=== PATIENT | male | born 1950 | race Caucasian/White ===

== ENCOUNTER 2016-07-19 12:52 | Inpatient (IN) | payer BC, MEDICAID ==
[~2016-07-19] VITALS: Ht 165.1 cm; Wt 81.8 kg
[2016-07-19 14:38] VITALS: Ht 165.1 cm; Wt 81.8 kg
[2016-07-19 14:54] VITALS: BP 136/90; PULSE 75; RESP 18
[2016-07-19] MEDS ORDERED: NACL 0.9% 3 ML SYG IV SCH (17:00)
[2016-07-19] MEDS ORDERED: ALBUTEROL/IPRATROPIUM (NEB) 3 ML AMP HHN PRN (17:00)
[2016-07-19] MEDS ORDERED: GLUCOSE GEL 15 GRAM TUBE PO PRN ×2 (17:00)
[2016-07-19] MEDS ORDERED: morphine 2 MG INJ IV PRN (17:00)
[2016-07-19] MEDS ORDERED: HYDROCODONE/APAP (5/325) TAB PO PRN (17:00)
[2016-07-19] MEDS ORDERED: ACETAMINOPHEN 325 MG TAB PO PRN (17:00)
[2016-07-19] MEDS ORDERED: DEXTROSE 50% 50 ML SYRINGE IV PRN ×2 (17:00)
[2016-07-19] MEDS ORDERED: ONDANSETRON 4 MG INJ IV PRN (17:00)
[2016-07-19] MEDS ORDERED: GLUCAGON 1 MG INJ IM PRN (17:00)
[2016-07-19] MEDS ORDERED: GLUCOSE GEL 15 GRAM TUBE BUCCAL PRN (17:00)
[2016-07-19] MEDS: INSULIN ASPART [NOVOLOG] 3 ML PEN SC SCH ×2 (17:53→20:45)
[2016-07-19] MEDS: DEXTROSE 5%-0.45% NACL 1,000 ML IV SCH (17:56)
[2016-07-19] MEDS ORDERED: ARTIFICIAL TEARS 15 ML OPH BOTH EYES PRN (18:00)
--- NOTE | 2016-07-19 18:01 | HP ---
DATE OF ADMISSION: 07/19/2016 CHIEF COMPLAINT: Left leg pain. HISTORY OF PRESENT ILLNESS: The patient is a 65-year-old male with history of stroke with seizure d isorder, atrial fibrillation, alcoholic cirrhosis, dysphagia status post PEG tube placement. Patien valdo resides in a group home facility. He was followed by Dr. López Jorge. The patient reportedl y fell at the group home facility and developed left leg pain. He had an x-ray of his left hip that showed displaced intertrochanteric fracture of the left proximal femur with avulsion of the le sser trochanter then had an x-ray of the left femur, which showed a reidentification of the previous ly noted intertrochanteric fracture. This patient does complain of pain in the left leg close to th e knee. He is a somewhat poor historian and history is obtained by documentation. PAST MEDICAL HISTORY: As per HPI. PAST SURGICAL HISTORY: Surgery of the liver, unclear what type. Left knee surgery. HOME MEDICATIONS: 1. Albuterol. 2. Artificial tear drops. 3. Vitamin C. 4. Benadryl. 5. Colace. 6. Eliquis. 7. Pepcid. 8. Iron. 9. Folic acid. 10. Keppra. 11. Lipitor. 12. Lopressor. 13. Insulin. 14. Paxil. 15. Thorazine. 16. Tylenol. ALLERGIES: No known drug allergies. FAMILY HISTORY: Mother had cancer. Brother has alcohol abuse and diabetes in the family. SOCIAL HISTORY: The patient used to drink pretty heavily and had developed cirrhosis of liver. The patient lives in a SNF. Unknown if he ever smoked or did drugs. REVIEW OF SYSTEMS: A 12-point review of systems unable to be obtained secondary to patient's poor m entation. His main complaint is left leg pain. PHYSICAL EXAMINATION: VITAL SIGNS: Temperature is 97.5, pulse 75, respiration is 18, BP is 136/90, saturation 92% on room air. GENERAL: Poor mentation in no acute distress. HEENT: Normocephalic, atraumatic. LUNGS: Clear to auscultation. CARDIOVASCULAR: Regular rate and rhythm. ABDOMEN: Surgical scars appreciated. Nondistended, nontender, soft. EXTREMITIES: No clubbing, cyanosis, or edema. MUSCULOSKELETAL: Tenderness to palpation in the left leg. LABORATORIES: Unavailable at this time. DIAGNOSTICS: Left femur x-ray shows an intertrochanteric fracture on the left side. X-ray of the l eft hip shows a displaced intertrochanteric fracture of the left proximal femur, consistent fracture . ASSESSMENT AND PLAN: 1. Left femur fracture. We will consult orthopedics, Dr. Obregon who will get 2D echo for preop clearance also get cardiology for preoperative clearance. Will give morphine and Tylenol for pain c ontrol. 2. Fall. Likely secondary comorbidities from stroke as well as seizures. No reported seizures pr ior to the onset of fall. We will follow up on 2D echo. 3. History of stroke with seizure disorder. Continue home Keppra. 4. Liver cirrhosis secondary to alcohol abuse. 5. Diabetes type 2. We will treat with sliding scale. 6. History of atrial fibrillation. We will continue home on anticoagulants. 7. Prophylaxis. Heparin. Dictated By: PREETI OLMOS MD BS/JEFFREY Conf#: [id number] DID#: [id number]
[2016-07-19 19:42] VITALS: BP 163/87; RESP 20
[2016-07-19 20:19] VITALS: BP 144/92
--- NOTE | 2016-07-19 20:19 | RADRPT ---
PROCEDURE: XR left Hip. CLINICAL INDICATION: Left hip pain. Fracture TECHNIQUE: AP and frog lateral views of the left hip were performed. COMPARISON: None. FINDINGS: Jagged abnormal fracture lucencies coursing obliquely through the intertrochanteric region are prese nt. Additional fracture through the base of the lesser trochanter is seen and there is mild varus di straction of the major fracture fragments without significant displacement. The femoral head is norm al in contour and the joint space preserved. The soft tissues are unremarkable. . RPTAT:HJJR IMPRESSION: Acute, closed, comminuted extracapsular intertrochanteric fracture of the proximal LEFT femur with m ild varus distraction of the major fracture fragments. Physician Rick Date Time Electronically viewed and signed by Physician Rick on 07/19/2016 20:19 JR/
[2016-07-19] MEDS: FAMOTIDINE 20 MG TAB GTB SCH (20:38)
[2016-07-19] MEDS: CHLORPROMAZINE 25 MG TAB GTB SCH (20:38)
[2016-07-19] MEDS: LEVETIRACETAM (100 MG/ML) 5ML CUP GTB SCH (20:38)
[2016-07-19] MEDS: ATORVASTATIN 10 MG TAB GTB SCH (20:39)
[2016-07-19] MEDS: METOPROLOL 25 MG TAB GTB SCH (20:39)
[2016-07-19] MEDS: SIROLIMUS 1 MG TAB GTB SCH (20:39)
[2016-07-19] MEDS: INSULIN GLARGINE [LANtus] 3 ML PEN SC SCH (20:41)
[2016-07-19] MEDS: DOCUSATE SODIUM 10 MG/ML (10ML CUP) GTB SCH (20:46)
[2016-07-19] MEDS: APIXABAN 5 MG TABLET GTB SCH (21:00)
[2016-07-19] MEDS ORDERED: HEPARIN 5,000 UNIT/0.5 ML VIAL SC SCH (21:00)
[2016-07-20] MEDS: INSULIN ASPART [NOVOLOG] 3 ML PEN SC SCH ×4 (00:54→17:53)
[2016-07-20] MEDS ORDERED: traMADol 50 MG TAB GTB PRN (01:00)
[2016-07-20] MEDS ORDERED: ACCU-CHEK XX SCH (02:00)
--- NOTE | 2016-07-20 02:50 | CONS ---
DATE OF ADMISSION: 07/19/2016 DATE OF CONSULTATION: ORTHOPEDIC CONSULTATION CHIEF COMPLAINT: Left hip pain. HISTORY OF PRESENT ILLNESS: The patient is a 65-year-old male who sustained a fall injuring the lef t hip. He is unable to ambulate. PHYSICAL EXAMINATION: On presentation, the skin is intact. Compartments are soft. The respiratory status is intact. X-ray report from [facility] is indicative of an intratrochanteric fracture. X-ray films are not available at this time. RECOMMENDATIONS: I recommend that current x-rays be taken for documentation of the fracture and det ermination of treatment. At this point in time, the plan is for the patient to have medical and car diac clearance and we will plan on surgery for left hip nailing when medically cleared. Dictated By: DEVEN BENNETT/JEFFREY Conf#: [id number] DID#: [id number]
[2016-07-20] MEDS: DEXTROSE 5%-0.45% NACL 1,000 ML IV SCH ×2 (05:24→17:49)
[2016-07-20 06:02] LABS: ADD SCAN DIFF NO
[2016-07-20 06:23] LABS: BASOPHILS % 0.2 % (0.0-2.0); EOSINOPHILS # 0.3 10^3/ul (0.0-0.5); EOSINOPHILS % 3.4 % (0.0-7.0); HEMATOCRIT 31.9 % (42.0-52.0); HEMOGLOBIN 10.2 g/dl (14.0-18.0); LYMPHOCYTES # 1.1 10^3/ul (0.8-2.9); LYMPHOCYTES % 13.3 % (15.0-51.0); MEAN CORPUSCULAR HEMOGLOBIN 30.1 pg (29.0-33.0); MEAN CORPUSCULAR VOLUME 94.1 fl (82.0-101.0); MEAN PLATELET VOLUME 10.5 fl (7.4-10.4); MONOCYTE # 0.6 10^3/ul (0.3-0.9); MONOCYTES % 7.6 % (0.0-11.0); NEUTROPHIL # 6.2 10^3/ul (1.6-7.5); PLATELET COUNT 131 10^3/UL (140-415); RED BLOOD COUNT 3.39 10^6/ul (4.70-6.10); RED CELL DISTRIBUTION WIDTH 14.7 % (11.5-14.5); WHITE BLOOD COUNT 8.3 10^3/ul (4.8-10.8)
[2016-07-20 06:29] LABS: POTASSIUM 4.1 mmol/L (3.5-5.1)
[2016-07-20 06:31] LABS: CREATININE 1.01 mg/dl (0.61-1.24)
[2016-07-20 06:32] LABS: CALCIUM 8.3 mg/dl (8.4-10.2); PHOSPHORUS 2.4 mg/dl (2.5-4.9)
[2016-07-20 06:33] LABS: MAGNESIUM 1.9 mg/dl (1.7-2.5)
[2016-07-20 08:19] VITALS: BP 141/70; RESP 18
[2016-07-20] MEDS: LEVETIRACETAM (100 MG/ML) 5ML CUP GTB SCH ×2 (09:00→20:11)
[2016-07-20] MEDS: FAMOTIDINE 20 MG TAB GTB SCH ×2 (09:00→20:11)
[2016-07-20] MEDS: SIROLIMUS 1 MG TAB GTB SCH ×2 (09:00→20:11)
[2016-07-20] MEDS: PAROXETINE 20 MG TAB GTB SCH (09:00)
[2016-07-20] MEDS: METOPROLOL 25 MG TAB GTB SCH ×2 (09:00→20:11)
[2016-07-20] MEDS: DOCUSATE SODIUM 10 MG/ML (10ML CUP) GTB SCH ×2 (09:00→20:11)
[2016-07-20] MEDS: APIXABAN 5 MG TABLET GTB SCH ×2 (09:00→20:22)
[2016-07-20] MEDS: BENAZEPRIL 10 MG TAB PO SCH (14:30)
--- NOTE | 2016-07-20 14:54 | CONS ---
DATE OF ADMISSION: 07/19/2016 DATE OF CONSULTATION: 07/20/2016 REASON FOR CONSULTATION: Preoperative evaluation. REQUESTING PHYSICIAN: Dr. Kanchan Cerrato from the hospitalist service. HISTORY OF PRESENT ILLNESS: Mr. Pradhan is a 65-year-old male with a history of prior stroke, seizure disorder, atrial fibrillation, cirrhosis, dysphagia, status post PEG, status post left knee surgery who presented from a shelter facility status post fall x2. Per patient, he slipped and fell. The patient subsequently had left hip pain and was brought here to the emergency department. Upon arrival, temperature 97.5, blood pressure 136/90, pulse 75, respiratory rate 18, saturating 92%. The patient's labs revealed a white cell count of 8.3, hemoglobin 10.2, platelet count 131. Sodium 138, potassium 4.1, creatinine of 1.0, BUN 25. Magnesium 1.9. The patient underwent a hip x-ray revealing acute closed comminuted extracapsular intratrochanteric fracture of the proximal left femur with mild varus distraction of the major fracture elements. The patient does not have electronic current chart for my review at this time. The patient has been admitted to the floor and since admitted to the floor, denies chest pain, shortness of breath. He has had some uncontrolled blood pressures as high as the 160s, most recently 140 systolic. PAST MEDICAL HISTORY: As above in HPI. MEDICATIONS CURRENTLY IN HOSPITAL: 1. Paxil 20 mg daily. 2. Insulin sliding scale. 3. Ultram p.r.n. 4. Keppra 750 mg p.o. b.i.d. 5. Metoprolol 12.5 mg p.o. b.i.d. 6. Pepcid 20 mg p.o. b.i.d. 7. Sirolimus 3 mg b.i.d. 8. Apixaban 5 mg b.i.d. 9. Thorazine. 10. Lipitor 10 mg at bedtime. 11. Colace 100 mg b.i.d. 12. Lantus. 13. Tylenol p.r.n. 14. [place] p.r.n. 15. IV fluid hydration at 80 mL an hour. ALLERGIES: MORPHINE. SOCIAL HISTORY: No tobacco, ETOH, or illicit drug use. FAMILY HISTORY: No history of sudden cardiac or early CAD. REVIEW OF SYSTEMS: As above in HPI. CONSTITUTIONAL: No fevers, chills. PULMONARY: No current signs of respiratory compromise. GASTROINTESTINAL: Dysphagia status post G-tube. GENITOURINARY: No hematuria. MUSCULOSKELETAL: Degenerative joint disease. PSYCHIATRIC: The patient denies depression. NEUROLOGIC: No documented history of CVA. ENDOCRINE: No documented history of thyroid disease. Positive diabetes mellitus. PHYSICAL EXAMINATION: VITAL SIGNS: Temperature 98, blood pressure 141/70, pulse 82, respiration 18, saturating 98%. GENERAL: The patient is alert, awake, complaining of left hip pain. NECK: JVP approximately 9 cm water. CHEST: Fair air movement throughout. HEART: Regular rate and rhythm. Normal S1, S2, I/ systolic murmur, nondisplaced PMI. ABDOMEN: Positive bowel sounds, soft. EXTREMITIES: No pitting edema, 1+ pulses bilaterally, posterior tibial. LABORATORIES: As above in HPI with most recent from today sodium 138, potassium 4.1, creatinine 0.10, BUN 25. White blood cell count 8.3, platelet count 131. IMAGING STUDIES: As above in HPI. No further imaging studies for my review at this time. ECG: No electrocardiograms for my review at this time. IMPRESSION: 1. Preoperative evaluation prior to surgery for femur fracture. 2. Status post fall. Rule out cardiac etiology. Rule out cardiac arrhythmia. 3. History of paroxysmal atrial fibrillation. 4. Hypertension, uncontrolled. 5. Diabetes mellitus. 6. Femur fracture, left lower extremity. 7. Possible seizure disorder by medications. 8. Dyslipidemia. RECOMMENDATIONS: 1. At this time, would check a baseline EKG now to assess for any significant abnormalities and a repeat EKG after completion of rule out. 2. Check troponins q. 6 x3 to make sure that the patient's fall was not due to any acute coronary syndrome versus acute myocardial infarction in a preoperative state. 3. We will continue the patient's beta bari and follow up blood pressure and heart rate after receiving with probable need for up titration. 4. Check a 2D echocardiogram to further assess the patient's ejection fraction , wall motion, and any major valve abnormalities in the preoperative state. 5. Additionally check a fasting lipid panel for general risk stratification. 6. Hold the patient's apixaban in anticipation for the patient's surgery. 7. Pain control. 8. Further recommendations pertaining to the surgical candidacy of this patient will be made after completion of above studies including EKG assessment , 2D echo to assess ejection fraction, wall motion, rule any major valve abnormalities, and troponin analysis. Thank you for allowing me to take part in the care of this patient. I will continue to follow along very closely with you. Further recommendations will be made as the patient progresses through his inpatient hospital clinical course. Dictated By: SHIMA CHAN/JEFFREY Conf#: [id number] DID#: [id number] CC: KANCHAN CERRATO MD;*End* MTDD
--- NOTE | 2016-07-20 16:20 | PN ---
Date/Time of Note Date/Time of Note DATE: 07/20/16 TIME: 16:17 Assessment/Plan VTE Prophylaxis VTE Prophylaxis Intervention: heparin Lines/Catheters IV Catheter Type (from Nrs): Peripheral IV Assessment/Plan Chief Complaint/Hosp Course 1. Left femur fracture -plan is for surgery today -pain control -cardiology for preoperative clearance 2. Fall 2/2 comorbidities from stroke as well as seizures. No reported seizures prior to the onset of fall -Follow up on 2D echo 3. History of stroke with seizure disorder - Continue home Keppra. 4. Liver cirrhosis secondary to alcohol abuse s/p Transplant -cont transplant Rx 5. Diabetes type 2 -NISS 6. History of atrial fibrillation -continue home Eliquis Prophylaxis-Heparin Problems: Subjective 24 Hr Interval Summary Musculoskeletal: bone/joint pain Exam/Review of Systems Vital Signs Vitals Vital Signs Date Time Temp Pulse Resp B/P Pulse Ox O2 Delivery O2 Flow Rate FiO2 07/20/16 08:19 98.0 83 18 141/70 98 07/19/16 14:54 Room Air Intake and Output 07/19/16 07/19/16 07/20/16 15:00 23:00 07:00 Intake Total 1000 ml Output Total 1000 ml Balance 0 ml Exam Constitutional: alert Respiratory: clear to auscultation Cardiovascular: regular rate and rhythm Gastrointestinal: soft, No distended Musculoskeletal: nl extremities to inspection Results Result Diagram: 07/20/16 0500 07/20/16 0500 Results 24 hrs Laboratory Tests Test 07/19/16 17:18 07/19/16 20:36 07/20/16 00:49 07/20/16 05:00 Bedside Glucose 162 217 257 H White Blood Count 8.3 Red Blood Count 3.39 L Hemoglobin 10.2 L Hematocrit 31.9 L Mean Corpuscular Volume 94.1 Mean Corpuscular Hemoglobin 30.1 Mean Corpuscular Hemoglobin Concent 32.0 Red Cell Distribution Width 14.7 H Platelet Count 131 L Mean Platelet Volume 10.5 H Neutrophils % 75.0 Lymphocytes % 13.3 L Monocytes % 7.6 Eosinophils % 3.4 Basophils % 0.2 Nucleated Red Blood Cells % 0.0 Neutrophils # 6.2 Lymphocytes # 1.1 Monocytes # 0.6 Eosinophils # 0.3 Basophils # 0.0 Nucleated Red Blood Cells # 0.0 Sodium Level 138 Potassium Level 4.1 Chloride Level 106 Carbon Dioxide Level 22 Anion Gap 14 Blood Urea Nitrogen 25 H Creatinine 1.01 Glucose Level 252 H Hemoglobin A1c 6.4 H Calcium Level 8.3 L Phosphorus Level 2.4 L Magnesium Level 1.9 Test 07/20/16 05:26 07/20/16 11:57 Bedside Glucose 231 H 243 H Medications Medications Current Medications Ondansetron HCl (Zofran Inj) 4 mg Q6H PRN IV NAUSEA AND/OR VOMITING; Start at 17:00 Acetaminophen (Tylenol Tab) 650 mg Q6H PRN PO PAIN LEVEL 1-3 OR FEVER; Start at 17:00 Acetaminophen/ Hydrocodone Bitart 1 tab 1 tab Q6H PRN PO MODERATE PAIN LEVEL 4- 6; Start 07/19/16 at 17:00 Dextrose/Sodium Chloride (D5-1/2ns) 1,000 ml @ 80 mls/hr [id number] IV Last administered on 07/20/16 05:24; Admin Dose 80 MLS/HR; Start 07/19/16 at 17:00 Levetiracetam (Keppra Liquid) 750 mg BID GTB Last administered on 07/19/16 20: 38; Admin Dose 750 MG; Start 07/19/16 at 21:00 Famotidine (Pepcid) 20 mg BID GTB Last administered on 07/19/16 20:38; Admin Dose 20 MG; Start 07/19/16 at 21:00 Sirolimus (Rapamune) 3 mg BID GTB Last administered on 07/19/16 20:39; Admin Dose 3 MG; Start 07/19/16 at 21:00 Apixaban (Eliquis) 5 mg BID GTB ; Start 07/19/16 at 21:00 Insulin Glargine (Lantus) 20 unit DAILY@20 SC Last administered on 07/19/16 20 :41; Admin Dose 20 UNIT; Start 07/19/16 at 20:00 Eye Lubricant (Artificial Tears Oph) 2 drop Q6H PRN BOTH EYES DRY EYES; Start 07/19/16 at 18:00 Chlorpromazine (Thorazine) 25 mg QHS GTB Last administered on 07/19/16 20:38; Admin Dose 25 MG; Start 07/19/16 at 21:00 Paroxetine HCl (Paxil) 20 mg DAILY GTB ; Start 07/20/16 at 09:00 Atorvastatin Calcium (Lipitor) 10 mg HS GTB Last administered on 07/19/16 20: 39; Admin Dose 10 MG; Start 07/19/16 at 21:00 Docusate Sodium (Colace Liquid Cup) 100 mg BID GTB Last administered on 20:46; Admin Dose 100 MG; Start 07/19/16 at 21:00 Miscellaneous Information 1 ea NOTE XX ; Start 07/19/16 at 17:00 Glucose (Glutose) 15 gm Q15M PRN PO DECREASED GLUCOSE; Start 07/19/16 at 17:00 Glucose (Glutose) 22.5 gm Q15M PRN PO DECREASED GLUCOSE; Start 07/19/16 at 17: 00 Dextrose (D50w Syringe) 25 ml Q15M PRN IV DECREASED GLUCOSE; Start 07/19/16 at 17:00 Dextrose (D50w Syringe) 50 ml Q15M PRN IV DECREASED GLUCOSE; Start 07/19/16 at 17:00 Glucagon (Glucagen) 1 mg Q15M PRN IM DECREASED GLUCOSE; Start 07/19/16 at 17:00 Glucose (Glutose) 15 gm Q15M PRN BUCCAL DECREASED GLUCOSE; Start 07/19/16 at 17 :00 Insulin Aspart (Novolog Insulin Pen) NOVOLOG *MILD* ALGORI... Q6 SC Last administered on 07/20/16 12:12; Admin Dose 3 UNIT; Start 07/20/16 at 01:00 Tramadol HCl (Ultram) 50 mg Q6H PRN GTB PAIN LEVEL 1-5; Start 07/20/16 at 01:00 Tramadol HCl (Ultram) 100 mg Q6H PRN GTB PAIN LEVEL 6-10; Start 07/20/16 at 01: 00 Metoprolol Tartrate (Lopressor) 25 mg BID GTB ; Start 07/20/16 at 21:00 Benazepril HCl (Lotensin) 10 mg DAILY PO ; Start 07/20/16 at 14:30 PREETI OLMOS Jul 20, 2016 16:20
[2016-07-20 20:00] VITALS: BP 144/84; RESP 20
[2016-07-20] MEDS: ATORVASTATIN 10 MG TAB GTB SCH (20:11)
[2016-07-20] MEDS: INSULIN GLARGINE [LANtus] 3 ML PEN SC SCH (20:21)
--- NOTE | 2016-07-20 21:36 | RADRPT ---
Echocardiogram Report Patient Name: SALIMA STODDARD Gender: Male Date: 1950 Study Date: 20-Jul-2016 Tipple Operator: [facility] Location: [id number]-A Ref. Physician: PREETI OLMOS Quality: Limited Procedures: Transthoracic echocardiogram with complete 2D, M-Mode, and doppler examination. Indications: Pre-op. 2D/M Mode Doppler Measurement Value Normal Ranges Measurement Value Normal Ranges LVIDd 2D 3.7 3.5 - 5.6 cm AV Peak Otto 1.1 m/sec LVIDs 2D 2.6 2.1 - 4.1 cm AV Peak PG 4.7 mmHg LVPWd 2D 0.9 0.6 - 1.1 cm LVOT Peak Otto 0.8 m/sec IVSd 2D 1.0 0.6 - 1.1 cm LVOT Peak PG 2.6 mmHg AoR Diam 2D 2.2 2.0 - 3.7 cm TR Peak Otto 2.7 m/sec EDV 2D 59.8 cm3 TR Peak PG 29.9 mmHg ESV 2D 17.1 cm3 Findings Left Ventricle: Normal left ventricular systolic function. Normal left ventricular cavity size. Normal left ventricular wall thickness. Ejection fraction is visually estimated at 5560 %. Abnormal Diastolic Function. Right Ventricle: Mild enlargement of right ventricle. Left Atrium: There is mild enlargement of left atrium. Right Atrium: There is mild enlargement of right atrium. Mitral Valve: Mild mitral annular calcification. Trace mitral regurgitation. Aortic Valve: Normal appearance of the aortic valve. Trace aortic valve regurgitation. Tricuspid Valve: Tricuspid valve not well visualized. Estimated peak PA systolic pressure 36 mmHg. There is mild to moderate tricuspid regurgitation. Pulmonic Valve: There is trace pulmonic regurgitation. Pericardium: Normal pericardium with no significant pericardial effusion. Aorta: Normal aortic root. IVC: The IVC is not well visualized. Conclusions 1.Normal left ventricular systolic function. Normal left ventricular cavity size. Normal left ventricular wall thickness. Ejection fraction is visually estimated at 55-60 %. Abnormal Diastolic Function. 2.Mild enlargement of right ventricle. 3.There is mild enlargement of left atrium. 4.There is mild enlargement of right atrium. 5.Trace mitral regurgitation. 6.Trace aortic valve regurgitation. 7.Tricuspid valve not well visualized. Estimated peak PA systolic pressure 36 mmHg. There is mild to moderate tricuspid regurgitation. 8.There is trace pulmonic regurgitation. Electronically Signed By: Brent Moore 20-Jul-2016 21:35:37 -0700 Patient Name: SALIMA STODDARD Study Date: 20-Jul-2016 [id number]
[2016-07-20] MEDS: CHLORPROMAZINE 25 MG TAB GTB SCH (22:50)
[2016-07-21] MEDS: INSULIN ASPART [NOVOLOG] 3 ML PEN SC SCH ×4 (00:13→17:53)
[2016-07-21 05:49] LABS: ADD SCAN DIFF NO
[2016-07-21 06:06] LABS: POTASSIUM 3.7 mmol/L (3.5-5.1)
[2016-07-21 06:09] LABS: CREATININE 0.95 mg/dl (0.61-1.24)
[2016-07-21 06:10] LABS: CALCIUM 8.2 mg/dl (8.4-10.2)
[2016-07-21 06:15] LABS: BASOPHILS % 0.2 % (0.0-2.0); EOSINOPHILS # 0.1 10^3/ul (0.0-0.5); EOSINOPHILS % 0.9 % (0.0-7.0); HEMATOCRIT 30.7 % (42.0-52.0); HEMOGLOBIN 10.2 g/dl (14.0-18.0); LYMPHOCYTES # 1.1 10^3/ul (0.8-2.9); LYMPHOCYTES % 10.9 % (15.0-51.0); MEAN CORPUSCULAR HEMOGLOBIN 30.1 pg (29.0-33.0); MEAN CORPUSCULAR HGB CONC 33.2 g/dl (32.0-37.0); MEAN CORPUSCULAR VOLUME 90.6 fl (82.0-101.0); MONOCYTE # 1.1 10^3/ul (0.3-0.9); MONOCYTES % 10.9 % (0.0-11.0); NEUTROPHIL # 7.7 10^3/ul (1.6-7.5); NEUTROPHILS % 76.2 % (39.0-77.0); PLATELET COUNT 114 10^3/UL (140-415); RED BLOOD COUNT 3.39 10^6/ul (4.70-6.10); RED CELL DISTRIBUTION WIDTH 14.6 % (11.5-14.5); WHITE BLOOD COUNT 10.1 10^3/ul (4.8-10.8)
[2016-07-21] MEDS: DEXTROSE 5%-0.45% NACL 1,000 ML IV SCH ×3 (06:30→19:00)
[2016-07-21 06:50] LABS: ADD UMIC YES; URINE BILIRUBIN (Dip) NEGATIVE (NEGATIVE); URINE BLOOD (Dip) 1+ (NEGATIVE); URINE COLOR YELLOW (YELLOW); URINE GLUCOSE (Dip) NEGATIVE (NEGATIVE); URINE KETONES (Dip) NEGATIVE (NEGATIVE); URINE LEUKOCYTE ESTERASE (Dip) 2+ (NEGATIVE); URINE NITRITE (Dip) POSITIVE (NEGATIVE); URINE TOTAL PROTEIN (Dip) 4+ (NEGATIVE); URINE UROBILINOGEN (Dip) 0.2 E.U./dL (0.1-1.0)
[2016-07-21 07:01] LABS: CHOL/HDL RATIO 2.6 RATIO
[2016-07-21 07:29] LABS: BACTERIA,URINE MANY; URINE RBCS 25-50 /HPF (0)
[2016-07-21 08:20] VITALS: BP 124/68; PULSE 75; RESP 24
[2016-07-21] MEDS: PAROXETINE 20 MG TAB GTB SCH (09:00)
[2016-07-21] MEDS: DOCUSATE SODIUM 10 MG/ML (10ML CUP) GTB SCH ×2 (09:00→20:42)
[2016-07-21] MEDS: METOPROLOL 25 MG TAB GTB SCH ×2 (09:00→20:43)
[2016-07-21] MEDS: APIXABAN 5 MG TABLET GTB SCH (09:00)
[2016-07-21] MEDS: SIROLIMUS 1 MG TAB GTB SCH ×2 (09:00→20:43)
[2016-07-21] MEDS: FAMOTIDINE 20 MG TAB GTB SCH ×2 (09:00→20:43)
[2016-07-21] MEDS: LEVETIRACETAM (100 MG/ML) 5ML CUP GTB SCH ×2 (09:00→20:42)
[2016-07-21] MEDS: BENAZEPRIL 10 MG TAB PO SCH (09:00)
[2016-07-21] MEDS ORDERED: VITAMIN A & D 5 GM OINT PACKET TOP ONE (13:21)
[2016-07-21 15:39] VITALS: BP 110/72; PULSE 90; RESP 16
--- NOTE | 2016-07-21 16:31 | PN ---
Date/Time of Note Date/Time of Note DATE: 07/21/16 TIME: 16:18 Assessment/Plan VTE Prophylaxis VTE Prophylaxis Intervention: heparin Lines/Catheters IV Catheter Type (from Nrs): Peripheral IV Assessment/Plan Chief Complaint/Hosp Course 1. Left femur fracture -plan is for surgery possibly tomorrow -pain control -cardiology for preoperative clearance 2. Fall 2/2 comorbidities from stroke as well as seizures. No reported seizures prior to the onset of fall -2D echo shows no sig findings 3. History of stroke with seizure disorder - Continue home Keppra. 4. Liver cirrhosis secondary to alcohol abuse s/p Transplant -cont transplant Rx 5. Diabetes type 2 -NISS 6. History of atrial fibrillation -continue home Eliquis Prophylaxis-Heparin Problems: Subjective 24 Hr Interval Summary Musculoskeletal: bone/joint pain Exam/Review of Systems Vital Signs Vitals Vital Signs Date Time Temp Pulse Resp B/P Pulse Ox O2 Delivery O2 Flow Rate FiO2 07/21/16 15:39 97.9 90 16 110/72 96 07/21/16 08:20 Room Air Intake and Output 07/20/16 07/20/16 07/21/16 15:00 23:00 07:00 Intake Total 1080 ml 880 ml Output Total 600 ml 700 ml Balance 480 ml 180 ml Exam Constitutional: alert Respiratory: clear to auscultation Cardiovascular: regular rate and rhythm Gastrointestinal: soft, No distended Musculoskeletal: nl extremities to inspection Results Result Diagram: 07/21/16 0515 07/21/16 0515 Results 24 hrs Laboratory Tests Test 07/20/16 17:47 07/20/16 17:50 07/20/16 20:19 07/21/16 00:11 Bedside Glucose 267 H 256 H 301 H Troponin I 0.017 Test 07/21/16 00:30 07/21/16 05:00 07/21/16 05:15 07/21/16 05:36 Troponin I 0.041 0.050 Urine Color YELLOW Urine Clarity CLEAR Urine pH 8.5 Urine Specific [place] <=1.005 L Urine Ketones NEGATIVE Urine Nitrite POSITIVE H Urine Bilirubin NEGATIVE Urine Urobilinogen 0.2 E.U./dL Urine Leukocyte Esterase 2+ H Urine Microscopic RBC 25-50 Urine Microscopic WBC 25-50 Urine Bacteria MANY Urine Hemoglobin 1+ H Urine Glucose NEGATIVE Urine Total Protein 4+ H White Blood Count 10.1 # Red Blood Count 3.39 L Hemoglobin 10.2 L Hematocrit 30.7 L Mean Corpuscular Volume 90.6 Mean Corpuscular Hemoglobin 30.1 Mean Corpuscular Hemoglobin Concent 33.2 Red Cell Distribution Width 14.6 H Platelet Count 114 L Mean Platelet Volume 10.0 Neutrophils % 76.2 Lymphocytes % 10.9 L Monocytes % 10.9 Eosinophils % 0.9 Basophils % 0.2 Nucleated Red Blood Cells % 0.0 Neutrophils # 7.7 H Lymphocytes # 1.1 Monocytes # 1.1 H Eosinophils # 0.1 Basophils # 0.0 Nucleated Red Blood Cells # 0.0 Sodium Level 136 Potassium Level 3.7 Chloride Level 106 Carbon Dioxide Level 20 L Anion Gap 14 Blood Urea Nitrogen 22 H Creatinine 0.95 Glucose Level 239 H Calcium Level 8.2 L Triglycerides Level 101 Cholesterol Level 97 L LDL Cholesterol, Calculated 40 HDL Cholesterol 37 Cholesterol/HDL Ratio 2.6 Bedside Glucose 248 H Test 07/21/16 11:55 Bedside Glucose 195 Medications Medications Current Medications Ondansetron HCl (Zofran Inj) 4 mg Q6H PRN IV NAUSEA AND/OR VOMITING; Start at 17:00 Acetaminophen (Tylenol Tab) 650 mg Q6H PRN PO PAIN LEVEL 1-3 OR FEVER; Start at 17:00 Acetaminophen/ Hydrocodone Bitart 1 tab 1 tab Q6H PRN PO MODERATE PAIN LEVEL 4- 6; Start 07/19/16 at 17:00 Dextrose/Sodium Chloride (D5-1/2ns) 1,000 ml @ 80 mls/hr [id number] IV Last administered on 07/21/16 12:12; Admin Dose 80 MLS/HR; Start 07/19/16 at 17:00 Levetiracetam (Keppra Liquid) 750 mg BID GTB Last administered on 07/20/16 20: 11; Admin Dose 750 MG; Start 07/19/16 at 21:00 Famotidine (Pepcid) 20 mg BID GTB Last administered on 07/20/16 20:11; Admin Dose 20 MG; Start 07/19/16 at 21:00 Sirolimus (Rapamune) 3 mg BID GTB Last administered on 07/20/16 20:11; Admin Dose 3 MG; Start 07/19/16 at 21:00 Apixaban (Eliquis) 5 mg BID GTB ; Start 07/19/16 at 21:00 Insulin Glargine (Lantus) 20 unit DAILY@20 SC Last administered on 07/20/16 20 :21; Admin Dose 20 UNIT; Start 07/19/16 at 20:00 Eye Lubricant (Artificial Tears Oph) 2 drop Q6H PRN BOTH EYES DRY EYES; Start 07/19/16 at 18:00 Chlorpromazine (Thorazine) 25 mg QHS GTB Last administered on 07/20/16 22:50; Admin Dose 25 MG; Start 07/19/16 at 21:00 Paroxetine HCl (Paxil) 20 mg DAILY GTB ; Start 07/20/16 at 09:00 Atorvastatin Calcium (Lipitor) 10 mg HS GTB Last administered on 07/20/16 20: 11; Admin Dose 10 MG; Start 07/19/16 at 21:00 Docusate Sodium (Colace Liquid Cup) 100 mg BID GTB Last administered on 20:11; Admin Dose 100 MG; Start 07/19/16 at 21:00 Miscellaneous Information 1 ea NOTE XX ; Start 07/19/16 at 17:00 Glucose (Glutose) 15 gm Q15M PRN PO DECREASED GLUCOSE; Start 07/19/16 at 17:00 Glucose (Glutose) 22.5 gm Q15M PRN PO DECREASED GLUCOSE; Start 07/19/16 at 17: 00 Dextrose (D50w Syringe) 25 ml Q15M PRN IV DECREASED GLUCOSE; Start 07/19/16 at 17:00 Dextrose (D50w Syringe) 50 ml Q15M PRN IV DECREASED GLUCOSE; Start 07/19/16 at 17:00 Glucagon (Glucagen) 1 mg Q15M PRN IM DECREASED GLUCOSE; Start 07/19/16 at 17:00 Glucose (Glutose) 15 gm Q15M PRN BUCCAL DECREASED GLUCOSE; Start 07/19/16 at 17 :00 Insulin Aspart (Novolog Insulin Pen) NOVOLOG *MILD* ALGORI... Q6 SC Last administered on 07/21/16 12:06; Admin Dose 2 UNIT; Start 07/20/16 at 01:00 Tramadol HCl (Ultram) 50 mg Q6H PRN GTB PAIN LEVEL 1-5 Last administered on 00:11; Admin Dose 50 MG; Start 07/20/16 at 01:00 Tramadol HCl (Ultram) 100 mg Q6H PRN GTB PAIN LEVEL 6-10; Start 07/20/16 at 01: 00 Metoprolol Tartrate (Lopressor) 25 mg BID GTB Last administered on 07/20/16 20 :11; Admin Dose 25 MG; Start 07/20/16 at 21:00 Benazepril HCl (Lotensin) 10 mg DAILY PO ; Start 07/20/16 at 14:30 PREETI OLMOS Jul 21, 2016 16:28
--- NOTE | 2016-07-21 17:23 | RADRPT ---
Vent Rate: 81 bpm RR Interval: 0 msec AR Interval: 0 msec QRS Duration: 86 msec QT Interval: 364 msec QTC Interval: 422 msec P-R-T [place]: 0 - -63 - 96 degrees Atrial fibrillation Left axis deviation Possible Anterior infarct , age undetermined Abnormal ECG Electronically Signed By: Frankie Manriquez [id number]
--- NOTE | 2016-07-21 17:26 | RADRPT ---
PROCEDURE: XR Chest. CLINICAL INDICATION: Preoperative. TECHNIQUE: Single frontal view. COMPARISON: None. FINDINGS: The lungs are clear. The heart size is normal. There is calcification in the aorta consistent with atherosclerosis. There is no pleural effusion. There is no pneumothorax. IMPRESSION: 1. Atherosclerosis. 2. Clear lungs. RPTAT: QQ .Dave Garibay MD, MD Date Time Electronically viewed and signed by .Dave Garibay MD, MD on 07/21/2016 17:25 .R/
--- NOTE | 2016-07-21 17:27 | RADRPT ---
Vent Rate: 81 bpm RR Interval: 0 msec [place] Interval: 0 msec QRS Duration: 88 msec QT Interval: 338 msec QTC Interval: 392 msec P-R-T [place]: 0 - -43 - 103 degrees Atrial fibrillation Left axis deviation Nonspecific T wave abnormality , probably digitalis effect Abnormal ECG Electronically Signed By: Frankie Manriquez [id number]
--- NOTE | 2016-07-21 19:26 | CONS ---
Date/Time of Note Date/Time of Note DATE: 07/21/16 TIME: 19:19 Assessment/Plan Assessment/Plan Chief Complaint/Hosp Course IMPRESSION: 1. Preoperative evaluation prior to surgery for femur fracture.-negative troponin x 3/NL EF by echo with no contraindicated valve lesions. OK to proceed to surgery at this time at moderate risk without further noninvasive evaluation 2. Status post fall. Rule out cardiac etiology. Rule out cardiac arrhythmia. 3. History of paroxysmal atrial fibrillation.-In rate controlled AF by serial ecg's 4. Hypertension, uncontrolled. 5. Diabetes mellitus. 6. Femur fracture, left lower extremity. 7. Possible seizure disorder by medications. 8. Dyslipidemia. Recc: -Continue BB/ACEI -Contin statin -Pain control -Check post-op ecg and watch carefully for s/sx of cv complications -Holf eliquis in anticipation of surgery Problems: Consultation Date/Type/Reason Admit Date/Time Jul 19, 2016 at 13:38 Initial Consult Date 07/20/2016 Type of Consultation: Cardiology Reason for Consultation Pre-op Referring Provider: PREETI OLMOS Exam/Review of Systems Vital Signs Vitals Vital Signs Date Time Temp Pulse Resp B/P Pulse Ox O2 Delivery O2 Flow Rate FiO2 07/21/16 15:39 97.9 90 16 110/72 96 07/21/16 08:20 Room Air Intake and Output 07/20/16 07/20/16 07/21/16 15:00 23:00 07:00 Intake Total 1080 ml 880 ml Output Total 600 ml 700 ml Balance 480 ml 180 ml Exam Review of Systems: CONSTITUTIONAL: No fevers, chills. PULMONARY: No sob CARDIOVASCULAR: No chest pain/palpitations GASTROINTESTINAL: No nausea/vomiting. GENITOURINARY: No hematuria/dysuria. MUSCULOSKELETAL: No myagias/arthalgias. PSYCHIATRIC: The patient denies depression. NEUROLOGIC: lethargic Constitutional: other (sleeping) Psych: no complaints Head: normocephalic ENMT: mucosa pink and moist Neck: jvd (8 cm water), supple Respiratory: clear to auscultation Cardiovascular: irregular rhythm Gastrointestinal: non-tender, soft Musculoskeletal: muscle tone (normal) Extremities: edema (none) Neurological: other (No focal deficits) Results Result Diagram: 07/21/16 0515 07/21/16 0515 Results 24 hrs Laboratory Tests Test 07/20/16 20:19 07/21/16 00:11 07/21/16 00:30 07/21/16 05:00 Bedside Glucose 256 H 301 H Troponin I 0.041 Urine Color YELLOW Urine Clarity CLEAR Urine pH 8.5 Urine Specific [place] <=1.005 L Urine Ketones NEGATIVE Urine Nitrite POSITIVE H Urine Bilirubin NEGATIVE Urine Urobilinogen 0.2 E.U./dL Urine Leukocyte Esterase 2+ H Urine Microscopic RBC 25-50 Urine Microscopic WBC 25-50 Urine Bacteria MANY Urine Hemoglobin 1+ H Urine Glucose NEGATIVE Urine Total Protein 4+ H Test 07/21/16 05:15 07/21/16 05:36 07/21/16 11:55 07/21/16 17:40 White Blood Count 10.1 # Red Blood Count 3.39 L Hemoglobin 10.2 L Hematocrit 30.7 L Mean Corpuscular Volume 90.6 Mean Corpuscular Hemoglobin 30.1 Mean Corpuscular Hemoglobin Concent 33.2 Red Cell Distribution Width 14.6 H Platelet Count 114 L Mean Platelet Volume 10.0 Neutrophils % 76.2 Lymphocytes % 10.9 L Monocytes % 10.9 Eosinophils % 0.9 Basophils % 0.2 Nucleated Red Blood Cells % 0.0 Neutrophils # 7.7 H Lymphocytes # 1.1 Monocytes # 1.1 H Eosinophils # 0.1 Basophils # 0.0 Nucleated Red Blood Cells # 0.0 Sodium Level 136 Potassium Level 3.7 Chloride Level 106 Carbon Dioxide Level 20 L Anion Gap 14 Blood Urea Nitrogen 22 H Creatinine 0.95 Glucose Level 239 H Calcium Level 8.2 L Troponin I 0.050 Triglycerides Level 101 Cholesterol Level 97 L LDL Cholesterol, Calculated 40 HDL Cholesterol 37 Cholesterol/HDL Ratio 2.6 Bedside Glucose 248 H 195 239 H Medications Medications Current Medications Ondansetron HCl (Zofran Inj) 4 mg Q6H PRN IV NAUSEA AND/OR VOMITING; Start at 17:00 Acetaminophen (Tylenol Tab) 650 mg Q6H PRN PO PAIN LEVEL 1-3 OR FEVER; Start at 17:00 Acetaminophen/ Hydrocodone Bitart 1 tab 1 tab Q6H PRN PO MODERATE PAIN LEVEL 4- 6; Start 07/19/16 at 17:00 Dextrose/Sodium Chloride (D5-1/2ns) 1,000 ml @ 80 mls/hr [id number] IV Last administered on 07/21/16 12:12; Admin Dose 80 MLS/HR; Start 07/19/16 at 17:00 Levetiracetam (Keppra Liquid) 750 mg BID GTB Last administered on 07/20/16 20: 11; Admin Dose 750 MG; Start 07/19/16 at 21:00 Famotidine (Pepcid) 20 mg BID GTB Last administered on 07/20/16 20:11; Admin Dose 20 MG; Start 07/19/16 at 21:00 Sirolimus (Rapamune) 3 mg BID GTB Last administered on 07/20/16 20:11; Admin Dose 3 MG; Start 07/19/16 at 21:00 Apixaban (Eliquis) 5 mg BID GTB ; Start 07/19/16 at 21:00 Insulin Glargine (Lantus) 20 unit DAILY@20 SC Last administered on 07/20/16 20 :21; Admin Dose 20 UNIT; Start 07/19/16 at 20:00 Eye Lubricant (Artificial Tears Oph) 2 drop Q6H PRN BOTH EYES DRY EYES; Start 07/19/16 at 18:00 Chlorpromazine (Thorazine) 25 mg QHS GTB Last administered on 07/20/16 22:50; Admin Dose 25 MG; Start 07/19/16 at 21:00 Paroxetine HCl (Paxil) 20 mg DAILY GTB ; Start 07/20/16 at 09:00 Atorvastatin Calcium (Lipitor) 10 mg HS GTB Last administered on 07/20/16 20: 11; Admin Dose 10 MG; Start 07/19/16 at 21:00 Docusate Sodium (Colace Liquid Cup) 100 mg BID GTB Last administered on 20:11; Admin Dose 100 MG; Start 07/19/16 at 21:00 Miscellaneous Information 1 ea NOTE XX ; Start 07/19/16 at 17:00 Glucose (Glutose) 15 gm Q15M PRN PO DECREASED GLUCOSE; Start 07/19/16 at 17:00 Glucose (Glutose) 22.5 gm Q15M PRN PO DECREASED GLUCOSE; Start 07/19/16 at 17: 00 Dextrose (D50w Syringe) 25 ml Q15M PRN IV DECREASED GLUCOSE; Start 07/19/16 at 17:00 Dextrose (D50w Syringe) 50 ml Q15M PRN IV DECREASED GLUCOSE; Start 07/19/16 at 17:00 Glucagon (Glucagen) 1 mg Q15M PRN IM DECREASED GLUCOSE; Start 07/19/16 at 17:00 Glucose (Glutose) 15 gm Q15M PRN BUCCAL DECREASED GLUCOSE; Start 07/19/16 at 17 :00 Insulin Aspart (Novolog Insulin Pen) NOVOLOG *MILD* ALGORI... Q6 SC Last administered on 07/21/16 17:53; Admin Dose 3 UNIT; Start 07/20/16 at 01:00 Tramadol HCl (Ultram) 50 mg Q6H PRN GTB PAIN LEVEL 1-5 Last administered on 00:11; Admin Dose 50 MG; Start 07/20/16 at 01:00 Tramadol HCl (Ultram) 100 mg Q6H PRN GTB PAIN LEVEL 6-10; Start 07/20/16 at 01: 00 Metoprolol Tartrate (Lopressor) 25 mg BID GTB Last administered on 07/20/16 20 :11; Admin Dose 25 MG; Start 07/20/16 at 21:00 Benazepril HCl (Lotensin) 10 mg DAILY PO ; Start 07/20/16 at 14:30 SHIMA DIXON Jul 21, 2016 19:26
[2016-07-21 19:33] VITALS: BP 134/80; RESP 20
[2016-07-21] MEDS: INSULIN GLARGINE [LANtus] 3 ML PEN SC SCH (20:25)
[2016-07-21] MEDS: ATORVASTATIN 10 MG TAB GTB SCH (20:42)
[2016-07-21] MEDS: CHLORPROMAZINE 25 MG TAB GTB SCH (20:43)
[2016-07-22] VITALS (16 sets, daily range): BP systolic 107–166; BP diastolic 65–95; PULSE 72–85; RESP 13–22
[2016-07-22] MEDS: INSULIN ASPART [NOVOLOG] 3 ML PEN SC SCH ×4 (00:13→18:03)
[2016-07-22] MEDS: DEXTROSE 5%-0.45% NACL 1,000 ML IV SCH ×3 (02:21→23:27)
[2016-07-22 05:20] LABS: ADD SCAN DIFF NO
[2016-07-22 05:29] LABS: BASOPHILS % 0.1 % (0.0-2.0); EOSINOPHILS # 0.2 10^3/ul (0.0-0.5); EOSINOPHILS % 2.3 % (0.0-7.0); HEMATOCRIT 26.4 % (42.0-52.0); HEMOGLOBIN 8.6 g/dl (14.0-18.0); LYMPHOCYTES # 1.1 10^3/ul (0.8-2.9); LYMPHOCYTES % 13.8 % (15.0-51.0); MEAN CORPUSCULAR HEMOGLOBIN 29.9 pg (29.0-33.0); MEAN CORPUSCULAR HGB CONC 32.6 g/dl (32.0-37.0); MEAN CORPUSCULAR VOLUME 91.7 fl (82.0-101.0); MEAN PLATELET VOLUME 10.3 fl (7.4-10.4); MONOCYTE # 0.9 10^3/ul (0.3-0.9); MONOCYTES % 11.1 % (0.0-11.0); NEUTROPHIL # 5.9 10^3/ul (1.6-7.5); NEUTROPHILS % 72.2 % (39.0-77.0); PLATELET COUNT 112 10^3/UL (140-415); RED BLOOD COUNT 2.88 10^6/ul (4.70-6.10); RED CELL DISTRIBUTION WIDTH 14.7 % (11.5-14.5); WHITE BLOOD COUNT 8.2 10^3/ul (4.8-10.8)
[2016-07-22 06:02] LABS: POTASSIUM 3.8 mmol/L (3.5-5.1)
[2016-07-22 06:06] LABS: CALCIUM 7.9 mg/dl (8.4-10.2)
[2016-07-22] MEDS: METOPROLOL 25 MG TAB GTB SCH ×2 (08:36→22:32)
[2016-07-22] MEDS: BENAZEPRIL 10 MG TAB PO SCH (08:38)
[2016-07-22] MEDS: SIROLIMUS 1 MG TAB GTB SCH ×2 (08:39→22:33)
[2016-07-22] MEDS: PAROXETINE 20 MG TAB GTB SCH (08:39)
[2016-07-22] MEDS: DOCUSATE SODIUM 10 MG/ML (10ML CUP) GTB SCH ×2 (08:39→22:30)
[2016-07-22] MEDS: FAMOTIDINE 20 MG TAB GTB SCH ×2 (08:40→22:32)
[2016-07-22] MEDS: LEVETIRACETAM (100 MG/ML) 5ML CUP GTB SCH ×2 (08:44→22:31)
--- NOTE | 2016-07-22 12:59 | HPN ---
Date/Time of Note Date/Time of Note DATE: 07/22/16 TIME: 12:59 Interval H&P Admission Note Pt. seen H&P reviewed: No system changes DEVEN MARK MD Jul 22, 2016 12:59
--- NOTE | 2016-07-22 14:44 | CONS ---
Date/Time of Note Date/Time of Note DATE: 07/22/16 TIME: 14:43 Assessment/Plan Assessment/Plan Chief Complaint/Hosp Course IMPRESSION: 1. Preoperative evaluation prior to surgery for femur fracture.-negative troponin x 3/NL EF by echo with no contraindicated valve lesions. OK to proceed to surgery at this time at moderate risk without further noninvasive evaluation 2. Status post fall. Rule out cardiac etiology. Rule out cardiac arrhythmia. 3. History of paroxysmal atrial fibrillation.-In rate controlled AF by serial ecg's 4. Hypertension, uncontrolled. 5. Diabetes mellitus. 6. Femur fracture, left lower extremity. 7. Possible seizure disorder by medications. 8. Dyslipidemia. Recc: -Continue BB/ACEI -Contin statin -Pain control -Check post-op ecg and watch carefully for s/sx of cv complications -Holding eliquis in anticipation of surgery -pnding surgery ? today Problems: Consultation Date/Type/Reason Admit Date/Time Jul 19, 2016 at 13:38 Initial Consult Date 07/20/2016 Type of Consultation: Cardiology Reason for Consultation Pre-op Referring Provider: PREETI OLMOS Exam/Review of Systems Vital Signs Vitals Vital Signs Date Time Temp Pulse Resp B/P Pulse Ox O2 Delivery O2 Flow Rate FiO2 07/22/16 08:01 99.5 85 22 107/65 98 07/22/16 07:45 Room Air Intake and Output 07/21/16 07/21/16 07/22/16 15:00 23:00 07:00 Intake Total 1000 ml 560 ml 840 ml Output Total 350 ml 400 ml Balance 1000 ml 210 ml 440 ml Exam Review of Systems: CONSTITUTIONAL: No fevers, chills. PULMONARY: No sob CARDIOVASCULAR: No chest pain/palpitations GASTROINTESTINAL: No nausea/vomiting. GENITOURINARY: No hematuria/dysuria. MUSCULOSKELETAL: Pain in leg PSYCHIATRIC: The patient denies depression. NEUROLOGIC: lethargic Constitutional: alert Psych: no complaints Head: normocephalic ENMT: mucosa pink and moist Neck: jvd (8 cm water), supple Respiratory: clear to auscultation Cardiovascular: regular rate and rhythm Gastrointestinal: non-tender, soft Extremities: edema (none) Neurological: lethargic Results Result Diagram: 07/22/16 0450 07/22/16 0450 Results 24 hrs Laboratory Tests Test 07/21/16 17:40 07/21/16 20:21 07/22/16 00:04 07/22/16 04:50 Bedside Glucose 239 H 232 H 261 H White Blood Count 8.2 Red Blood Count 2.88 L Hemoglobin 8.6 L Hematocrit 26.4 L Mean Corpuscular Volume 91.7 Mean Corpuscular Hemoglobin 29.9 Mean Corpuscular Hemoglobin Concent 32.6 Red Cell Distribution Width 14.7 H Platelet Count 112 L Mean Platelet Volume 10.3 Neutrophils % 72.2 Lymphocytes % 13.8 L Monocytes % 11.1 H Eosinophils % 2.3 Basophils % 0.1 Nucleated Red Blood Cells % 0.0 Neutrophils # 5.9 Lymphocytes # 1.1 Monocytes # 0.9 Eosinophils # 0.2 Basophils # 0.0 Nucleated Red Blood Cells # 0.0 Sodium Level 133 L Potassium Level 3.8 Chloride Level 105 Carbon Dioxide Level 20 L Anion Gap 12 Blood Urea Nitrogen 26 H Creatinine 1.00 Glucose Level 275 H Calcium Level 7.9 L Test 07/22/16 06:02 07/22/16 12:30 Bedside Glucose 295 H 271 H Medications Medications Current Medications Ondansetron HCl (Zofran Inj) 4 mg Q6H PRN IV NAUSEA AND/OR VOMITING; Start at 17:00 Acetaminophen (Tylenol Tab) 650 mg Q6H PRN PO PAIN LEVEL 1-3 OR FEVER; Start at 17:00 Acetaminophen/ Hydrocodone Bitart 1 tab 1 tab Q6H PRN PO MODERATE PAIN LEVEL 4- 6; Start 07/19/16 at 17:00 Dextrose/Sodium Chloride (D5-1/2ns) 1,000 ml @ 80 mls/hr [id number] IV Last administered on 07/22/16 02:21; Admin Dose 80 MLS/HR; Start 07/19/16 at 17:00 Levetiracetam (Keppra Liquid) 750 mg BID GTB Last administered on 07/22/16 08: 44; Admin Dose 750 MG; Start 07/19/16 at 21:00 Famotidine (Pepcid) 20 mg BID GTB Last administered on 07/22/16 08:40; Admin Dose 20 MG; Start 07/19/16 at 21:00 Sirolimus (Rapamune) 3 mg BID GTB Last administered on 07/22/16 08:39; Admin Dose 3 MG; Start 07/19/16 at 21:00 Apixaban (Eliquis) 5 mg BID GTB ; Start 07/19/16 at 21:00; Status Future Hold Eye Lubricant (Artificial Tears Oph) 2 drop Q6H PRN BOTH EYES DRY EYES; Start 07/19/16 at 18:00 Chlorpromazine (Thorazine) 25 mg QHS GTB Last administered on 07/21/16 20:43; Admin Dose 25 MG; Start 07/19/16 at 21:00 Paroxetine HCl (Paxil) 20 mg DAILY GTB Last administered on 07/22/16 08:39; Admin Dose 20 MG; Start 07/20/16 at 09:00 Atorvastatin Calcium (Lipitor) 10 mg HS GTB Last administered on 07/21/16 20: 42; Admin Dose 10 MG; Start 07/19/16 at 21:00 Docusate Sodium (Colace Liquid Cup) 100 mg BID GTB Last administered on 08:39; Admin Dose 100 MG; Start 07/19/16 at 21:00 Miscellaneous Information 1 ea NOTE XX ; Start 07/19/16 at 17:00 Glucose (Glutose) 15 gm Q15M PRN PO DECREASED GLUCOSE; Start 07/19/16 at 17:00 Glucose (Glutose) 22.5 gm Q15M PRN PO DECREASED GLUCOSE; Start 07/19/16 at 17: 00 Dextrose (D50w Syringe) 25 ml Q15M PRN IV DECREASED GLUCOSE; Start 07/19/16 at 17:00 Dextrose (D50w Syringe) 50 ml Q15M PRN IV DECREASED GLUCOSE; Start 07/19/16 at 17:00 Glucagon (Glucagen) 1 mg Q15M PRN IM DECREASED GLUCOSE; Start 07/19/16 at 17:00 Glucose (Glutose) 15 gm Q15M PRN BUCCAL DECREASED GLUCOSE; Start 07/19/16 at 17 :00 Insulin Aspart (Novolog Insulin Pen) NOVOLOG *MILD* ALGORI... Q6 SC Last administered on 07/22/16 12:56; Admin Dose 4 UNIT; Start 07/20/16 at 01:00 Tramadol HCl (Ultram) 50 mg Q6H PRN GTB PAIN LEVEL 1-5 Last administered on 00:11; Admin Dose 50 MG; Start 07/20/16 at 01:00 Tramadol HCl (Ultram) 100 mg Q6H PRN GTB PAIN LEVEL 6-10; Start 07/20/16 at 01: 00 Metoprolol Tartrate (Lopressor) 25 mg BID GTB Last administered on 07/21/16 20 :43; Admin Dose 25 MG; Start 07/20/16 at 21:00 Benazepril HCl (Lotensin) 10 mg DAILY PO ; Start 07/20/16 at 14:30 Insulin Glargine (Lantus) 30 unit DAILY@20 SC ; Start 07/22/16 at 20:00 SHIMA DIXON Jul 22, 2016 14:44
--- NOTE | 2016-07-22 14:51 | PN ---
Date/Time of Note Date/Time of Note DATE: 07/22/16 TIME: 14:50 Assessment/Plan VTE Prophylaxis VTE Prophylaxis Intervention: heparin Lines/Catheters IV Catheter Type (from Nrs): Peripheral IV Assessment/Plan Chief Complaint/Hosp Course 1. Left femur fracture -plan is for surgery today -pain control -cardiology for preoperative clearance 2. Fall 2/2 comorbidities from stroke as well as seizures. No reported seizures prior to the onset of fall -2D echo shows no sig findings 3. History of stroke with seizure disorder - Continue home Keppra. 4. Liver cirrhosis secondary to alcohol abuse s/p Transplant -cont transplant Rx 5. Diabetes type 2 -NISS 6. History of atrial fibrillation -continue home Eliquis Prophylaxis-Heparin Problems: Subjective 24 Hr Interval Summary Musculoskeletal: bone/joint pain Exam/Review of Systems Vital Signs Vitals Vital Signs Date Time Temp Pulse Resp B/P Pulse Ox O2 Delivery O2 Flow Rate FiO2 07/22/16 08:01 99.5 85 22 107/65 98 07/22/16 07:45 Room Air Intake and Output 07/21/16 07/21/16 07/22/16 15:00 23:00 07:00 Intake Total 1000 ml 560 ml 840 ml Output Total 350 ml 400 ml Balance 1000 ml 210 ml 440 ml Exam Constitutional: alert Respiratory: clear to auscultation Cardiovascular: regular rate and rhythm Gastrointestinal: soft, No distended Musculoskeletal: nl extremities to inspection Results Result Diagram: 07/22/16 0450 07/22/16 0450 Results 24 hrs Laboratory Tests Test 07/21/16 17:40 07/21/16 20:21 07/22/16 00:04 07/22/16 04:50 Bedside Glucose 239 H 232 H 261 H White Blood Count 8.2 Red Blood Count 2.88 L Hemoglobin 8.6 L Hematocrit 26.4 L Mean Corpuscular Volume 91.7 Mean Corpuscular Hemoglobin 29.9 Mean Corpuscular Hemoglobin Concent 32.6 Red Cell Distribution Width 14.7 H Platelet Count 112 L Mean Platelet Volume 10.3 Neutrophils % 72.2 Lymphocytes % 13.8 L Monocytes % 11.1 H Eosinophils % 2.3 Basophils % 0.1 Nucleated Red Blood Cells % 0.0 Neutrophils # 5.9 Lymphocytes # 1.1 Monocytes # 0.9 Eosinophils # 0.2 Basophils # 0.0 Nucleated Red Blood Cells # 0.0 Sodium Level 133 L Potassium Level 3.8 Chloride Level 105 Carbon Dioxide Level 20 L Anion Gap 12 Blood Urea Nitrogen 26 H Creatinine 1.00 Glucose Level 275 H Calcium Level 7.9 L Test 07/22/16 06:02 07/22/16 12:30 Bedside Glucose 295 H 271 H Medications Medications Current Medications Ondansetron HCl (Zofran Inj) 4 mg Q6H PRN IV NAUSEA AND/OR VOMITING; Start at 17:00 Acetaminophen (Tylenol Tab) 650 mg Q6H PRN PO PAIN LEVEL 1-3 OR FEVER; Start at 17:00 Acetaminophen/ Hydrocodone Bitart 1 tab 1 tab Q6H PRN PO MODERATE PAIN LEVEL 4- 6; Start 07/19/16 at 17:00 Dextrose/Sodium Chloride (D5-1/2ns) 1,000 ml @ 80 mls/hr [id number] IV Last administered on 07/22/16 02:21; Admin Dose 80 MLS/HR; Start 07/19/16 at 17:00 Levetiracetam (Keppra Liquid) 750 mg BID GTB Last administered on 07/22/16 08: 44; Admin Dose 750 MG; Start 07/19/16 at 21:00 Famotidine (Pepcid) 20 mg BID GTB Last administered on 07/22/16 08:40; Admin Dose 20 MG; Start 07/19/16 at 21:00 Sirolimus (Rapamune) 3 mg BID GTB Last administered on 07/22/16 08:39; Admin Dose 3 MG; Start 07/19/16 at 21:00 Apixaban (Eliquis) 5 mg BID GTB ; Start 07/19/16 at 21:00; Status Future Hold Eye Lubricant (Artificial Tears Oph) 2 drop Q6H PRN BOTH EYES DRY EYES; Start 07/19/16 at 18:00 Chlorpromazine (Thorazine) 25 mg QHS GTB Last administered on 07/21/16 20:43; Admin Dose 25 MG; Start 07/19/16 at 21:00 Paroxetine HCl (Paxil) 20 mg DAILY GTB Last administered on 07/22/16 08:39; Admin Dose 20 MG; Start 07/20/16 at 09:00 Atorvastatin Calcium (Lipitor) 10 mg HS GTB Last administered on 07/21/16 20: 42; Admin Dose 10 MG; Start 07/19/16 at 21:00 Docusate Sodium (Colace Liquid Cup) 100 mg BID GTB Last administered on 08:39; Admin Dose 100 MG; Start 07/19/16 at 21:00 Miscellaneous Information 1 ea NOTE XX ; Start 07/19/16 at 17:00 Glucose (Glutose) 15 gm Q15M PRN PO DECREASED GLUCOSE; Start 07/19/16 at 17:00 Glucose (Glutose) 22.5 gm Q15M PRN PO DECREASED GLUCOSE; Start 07/19/16 at 17: 00 Dextrose (D50w Syringe) 25 ml Q15M PRN IV DECREASED GLUCOSE; Start 07/19/16 at 17:00 Dextrose (D50w Syringe) 50 ml Q15M PRN IV DECREASED GLUCOSE; Start 07/19/16 at 17:00 Glucagon (Glucagen) 1 mg Q15M PRN IM DECREASED GLUCOSE; Start 07/19/16 at 17:00 Glucose (Glutose) 15 gm Q15M PRN BUCCAL DECREASED GLUCOSE; Start 07/19/16 at 17 :00 Insulin Aspart (Novolog Insulin Pen) NOVOLOG *MILD* ALGORI... Q6 SC Last administered on 07/22/16 12:56; Admin Dose 4 UNIT; Start 07/20/16 at 01:00 Tramadol HCl (Ultram) 50 mg Q6H PRN GTB PAIN LEVEL 1-5 Last administered on 00:11; Admin Dose 50 MG; Start 07/20/16 at 01:00 Tramadol HCl (Ultram) 100 mg Q6H PRN GTB PAIN LEVEL 6-10; Start 07/20/16 at 01: 00 Metoprolol Tartrate (Lopressor) 25 mg BID GTB Last administered on 07/21/16 20 :43; Admin Dose 25 MG; Start 07/20/16 at 21:00 Benazepril HCl (Lotensin) 10 mg DAILY PO ; Start 07/20/16 at 14:30 Insulin Glargine (Lantus) 30 unit DAILY@20 SC ; Start 07/22/16 at 20:00 PREETI OLMOS Jul 22, 2016 14:51
[2016-07-22] MEDS ORDERED: FENTAnyl 50 MCG/ML VIAL ONE (18:36)
[2016-07-22] MEDS ORDERED: MIDAZOLAM 1 MG/ML 2 ML INJ ONE (18:36)
[2016-07-22] MEDS ORDERED: PHENYLephrine (100 MCG/ML) 5ML SYG ONE (18:49)
[2016-07-22] MEDS ORDERED: POLYMYXIN/BACITRACIN 1L IRRIG ONE (18:58)
[2016-07-22] MEDS ORDERED: LIDOCAINE 2% (SDV) 5 ML INJ ONE (19:23)
[2016-07-22] MEDS ORDERED: ETOMIDATE 20 MG INJ ONE (19:23)
[2016-07-22] MEDS ORDERED: CEFAZOLIN 1 GM INJ ONE (19:23)
[2016-07-22] MEDS ORDERED: ONDANSETRON 4 MG INJ ONE (19:24)
[2016-07-22] MEDS ORDERED: LABETALOL HCL 20MG INJ IV PRN (19:30)
[2016-07-22] MEDS ORDERED: FENTAnyl 50 MCG/ML VIAL IV PRN (19:30)
[2016-07-22] MEDS ORDERED: MEPERIDINE 25 MG INJ IV PRN (19:30)
[2016-07-22] MEDS ORDERED: ONDANSETRON 4 MG INJ IV PRN (19:30)
[2016-07-22] MEDS ORDERED: hydrALAzine 20 MG INJ IV PRN (19:30)
[2016-07-22] MEDS ORDERED: DIPHENHYDRAMINE 50 MG INJ IV PRN (19:30)
[2016-07-22] MEDS: ATORVASTATIN 10 MG TAB GTB SCH (22:32)
[2016-07-22] MEDS: INSULIN GLARGINE [LANtus] 3 ML PEN SC SCH (22:34)
[2016-07-22] MEDS: CHLORPROMAZINE 25 MG TAB GTB SCH (22:36)
[2016-07-23] VITALS (48 sets, daily range): BP systolic 50–140; BP diastolic 35–109; PULSE 62–92; RESP 14–31
[2016-07-23] MEDS: INSULIN ASPART [NOVOLOG] 3 ML PEN SC SCH ×5 (00:51→23:59)
[2016-07-23 06:15] LABS: ADD SCAN DIFF NO
[2016-07-23 06:34] LABS: BASOPHILS % 0.2 % (0.0-2.0); EOSINOPHILS # 0.3 10^3/ul (0.0-0.5); EOSINOPHILS % 3.7 % (0.0-7.0); HEMATOCRIT 27.3 % (42.0-52.0); HEMOGLOBIN 8.7 g/dl (14.0-18.0); LYMPHOCYTES # 1.3 10^3/ul (0.8-2.9); LYMPHOCYTES % 14.4 % (15.0-51.0); MEAN CORPUSCULAR HEMOGLOBIN 29.8 pg (29.0-33.0); MEAN CORPUSCULAR HGB CONC 31.9 g/dl (32.0-37.0); MEAN CORPUSCULAR VOLUME 93.5 fl (82.0-101.0); MEAN PLATELET VOLUME 10.9 fl (7.4-10.4); MONOCYTES % 11.5 % (0.0-11.0); NEUTROPHIL # 6.1 10^3/ul (1.6-7.5); NEUTROPHILS % 69.5 % (39.0-77.0); PLATELET COUNT 121 10^3/UL (140-415); RED BLOOD COUNT 2.92 10^6/ul (4.70-6.10); RED CELL DISTRIBUTION WIDTH 14.6 % (11.5-14.5); WHITE BLOOD COUNT 8.8 10^3/ul (4.8-10.8)
[2016-07-23 06:55] LABS: POTASSIUM 3.8 mmol/L (3.5-5.1)
[2016-07-23 06:58] LABS: CREATININE 1.01 mg/dl (0.61-1.24)
[2016-07-23 06:59] LABS: CALCIUM 7.9 mg/dl (8.4-10.2)
--- NOTE | 2016-07-23 07:17 | RADRPT ---
PROCEDURE: Left hip series CLINICAL INDICATION: Interpreted images of the left hip TECHNIQUE: 14 c-arm matrix images were obtained COMPARISON: Left hip series 07/19/2016 FINDINGS: 14 cm matrix images were obtained demonstrating localization and subsequent placement of fixation in volving the left femur stabilizing a left intertrochanteric fracture. There is anatomical alignment of the fracture fragments. No other acute fractures or dislocations. Bony detail is suboptimal. IMPRESSION: Fixation and stabilization of a nondisplaced left intertrochanteric fracture. RPTAT:AAJJ Physician Neida Date Time Electronically viewed and signed by Physician Neida on 07/23/2016 07:17 BM/
[2016-07-23] MEDS: DEXTROSE 5%-0.45% NACL 1,000 ML IV SCH (08:30)
[2016-07-23] MEDS: FAMOTIDINE 20 MG TAB GTB SCH ×2 (09:20→21:02)
[2016-07-23] MEDS: SIROLIMUS 1 MG TAB GTB SCH ×2 (09:20→21:02)
[2016-07-23] MEDS: METOPROLOL 25 MG TAB GTB SCH (09:20)
[2016-07-23] MEDS: BENAZEPRIL 10 MG TAB PO SCH (09:20)
[2016-07-23] MEDS: LEVETIRACETAM (100 MG/ML) 5ML CUP GTB SCH ×2 (09:20→21:02)
[2016-07-23] MEDS: PAROXETINE 20 MG TAB GTB SCH (09:20)
[2016-07-23] MEDS: DOCUSATE SODIUM 10 MG/ML (10ML CUP) GTB SCH ×2 (09:21→21:02)
[2016-07-23] MEDS ORDERED: SOD CHLORIDE 0.9% 500 ML IV ONE ×2 (11:00→11:30)
[2016-07-23] MEDS ORDERED: ACETAMINOPHEN 325 MG TAB PO PRN (11:00)
--- NOTE | 2016-07-23 11:49 | CONS ---
Date/Time of Note Date/Time of Note DATE: 07/23/16 TIME: 11:44 Assessment/Plan Assessment/Plan Chief Complaint/Hosp Course IMPRESSION: 1. Preoperative evaluation prior to surgery for femur fracture.-negative troponin x 3/NL EF by echo with no contraindicated valve lesions. OK to proceed to surgery at this time at moderate risk without further noninvasive evaluation. Now POD#1 s/p LE ORIF 2. Status post fall. Rule out cardiac etiology. Rule out cardiac arrhythmia. 3. History of paroxysmal atrial fibrillation.-In rate controlled AF by serial ecg's 4. 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 Diabetes mellitus. 6. Femur fracture, left lower extremity. 7. Possible seizure disorder by medications. 8. Dyslipidemia. 9. Abd distension Recc: -Tele monitoring in icu -Hold BB/ACEI -Contin statin -Pain control -12 lead ecg -KUB given abd distension -IVF hydration -Follow hgb closely Problems: Consultation Date/Type/Reason Admit Date/Time Jul 19, 2016 at 13:38 Initial Consult Date 07/20/2016 Type of Consultation: Cardiology Reason for Consultation Pre-op/AF/hypotension Referring Provider: PREETI OLMOS Exam/Review of Systems Vital Signs Vitals Vital Signs Date Time Temp Pulse Resp B/P Pulse Ox O2 Delivery O2 Flow Rate FiO2 07/23/16 07:50 99.5 112 18 127/71 98 07/23/16 00:30 Nasal Cannula 07/22/16 21:00 2.0 Intake and Output 07/22/16 07/22/16 07/23/16 15:00 23:00 07:00 Intake Total 1360 ml 600 ml Output Total 750 ml 600 ml Balance 610 ml 0 ml Exam Review of Systems: CONSTITUTIONAL: No fevers, chills. PULMONARY: No sob CARDIOVASCULAR: No obvious chest pain/palpitations GASTROINTESTINAL: No nausea/vomiting. GENITOURINARY: No hematuria/dysuria. MUSCULOSKELETAL: No obvious myagias/arthalgias. PSYCHIATRIC: The patient denies depression. NEUROLOGIC: lethargic Constitutional: other (sleeping) Head: normocephalic ENMT: mucosa pink and moist Neck: jvd (9 cm water), supple Respiratory: diminished breath sounds (at bases/B) Cardiovascular: regular rate and rhythm Gastrointestinal: distended, other (G tube), soft Musculoskeletal: muscle tone (normal) Extremities: edema Neurological: lethargic Results Result Diagram: 07/23/16 0554 07/23/16 0554 Results 24 hrs Laboratory Tests Test 07/22/16 12:30 07/22/16 17:34 07/22/16 20:21 07/22/16 22:30 Bedside Glucose 271 H 230 H 196 179 Test 07/23/16 00:44 07/23/16 05:53 07/23/16 05:54 07/23/16 10:35 Bedside Glucose 199 265 H 306 H White Blood Count 8.8 Red Blood Count 2.92 L Hemoglobin 8.7 L Hematocrit 27.3 L Mean Corpuscular Volume 93.5 Mean Corpuscular Hemoglobin 29.8 Mean Corpuscular Hemoglobin Concent 31.9 L Red Cell Distribution Width 14.6 H Platelet Count 121 L Mean Platelet Volume 10.9 H Neutrophils % 69.5 Lymphocytes % 14.4 L Monocytes % 11.5 H Eosinophils % 3.7 Basophils % 0.2 Nucleated Red Blood Cells % 0.0 Neutrophils # 6.1 Lymphocytes # 1.3 Monocytes # 1.0 H Eosinophils # 0.3 Basophils # 0.0 Nucleated Red Blood Cells # 0.0 Sodium Level 134 L Potassium Level 3.8 Chloride Level 104 Carbon Dioxide Level 20 L Anion Gap 14 Blood Urea Nitrogen 25 H Creatinine 1.01 Glucose Level 252 H Calcium Level 7.9 L Medications Medications Current Medications Ondansetron HCl (Zofran Inj) 4 mg Q6H PRN IV NAUSEA AND/OR VOMITING; Start at 17:00 Acetaminophen/ Hydrocodone Bitart 1 tab 1 tab Q6H PRN PO MODERATE PAIN LEVEL 4- 6 Last administered on 07/23/16 09:19; Admin Dose 1 TAB; Start 07/19/16 at 17: 00 Dextrose/Sodium Chloride (D5-1/2ns) 1,000 ml @ 80 mls/hr [id number] IV Last administered on 07/22/16 23:27; Admin Dose 80 MLS/HR; Start 07/19/16 at 17:00 Levetiracetam (Keppra Liquid) 750 mg BID GTB Last administered on 07/23/16 09: 20; Admin Dose 750 MG; Start 07/19/16 at 21:00 Famotidine (Pepcid) 20 mg BID GTB Last administered on 07/23/16 09:20; Admin Dose 20 MG; Start 07/19/16 at 21:00 Sirolimus (Rapamune) 3 mg BID GTB Last administered on 07/23/16 09:20; Admin Dose 3 MG; Start 07/19/16 at 21:00 Apixaban (Eliquis) 5 mg BID GTB ; Start 07/19/16 at 21:00; Status Future Hold Eye Lubricant (Artificial Tears Oph) 2 drop Q6H PRN BOTH EYES DRY EYES; Start 07/19/16 at 18:00 Chlorpromazine (Thorazine) 25 mg QHS GTB Last administered on 07/22/16 22:36; Admin Dose 25 MG; Start 07/19/16 at 21:00 Paroxetine HCl (Paxil) 20 mg DAILY GTB Last administered on 07/23/16 09:20; Admin Dose 20 MG; Start 07/20/16 at 09:00 Atorvastatin Calcium (Lipitor) 10 mg HS GTB Last administered on 07/22/16 22: 32; Admin Dose 10 MG; Start 07/19/16 at 21:00 Docusate Sodium (Colace Liquid Cup) 100 mg BID GTB Last administered on 09:21; Admin Dose 100 MG; Start 07/19/16 at 21:00 Miscellaneous Information 1 ea NOTE XX ; Start 07/19/16 at 17:00 Glucose (Glutose) 15 gm Q15M PRN PO DECREASED GLUCOSE; Start 07/19/16 at 17:00 Glucose (Glutose) 22.5 gm Q15M PRN PO DECREASED GLUCOSE; Start 07/19/16 at 17: 00 Dextrose (D50w Syringe) 25 ml Q15M PRN IV DECREASED GLUCOSE; Start 07/19/16 at 17:00 Dextrose (D50w Syringe) 50 ml Q15M PRN IV DECREASED GLUCOSE; Start 07/19/16 at 17:00 Glucagon (Glucagen) 1 mg Q15M PRN IM DECREASED GLUCOSE; Start 07/19/16 at 17:00 Glucose (Glutose) 15 gm Q15M PRN BUCCAL DECREASED GLUCOSE; Start 07/19/16 at 17 :00 Insulin Aspart (Novolog Insulin Pen) NOVOLOG *MILD* ALGORI... Q6 SC Last administered on 07/23/16 05:57; Admin Dose 4 UNIT; Start 07/20/16 at 01:00 Tramadol HCl (Ultram) 50 mg Q6H PRN GTB PAIN LEVEL 1-5 Last administered on 00:11; Admin Dose 50 MG; Start 07/20/16 at 01:00 Tramadol HCl (Ultram) 100 mg Q6H PRN GTB PAIN LEVEL 6-10; Start 07/20/16 at 01: 00 Metoprolol Tartrate (Lopressor) 25 mg BID GTB Last administered on 07/23/16 09 :20; Admin Dose 25 MG; Start 07/20/16 at 21:00 Benazepril HCl (Lotensin) 10 mg DAILY PO Last administered on 07/23/16 09:20; Admin Dose 10 MG; Start 07/20/16 at 14:30 Insulin Glargine 30 unit 30 unit DAILY@20 SC Last administered on 07/22/16 22: 34; Admin Dose 30 UNIT; Start 07/22/16 at 20:00 Sodium Chloride (NS) 500 ml @ 500 mls/hr Q1H ONCE IV Last administered on 07/23 11:01; Admin Dose 500 MLS/HR; Start 07/23/16 at 11:00; Stop 07/23/16 at 11 :59 Acetaminophen 650 mg 650 mg Q6H PRN PO PAIN AND OR ELEVATED TEMP Last administered on 07/23/16 11:01; Admin Dose 650 MG; Start 07/23/16 at 11:00 Sodium Chloride (NS) 500 ml @ 500 mls/hr Q1H ONCE IV Last administered on 07/23 11:32; Admin Dose 500 MLS/HR; Start 07/23/16 at 11:30; Stop 07/23/16 at 12 :29 SHIMA DIXON Jul 23, 2016 11:49
[2016-07-23] MEDS ORDERED: PHENYLephrine 20MG IN 250 ML 0 ML ONE (13:06)
--- NOTE | 2016-07-23 13:07 | RADRPT ---
PROCEDURE: XR Abdomen. CLINICAL INDICATION: Abdominal pain and distension. TECHNIQUE: AP supine abdomen x-ray. COMPARISON: None. FINDINGS: The bowel gas pattern is normal. There is no evidence of obstruction. There are no abnormal calcifications overlying the urinary tracts. There are degenerative changes throughout the spine. Left lateral skin effie are noted overlying the left side of pelvis. Surgical clips are present overlying the right inguinal region. There is a recent left intertrochanteric hip fracture with open reduction and internal fixation. IMPRESSION: 1. Degenerative changes of the spine. 2. Recent left hip surgery. 3. Otherwise unremarkable study. RPTAT: QQ .Dave Garibay MD, MD Date Time Electronically viewed and signed by .Dave Garibay MD, MD on 07/23/2016 13:06 .R/
[2016-07-23] MEDS ORDERED: LIDOCAINE 1% (MPF) 5 ML VIAL SC ONE (13:30)
[2016-07-23] MEDS ORDERED: NORepinephrine 8MG/250 ML (PMX 250 ML IV SCH ×2 (13:30)
[2016-07-23] MEDS ORDERED: LIDOCAINE 1% (MDV) 20 ML INJ SC ONE (15:00)
--- NOTE | 2016-07-23 15:45 | OPR ---
DATE OF OPERATION: 07/23/2016 PREOPERATIVE DIAGNOSIS: ____ POSTOPERATIVE DIAGNOSIS: ____. OPERATION PERFORMED: Right femoral central line placement. SURGEON: Hi Keene MD ANESTHESIA: Local. CONSENT: Risks, benefits, complications, alternative therapies explained to the patient and the [facility], consent obtained. OPERATIVE TECHNIQUE: The patient was placed in supine position, prepped and draped in usual sterile fashion, 1% lidocaine was used throughout the operation for local anesthesia. Access was gained in the right femoral vein. Guidewire was advanced through without any difficulty. Subcutaneous tissu es dilated 20 cm. Central line advanced over guidewire, secured to skin using silk sutures. Dictated By: HI KEENE MD FM/NTS Conf#: [id number] DID#: [id number]
--- NOTE | 2016-07-23 15:50 | CONS ---
DATE OF ADMISSION: 07/19/2016 DATE OF CONSULTATION: REASON FOR CONSULTATION: Surgical. HISTORY OF PRESENT ILLNESS: This is a 65-year-old male with a history of end-stage renal disease, r enal and liver transplant, liver cirrhosis, was admitted after a fall. He was found to have a hip f racture, underwent repair of the hip fracture. The patient was then transferred to the intensive ca re because of hypotension. The patient is currently in the intensive care unit, blood pressure in t he high 80s. PAST MEDICAL HISTORY: Liver failure, renal failure, hypertension, hyperlipidemia. PAST SURGICAL HISTORY: As above. ALLERGIES: NONE. SOCIAL HISTORY: No smoking, drinking or drug use. PHYSICAL EXAMINATION: GENERAL: The patient is lethargic, but awake, responds to pain. VITAL SIGNS: Blood pressure is 127/80, pulse was 112, respirations 18. CARDIOVASCULAR: Normal S1, S2. LUNGS: Clear. ABDOMEN: Soft. EXTREMITIES: Warm. LABORATORY VALUES: Hemoglobin 8.7, white count 8.8, platelet count 121. IMPRESSION: Hypotension. RECOMMENDATIONS: We will proceed with placement of a central line. Risks, benefits, complications, alternative therapies explained to the patient. All questions answered. Dictated By: MARJAN LIM/JEFFREY Conf#: [id number] DID#: [id number]
--- NOTE | 2016-07-23 16:50 | RADRPT ---
PROCEDURE: XR Chest. CLINICAL INDICATION: Attempted central line placement. Shortness of breath. TECHNIQUE: Single frontal view. COMPARISON: 07/21/2016. FINDINGS: The lungs are clear. The heart is enlarged. There is calcification in the aorta consistent with atherosclerosis. There is no pleural effusion. There is no pneumothorax. IMPRESSION: 1. Cardiomegaly and atherosclerosis. 2. No pneumothorax. 3. Otherwise normal chest radiograph. RPTAT: QQ .Dave Garibay MD, MD Date Time Electronically viewed and signed by .Dave Garibay MD, MD on 07/23/2016 16:50 .R/
--- NOTE | 2016-07-23 17:10 | PN ---
Date/Time of Note Date/Time of Note DATE: 07/23/16 TIME: 17:06 Assessment/Plan VTE Prophylaxis VTE Prophylaxis Intervention: heparin Lines/Catheters IV Catheter Type (from Nrs): Peripheral IV Assessment/Plan Chief Complaint/Hosp Course 1. Left femur fracture status post surgical repair -pain control -PT when stable 2. Fall 2/2 comorbidities from stroke as well as seizures. No reported seizures prior to the onset of fall -2D echo shows no sig findings 3. History of stroke with seizure disorder - Continue home Keppra. 4. Liver cirrhosis secondary to alcohol abuse s/p Transplant -cont transplant Rx 5. Diabetes type 2 -NISS 6. History of atrial fibrillation -continue home Eliquis 7. Hypotension possibly secondary to dehydration, no evidence of infection Patient has ICU and started pressors, continue IV fluid Prophylaxis-Heparin Problems: Subjective 24 Hr Interval Summary Constitutional: disoriented Exam/Review of Systems Vital Signs Vitals Vital Signs Date Time Temp Pulse Resp B/P Pulse Ox O2 Delivery O2 Flow Rate FiO2 07/23/16 16:15 71 17 112/56 99 Nasal Cannula 2.0 07/23/16 16:00 98.5 Intake and Output 07/22/16 07/22/16 07/23/16 15:00 23:00 07:00 Intake Total 1360 ml 600 ml Output Total 750 ml 600 ml Balance 610 ml 0 ml Exam Psych: confusion Respiratory: clear to auscultation Cardiovascular: regular rate and rhythm Gastrointestinal: soft, No distended Musculoskeletal: nl extremities to inspection Results Result Diagram: 07/23/16 0554 07/23/16 0554 Results 24 hrs Laboratory Tests Test 07/22/16 17:34 07/22/16 20:21 07/22/16 22:30 07/23/16 00:44 Bedside Glucose 230 H 196 179 199 Test 07/23/16 05:53 07/23/16 05:54 07/23/16 10:35 07/23/16 12:05 Bedside Glucose 265 H 306 H White Blood Count 8.8 Red Blood Count 2.92 L Hemoglobin 8.7 L Hematocrit 27.3 L Mean Corpuscular Volume 93.5 Mean Corpuscular Hemoglobin 29.8 Mean Corpuscular Hemoglobin Concent 31.9 L Red Cell Distribution Width 14.6 H Platelet Count 121 L Mean Platelet Volume 10.9 H Neutrophils % 69.5 Lymphocytes % 14.4 L Monocytes % 11.5 H Eosinophils % 3.7 Basophils % 0.2 Nucleated Red Blood Cells % 0.0 Neutrophils # 6.1 Lymphocytes # 1.3 Monocytes # 1.0 H Eosinophils # 0.3 Basophils # 0.0 Nucleated Red Blood Cells # 0.0 Sodium Level 134 L Potassium Level 3.8 Chloride Level 104 Carbon Dioxide Level 20 L Anion Gap 14 Blood Urea Nitrogen 25 H Creatinine 1.01 Glucose Level 252 H Calcium Level 7.9 L Ammonia < 9 L Troponin I 0.061 Test 07/23/16 13:45 Bedside Glucose 247 H Medications Medications Current Medications Ondansetron HCl (Zofran Inj) 4 mg Q6H PRN IV NAUSEA AND/OR VOMITING; Start at 17:00 Acetaminophen/ Hydrocodone Bitart 1 tab 1 tab Q6H PRN PO MODERATE PAIN LEVEL 4- 6 Last administered on 07/23/16 09:19; Admin Dose 1 TAB; Start 07/19/16 at 17: 00 Dextrose/Sodium Chloride (D5-1/2ns) 1,000 ml @ 80 mls/hr [id number] IV Last administered on 07/22/16 23:27; Admin Dose 80 MLS/HR; Start 07/19/16 at 17:00 Levetiracetam (Keppra Liquid) 750 mg BID GTB Last administered on 07/23/16 09: 20; Admin Dose 750 MG; Start 07/19/16 at 21:00 Famotidine (Pepcid) 20 mg BID GTB Last administered on 07/23/16 09:20; Admin Dose 20 MG; Start 07/19/16 at 21:00 Sirolimus (Rapamune) 3 mg BID GTB Last administered on 07/23/16 09:20; Admin Dose 3 MG; Start 07/19/16 at 21:00 Apixaban (Eliquis) 5 mg BID GTB ; Start 07/19/16 at 21:00; Status Future Hold Eye Lubricant (Artificial Tears Oph) 2 drop Q6H PRN BOTH EYES DRY EYES; Start 07/19/16 at 18:00 Chlorpromazine (Thorazine) 25 mg QHS GTB Last administered on 07/22/16 22:36; Admin Dose 25 MG; Start 07/19/16 at 21:00 Paroxetine HCl (Paxil) 20 mg DAILY GTB Last administered on 07/23/16 09:20; Admin Dose 20 MG; Start 07/20/16 at 09:00 Atorvastatin Calcium (Lipitor) 10 mg HS GTB Last administered on 07/22/16 22: 32; Admin Dose 10 MG; Start 07/19/16 at 21:00 Docusate Sodium (Colace Liquid Cup) 100 mg BID GTB Last administered on 09:21; Admin Dose 100 MG; Start 07/19/16 at 21:00 Miscellaneous Information 1 ea NOTE XX ; Start 07/19/16 at 17:00 Glucose (Glutose) 15 gm Q15M PRN PO DECREASED GLUCOSE; Start 07/19/16 at 17:00 Glucose (Glutose) 22.5 gm Q15M PRN PO DECREASED GLUCOSE; Start 07/19/16 at 17: 00 Dextrose (D50w Syringe) 25 ml Q15M PRN IV DECREASED GLUCOSE; Start 07/19/16 at 17:00 Dextrose (D50w Syringe) 50 ml Q15M PRN IV DECREASED GLUCOSE; Start 07/19/16 at 17:00 Glucagon (Glucagen) 1 mg Q15M PRN IM DECREASED GLUCOSE; Start 07/19/16 at 17:00 Glucose (Glutose) 15 gm Q15M PRN BUCCAL DECREASED GLUCOSE; Start 07/19/16 at 17 :00 Insulin Aspart (Novolog Insulin Pen) NOVOLOG *MILD* ALGORI... Q6 SC Last administered on 07/23/16 13:49; Admin Dose 3 UNIT; Start 07/20/16 at 01:00 Tramadol HCl (Ultram) 50 mg Q6H PRN GTB PAIN LEVEL 1-5 Last administered on 00:11; Admin Dose 50 MG; Start 07/20/16 at 01:00 Tramadol HCl (Ultram) 100 mg Q6H PRN GTB PAIN LEVEL 6-10; Start 07/20/16 at 01: 00 Metoprolol Tartrate (Lopressor) 25 mg BID GTB Last administered on 07/23/16 09 :20; Admin Dose 25 MG; Start 07/20/16 at 21:00 Benazepril HCl (Lotensin) 10 mg DAILY PO Last administered on 07/23/16 09:20; Admin Dose 10 MG; Start 07/20/16 at 14:30 Insulin Glargine (Lantus) 30 unit DAILY@20 SC Last administered on 07/22/16 22 :34; Admin Dose 30 UNIT; Start 07/22/16 at 20:00 Acetaminophen 650 mg 650 mg Q6H PRN PO PAIN AND OR ELEVATED TEMP Last administered on 07/23/16 11:01; Admin Dose 650 MG; Start 07/23/16 at 11:00 Norepinephrine 16 mg/Dextrose 500 ml @ 1.87 mls/hr TITRATE IV ; Start 07/23/16 at 13:30; Status Future hold Norepinephrine (Levophed) 250 ml @ 1.875 mls/ hr TITRATE IV Last administered on 07/23/16 13:51; Admin Dose 15 MLS/HR; Start 07/23/16 at 13:30; Stop at 18:59 PREETI OLMOS Jul 23, 2016 17:10
[2016-07-23] MEDS: SOD CHLORIDE 0.9% 1,000 ML IV SCH (17:32)
[2016-07-23] MEDS ORDERED: ALBUMIN HUMAN 5% 250 ML IV ONE (18:00)
--- NOTE | 2016-07-23 18:01 | OPR ---
DATE OF OPERATION: Reduction ANESTHESIA: General. PREOPERATIVE DIAGNOSIS: Left hip comminuted intertrochanteric displaced fracture. POSTOPERATIVE DIAGNOSIS: Left hip comminuted intertrochanteric displaced fracture. OPERATION PERFORMED: 1. Left hip locked intramedullary nailing using [employer] InterTan nail 11.5 mm in diameter, 8 and a 100 mm lag screw. 2. Interpretation of intraoperative fluoroscopy x-ray. ESTIMATED BLOOD LOSS: 150 mL. COMPLICATIONS: None. DESCRIPTION OF PROCEDURE: The patient is a 65-year-old male admitted for a left hip fracture. The patient has comorbidities including diabetes and anticoagulant therapy. Medical and cardiac clearance has been obtained. The patient was taken to the operating room and general anesthetic given to patient, 2 grams of Kefz ol given for prophylaxis. The patient carefully positioned on the fracture table with padding of al l extremities. Left hip prepped and draped in the usual sterile manner. C-arm draped and brought o siva the operative field. A 2 inch incision was made proximal to the trochanter, fascia, divided, gu óscar pin inserted into the trochanter, ____ down to the distal femur with reaming to 13 mm and 11.5 m m nail placed satisfactorily through the canal down to the distal femur. With traction, the fractur e was reduced and 100 mm lag screw placed into the center of the femoral head with good fixation. T he screw locked into place. Final x-ray was satisfactory in the AP and lateral views. The wound ir rigated copiously with antibiotic solution. Hemostasis ascertained using cautery. Fascia closed wi th #1 Vicryl suture, skin closed with effie. Compression bandage applied. Anesthetic reversed. The patient taken to recovery in stable condition. Dictated By: DEVEN BENNETT/JEFFREY Conf#: [id number] DID#: [id number]
[2016-07-23 18:11] LABS: ADD UMIC YES; URINE BILIRUBIN (Dip) NEGATIVE (NEGATIVE); URINE BLOOD (Dip) 2+ (NEGATIVE); URINE COLOR YELLOW (YELLOW); URINE GLUCOSE (Dip) NEGATIVE (NEGATIVE); URINE KETONES (Dip) NEGATIVE (NEGATIVE); URINE LEUKOCYTE ESTERASE (Dip) 3+ (NEGATIVE); URINE NITRITE (Dip) POSITIVE (NEGATIVE); URINE TOTAL PROTEIN (Dip) 4+ (NEGATIVE); URINE UROBILINOGEN (Dip) 0.2 E.U./dL (0.1-1.0)
[2016-07-23 18:51] LABS: BACTERIA,URINE MANY
[2016-07-23 18:55] LABS: TRANSITIONAL EPI CELLS,URINE FEW
[2016-07-23] MEDS: ATORVASTATIN 10 MG TAB GTB SCH (21:02)
[2016-07-23] MEDS: CHLORPROMAZINE 25 MG TAB GTB SCH (21:02)
[2016-07-23] MEDS: INSULIN GLARGINE [LANtus] 3 ML PEN SC SCH (21:11)
[2016-07-24] VITALS (73 sets, daily range): BP systolic 66–137; BP diastolic 26–102; PULSE 68–131; RESP 14–29
[2016-07-24] MEDS: SOD CHLORIDE 0.9% 1,000 ML IV SCH ×3 (04:18→18:38)
[2016-07-24 04:48] LABS: ADD SCAN DIFF NO
[2016-07-24 04:59] LABS: ABNORMAL IP MESSAGE 1; HEMATOCRIT 19.4 % (42.0-52.0); MEAN CORPUSCULAR HEMOGLOBIN 29.7 pg (29.0-33.0); MEAN CORPUSCULAR HGB CONC 32.5 g/dl (32.0-37.0); MEAN CORPUSCULAR VOLUME 91.5 fl (82.0-101.0); MEAN PLATELET VOLUME 10.2 fl (7.4-10.4); PLATELET COUNT 101 10^3/UL (140-415); RED BLOOD COUNT 2.12 10^6/ul (4.70-6.10); RED CELL DISTRIBUTION WIDTH 14.6 % (11.5-14.5)
[2016-07-24 05:13] LABS: HEMOGLOBIN 6.3 g/dl (14.0-18.0)
[2016-07-24 05:21] LABS: POTASSIUM 3.2 mmol/L (3.5-5.1)
[2016-07-24 05:24] LABS: CREATININE 1.31 mg/dl (0.61-1.24)
[2016-07-24 05:25] LABS: CALCIUM 7.4 mg/dl (8.4-10.2)
[2016-07-24] MEDS: INSULIN ASPART [NOVOLOG] 3 ML PEN SC SCH ×3 (05:45→18:00)
[2016-07-24] MEDS ORDERED: POTASSIUM CHLORIDE 20 MEQ POWDER FOR ORAL SOLN NGT ONE (06:30)
[2016-07-24] MEDS: BENAZEPRIL 10 MG TAB PO SCH (09:00)
[2016-07-24] MEDS: DOCUSATE SODIUM 10 MG/ML (10ML CUP) GTB SCH ×2 (09:50→21:18)
[2016-07-24] MEDS: FAMOTIDINE 20 MG TAB GTB SCH ×2 (09:50→21:18)
[2016-07-24] MEDS: PAROXETINE 20 MG TAB GTB SCH (09:50)
[2016-07-24] MEDS: LEVETIRACETAM (100 MG/ML) 5ML CUP GTB SCH ×2 (09:50→21:18)
[2016-07-24] MEDS: SIROLIMUS 1 MG TAB GTB SCH ×2 (09:50→21:19)
--- NOTE | 2016-07-24 11:28 | CONS ---
Date/Time of Note Date/Time of Note DATE: 07/24/16 TIME: 11:19 Assessment/Plan Assessment/Plan Chief Complaint/Hosp Course IMPRESSION: 1. Preoperative evaluation prior to surgery for femur fracture.-negative troponin x 3/NL EF by echo with no contraindicated valve lesions. OK to proceed to surgery at this time at moderate risk without further noninvasive evaluation. Now POD#1 s/p LE ORIF 2. Status post fall. Rule out cardiac etiology. Rule out cardiac arrhythmia. 3. History of paroxysmal atrial fibrillation.-In rate controlled AF by serial ecg's 4. 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 Diabetes mellitus. 6. Femur fracture, left lower extremity. 7. Possible seizure disorder by medications. 8. Dyslipidemia. 9. Abd distension-KUB unremarkable. ? ant abd wall hernia 10. Anemia-worsening requiring transfusion Recc: -Tele monitoring in icu -Hold BB/ACEI -Wean levo as tolerated -Contin statin -Pain control -IVF hydration -Transfuse PRBC's/Follow hgb closely Problems: Consultation Date/Type/Reason Admit Date/Time Jul 19, 2016 at 13:38 Initial Consult Date 07/20/2016 Type of Consultation: Cardiology Reason for Consultation hypotension Referring Provider: PREETI OLMOS Exam/Review of Systems Vital Signs Vitals Vital Signs Date Time Temp Pulse Resp B/P Pulse Ox O2 Delivery O2 Flow Rate FiO2 07/24/16 08:30 108 19 118/71 93 Room Air 07/24/16 07:45 98.7 2.0 Intake and Output 07/23/16 07/23/16 07/24/16 15:00 23:00 07:00 Intake Total 886.25 ml 1120.00 ml 723.6 ml Output Total 260 ml 330 ml Balance 886.25 ml 860.00 ml 393.6 ml Exam Review of Systems: CONSTITUTIONAL: No fevers, chills. PULMONARY: No sob CARDIOVASCULAR: No chest pain/palpitations GASTROINTESTINAL: No nausea/vomiting. GENITOURINARY: No hematuria/dysuria. MUSCULOSKELETAL: No myagias/arthalgias. PSYCHIATRIC: The patient denies depression. NEUROLOGIC: lethargic Constitutional: other (sleeping) Psych: no complaints Head: normocephalic ENMT: mucosa pink and moist Neck: jvd (8-9 cm water), supple Respiratory: diminished breath sounds (at bases/B) Cardiovascular: regular rate and rhythm Gastrointestinal: non-tender, soft Musculoskeletal: muscle tone (normal) Extremities: edema (none) Neurological: lethargic Results Result Diagram: 07/24/16 0430 07/24/16 0430 Results 24 hrs Laboratory Tests Test 07/23/16 12:05 07/23/16 13:45 07/23/16 17:31 07/23/16 18:48 Ammonia < 9 L Troponin I 0.061 0.050 Bedside Glucose 247 H 214 Test 07/23/16 23:52 07/24/16 04:30 07/24/16 05:45 Bedside Glucose 144 127 White Blood Count 10.0 Red Blood Count 2.12 #L Hemoglobin 6.3 #*L Hematocrit 19.4 #L Mean Corpuscular Volume 91.5 Mean Corpuscular Hemoglobin 29.7 Mean Corpuscular Hemoglobin Concent 32.5 Red Cell Distribution Width 14.6 H Platelet Count 101 L Mean Platelet Volume 10.2 Sodium Level 137 Potassium Level 3.2 L Chloride Level 108 Carbon Dioxide Level 19 L Anion Gap 13 Blood Urea Nitrogen 30 H Creatinine 1.31 H Glucose Level 142 # Calcium Level 7.4 L Medications Medications Current Medications Ondansetron HCl (Zofran Inj) 4 mg Q6H PRN IV NAUSEA AND/OR VOMITING; Start at 17:00 Acetaminophen/ Hydrocodone Bitart ([place] (5/325)) 1 tab Q6H PRN PO MODERATE PAIN LEVEL 4-6 Last administered on 07/23/16 09:19; Admin Dose 1 TAB; Start at 17:00 Levetiracetam (Keppra Liquid) 750 mg BID GTB Last administered on 07/24/16 09: 50; Admin Dose 750 MG; Start 07/19/16 at 21:00 Famotidine (Pepcid) 20 mg BID GTB Last administered on 07/24/16 09:50; Admin Dose 20 MG; Start 07/19/16 at 21:00 Sirolimus (Rapamune) 3 mg BID GTB Last administered on 07/24/16 09:50; Admin Dose 3 MG; Start 07/19/16 at 21:00 Apixaban (Eliquis) 5 mg BID GTB ; Start 07/19/16 at 21:00; Status Future Hold Eye Lubricant (Artificial Tears Oph) 2 drop Q6H PRN BOTH EYES DRY EYES; Start 07/19/16 at 18:00 Chlorpromazine (Thorazine) 25 mg QHS GTB Last administered on 07/23/16 21:02; Admin Dose 25 MG; Start 07/19/16 at 21:00 Paroxetine HCl (Paxil) 20 mg DAILY GTB Last administered on 07/24/16 09:50; Admin Dose 20 MG; Start 07/20/16 at 09:00 Atorvastatin Calcium (Lipitor) 10 mg HS GTB Last administered on 07/23/16 21: 02; Admin Dose 10 MG; Start 07/19/16 at 21:00 Docusate Sodium (Colace Liquid Cup) 100 mg BID GTB Last administered on 09:50; Admin Dose 100 MG; Start 07/19/16 at 21:00 Miscellaneous Information 1 ea NOTE XX ; Start 07/19/16 at 17:00 Glucose (Glutose) 15 gm Q15M PRN PO DECREASED GLUCOSE; Start 07/19/16 at 17:00 Glucose (Glutose) 22.5 gm Q15M PRN PO DECREASED GLUCOSE; Start 07/19/16 at 17: 00 Dextrose (D50w Syringe) 25 ml Q15M PRN IV DECREASED GLUCOSE; Start 07/19/16 at 17:00 Dextrose (D50w Syringe) 50 ml Q15M PRN IV DECREASED GLUCOSE; Start 07/19/16 at 17:00 Glucagon (Glucagen) 1 mg Q15M PRN IM DECREASED GLUCOSE; Start 07/19/16 at 17:00 Glucose (Glutose) 15 gm Q15M PRN BUCCAL DECREASED GLUCOSE; Start 07/19/16 at 17 :00 Insulin Aspart (Novolog Insulin Pen) NOVOLOG *MILD* ALGORI... Q6 SC Last administered on 07/23/16 23:59; Admin Dose 1 UNIT; Start 07/20/16 at 01:00 Tramadol HCl (Ultram) 50 mg Q6H PRN GTB PAIN LEVEL 1-5 Last administered on 00:11; Admin Dose 50 MG; Start 07/20/16 at 01:00 Tramadol HCl (Ultram) 100 mg Q6H PRN GTB PAIN LEVEL 6-10; Start 07/20/16 at 01: 00 Benazepril HCl (Lotensin) 10 mg DAILY PO Last administered on 07/23/16 09:20; Admin Dose 10 MG; Start 07/20/16 at 14:30 Insulin Glargine (Lantus) 30 unit DAILY@20 SC Last administered on 07/23/16 21 :11; Admin Dose 30 UNIT; Start 07/22/16 at 20:00 Acetaminophen 650 mg 650 mg Q6H PRN PO PAIN AND OR ELEVATED TEMP Last administered on 07/23/16 11:01; Admin Dose 650 MG; Start 07/23/16 at 11:00 Norepinephrine 16 mg/Dextrose 500 ml @ 1.87 mls/hr TITRATE IV Last administered on 07/23/16 23:37; Admin Dose 24.37 MLS/HR; Start 07/23/16 at 13: 30; Status Future hold Sodium Chloride (NS) 1,000 ml @ 100 mls/hr Q10H IV Last administered on 04:18; Admin Dose 100 MLS/HR; Start 07/23/16 at 17:30 SHIMA DIXON Jul 24, 2016 11:28
[2016-07-24 11:32] LABS: EOSINOPHILS # 0.9 10^3/ul (0.0-0.5); LYMPHOCYTES # 0.9 10^3/ul (0.8-2.9); MONOCYTE # 0.7 10^3/ul (0.3-0.9); NEUTROPHIL # 7.5 10^3/ul (1.6-7.5); PLATELET ESTIMATE PLT APPEAR DECREASED
--- NOTE | 2016-07-24 13:43 | PN ---
DATE: The patient is status post left hip locked intramedullary nailing for intertrochanteric fracture. P ostoperative, the patient apparently had hypotension and is currently in the ICU for monitoring and evaluation and treatment of the blood pressure. The patient is comfortable. The site is soft, the incisions are dry. Neurovascular status intact. DIAGNOSIS: Status post left femur intramedullary nailing. ____ well as far as the fracture is elvin rned. She may be mobilized when indicated, begin toe-touch weightbearing with physical therapy. Dictated By: DEVEN BENNETT/JEFFREY Conf#: [id number] DID#: [id number]
--- NOTE | 2016-07-24 14:19 | PN ---
Date/Time of Note Date/Time of Note DATE: 07/24/16 TIME: 14:18 Assessment/Plan Lines/Catheters IV Catheter Type (from Nrsg): Central Line Bal in Place (from Nrsg): Yes Assessment/Plan Chief Complaint/Hosp Course Hypotension SP Central line placement site clean will continue supp care Problems: Subjective 24 Hr Interval Summary Constitutional: improved Pain Control: mild Exam/Review of Systems Vital Signs Vitals Vital Signs Date Time Temp Pulse Resp B/P Pulse Ox O2 Delivery O2 Flow Rate FiO2 07/24/16 12:00 85 07/24/16 11:30 16 118/67 96 Room Air 07/24/16 07:45 98.7 2.0 Intake and Output 07/23/16 07/23/16 07/24/16 15:00 23:00 07:00 Intake Total 886.25 ml 1120.00 ml 842.35 ml Output Total 260 ml 330 ml Balance 886.25 ml 860.00 ml 512.35 ml Exam ENMT: mucosa pink and moist, nl external ears & nose, nl lips & teeth, nl nasal mucosa & septum Neck: non-tender, supple Respiratory: clear to auscultation, normal air movement Cardiovascular: nl pulses, regular rate and rhythm Results Result Diagram: 07/24/1642907/24/16429 MARJAN PEREZ MD Jul 24, 2016 14:19
[2016-07-24 15:06] LABS: HEMATOCRIT 24.4 % (42.0-52.0); HEMOGLOBIN 8.4 g/dl (14.0-18.0)
--- NOTE | 2016-07-24 17:12 | PN ---
Date/Time of Note Date/Time of Note DATE: 07/24/16 TIME: 17:09 Assessment/Plan VTE Prophylaxis VTE Prophylaxis Intervention: heparin Assessment/Plan Chief Complaint/Hosp Course 1. Left femur fracture status post surgical repair -pain control -PT when stable 2. Fall 2/2 comorbidities from stroke as well as seizures. No reported seizures prior to the onset of fall -2D echo shows no sig findings 3. History of stroke with seizure disorder - Continue home Keppra. 4. Liver cirrhosis secondary to alcohol abuse s/p liver transplant -cont transplant Rx -We will give irradiated and leuko-reduced blood when giving transfusions 5. Diabetes type 2 -NISS 6. History of atrial fibrillation -continue home Eliquis 7. Hypotension secondary to blood loss anemia -Status post 2 unit of blood -Will give irradiated and leuko-reduced blood as needed Prophylaxis-Heparin Problems: Subjective 24 Hr Interval Summary Constitutional: disoriented Exam/Review of Systems Vital Signs Vitals Vital Signs Date Time Temp Pulse Resp B/P Pulse Ox O2 Delivery O2 Flow Rate FiO2 07/24/16 16:15 99 23 91/53 98 Nasal Cannula 2.0 07/24/16 16:00 99.1 Intake and Output 07/23/16 07/23/16 07/24/16 15:00 23:00 07:00 Intake Total 886.25 ml 1120.00 ml 842.35 ml Output Total 260 ml 330 ml Balance 886.25 ml 860.00 ml 512.35 ml Exam Psych: confusion Respiratory: clear to auscultation Cardiovascular: regular rate and rhythm Gastrointestinal: soft, No distended Musculoskeletal: nl extremities to inspection Results Result Diagram: 07/24/16 1455 07/24/16 0430 Results 24 hrs Laboratory Tests Test 07/23/16 17:31 07/23/16 18:48 07/23/16 23:52 07/24/16 04:30 Bedside Glucose 214 144 Troponin I 0.050 White Blood Count 10.0 Red Blood Count 2.12 #L Hemoglobin 6.3 #*L Hematocrit 19.4 #L Mean Corpuscular Volume 91.5 Mean Corpuscular Hemoglobin 29.7 Mean Corpuscular Hemoglobin Concent 32.5 Red Cell Distribution Width 14.6 H Platelet Count 101 L Mean Platelet Volume 10.2 Neutrophils % 75.0 Lymphocytes % 9.0 L Monocytes % 7.0 Eosinophils % 9.0 H Neutrophils # 7.5 Lymphocytes # 0.9 Monocytes # 0.7 Eosinophils # 0.9 H Platelet Estimate PLT APPEAR DECREASED Sodium Level 137 Potassium Level 3.2 L Chloride Level 108 Carbon Dioxide Level 19 L Anion Gap 13 Blood Urea Nitrogen 30 H Creatinine 1.31 H Glucose Level 142 # Calcium Level 7.4 L Test 07/24/16 05:45 07/24/16 12:43 07/24/16 14:55 Bedside Glucose 127 127 Hemoglobin 8.4 #L Hematocrit 24.4 #L Medications Medications Current Medications Ondansetron HCl (Zofran Inj) 4 mg Q6H PRN IV NAUSEA AND/OR VOMITING; Start at 17:00 Acetaminophen/ Hydrocodone Bitart ([place] (5/325)) 1 tab Q6H PRN PO MODERATE PAIN LEVEL 4-6 Last administered on 07/23/16 09:19; Admin Dose 1 TAB; Start at 17:00 Levetiracetam (Keppra Liquid) 750 mg BID GTB Last administered on 07/24/16 09: 50; Admin Dose 750 MG; Start 07/19/16 at 21:00 Famotidine (Pepcid) 20 mg BID GTB Last administered on 07/24/16 09:50; Admin Dose 20 MG; Start 07/19/16 at 21:00 Sirolimus (Rapamune) 3 mg BID GTB Last administered on 07/24/16 09:50; Admin Dose 3 MG; Start 07/19/16 at 21:00 Apixaban (Eliquis) 5 mg BID GTB ; Start 07/19/16 at 21:00; Status Future Hold Eye Lubricant (Artificial Tears Oph) 2 drop Q6H PRN BOTH EYES DRY EYES; Start 07/19/16 at 18:00 Chlorpromazine (Thorazine) 25 mg QHS GTB Last administered on 07/23/16 21:02; Admin Dose 25 MG; Start 07/19/16 at 21:00 Paroxetine HCl (Paxil) 20 mg DAILY GTB Last administered on 07/24/16 09:50; Admin Dose 20 MG; Start 07/20/16 at 09:00 Atorvastatin Calcium (Lipitor) 10 mg HS GTB Last administered on 07/23/16 21: 02; Admin Dose 10 MG; Start 07/19/16 at 21:00 Docusate Sodium (Colace Liquid Cup) 100 mg BID GTB Last administered on 09:50; Admin Dose 100 MG; Start 07/19/16 at 21:00 Miscellaneous Information 1 ea NOTE XX ; Start 07/19/16 at 17:00 Glucose (Glutose) 15 gm Q15M PRN PO DECREASED GLUCOSE; Start 07/19/16 at 17:00 Glucose (Glutose) 22.5 gm Q15M PRN PO DECREASED GLUCOSE; Start 07/19/16 at 17: 00 Dextrose (D50w Syringe) 25 ml Q15M PRN IV DECREASED GLUCOSE; Start 07/19/16 at 17:00 Dextrose (D50w Syringe) 50 ml Q15M PRN IV DECREASED GLUCOSE; Start 07/19/16 at 17:00 Glucagon (Glucagen) 1 mg Q15M PRN IM DECREASED GLUCOSE; Start 07/19/16 at 17:00 Glucose (Glutose) 15 gm Q15M PRN BUCCAL DECREASED GLUCOSE; Start 07/19/16 at 17 :00 Insulin Aspart (Novolog Insulin Pen) NOVOLOG *MILD* ALGORI... Q6 SC Last administered on 07/23/16 23:59; Admin Dose 1 UNIT; Start 07/20/16 at 01:00 Tramadol HCl (Ultram) 50 mg Q6H PRN GTB PAIN LEVEL 1-5 Last administered on 00:11; Admin Dose 50 MG; Start 07/20/16 at 01:00 Tramadol HCl (Ultram) 100 mg Q6H PRN GTB PAIN LEVEL 6-10; Start 07/20/16 at 01: 00 Benazepril HCl (Lotensin) 10 mg DAILY PO Last administered on 07/23/16 09:20; Admin Dose 10 MG; Start 07/20/16 at 14:30 Insulin Glargine (Lantus) 30 unit DAILY@20 SC Last administered on 07/23/16 21 :11; Admin Dose 30 UNIT; Start 07/22/16 at 20:00 Acetaminophen 650 mg 650 mg Q6H PRN PO PAIN AND OR ELEVATED TEMP Last administered on 07/23/16 11:01; Admin Dose 650 MG; Start 07/23/16 at 11:00 Norepinephrine 16 mg/Dextrose 500 ml @ 1.87 mls/hr TITRATE IV Last administered on 07/23/16 23:37; Admin Dose 24.37 MLS/HR; Start 07/23/16 at 13: 30; Status Future hold Sodium Chloride (NS) 1,000 ml @ 100 mls/hr Q10H IV Last administered on 04:18; Admin Dose 100 MLS/HR; Start 07/23/16 at 17:30 PREETI OLMOS Jul 24, 2016 17:12
[2016-07-24] MEDS: ATORVASTATIN 10 MG TAB GTB SCH (21:18)
[2016-07-24] MEDS: CHLORPROMAZINE 25 MG TAB GTB SCH (21:19)
[2016-07-24] MEDS: INSULIN GLARGINE [LANtus] 3 ML PEN SC SCH (21:21)
[2016-07-24] MEDS: traMADol 50 MG TAB GTB PRN (21:52)
[2016-07-25] VITALS (92 sets, daily range): BP systolic 85–120; BP diastolic 50–83; PULSE 75–127; RESP 6–33
[2016-07-25] MEDS: INSULIN ASPART [NOVOLOG] 3 ML PEN SC SCH ×4 (00:30→18:48)
[2016-07-25] MEDS: SOD CHLORIDE 0.9% 1,000 ML IV SCH ×2 (05:08→09:30)
[2016-07-25 05:54] LABS: ADD SCAN DIFF NO
[2016-07-25 06:02] LABS: ABNORMAL IP MESSAGE 1; BASOPHILS % 0.1 % (0.0-2.0); EOSINOPHILS # 0.2 10^3/ul (0.0-0.5); EOSINOPHILS % 2.7 % (0.0-7.0); HEMATOCRIT 25.9 % (42.0-52.0); HEMOGLOBIN 8.6 g/dl (14.0-18.0); LYMPHOCYTES # 0.9 10^3/ul (0.8-2.9); LYMPHOCYTES % 12.9 % (15.0-51.0); MEAN CORPUSCULAR HEMOGLOBIN 29.5 pg (29.0-33.0); MEAN CORPUSCULAR HGB CONC 33.2 g/dl (32.0-37.0); MEAN CORPUSCULAR VOLUME 88.7 fl (82.0-101.0); MEAN PLATELET VOLUME 10.6 fl (7.4-10.4); MONOCYTE # 0.5 10^3/ul (0.3-0.9); MONOCYTES % 7.9 % (0.0-11.0); NEUTROPHIL # 5.1 10^3/ul (1.6-7.5); PLATELET COUNT 91 10^3/UL (140-415); RED BLOOD COUNT 2.92 10^6/ul (4.70-6.10); RED CELL DISTRIBUTION WIDTH 15.9 % (11.5-14.5); WHITE BLOOD COUNT 6.7 10^3/ul (4.8-10.8)
[2016-07-25 06:35] LABS: POTASSIUM 3.5 mmol/L (3.5-5.1)
[2016-07-25 06:38] LABS: CALCIUM 7.4 mg/dl (8.4-10.2); CREATININE 1.18 mg/dl (0.61-1.24)
[2016-07-25] MEDS: BENAZEPRIL 10 MG TAB PO SCH (09:00)
[2016-07-25] MEDS: DOCUSATE SODIUM 10 MG/ML (10ML CUP) GTB SCH ×2 (09:50→20:49)
[2016-07-25] MEDS: SIROLIMUS 1 MG TAB GTB SCH ×2 (09:50→20:49)
[2016-07-25] MEDS: PAROXETINE 20 MG TAB GTB SCH (09:50)
[2016-07-25] MEDS: FAMOTIDINE 20 MG TAB GTB SCH ×2 (09:50→20:49)
[2016-07-25] MEDS: LEVETIRACETAM (100 MG/ML) 5ML CUP GTB SCH ×2 (09:50→20:49)
--- NOTE | 2016-07-25 11:07 | PN ---
Date/Time of Note Date/Time of Note DATE: 07/25/16 TIME: 11:04 Assessment/Plan VTE Prophylaxis VTE Prophylaxis Intervention: heparin Lines/Catheters IV Catheter Type (from Nrs): Central Line Central line still needed: Yes (difficult peripheral access ) Urinary Cath still in place: Yes Reason Cath still needed: urinary retention, other (indicate) (post op ICU care ) Assessment/Plan Assessment/Plan 1. Left femur fracture status post surgical repair- Post op hypotension on levophed 2. Fall 2/2 comorbidities from stroke as well as seizures. No reported seizures prior to the onset of fall -2D echo shows no sig findings 3. History of stroke with seizure disorder - Continue home Keppra. 4. Liver cirrhosis secondary to alcohol abuse s/p liver transplant -cont transplant Rx -We will give irradiated and leuko-reduced blood when giving transfusions 5. Diabetes type 2 -NISS 6. History of atrial fibrillation -continue home Eliquis 7. Hypotension secondary to blood loss anemia -Status post 2 unit of blood 8. MRSA nares colonization, bactroban Prophylaxis-Heparin Subjective 24 Hr Interval Summary Free Text/Dictation pt remains in ICU, had a Restarted on Levophed gtt due to hypotension , pt confused today AM Exam/Review of Systems Vital Signs Vitals Vital Signs Date Time Temp Pulse Resp B/P Pulse Ox O2 Delivery O2 Flow Rate FiO2 07/25/16 08:00 100 07/25/16 06:15 22 107/66 100 Nasal Cannula 2.0 07/25/16 05:00 99.1 Intake and Output 07/24/16 07/24/16 07/25/16 15:00 23:00 07:00 Intake Total 717.00 ml 620 ml 1655 ml Output Total 680 ml 330 ml 355 ml Balance 37.00 ml 290 ml 1300 ml Exam Psych: confusion Respiratory: clear to auscultation Cardiovascular: regular rate and rhythm Gastrointestinal: soft, No distended Musculoskeletal: nl extremities to inspection Results Result Diagram: 07/25/16 0520 07/25/16 0520 Results 24 hrs Laboratory Tests Test 07/24/16 12:43 07/24/16 14:55 07/24/16 17:49 07/24/16 21:17 Bedside Glucose 127 132 153 Hemoglobin 8.4 #L Hematocrit 24.4 #L Test 07/25/16 00:25 07/25/16 05:20 07/25/16 05:23 Bedside Glucose 175 177 White Blood Count 6.7 # Red Blood Count 2.92 #L Hemoglobin 8.6 L Hematocrit 25.9 L Mean Corpuscular Volume 88.7 Mean Corpuscular Hemoglobin 29.5 Mean Corpuscular Hemoglobin Concent 33.2 Red Cell Distribution Width 15.9 H Platelet Count 91 L Mean Platelet Volume 10.6 H Neutrophils % 76.0 Lymphocytes % 12.9 L Monocytes % 7.9 Eosinophils % 2.7 Basophils % 0.1 Nucleated Red Blood Cells % 0.0 Neutrophils # 5.1 Lymphocytes # 0.9 Monocytes # 0.5 Eosinophils # 0.2 Basophils # 0.0 Nucleated Red Blood Cells # 0.0 Sodium Level 139 Potassium Level 3.5 Chloride Level 111 H Carbon Dioxide Level 19 L Anion Gap 13 Blood Urea Nitrogen 30 H Creatinine 1.18 Glucose Level 168 Calcium Level 7.4 L Medications Medications Current Medications Ondansetron HCl (Zofran Inj) 4 mg Q6H PRN IV NAUSEA AND/OR VOMITING; Start at 17:00 Acetaminophen/ Hydrocodone Bitart ([place] (5/325)) 1 tab Q6H PRN PO MODERATE PAIN LEVEL 4-6 Last administered on 07/23/16 09:19; Admin Dose 1 TAB; Start at 17:00 Levetiracetam (Keppra Liquid) 750 mg BID GTB Last administered on 07/25/16 09: 50; Admin Dose 750 MG; Start 07/19/16 at 21:00 Famotidine (Pepcid) 20 mg BID GTB Last administered on 07/25/16 09:50; Admin Dose 20 MG; Start 07/19/16 at 21:00 Sirolimus (Rapamune) 3 mg BID GTB Last administered on 07/25/16 09:50; Admin Dose 3 MG; Start 07/19/16 at 21:00 Apixaban (Eliquis) 5 mg BID GTB ; Start 07/19/16 at 21:00; Status Future Hold Eye Lubricant (Artificial Tears Oph) 2 drop Q6H PRN BOTH EYES DRY EYES; Start 07/19/16 at 18:00 Chlorpromazine (Thorazine) 25 mg QHS GTB Last administered on 07/24/16 21:19; Admin Dose 25 MG; Start 07/19/16 at 21:00 Paroxetine HCl (Paxil) 20 mg DAILY GTB Last administered on 07/25/16 09:50; Admin Dose 20 MG; Start 07/20/16 at 09:00 Atorvastatin Calcium (Lipitor) 10 mg HS GTB Last administered on 07/24/16 21: 18; Admin Dose 10 MG; Start 07/19/16 at 21:00 Docusate Sodium (Colace Liquid Cup) 100 mg BID GTB Last administered on 09:50; Admin Dose 100 MG; Start 07/19/16 at 21:00 Miscellaneous Information 1 ea NOTE XX ; Start 07/19/16 at 17:00 Glucose (Glutose) 15 gm Q15M PRN PO DECREASED GLUCOSE; Start 07/19/16 at 17:00 Glucose (Glutose) 22.5 gm Q15M PRN PO DECREASED GLUCOSE; Start 07/19/16 at 17: 00 Dextrose (D50w Syringe) 25 ml Q15M PRN IV DECREASED GLUCOSE; Start 07/19/16 at 17:00 Dextrose (D50w Syringe) 50 ml Q15M PRN IV DECREASED GLUCOSE; Start 07/19/16 at 17:00 Glucagon (Glucagen) 1 mg Q15M PRN IM DECREASED GLUCOSE; Start 07/19/16 at 17:00 Glucose (Glutose) 15 gm Q15M PRN BUCCAL DECREASED GLUCOSE; Start 07/19/16 at 17 :00 Insulin Aspart (Novolog Insulin Pen) NOVOLOG *MILD* ALGORI... Q6 SC Last administered on 07/25/16 05:33; Admin Dose 1 UNIT; Start 07/20/16 at 01:00 Tramadol HCl (Ultram) 50 mg Q6H PRN GTB PAIN LEVEL 1-5 Last administered on 00:11; Admin Dose 50 MG; Start 07/20/16 at 01:00 Tramadol HCl (Ultram) 100 mg Q6H PRN GTB PAIN LEVEL 6-10 Last administered on 21:52; Admin Dose 100 MG; Start 07/20/16 at 01:00 Benazepril HCl (Lotensin) 10 mg DAILY PO Last administered on 07/23/16 09:20; Admin Dose 10 MG; Start 07/20/16 at 14:30 Insulin Glargine (Lantus) 30 unit DAILY@20 SC Last administered on 07/24/16 21 :21; Admin Dose 30 UNIT; Start 07/22/16 at 20:00 Acetaminophen 650 mg 650 mg Q6H PRN PO PAIN AND OR ELEVATED TEMP Last administered on 07/23/16 11:01; Admin Dose 650 MG; Start 07/23/16 at 11:00 Norepinephrine 16 mg/Dextrose 500 ml @ 1.87 mls/hr TITRATE IV Last administered on 07/24/16 23:21; Admin Dose 1.87 MLS/HR; Start 07/23/16 at 13:30 ; Status Future hold Sodium Chloride (NS) 1,000 ml @ 100 mls/hr Q10H IV Last administered on 05:08; Admin Dose 100 MLS/HR; Start 07/23/16 at 17:30 NOEMI JARRELL MD July 25, 2016 11:07
[2016-07-25] MEDS ORDERED: MUPIROCIN 2% 22 GM OINT TOP ONE (12:30)
[2016-07-25] MEDS: SOD CHLORIDE 0.45% 1,000 ML IV SCH (12:46)
--- NOTE | 2016-07-25 13:09 | CONS ---
Date/Time of Note Date/Time of Note DATE: 07/25/16 TIME: 13:06 Assessment/Plan Assessment/Plan Chief Complaint/Hosp Course IMPRESSION: 1. Preoperative evaluation prior to surgery for femur fracture.-negative troponin x 3/NL EF by echo with no contraindicated valve lesions. OK to proceed to surgery at this time at moderate risk without further noninvasive evaluation. Now Post-op s/p LE ORIF 2. Status post fall. Rule out cardiac etiology. Rule out cardiac arrhythmia. 3. History of paroxysmal atrial fibrillation.-In rate controlled AF by serial ecg's 4. Hypotension-07/23 AM with subsequent [employer] and transferred to ICU where he remains at this time 5. Diabetes mellitus. 6. Femur fracture, left lower extremity. 7. Possible seizure disorder by medications. 8. Dyslipidemia. 9. Abd distension-KUB unremarkable. ? ant abd wall hernia 10. Anemia-s/p transfusions Recc: -Tele monitoring in icu -Hold BB/ACEI -Wean levo as tolerated -Contin statin -Pain control -IVF hydration -Follow volume status closely Problems: Consultation Date/Type/Reason Admit Date/Time Jul 19, 2016 at 13:38 Initial Consult Date 07/20/2016 Type of Consultation: Cardiology Reason for Consultation hypotension Referring Provider: PREETI OLMOS Exam/Review of Systems Vital Signs Vitals Vital Signs Date Time Temp Pulse Resp B/P Pulse Ox O2 Delivery O2 Flow Rate FiO2 07/25/16 08:00 100 07/25/16 06:15 22 107/66 100 Nasal Cannula 2.0 07/25/16 05:00 99.1 Intake and Output 07/24/16 07/24/16 07/25/16 14:59 22:59 06:59 Intake Total 635.75 ml 780 ml 1546 ml Output Total 580 ml 390 ml 340 ml Balance 55.75 ml 390 ml 1206 ml Exam Review of Systems: CONSTITUTIONAL: No fevers, chills. PULMONARY: No sob CARDIOVASCULAR: No chest pain/palpitations GASTROINTESTINAL: No nausea/vomiting. GENITOURINARY: No hematuria/dysuria. MUSCULOSKELETAL: No myagias/arthalgias. PSYCHIATRIC: The patient denies depression. NEUROLOGIC: No weakness Constitutional: alert Psych: no complaints Head: normocephalic ENMT: mucosa pink and moist Neck: supple Respiratory: diminished breath sounds (at bases/B) Cardiovascular: regular rate and rhythm Gastrointestinal: non-tender, soft Musculoskeletal: muscle tone (normal) Extremities: edema (none) Neurological: other (No focal deficits) Results Result Diagram: 07/25/16 0520 07/25/16 0520 Results 24 hrs Laboratory Tests Test 07/24/16 14:55 07/24/16 17:49 07/24/16 21:17 07/25/16 00:25 Hemoglobin 8.4 #L Hematocrit 24.4 #L Bedside Glucose 132 153 175 Test 07/25/16 05:20 07/25/16 05:23 White Blood Count 6.7 # Red Blood Count 2.92 #L Hemoglobin 8.6 L Hematocrit 25.9 L Mean Corpuscular Volume 88.7 Mean Corpuscular Hemoglobin 29.5 Mean Corpuscular Hemoglobin Concent 33.2 Red Cell Distribution Width 15.9 H Platelet Count 91 L Mean Platelet Volume 10.6 H Neutrophils % 76.0 Lymphocytes % 12.9 L Monocytes % 7.9 Eosinophils % 2.7 Basophils % 0.1 Nucleated Red Blood Cells % 0.0 Neutrophils # 5.1 Lymphocytes # 0.9 Monocytes # 0.5 Eosinophils # 0.2 Basophils # 0.0 Nucleated Red Blood Cells # 0.0 Sodium Level 139 Potassium Level 3.5 Chloride Level 111 H Carbon Dioxide Level 19 L Anion Gap 13 Blood Urea Nitrogen 30 H Creatinine 1.18 Glucose Level 168 Calcium Level 7.4 L Bedside Glucose 177 Medications Medications Current Medications Ondansetron HCl (Zofran Inj) 4 mg Q6H PRN IV NAUSEA AND/OR VOMITING; Start at 17:00 Acetaminophen/ Hydrocodone Bitart ([place] (5/325)) 1 tab Q6H PRN PO MODERATE PAIN LEVEL 4-6 Last administered on 07/23/16 09:19; Admin Dose 1 TAB; Start at 17:00 Levetiracetam (Keppra Liquid) 750 mg BID GTB Last administered on 07/25/16 09: 50; Admin Dose 750 MG; Start 07/19/16 at 21:00 Famotidine (Pepcid) 20 mg BID GTB Last administered on 07/25/16 09:50; Admin Dose 20 MG; Start 07/19/16 at 21:00 Sirolimus (Rapamune) 3 mg BID GTB Last administered on 07/25/16 09:50; Admin Dose 3 MG; Start 07/19/16 at 21:00 Apixaban (Eliquis) 5 mg BID GTB ; Start 07/19/16 at 21:00; Status Future Hold Eye Lubricant (Artificial Tears Oph) 2 drop Q6H PRN BOTH EYES DRY EYES; Start 07/19/16 at 18:00 Chlorpromazine (Thorazine) 25 mg QHS GTB Last administered on 07/24/16 21:19; Admin Dose 25 MG; Start 07/19/16 at 21:00 Paroxetine HCl (Paxil) 20 mg DAILY GTB Last administered on 07/25/16 09:50; Admin Dose 20 MG; Start 07/20/16 at 09:00 Atorvastatin Calcium (Lipitor) 10 mg HS GTB Last administered on 07/24/16 21: 18; Admin Dose 10 MG; Start 07/19/16 at 21:00 Docusate Sodium (Colace Liquid Cup) 100 mg BID GTB Last administered on 09:50; Admin Dose 100 MG; Start 07/19/16 at 21:00 Miscellaneous Information 1 ea NOTE XX ; Start 07/19/16 at 17:00 Glucose (Glutose) 15 gm Q15M PRN PO DECREASED GLUCOSE; Start 07/19/16 at 17:00 Glucose (Glutose) 22.5 gm Q15M PRN PO DECREASED GLUCOSE; Start 07/19/16 at 17: 00 Dextrose (D50w Syringe) 25 ml Q15M PRN IV DECREASED GLUCOSE; Start 07/19/16 at 17:00 Dextrose (D50w Syringe) 50 ml Q15M PRN IV DECREASED GLUCOSE; Start 07/19/16 at 17:00 Glucagon (Glucagen) 1 mg Q15M PRN IM DECREASED GLUCOSE; Start 07/19/16 at 17:00 Glucose (Glutose) 15 gm Q15M PRN BUCCAL DECREASED GLUCOSE; Start 07/19/16 at 17 :00 Insulin Aspart (Novolog Insulin Pen) NOVOLOG *MILD* ALGORI... Q6 SC Last administered on 07/25/16 12:55; Admin Dose 2 UNIT; Start 07/20/16 at 01:00 Tramadol HCl (Ultram) 50 mg Q6H PRN GTB PAIN LEVEL 1-5 Last administered on 00:11; Admin Dose 50 MG; Start 07/20/16 at 01:00 Tramadol HCl (Ultram) 100 mg Q6H PRN GTB PAIN LEVEL 6-10 Last administered on 21:52; Admin Dose 100 MG; Start 07/20/16 at 01:00 Benazepril HCl (Lotensin) 10 mg DAILY PO Last administered on 07/23/16 09:20; Admin Dose 10 MG; Start 07/20/16 at 14:30 Insulin Glargine (Lantus) 30 unit DAILY@20 SC Last administered on 07/24/16 21 :21; Admin Dose 30 UNIT; Start 07/22/16 at 20:00 Acetaminophen 650 mg 650 mg Q6H PRN PO PAIN AND OR ELEVATED TEMP Last administered on 07/23/16 11:01; Admin Dose 650 MG; Start 07/23/16 at 11:00 Norepinephrine/ Dextrose (Levophed/D5W) 500 ml @ 1.87 mls/hr TITRATE IV Last administered on 07/24/16 23:21; Admin Dose 1.87 MLS/HR; Start 07/23/16 at 13:30 ; Status Future hold Mupirocin 1 applic 1 applic BID TOP ; Start 07/25/16 at 21:00 Sodium Chloride (1/2 NS) 1,000 ml @ 80 mls/hr [id number] IV Last administered on 07/25/16 12:46; Admin Dose 80 MLS/HR; Start 07/25/16 at 11:30 SHIMA DIXON July 25, 2016 13:09
--- NOTE | 2016-07-25 15:04 | RADRPT ---
Vent Rate: 71 bpm RR Interval: 0 msec SD Interval: 0 msec QRS Duration: 86 msec QT Interval: 404 msec QTC Interval: 439 msec P-R-T [place]: 0 - -61 - 21 degrees Atrial fibrillation Left axis deviation Pulmonary disease pattern Nonspecific T wave abnormality , probably digitalis effect Abnormal ECG Electronically Signed By: Frankie Manriquez [id number]
--- NOTE | 2016-07-25 16:11 | PN ---
Date/Time of Note Date/Time of Note DATE: 07/25/16 TIME: 16:10 Assessment/Plan Lines/Catheters IV Catheter Type (from Nrsg): Central Line Bal in Place (from Nrsg): Yes Assessment/Plan Chief Complaint/Hosp Course Hypotension SP Central line placement site clean will continue supp care will remove the femoral line as soon as not needed Problems: Subjective 24 Hr Interval Summary Constitutional: improved Pain Control: mild Exam/Review of Systems Vital Signs Vitals Vital Signs Date Time Temp Pulse Resp B/P Pulse Ox O2 Delivery O2 Flow Rate FiO2 07/25/16 13:00 102 33 120/65 100 Nasal Cannula 2.0 07/25/16 12:00 98.5 Intake and Output 07/24/16 07/24/16 07/25/16 15:00 23:00 07:00 Intake Total 717.00 ml 620 ml 1655 ml Output Total 680 ml 330 ml 355 ml Balance 37.00 ml 290 ml 1300 ml Exam ENMT: mucosa pink and moist, nl external ears & nose, nl lips & teeth, nl nasal mucosa & septum Neck: non-tender, supple Respiratory: clear to auscultation, normal air movement Cardiovascular: nl pulses, regular rate and rhythm Gastrointestinal: nl liver, spleen, non-tender, soft Results Result Diagram: 07/25/16 0520 07/25/16 0520 MARJAN PEREZ MD July 25, 2016 16:11
[2016-07-25] MEDS: CHLORPROMAZINE 25 MG TAB GTB SCH (20:49)
[2016-07-25] MEDS: ATORVASTATIN 10 MG TAB GTB SCH (20:49)
[2016-07-25] MEDS: MUPIROCIN 2% 22 GM OINT TOP SCH (20:49)
[2016-07-25] MEDS: INSULIN GLARGINE [LANtus] 3 ML PEN SC SCH (20:51)
[2016-07-26] VITALS (39 sets, daily range): BP systolic 81–126; BP diastolic 44–77; PULSE 82–109; RESP 16–28
[2016-07-26] MEDS: SOD CHLORIDE 0.45% 1,000 ML IV SCH ×3 (00:40→16:34)
[2016-07-26] MEDS: INSULIN ASPART [NOVOLOG] 3 ML PEN SC SCH ×4 (00:41→18:44)
[2016-07-26] MEDS ORDERED: SOD CHLORIDE 0.9% 500 ML IV ONE (02:30)
[2016-07-26 04:50] LABS: ADD SCAN DIFF NO
[2016-07-26 04:53] LABS: BASOPHILS % 0.2 % (0.0-2.0); EOSINOPHILS # 0.2 10^3/ul (0.0-0.5); EOSINOPHILS % 3.5 % (0.0-7.0); HEMOGLOBIN 7.1 g/dl (14.0-18.0); LYMPHOCYTES # 0.9 10^3/ul (0.8-2.9); LYMPHOCYTES % 14.9 % (15.0-51.0); MEAN CORPUSCULAR HEMOGLOBIN 29.2 pg (29.0-33.0); MEAN CORPUSCULAR HGB CONC 32.3 g/dl (32.0-37.0); MEAN CORPUSCULAR VOLUME 90.5 fl (82.0-101.0); MEAN PLATELET VOLUME 10.7 fl (7.4-10.4); MONOCYTE # 0.5 10^3/ul (0.3-0.9); MONOCYTES % 7.6 % (0.0-11.0); NEUTROPHIL # 4.6 10^3/ul (1.6-7.5); NEUTROPHILS % 73.2 % (39.0-77.0); PLATELET COUNT 106 10^3/UL (140-415); RED BLOOD COUNT 2.43 10^6/ul (4.70-6.10); RED CELL DISTRIBUTION WIDTH 15.9 % (11.5-14.5); WHITE BLOOD COUNT 6.3 10^3/ul (4.8-10.8)
[2016-07-26 05:09] LABS: AADO2 Arterial 49.2 mmHg (7.0-24.0); Allen Test ACCEPTAB; Arterial Base Excess -4.6 mmol/L (-3.0-3); Arterial COHb 0.1 % (0.0-3.0); Arterial Fraction of Oxyhgb 96.1 % (93.0-99.0); Arterial MetHb 0.5 % (0.0-1.5); Arterial Total Hemglobin 6.6 g/dl (12.0-18.0); MODE NASAL CANNULA
[2016-07-26 05:12] LABS: INR 1.33; PROTIME 16.6 Sec (12.2-14.2); PT RATIO 1.3
[2016-07-26 05:13] LABS: ALBUMIN 2.2 g/dl (3.3-4.9)
[2016-07-26 05:14] LABS: POTASSIUM 3.5 mmol/L (3.5-5.1)
[2016-07-26 05:16] LABS: ALBUMIN/GLOBULIN RATIO 0.68; BILIRUBIN,INDIRECT 0.5 mg/dl (0-1.1); BILIRUBIN,TOTAL 0.5 mg/dl (0.2-1.3); CREATININE 1.02 mg/dl (0.61-1.24); TOTAL PROTEIN 5.4 g/dl (6.1-8.1)
[2016-07-26 05:17] LABS: CALCIUM 7.5 mg/dl (8.4-10.2)
[2016-07-26] MEDS: BENAZEPRIL 10 MG TAB PO SCH (09:00)
[2016-07-26] MEDS: DOCUSATE SODIUM 10 MG/ML (10ML CUP) GTB SCH ×2 (09:21→22:51)
[2016-07-26] MEDS: FAMOTIDINE 20 MG TAB GTB SCH ×2 (09:22→22:47)
[2016-07-26] MEDS: LEVETIRACETAM (100 MG/ML) 5ML CUP GTB SCH ×2 (09:22→23:37)
[2016-07-26] MEDS: PAROXETINE 20 MG TAB GTB SCH (09:22)
[2016-07-26] MEDS: SIROLIMUS 1 MG TAB GTB SCH ×2 (09:22→22:46)
[2016-07-26] MEDS: MUPIROCIN 2% 22 GM OINT TOP SCH ×2 (09:23→23:38)
[2016-07-26] MEDS: traMADol 50 MG TAB GTB PRN ×2 (09:24→16:48)
--- NOTE | 2016-07-26 12:35 | CONS ---
Date/Time of Note Date/Time of Note DATE: 07/26/16 TIME: 12:30 Assessment/Plan Assessment/Plan Additional Assessment/Plan 1. Poly-operative evaluation: post op - tolerated well - con't to adjust therapy as needed. Post-op s/p LE ORIF - tolerated well. 2. Status post fall. Rule out cardiac etiology. Rule out cardiac arrhythmia- a. fib . 3. History of paroxysmal atrial fibrillation- rate controlled AF by serial ecg' s - RATE controlled. 4. 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 Diabetes mellitus- euglycemic now. 6. Femur fracture, left lower extremity. 7. Possible seizure disorder by medications. 8. Dyslipidemia. 9. Abd distension-KUB unremarkable. ? ant abd wall hernia 10. Anemia-s/p transfusions - no active bleed now. Consultation Date/Type/Reason Admit Date/Time Jul 19, 2016 at 13:38 Initial Consult Date Type of Consultation: Cardiology Referring Provider: PREETI OLMOS 24 HR Interval Summary Free Text/Dictation NO acute change - stable post op - plan to transfer upstairs - a. fib, mostly rate controlled now. ROS: No fever, no chills, no nausea, no vomiting, no diarrhea/constipation No recent weight changes No chest pain, no PND, no orthopnea No dizziness, blurred vision No thirst, no heat or cold intolerance Exam/Review of Systems Vital Signs Vitals Vital Signs Date Time Temp Pulse Resp B/P Pulse Ox O2 Delivery O2 Flow Rate FiO2 07/26/16 11:30 96 27 107/68 100 07/26/16 11:00 Nasal Cannula 07/26/16 08:00 97.7 07/26/16 08:00 2.0 Intake and Output 07/25/16 07/25/16 07/26/16 15:00 23:00 07:00 Intake Total 1214.35 ml 838.75 ml 1523.75 ml Output Total 485 ml 555 ml 430 ml Balance 729.35 ml 283.75 ml 1093.75 ml Exam General: WN/WD/NAD, AOx 2-3 HEENT: Unicetric/atraumatic/EOMI (follow commands) NECK: JVD elevated, no thyromegaly Lymph: no lymphadenopathy HEART: IRregular with no S3, II/ systolic murmur at apex LUNGS: Coarse sounds ABD: soft, NT, ND, +BS : Intact Neuro: non focal SKIN: chronic changes EXT: trace edema Results Result Diagram: 07/26/16 0400 07/26/16 0400 Results 24 hrs Laboratory Tests Test 07/25/16 12:52 07/25/16 18:45 07/26/16 00:38 07/26/16 04:00 Bedside Glucose 190 170 152 White Blood Count 6.3 Red Blood Count 2.43 L Hemoglobin 7.1 L Hematocrit 22.0 L Mean Corpuscular Volume 90.5 Mean Corpuscular Hemoglobin 29.2 Mean Corpuscular Hemoglobin Concent 32.3 Red Cell Distribution Width 15.9 H Platelet Count 106 L Mean Platelet Volume 10.7 H Neutrophils % 73.2 Lymphocytes % 14.9 L Monocytes % 7.6 Eosinophils % 3.5 Basophils % 0.2 Nucleated Red Blood Cells % 0.0 Neutrophils # 4.6 Lymphocytes # 0.9 Monocytes # 0.5 Eosinophils # 0.2 Basophils # 0.0 Nucleated Red Blood Cells # 0.0 Prothrombin Time 16.6 H Prothrombin Time Ratio 1.3 INR International Normalized Ratio 1.33 Activated Partial Thromboplast Time 47.0 H Sodium Level 138 Potassium Level 3.5 Chloride Level 110 Carbon Dioxide Level 20 L Anion Gap 12 Blood Urea Nitrogen 31 H Creatinine 1.02 Glucose Level 149 Calcium Level 7.5 L Total Bilirubin 0.5 Direct Bilirubin 0.00 Indirect Bilirubin 0.5 Aspartate Amino Transf (AST/SGOT) 44 Alanine Aminotransferase (ALT/SGPT) 57 Alkaline Phosphatase 399 H Total Protein 5.4 L Albumin 2.2 L Globulin 3.20 Albumin/Globulin Ratio 0.68 Test 07/26/16 05:00 07/26/16 05:34 07/26/16 11:43 Blood Gas Specimen Source Blood arterial Arterial Blood Date Drawn 07/26/2016 5:04:26 AM Arterial Blood pH (Temp corrected) 7.447 Arterial Blood pCO2 (Temp correct) 28.1 L Arterial Blood pO2 (Temp corrected) 88.5 Arterial Blood HCO3 19.0 L Arterial Blood Base Excess -4.6 L Arterial Blood Oxygen Saturation 96.7 Venkata Test ACCEPTAB Arterial Blood Gas Puncture Site Right Radial Arterial Blood Carboxyhemoglobin 0.1 Arterial Blood Methemoglobin 0.5 Blood Gas A-a O2 Differential 49.2 H Oxyhemoglobin Percent 96.1 Total Hemoglobin 6.6 L Blood Gas Temperature 37.0 Blood Gas Modality NASAL CANNULA FiO2 24.0 Blood Gas Notified Whom BR Blood Gas Notified Time 07/26/2016 5:09:13 AM Bedside Glucose 166 140 Medications Medications Current Medications Ondansetron HCl (Zofran Inj) 4 mg Q6H PRN IV NAUSEA AND/OR VOMITING; Start at 17:00 Acetaminophen/ Hydrocodone Bitart ([place] (5/325)) 1 tab Q6H PRN PO MODERATE PAIN LEVEL 4-6 Last administered on 07/23/16 09:19; Admin Dose 1 TAB; Start at 17:00 Levetiracetam (Keppra Liquid) 750 mg BID GTB Last administered on 07/26/16 09: 22; Admin Dose 750 MG; Start 07/19/16 at 21:00 Famotidine (Pepcid) 20 mg BID GTB Last administered on 07/26/16 09:22; Admin Dose 20 MG; Start 07/19/16 at 21:00 Sirolimus (Rapamune) 3 mg BID GTB Last administered on 07/26/16 09:22; Admin Dose 3 MG; Start 07/19/16 at 21:00 Apixaban (Eliquis) 5 mg BID GTB ; Start 07/19/16 at 21:00; Status Future Hold Eye Lubricant (Artificial Tears Oph) 2 drop Q6H PRN BOTH EYES DRY EYES; Start 07/19/16 at 18:00 Chlorpromazine (Thorazine) 25 mg QHS GTB Last administered on 07/25/16 20:49; Admin Dose 25 MG; Start 07/19/16 at 21:00 Paroxetine HCl (Paxil) 20 mg DAILY GTB Last administered on 07/26/16 09:22; Admin Dose 20 MG; Start 07/20/16 at 09:00 Atorvastatin Calcium (Lipitor) 10 mg HS GTB Last administered on 07/25/16 20:49 ; Admin Dose 10 MG; Start 07/19/16 at 21:00 Docusate Sodium (Colace Liquid Cup) 100 mg BID GTB Last administered on 09:21; Admin Dose 100 MG; Start 07/19/16 at 21:00 Miscellaneous Information 1 ea NOTE XX ; Start 07/19/16 at 17:00 Glucose (Glutose) 15 gm Q15M PRN PO DECREASED GLUCOSE; Start 07/19/16 at 17:00 Glucose (Glutose) 22.5 gm Q15M PRN PO DECREASED GLUCOSE; Start 07/19/16 at 17: 00 Dextrose (D50w Syringe) 25 ml Q15M PRN IV DECREASED GLUCOSE; Start 07/19/16 at 17:00 Dextrose (D50w Syringe) 50 ml Q15M PRN IV DECREASED GLUCOSE; Start 07/19/16 at 17:00 Glucagon (Glucagen) 1 mg Q15M PRN IM DECREASED GLUCOSE; Start 07/19/16 at 17:00 Glucose (Glutose) 15 gm Q15M PRN BUCCAL DECREASED GLUCOSE; Start 07/19/16 at 17 :00 Insulin Aspart (Novolog Insulin Pen) NOVOLOG *MILD* ALGORI... Q6 SC Last administered on 07/26/16 05:37; Admin Dose 1 UNIT; Start 07/20/16 at 01:00 Tramadol HCl (Ultram) 50 mg Q6H PRN GTB PAIN LEVEL 1-5 Last administered on 00:11; Admin Dose 50 MG; Start 07/20/16 at 01:00 Tramadol HCl (Ultram) 100 mg Q6H PRN GTB PAIN LEVEL 6-10 Last administered on 09:24; Admin Dose 100 MG; Start 07/20/16 at 01:00 Benazepril HCl (Lotensin) 10 mg DAILY PO Last administered on 07/23/16 09:20; Admin Dose 10 MG; Start 07/20/16 at 14:30 Insulin Glargine (Lantus) 30 unit DAILY@20 SC Last administered on 07/25/16 20: 51; Admin Dose 30 UNIT; Start 07/22/16 at 20:00 Acetaminophen (Tylenol Tab) 650 mg Q6H PRN PO PAIN AND OR ELEVATED TEMP Last administered on 07/23/16 11:01; Admin Dose 650 MG; Start 07/23/16 at 11:00 Mupirocin 1 applic 1 applic BID TOP Last administered on 07/26/16 09:23; Admin Dose 1 APPLIC; Start 07/25/16 at 21:00 Sodium Chloride 1,000 ml @ 80 mls/hr [id number] IV Last administered on 07/26/16t 00:40; Admin Dose 80 MLS/HR; Start 07/25/16 at 11:30 Norepinephrine/ Dextrose (Levophed/D5W) 500 ml @ 1.87 mls/hr TITRATE IV ; Start 07/25/16 at 15:30 LIV CRUZ MD July 26, 2016 12:35
--- NOTE | 2016-07-26 16:36 | PN ---
Date/Time of Note Date/Time of Note DATE: 07/26/16 TIME: 16:35 Assessment/Plan VTE Prophylaxis VTE Prophylaxis Intervention: heparin Lines/Catheters IV Catheter Type (from Nrsg): Central Line Central line still needed: Yes (IV access, difficult peripheral access ) Urinary Cath still in place: Yes Reason Cath still needed: other (indicate) (post op critically ill ) Assessment/Plan Assessment/Plan 1. Left femur fracture status post surgical repair- Post op hypotension on levophed 2. Fall 2/2 comorbidities from stroke as well as seizures. No reported seizures prior to the onset of fall -2D echo shows no sig findings 3. History of stroke with seizure disorder - Continue home Keppra. 4. Liver cirrhosis secondary to alcohol abuse s/p liver transplant -cont transplant Rx -We will give irradiated and leuko-reduced blood when giving transfusions 5. Diabetes type 2 -NISS 6. History of atrial fibrillation -continue home Eliquis 7. Hypotension secondary to blood loss anemia -Status post 2 unit of blood- still Hb 7.1, monitor Hb in AM and prn Transfusin if Hb <7.0 8. MRSA nares colonization, bactroban Prophylaxis-Heparin Subjective 24 Hr Interval Summary Free Text/Dictation off levophed, BP stable, Hb 7.1, tolerating po well Exam/Review of Systems Vital Signs Vitals Vital Signs Date Time Temp Pulse Resp B/P Pulse Ox O2 Delivery O2 Flow Rate FiO2 07/26/16 15:00 87 19 112/67 96 Room Air 07/26/16 12:00 98.1 07/26/16 08:00 2.0 Intake and Output 07/25/16 07/25/16 07/26/16 15:00 23:00 07:00 Intake Total 1214.35 ml 838.75 ml 1523.75 ml Output Total 485 ml 555 ml 430 ml Balance 729.35 ml 283.75 ml 1093.75 ml Exam Psych: awake, alert Respiratory: clear to auscultation Cardiovascular: regular rate and rhythm Gastrointestinal: soft, No distended Musculoskeletal: nl extremities to inspection Results Result Diagram: 07/26/16 0400 07/26/16 0400 Results 24 hrs Laboratory Tests Test 07/25/16 18:45 07/26/16 00:38 07/26/16 04:00 07/26/16 05:00 Bedside Glucose 170 152 White Blood Count 6.3 Red Blood Count 2.43 L Hemoglobin 7.1 L Hematocrit 22.0 L Mean Corpuscular Volume 90.5 Mean Corpuscular Hemoglobin 29.2 Mean Corpuscular Hemoglobin Concent 32.3 Red Cell Distribution Width 15.9 H Platelet Count 106 L Mean Platelet Volume 10.7 H Neutrophils % 73.2 Lymphocytes % 14.9 L Monocytes % 7.6 Eosinophils % 3.5 Basophils % 0.2 Nucleated Red Blood Cells % 0.0 Neutrophils # 4.6 Lymphocytes # 0.9 Monocytes # 0.5 Eosinophils # 0.2 Basophils # 0.0 Nucleated Red Blood Cells # 0.0 Prothrombin Time 16.6 H Prothrombin Time Ratio 1.3 INR International Normalized Ratio 1.33 Activated Partial Thromboplast Time 47.0 H Sodium Level 138 Potassium Level 3.5 Chloride Level 110 Carbon Dioxide Level 20 L Anion Gap 12 Blood Urea Nitrogen 31 H Creatinine 1.02 Glucose Level 149 Calcium Level 7.5 L Total Bilirubin 0.5 Direct Bilirubin 0.00 Indirect Bilirubin 0.5 Aspartate Amino Transf (AST/SGOT) 44 Alanine Aminotransferase (ALT/SGPT) 57 Alkaline Phosphatase 399 H Total Protein 5.4 L Albumin 2.2 L Globulin 3.20 Albumin/Globulin Ratio 0.68 Blood Gas Specimen Source Blood arterial Arterial Blood Date Drawn 07/26/2016 5:04:26 AM Arterial Blood pH (Temp corrected) 7.447 Arterial Blood pCO2 (Temp correct) 28.1 L Arterial Blood pO2 (Temp corrected) 88.5 Arterial Blood HCO3 19.0 L Arterial Blood Base Excess -4.6 L Arterial Blood Oxygen Saturation 96.7 Venkata Test ACCEPTAB Arterial Blood Gas Puncture Site Right Radial Arterial Blood Carboxyhemoglobin 0.1 Arterial Blood Methemoglobin 0.5 Blood Gas A-a O2 Differential 49.2 H Oxyhemoglobin Percent 96.1 Total Hemoglobin 6.6 L Blood Gas Temperature 37.0 Blood Gas Modality NASAL CANNULA FiO2 24.0 Blood Gas Notified Whom BR Blood Gas Notified Time 07/26/2016 5:09:13 AM Test 07/26/16 05:34 07/26/16 11:43 Bedside Glucose 166 140 Medications Medications Current Medications Ondansetron HCl (Zofran Inj) 4 mg Q6H PRN IV NAUSEA AND/OR VOMITING; Start at 17:00 Acetaminophen/ Hydrocodone Bitart ([place] (5/325)) 1 tab Q6H PRN PO MODERATE PAIN LEVEL 4-6 Last administered on 07/23/16 09:19; Admin Dose 1 TAB; Start at 17:00 Levetiracetam (Keppra Liquid) 750 mg BID GTB Last administered on 07/26/16 09: 22; Admin Dose 750 MG; Start 07/19/16 at 21:00 Famotidine (Pepcid) 20 mg BID GTB Last administered on 07/26/16 09:22; Admin Dose 20 MG; Start 07/19/16 at 21:00 Sirolimus (Rapamune) 3 mg BID GTB Last administered on 07/26/16 09:22; Admin Dose 3 MG; Start 07/19/16 at 21:00 Apixaban (Eliquis) 5 mg BID GTB ; Start 07/19/16 at 21:00; Status Future Hold Eye Lubricant (Artificial Tears Oph) 2 drop Q6H PRN BOTH EYES DRY EYES; Start 07/19/16 at 18:00 Chlorpromazine (Thorazine) 25 mg QHS GTB Last administered on 07/25/16 20:49; Admin Dose 25 MG; Start 07/19/16 at 21:00 Paroxetine HCl (Paxil) 20 mg DAILY GTB Last administered on 07/26/16 09:22; Admin Dose 20 MG; Start 07/20/16 at 09:00 Atorvastatin Calcium (Lipitor) 10 mg HS GTB Last administered on 07/25/16 20:49 ; Admin Dose 10 MG; Start 07/19/16 at 21:00 Docusate Sodium (Colace Liquid Cup) 100 mg BID GTB Last administered on 09:21; Admin Dose 100 MG; Start 07/19/16 at 21:00 Miscellaneous Information 1 ea NOTE XX ; Start 07/19/16 at 17:00 Glucose (Glutose) 15 gm Q15M PRN PO DECREASED GLUCOSE; Start 07/19/16 at 17:00 Glucose (Glutose) 22.5 gm Q15M PRN PO DECREASED GLUCOSE; Start 07/19/16 at 17: 00 Dextrose (D50w Syringe) 25 ml Q15M PRN IV DECREASED GLUCOSE; Start 07/19/16 at 17:00 Dextrose (D50w Syringe) 50 ml Q15M PRN IV DECREASED GLUCOSE; Start 07/19/16 at 17:00 Glucagon (Glucagen) 1 mg Q15M PRN IM DECREASED GLUCOSE; Start 07/19/16 at 17:00 Glucose (Glutose) 15 gm Q15M PRN BUCCAL DECREASED GLUCOSE; Start 07/19/16 at 17 :00 Insulin Aspart (Novolog Insulin Pen) NOVOLOG *MILD* ALGORI... Q6 SC Last administered on 07/26/16 05:37; Admin Dose 1 UNIT; Start 07/20/16 at 01:00 Tramadol HCl (Ultram) 50 mg Q6H PRN GTB PAIN LEVEL 1-5 Last administered on 00:11; Admin Dose 50 MG; Start 07/20/16 at 01:00 Tramadol HCl (Ultram) 100 mg Q6H PRN GTB PAIN LEVEL 6-10 Last administered on 09:24; Admin Dose 100 MG; Start 07/20/16 at 01:00 Benazepril HCl (Lotensin) 10 mg DAILY PO Last administered on 07/23/16 09:20; Admin Dose 10 MG; Start 07/20/16 at 14:30 Insulin Glargine (Lantus) 30 unit DAILY@20 SC Last administered on 07/25/16 20: 51; Admin Dose 30 UNIT; Start 07/22/16 at 20:00 Acetaminophen (Tylenol Tab) 650 mg Q6H PRN PO PAIN AND OR ELEVATED TEMP Last administered on 07/23/16 11:01; Admin Dose 650 MG; Start 07/23/16 at 11:00 Mupirocin 1 applic 1 applic BID TOP Last administered on 07/26/16 09:23; Admin Dose 1 APPLIC; Start 07/25/16 at 21:00 Sodium Chloride 1,000 ml @ 80 mls/hr [id number] IV Last administered on 07/26/16 16:34; Admin Dose 80 MLS/HR; Start 07/25/16 at 11:30 Norepinephrine/ Dextrose (Levophed/D5W) 500 ml @ 1.87 mls/hr TITRATE IV ; Start 07/25/16 at 15:30 NOEMI JARRELL MD July 26, 2016 16:36
[2016-07-26] MEDS: INSULIN GLARGINE [LANtus] 3 ML PEN SC SCH (22:25)
[2016-07-26] MEDS: ATORVASTATIN 10 MG TAB GTB SCH (22:46)
[2016-07-26] MEDS: CHLORPROMAZINE 25 MG TAB GTB SCH (22:46)
[2016-07-27] MEDS: INSULIN ASPART [NOVOLOG] 3 ML PEN SC SCH ×5 (00:27→23:59)
[2016-07-27 05:29] LABS: ADD SCAN DIFF NO
[2016-07-27 05:45] LABS: INR 1.17; PT RATIO 1.2
[2016-07-27 05:54] LABS: POTASSIUM 3.6 mmol/L (3.5-5.1)
[2016-07-27 05:56] LABS: CREATININE 0.95 mg/dl (0.61-1.24)
[2016-07-27 05:57] LABS: CALCIUM 7.8 mg/dl (8.4-10.2)
[2016-07-27 06:19] LABS: BASOPHILS % 0.3 % (0.0-2.0); EOSINOPHILS # 0.2 10^3/ul (0.0-0.5); EOSINOPHILS % 3.7 % (0.0-7.0); HEMATOCRIT 24.2 % (42.0-52.0); HEMOGLOBIN 7.9 g/dl (14.0-18.0); LYMPHOCYTES % 17.3 % (15.0-51.0); MEAN CORPUSCULAR HEMOGLOBIN 29.4 pg (29.0-33.0); MEAN CORPUSCULAR HGB CONC 32.6 g/dl (32.0-37.0); MEAN PLATELET VOLUME 10.5 fl (7.4-10.4); MONOCYTE # 0.5 10^3/ul (0.3-0.9); MONOCYTES % 8.8 % (0.0-11.0); NEUTROPHIL # 4.1 10^3/ul (1.6-7.5); NEUTROPHILS % 69.6 % (39.0-77.0); PLATELET COUNT 122 10^3/UL (140-415); RED BLOOD COUNT 2.69 10^6/ul (4.70-6.10); RED CELL DISTRIBUTION WIDTH 15.7 % (11.5-14.5); WHITE BLOOD COUNT 5.9 10^3/ul (4.8-10.8)
[2016-07-27 08:22] VITALS: BP 117/75; RESP 20
[2016-07-27] MEDS: MUPIROCIN 2% 22 GM OINT TOP SCH ×2 (09:34→20:44)
[2016-07-27] MEDS: PAROXETINE 20 MG TAB GTB SCH (09:35)
[2016-07-27] MEDS: SIROLIMUS 1 MG TAB GTB SCH ×2 (09:35→20:44)
[2016-07-27] MEDS: FAMOTIDINE 20 MG TAB GTB SCH ×2 (09:35→20:44)
[2016-07-27] MEDS: DOCUSATE SODIUM 10 MG/ML (10ML CUP) GTB SCH ×2 (09:35→20:44)
[2016-07-27] MEDS: LEVETIRACETAM (100 MG/ML) 5ML CUP GTB SCH ×2 (09:35→20:44)
[2016-07-27] MEDS: BENAZEPRIL 10 MG TAB PO SCH (09:35)
[2016-07-27] MEDS ORDERED: FUROSEMIDE 20 MG INJ IV ONE (10:30)
[2016-07-27 11:45] VITALS: BP 120/77; PULSE 102; RESP 18
--- NOTE | 2016-07-27 15:43 | PN ---
Date/Time of Note Date/Time of Note DATE: 07/27/16 TIME: 15:42 Assessment/Plan VTE Prophylaxis VTE Prophylaxis Intervention: heparin, SCD's Lines/Catheters IV Catheter Type (from Nrsg): Central Line Central line still needed: Yes (IV abx, Difficult periphreal access ) Urinary Cath still in place: Yes Reason Cath still needed: urinary retention Assessment/Plan Assessment/Plan 1. Left femur fracture status post surgical repair- Post op hypotension on levophed 2. Fall 2/2 comorbidities from stroke as well as seizures. No reported seizures prior to the onset of fall -2D echo shows no sig findings 3. History of stroke with seizure disorder - Continue home Keppra. 4. Liver cirrhosis secondary to alcohol abuse s/p liver transplant -cont transplant Rx -We will give irradiated and leuko-reduced blood when giving transfusions 5. Diabetes type 2 -NISS 6. History of atrial fibrillation -continue home Eliquis 7. Hypotension secondary to blood loss anemia -Status post 2 unit of blood- still Hb 7.1, monitor Hb in AM and prn Transfusin if Hb <7.0 8. MRSA nares colonization, bactroban Prophylaxis-Heparin Subjective 24 Hr Interval Summary Free Text/Dictation significant scrotal edema, Bal catheter in , Bp stable, transferred to [facility] floor Exam/Review of Systems Vital Signs Vitals Vital Signs Date Time Temp Pulse Resp B/P Pulse Ox O2 Delivery O2 Flow Rate FiO2 07/27/16 11:45 102 18 120/77 07/27/16 08:22 97.6 97 07/26/16 18:57 Room Air 07/26/16 08:00 2.0 Intake and Output 07/26/16 07/26/16 07/27/16 15:00 23:00 07:00 Intake Total 280 ml 1100 ml Output Total 600 ml 800 ml 700 ml Balance -320 ml -800 ml 400 ml Exam Psych: awake, alert Respiratory: clear to auscultation Cardiovascular: regular rate and rhythm Gastrointestinal: soft, No distended Musculoskeletal: nl extremities to inspection Results Result Diagram: 07/27/16 0505 07/27/16 0505 Results 24 hrs Laboratory Tests Test 07/26/16 17:59 07/26/16 21:34 07/27/16 00:21 07/27/16 05:05 Bedside Glucose 156 156 176 White Blood Count 5.9 Red Blood Count 2.69 L Hemoglobin 7.9 L Hematocrit 24.2 L Mean Corpuscular Volume 90.0 Mean Corpuscular Hemoglobin 29.4 Mean Corpuscular Hemoglobin Concent 32.6 Red Cell Distribution Width 15.7 H Platelet Count 122 L Mean Platelet Volume 10.5 H Neutrophils % 69.6 Lymphocytes % 17.3 Monocytes % 8.8 Eosinophils % 3.7 Basophils % 0.3 Nucleated Red Blood Cells % 0.0 Neutrophils # 4.1 Lymphocytes # 1.0 Monocytes # 0.5 Eosinophils # 0.2 Basophils # 0.0 Nucleated Red Blood Cells # 0.0 Prothrombin Time 15.0 H Prothrombin Time Ratio 1.2 INR International Normalized Ratio 1.17 Activated Partial Thromboplast Time 32.0 Sodium Level 136 Potassium Level 3.6 Chloride Level 107 Carbon Dioxide Level 20 L Anion Gap 13 Blood Urea Nitrogen 28 H Creatinine 0.95 Glucose Level 167 Calcium Level 7.8 L Test 07/27/16 06:00 07/27/16 12:16 Bedside Glucose 165 143 Medications Medications Current Medications Ondansetron HCl (Zofran Inj) 4 mg Q6H PRN IV NAUSEA AND/OR VOMITING; Start at 17:00 Acetaminophen/ Hydrocodone Bitart ([place] (5/325)) 1 tab Q6H PRN PO MODERATE PAIN LEVEL 4-6 Last administered on 07/23/16 09:19; Admin Dose 1 TAB; Start at 17:00 Levetiracetam (Keppra Liquid) 750 mg BID GTB Last administered on 07/27/16 09: 35; Admin Dose 750 MG; Start 07/19/16 at 21:00 Famotidine (Pepcid) 20 mg BID GTB Last administered on 07/27/16 09:35; Admin Dose 20 MG; Start 07/19/16 at 21:00 Sirolimus (Rapamune) 3 mg BID GTB Last administered on 07/27/16 09:35; Admin Dose 3 MG; Start 07/19/16 at 21:00 Apixaban (Eliquis) 5 mg BID GTB ; Start 07/19/16 at 21:00; Status Future Hold Eye Lubricant (Artificial Tears Oph) 2 drop Q6H PRN BOTH EYES DRY EYES; Start 07/19/16 at 18:00 Chlorpromazine (Thorazine) 25 mg QHS GTB Last administered on 07/26/16 22:46; Admin Dose 25 MG; Start 07/19/16 at 21:00 Paroxetine HCl (Paxil) 20 mg DAILY GTB Last administered on 07/27/16 09:35; Admin Dose 20 MG; Start 07/20/16 at 09:00 Atorvastatin Calcium (Lipitor) 10 mg HS GTB Last administered on 07/26/16 22:46 ; Admin Dose 10 MG; Start 07/19/16 at 21:00 Docusate Sodium (Colace Liquid Cup) 100 mg BID GTB Last administered on 09:35; Admin Dose 100 MG; Start 07/19/16 at 21:00 Miscellaneous Information 1 ea NOTE XX ; Start 07/19/16 at 17:00 Glucose (Glutose) 15 gm Q15M PRN PO DECREASED GLUCOSE; Start 07/19/16 at 17:00 Glucose (Glutose) 22.5 gm Q15M PRN PO DECREASED GLUCOSE; Start 07/19/16 at 17: 00 Dextrose (D50w Syringe) 25 ml Q15M PRN IV DECREASED GLUCOSE; Start 07/19/16 at 17:00 Dextrose (D50w Syringe) 50 ml Q15M PRN IV DECREASED GLUCOSE; Start 07/19/16 at 17:00 Glucagon (Glucagen) 1 mg Q15M PRN IM DECREASED GLUCOSE; Start 07/19/16 at 17:00 Glucose (Glutose) 15 gm Q15M PRN BUCCAL DECREASED GLUCOSE; Start 07/19/16 at 17 :00 Insulin Aspart (Novolog Insulin Pen) NOVOLOG *MILD* ALGORI... Q6 SC Last administered on 07/27/16 12:18; Admin Dose 1 UNIT; Start 07/20/16 at 01:00 Tramadol HCl (Ultram) 50 mg Q6H PRN GTB PAIN LEVEL 1-5 Last administered on 00:11; Admin Dose 50 MG; Start 07/20/16 at 01:00 Tramadol HCl (Ultram) 100 mg Q6H PRN GTB PAIN LEVEL 6-10 Last administered on 16:48; Admin Dose 100 MG; Start 07/20/16 at 01:00 Benazepril HCl (Lotensin) 10 mg DAILY PO Last administered on 07/27/16 09:35; Admin Dose 10 MG; Start 07/20/16 at 14:30 Insulin Glargine (Lantus) 30 unit DAILY@20 SC Last administered on 07/26/16 22: 25; Admin Dose 30 UNIT; Start 07/22/16 at 20:00 Acetaminophen (Tylenol Tab) 650 mg Q6H PRN PO PAIN AND OR ELEVATED TEMP Last administered on 07/23/16 11:01; Admin Dose 650 MG; Start 07/23/16 at 11:00 Mupirocin (Bactroban) 1 applic BID TOP Last administered on 07/27/16 09:34; Admin Dose 1 APPLIC; Start 07/25/16 at 21:00 NOEMI JARRELL MD July 27, 2016 15:43
[2016-07-27 19:00] VITALS: BP 125/73; RESP 19
--- NOTE | 2016-07-27 19:10 | CONS ---
Date/Time of Note Date/Time of Note DATE: 07/27/16 TIME: 19:06 Assessment/Plan Assessment/Plan Chief Complaint/Hosp Course IMPRESSION: 1. Preoperative evaluation prior to surgery for femur fracture.-negative troponin x 3/NL EF by echo with no contraindicated valve lesions. OK to proceed to surgery at this time at moderate risk without further noninvasive evaluation. Now Post-op s/p LE ORIF 2. Status post fall. Rule out cardiac etiology. Rule out cardiac arrhythmia. 3. History of paroxysmal atrial fibrillation.-In rate controlled AF by serial ecg's 4. Hypotension-now improved off of pressors and back on med-surg 5. Diabetes mellitus. 6. Femur fracture, left lower extremity. 7. Possible seizure disorder by medications. 8. Dyslipidemia. 9. Abd distension-KUB unremarkable. ? ant abd wall hernia 10. Anemia-s/p transfusions Recc: -ACEI as tolerated only and will place hold parameters -Contin statin -Pain control -Follow volume status closely -Follow hgb with further transfusions PRBC's as necessary and hold anticoagulation at this time Problems: Consultation Date/Type/Reason Admit Date/Time Jul 19, 2016 at 13:38 Initial Consult Date 07/20/2016 Type of Consultation: Cardiology Reason for Consultation hypotension Referring Provider: PREETI OLMOS Exam/Review of Systems Vital Signs Vitals Vital Signs Date Time Temp Pulse Resp B/P Pulse Ox O2 Delivery O2 Flow Rate FiO2 07/27/16 11:45 102 18 120/77 07/27/16 08:22 97.6 97 07/26/16 18:57 Room Air 07/26/16 08:00 2.0 Intake and Output 07/26/16 07/26/16 07/27/16 15:00 23:00 07:00 Intake Total 280 ml 1100 ml Output Total 600 ml 800 ml 700 ml Balance -320 ml -800 ml 400 ml Exam Review of Systems: CONSTITUTIONAL: No fevers, chills. PULMONARY: No sob CARDIOVASCULAR: No chest pain/palpitations GASTROINTESTINAL: No nausea/vomiting. GENITOURINARY: No hematuria/dysuria. MUSCULOSKELETAL: No myagias/arthalgias. PSYCHIATRIC: The patient denies depression. NEUROLOGIC: lethargic Constitutional: alert Psych: no complaints Head: normocephalic ENMT: mucosa pink and moist Neck: jvd (9 cm water), supple Respiratory: diminished breath sounds Cardiovascular: regular rate and rhythm Gastrointestinal: non-tender, soft Extremities: edema (trace/B) Neurological: lethargic Results Result Diagram: 07/27/16 0505 07/27/16 0505 Results 24 hrs Laboratory Tests Test 07/26/16 21:34 07/27/16 00:21 07/27/16 05:05 07/27/16 06:00 Bedside Glucose 156 176 165 White Blood Count 5.9 Red Blood Count 2.69 L Hemoglobin 7.9 L Hematocrit 24.2 L Mean Corpuscular Volume 90.0 Mean Corpuscular Hemoglobin 29.4 Mean Corpuscular Hemoglobin Concent 32.6 Red Cell Distribution Width 15.7 H Platelet Count 122 L Mean Platelet Volume 10.5 H Neutrophils % 69.6 Lymphocytes % 17.3 Monocytes % 8.8 Eosinophils % 3.7 Basophils % 0.3 Nucleated Red Blood Cells % 0.0 Neutrophils # 4.1 Lymphocytes # 1.0 Monocytes # 0.5 Eosinophils # 0.2 Basophils # 0.0 Nucleated Red Blood Cells # 0.0 Prothrombin Time 15.0 H Prothrombin Time Ratio 1.2 INR International Normalized Ratio 1.17 Activated Partial Thromboplast Time 32.0 Sodium Level 136 Potassium Level 3.6 Chloride Level 107 Carbon Dioxide Level 20 L Anion Gap 13 Blood Urea Nitrogen 28 H Creatinine 0.95 Glucose Level 167 Calcium Level 7.8 L Test 07/27/16 12:16 07/27/16 18:04 Bedside Glucose 143 169 Medications Medications Current Medications Ondansetron HCl (Zofran Inj) 4 mg Q6H PRN IV NAUSEA AND/OR VOMITING; Start at 17:00 Acetaminophen/ Hydrocodone Bitart ([place] (5/325)) 1 tab Q6H PRN PO MODERATE PAIN LEVEL 4-6 Last administered on 07/23/16 09:19; Admin Dose 1 TAB; Start at 17:00 Levetiracetam (Keppra Liquid) 750 mg BID GTB Last administered on 07/27/16 09: 35; Admin Dose 750 MG; Start 07/19/16 at 21:00 Famotidine (Pepcid) 20 mg BID GTB Last administered on 07/27/16 09:35; Admin Dose 20 MG; Start 07/19/16 at 21:00 Sirolimus (Rapamune) 3 mg BID GTB Last administered on 07/27/16 09:35; Admin Dose 3 MG; Start 07/19/16 at 21:00 Apixaban (Eliquis) 5 mg BID GTB ; Start 07/19/16 at 21:00; Status Future Hold Eye Lubricant (Artificial Tears Oph) 2 drop Q6H PRN BOTH EYES DRY EYES; Start 07/19/16 at 18:00 Chlorpromazine (Thorazine) 25 mg QHS GTB Last administered on 07/26/16 22:46; Admin Dose 25 MG; Start 07/19/16 at 21:00 Paroxetine HCl (Paxil) 20 mg DAILY GTB Last administered on 07/27/16 09:35; Admin Dose 20 MG; Start 07/20/16 at 09:00 Atorvastatin Calcium (Lipitor) 10 mg HS GTB Last administered on 07/26/16 22:46 ; Admin Dose 10 MG; Start 07/19/16 at 21:00 Docusate Sodium (Colace Liquid Cup) 100 mg BID GTB Last administered on 09:35; Admin Dose 100 MG; Start 07/19/16 at 21:00 Miscellaneous Information 1 ea NOTE XX ; Start 07/19/16 at 17:00 Glucose (Glutose) 15 gm Q15M PRN PO DECREASED GLUCOSE; Start 07/19/16 at 17:00 Glucose (Glutose) 22.5 gm Q15M PRN PO DECREASED GLUCOSE; Start 07/19/16 at 17: 00 Dextrose (D50w Syringe) 25 ml Q15M PRN IV DECREASED GLUCOSE; Start 07/19/16 at 17:00 Dextrose (D50w Syringe) 50 ml Q15M PRN IV DECREASED GLUCOSE; Start 07/19/16 at 17:00 Glucagon (Glucagen) 1 mg Q15M PRN IM DECREASED GLUCOSE; Start 07/19/16 at 17:00 Glucose (Glutose) 15 gm Q15M PRN BUCCAL DECREASED GLUCOSE; Start 07/19/16 at 17 :00 Insulin Aspart (Novolog Insulin Pen) NOVOLOG *MILD* ALGORI... Q6 SC Last administered on 07/27/16 18:06; Admin Dose 1 UNIT; Start 07/20/16 at 01:00 Tramadol HCl (Ultram) 50 mg Q6H PRN GTB PAIN LEVEL 1-5 Last administered on 00:11; Admin Dose 50 MG; Start 07/20/16 at 01:00 Tramadol HCl (Ultram) 100 mg Q6H PRN GTB PAIN LEVEL 6-10 Last administered on 16:48; Admin Dose 100 MG; Start 07/20/16 at 01:00 Benazepril HCl (Lotensin) 10 mg DAILY PO Last administered on 07/27/16 09:35; Admin Dose 10 MG; Start 07/20/16 at 14:30 Insulin Glargine (Lantus) 30 unit DAILY@20 SC Last administered on 07/26/16 22: 25; Admin Dose 30 UNIT; Start 07/22/16 at 20:00 Acetaminophen (Tylenol Tab) 650 mg Q6H PRN PO PAIN AND OR ELEVATED TEMP Last administered on 07/23/16 11:01; Admin Dose 650 MG; Start 07/23/16 at 11:00 Mupirocin (Bactroban) 1 applic BID TOP Last administered on 07/27/16 09:34; Admin Dose 1 APPLIC; Start 07/25/16 at 21:00 SHIMA DIXON July 27, 2016 19:10
[2016-07-27] MEDS: ATORVASTATIN 10 MG TAB GTB SCH (20:44)
[2016-07-27] MEDS: CHLORPROMAZINE 25 MG TAB GTB SCH (20:44)
[2016-07-27] MEDS: INSULIN GLARGINE [LANtus] 3 ML PEN SC SCH (21:04)
[2016-07-27 23:46] VITALS: BP 125/71; RESP 18
[2016-07-28 00:16] VITALS: BP 128/65; PULSE 99; RESP 18
[2016-07-28 04:53] LABS: ADD SCAN DIFF NO
[2016-07-28 05:01] LABS: BASOPHILS % 0.4 % (0.0-2.0); EOSINOPHILS # 0.2 10^3/ul (0.0-0.5); EOSINOPHILS % 3.7 % (0.0-7.0); HEMATOCRIT 23.7 % (42.0-52.0); HEMOGLOBIN 7.9 g/dl (14.0-18.0); LYMPHOCYTES # 1.1 10^3/ul (0.8-2.9); LYMPHOCYTES % 20.9 % (15.0-51.0); MEAN CORPUSCULAR HGB CONC 33.3 g/dl (32.0-37.0); MEAN CORPUSCULAR VOLUME 90.1 fl (82.0-101.0); MEAN PLATELET VOLUME 10.1 fl (7.4-10.4); MONOCYTE # 0.5 10^3/ul (0.3-0.9); MONOCYTES % 8.3 % (0.0-11.0); NEUTROPHIL # 3.6 10^3/ul (1.6-7.5); PLATELET COUNT 144 10^3/UL (140-415); RED BLOOD COUNT 2.63 10^6/ul (4.70-6.10); RED CELL DISTRIBUTION WIDTH 15.4 % (11.5-14.5); WHITE BLOOD COUNT 5.5 10^3/ul (4.8-10.8)
[2016-07-28 05:33] LABS: CALCIUM 7.9 mg/dl (8.4-10.2); CREATININE 1.02 mg/dl (0.61-1.24); POTASSIUM 3.6 mmol/L (3.5-5.1)
[2016-07-28] MEDS: INSULIN ASPART [NOVOLOG] 3 ML PEN SC SCH ×3 (06:23→18:28)
[2016-07-28 08:01] VITALS: BP 120/69; RESP 19
[2016-07-28] MEDS: DOCUSATE SODIUM 10 MG/ML (10ML CUP) GTB SCH ×2 (09:00→21:15)
[2016-07-28] MEDS: PAROXETINE 20 MG TAB GTB SCH (10:12)
[2016-07-28] MEDS: SIROLIMUS 1 MG TAB GTB SCH ×2 (10:12→21:15)
[2016-07-28] MEDS: MUPIROCIN 2% 22 GM OINT TOP SCH ×2 (10:12→21:26)
[2016-07-28] MEDS: FAMOTIDINE 20 MG TAB GTB SCH ×2 (10:12→21:15)
[2016-07-28] MEDS: LEVETIRACETAM (100 MG/ML) 5ML CUP GTB SCH ×2 (10:13→21:15)
[2016-07-28 10:14] VITALS: BP 122/68; PULSE 68
[2016-07-28] MEDS: BENAZEPRIL 10 MG TAB PO SCH (10:14)
--- NOTE | 2016-07-28 13:42 | CONS ---
Date/Time of Note Date/Time of Note DATE: 07/28/16 TIME: 13:40 Assessment/Plan Assessment/Plan Chief Complaint/Hosp Course IMPRESSION: 1. Preoperative evaluation prior to surgery for femur fracture.-negative troponin x 3/NL EF by echo with no contraindicated valve lesions. OK to proceed to surgery at this time at moderate risk without further noninvasive evaluation. Now Post-op s/p LE ORIF 2. Status post fall. Rule out cardiac etiology. Rule out cardiac arrhythmia. 3. History of paroxysmal atrial fibrillation.-In rate controlled AF by serial ecg's 4. Hypotension-now improved off of pressors and back on med-surg toerating anti -hypertensives 5. Diabetes mellitus. 6. Femur fracture, left lower extremity. 7. Possible seizure disorder by medications. 8. Dyslipidemia. 9. Abd distension-KUB unremarkable. ? ant abd wall hernia 10. Anemia-s/p transfusions 11.Hyponatremia Recc: -ACEI as tolerated only and will place hold parameters -Contin statin -Pain control -Follow volume status closely -Follow hgb with further transfusions PRBC's as necessary and hold anticoagulation at this time Problems: Consultation Date/Type/Reason Admit Date/Time Jul 19, 2016 at 13:38 Initial Consult Date 07/20/2016 Type of Consultation: Cardiology Reason for Consultation Pre-op/HTN Referring Provider: PREETI OLMOS Exam/Review of Systems Vital Signs Vitals Vital Signs Date Time Temp Pulse Resp B/P Pulse Ox O2 Delivery O2 Flow Rate FiO2 07/28/16 10:14 68 122/68 07/28/16 08:30 Nasal Cannula 2.0 07/28/16 08:01 98.0 19 97 Intake and Output 07/27/16 07/27/16 07/28/16 15:00 23:00 07:00 Intake Total 880 ml 600 ml Output Total 2500 ml 900 ml Balance -1620 ml -300 ml Exam Review of Systems: CONSTITUTIONAL: No fevers, chills. PULMONARY: No sob CARDIOVASCULAR: No chest pain/palpitations GASTROINTESTINAL: No nausea/vomiting. GENITOURINARY: No hematuria/dysuria. MUSCULOSKELETAL: No myagias/arthalgias. PSYCHIATRIC: The patient denies depression. NEUROLOGIC: No weakness Constitutional: alert Psych: no complaints Head: normocephalic ENMT: mucosa pink and moist Neck: jvd (9 cm water), supple Respiratory: diminished breath sounds (at bases/B) Cardiovascular: regular rate and rhythm Gastrointestinal: non-tender, soft Musculoskeletal: muscle weakness (generalized) Extremities: edema (trace/B) Neurological: lethargic Results Result Diagram: 07/28/16 0425 07/28/16 0425 Results 24 hrs Laboratory Tests Test 07/27/16 18:04 07/27/16 20:41 07/27/16 23:53 07/28/16 04:25 Bedside Glucose 169 197 215 White Blood Count 5.5 Red Blood Count 2.63 L Hemoglobin 7.9 L Hematocrit 23.7 L Mean Corpuscular Volume 90.1 Mean Corpuscular Hemoglobin 30.0 Mean Corpuscular Hemoglobin Concent 33.3 Red Cell Distribution Width 15.4 H Platelet Count 144 Mean Platelet Volume 10.1 Neutrophils % 66.0 Lymphocytes % 20.9 Monocytes % 8.3 Eosinophils % 3.7 Basophils % 0.4 Nucleated Red Blood Cells % 0.0 Neutrophils # 3.6 Lymphocytes # 1.1 Monocytes # 0.5 Eosinophils # 0.2 Basophils # 0.0 Nucleated Red Blood Cells # 0.0 Sodium Level 134 L Potassium Level 3.6 Chloride Level 106 Carbon Dioxide Level 24 Anion Gap 8 Blood Urea Nitrogen 30 H Creatinine 1.02 Glucose Level 166 Calcium Level 7.9 L Test 07/28/16 05:58 07/28/16 11:43 Bedside Glucose 165 117 Medications Medications Current Medications Ondansetron HCl (Zofran Inj) 4 mg Q6H PRN IV NAUSEA AND/OR VOMITING; Start at 17:00 Acetaminophen/ Hydrocodone Bitart ([place] (5/325)) 1 tab Q6H PRN PO MODERATE PAIN LEVEL 4-6 Last administered on 07/23/16 09:19; Admin Dose 1 TAB; Start at 17:00 Levetiracetam (Keppra Liquid) 750 mg BID GTB Last administered on 07/28/16 10: 13; Admin Dose 750 MG; Start 07/19/16 at 21:00 Famotidine (Pepcid) 20 mg BID GTB Last administered on 07/28/16 10:12; Admin Dose 20 MG; Start 07/19/16 at 21:00 Sirolimus (Rapamune) 3 mg BID GTB Last administered on 07/28/16 10:12; Admin Dose 3 MG; Start 07/19/16 at 21:00 Apixaban (Eliquis) 5 mg BID GTB ; Start 07/19/16 at 21:00; Status Future Hold Eye Lubricant (Artificial Tears Oph) 2 drop Q6H PRN BOTH EYES DRY EYES; Start 07/19/16 at 18:00 Chlorpromazine (Thorazine) 25 mg QHS GTB Last administered on 07/27/16 20:44; Admin Dose 25 MG; Start 07/19/16 at 21:00 Paroxetine HCl (Paxil) 20 mg DAILY GTB Last administered on 07/28/16 10:12; Admin Dose 20 MG; Start 07/20/16 at 09:00 Atorvastatin Calcium (Lipitor) 10 mg HS GTB Last administered on 07/27/16 20:44 ; Admin Dose 10 MG; Start 07/19/16 at 21:00 Docusate Sodium (Colace Liquid Cup) 100 mg BID GTB Last administered on 20:44; Admin Dose 100 MG; Start 07/19/16 at 21:00 Miscellaneous Information 1 ea NOTE XX ; Start 07/19/16 at 17:00 Glucose (Glutose) 15 gm Q15M PRN PO DECREASED GLUCOSE; Start 07/19/16 at 17:00 Glucose (Glutose) 22.5 gm Q15M PRN PO DECREASED GLUCOSE; Start 07/19/16 at 17: 00 Dextrose (D50w Syringe) 25 ml Q15M PRN IV DECREASED GLUCOSE; Start 07/19/16 at 17:00 Dextrose (D50w Syringe) 50 ml Q15M PRN IV DECREASED GLUCOSE; Start 07/19/16 at 17:00 Glucagon (Glucagen) 1 mg Q15M PRN IM DECREASED GLUCOSE; Start 07/19/16 at 17:00 Glucose (Glutose) 15 gm Q15M PRN BUCCAL DECREASED GLUCOSE; Start 07/19/16 at 17 :00 Insulin Aspart (Novolog Insulin Pen) NOVOLOG *MILD* ALGORI... Q6 SC Last administered on 07/28/16 06:23; Admin Dose 1 UNIT; Start 07/20/16 at 01:00 Tramadol HCl (Ultram) 50 mg Q6H PRN GTB PAIN LEVEL 1-5 Last administered on 00:11; Admin Dose 50 MG; Start 07/20/16 at 01:00 Tramadol HCl (Ultram) 100 mg Q6H PRN GTB PAIN LEVEL 6-10 Last administered on 16:48; Admin Dose 100 MG; Start 07/20/16 at 01:00 Benazepril HCl (Lotensin) 10 mg DAILY PO Last administered on 07/28/16 10:14; Admin Dose 10 MG; Start 07/20/16 at 14:30 Insulin Glargine (Lantus) 30 unit DAILY@20 SC Last administered on 07/27/16 21: 04; Admin Dose 30 UNIT; Start 07/22/16 at 20:00 Acetaminophen (Tylenol Tab) 650 mg Q6H PRN PO PAIN AND OR ELEVATED TEMP Last administered on 07/23/16 11:01; Admin Dose 650 MG; Start 07/23/16 at 11:00 Mupirocin (Bactroban) 1 applic BID TOP Last administered on 07/28/16 10:12; Admin Dose 1 APPLIC; Start 07/25/16 at 21:00 SHIMA DIXON July 28, 2016 13:42
--- NOTE | 2016-07-28 17:58 | PN ---
Date/Time of Note Date/Time of Note DATE: 07/28/16 TIME: 17:54 Assessment/Plan VTE Prophylaxis VTE Prophylaxis Intervention: heparin Lines/Catheters IV Catheter Type (from Nrs): Central Line Central line still needed: Yes (IV abx IV access, difficult peripheral access ) Urinary Cath still in place: Yes Reason Cath still needed: urinary retention, other (indicate) (Post op scrotal edema, ) Assessment/Plan Assessment/Plan 1. Left femur fracture status post surgical repair- Post op hypotension required levophed in ICU 2. Fall 2/2 comorbidities from stroke as well as seizures. No reported seizures prior to the onset of fall -2D echo shows no sig findings 3. History of stroke with seizure disorder - Continue home Keppra. 4. Liver cirrhosis secondary to alcohol abuse s/p liver transplant -cont transplant Rx -We will give irradiated and leuko-reduced blood when giving transfusions 5. Diabetes type 2 -NISS 6. History of atrial fibrillation- was on eliquis at home, currenlty eliquis on Hold , cardiology has been following 7. Hypotension secondary to acute blood loss anemia -Status post 2 unit of blood- Hb 7.9 today 8. MRSA nares colonization, bactroban Prophylaxis-Heparin Subjective 24 Hr Interval Summary Free Text/Dictation still has scrotal edema, casey in place Exam/Review of Systems Vital Signs Vitals Vital Signs Date Time Temp Pulse Resp B/P Pulse Ox O2 Delivery O2 Flow Rate FiO2 07/28/16 10:14 68 122/68 07/28/16 08:30 Nasal Cannula 2.0 07/28/16 08:01 98.0 19 97 Intake and Output 07/27/16 07/27/16 07/28/16 15:00 23:00 07:00 Intake Total 880 ml 600 ml Output Total 2500 ml 900 ml Balance -1620 ml -300 ml Results Result Diagram: 07/28/16 0425 07/28/16 0425 Results 24 hrs Laboratory Tests Test 07/27/16 18:04 07/27/16 20:41 07/27/16 23:53 07/28/16 04:25 Bedside Glucose 169 197 215 White Blood Count 5.5 Red Blood Count 2.63 L Hemoglobin 7.9 L Hematocrit 23.7 L Mean Corpuscular Volume 90.1 Mean Corpuscular Hemoglobin 30.0 Mean Corpuscular Hemoglobin Concent 33.3 Red Cell Distribution Width 15.4 H Platelet Count 144 Mean Platelet Volume 10.1 Neutrophils % 66.0 Lymphocytes % 20.9 Monocytes % 8.3 Eosinophils % 3.7 Basophils % 0.4 Nucleated Red Blood Cells % 0.0 Neutrophils # 3.6 Lymphocytes # 1.1 Monocytes # 0.5 Eosinophils # 0.2 Basophils # 0.0 Nucleated Red Blood Cells # 0.0 Sodium Level 134 L Potassium Level 3.6 Chloride Level 106 Carbon Dioxide Level 24 Anion Gap 8 Blood Urea Nitrogen 30 H Creatinine 1.02 Glucose Level 166 Calcium Level 7.9 L Test 07/28/16 05:58 07/28/16 11:43 Bedside Glucose 165 117 Medications Medications Current Medications Ondansetron HCl (Zofran Inj) 4 mg Q6H PRN IV NAUSEA AND/OR VOMITING; Start at 17:00 Acetaminophen/ Hydrocodone Bitart ([place] (5/325)) 1 tab Q6H PRN PO MODERATE PAIN LEVEL 4-6 Last administered on 07/23/16 09:19; Admin Dose 1 TAB; Start at 17:00 Levetiracetam (Keppra Liquid) 750 mg BID GTB Last administered on 07/28/16 10: 13; Admin Dose 750 MG; Start 07/19/16 at 21:00 Famotidine (Pepcid) 20 mg BID GTB Last administered on 07/28/16 10:12; Admin Dose 20 MG; Start 07/19/16 at 21:00 Sirolimus (Rapamune) 3 mg BID GTB Last administered on 07/28/16 10:12; Admin Dose 3 MG; Start 07/19/16 at 21:00 Apixaban (Eliquis) 5 mg BID GTB ; Start 07/19/16 at 21:00; Status Future Hold Eye Lubricant (Artificial Tears Oph) 2 drop Q6H PRN BOTH EYES DRY EYES; Start 07/19/16 at 18:00 Chlorpromazine (Thorazine) 25 mg QHS GTB Last administered on 07/27/16 20:44; Admin Dose 25 MG; Start 07/19/16 at 21:00 Paroxetine HCl (Paxil) 20 mg DAILY GTB Last administered on 07/28/16 10:12; Admin Dose 20 MG; Start 07/20/16 at 09:00 Atorvastatin Calcium (Lipitor) 10 mg HS GTB Last administered on 07/27/16 20:44 ; Admin Dose 10 MG; Start 07/19/16 at 21:00 Docusate Sodium (Colace Liquid Cup) 100 mg BID GTB Last administered on 20:44; Admin Dose 100 MG; Start 07/19/16 at 21:00 Miscellaneous Information 1 ea NOTE XX ; Start 07/19/16 at 17:00 Glucose (Glutose) 15 gm Q15M PRN PO DECREASED GLUCOSE; Start 07/19/16 at 17:00 Glucose (Glutose) 22.5 gm Q15M PRN PO DECREASED GLUCOSE; Start 07/19/16 at 17: 00 Dextrose (D50w Syringe) 25 ml Q15M PRN IV DECREASED GLUCOSE; Start 07/19/16 at 17:00 Dextrose (D50w Syringe) 50 ml Q15M PRN IV DECREASED GLUCOSE; Start 07/19/16 at 17:00 Glucagon (Glucagen) 1 mg Q15M PRN IM DECREASED GLUCOSE; Start 07/19/16 at 17:00 Glucose (Glutose) 15 gm Q15M PRN BUCCAL DECREASED GLUCOSE; Start 07/19/16 at 17 :00 Insulin Aspart (Novolog Insulin Pen) NOVOLOG *MILD* ALGORI... Q6 SC Last administered on 07/28/16 06:23; Admin Dose 1 UNIT; Start 07/20/16 at 01:00 Tramadol HCl (Ultram) 50 mg Q6H PRN GTB PAIN LEVEL 1-5 Last administered on 00:11; Admin Dose 50 MG; Start 07/20/16 at 01:00 Tramadol HCl (Ultram) 100 mg Q6H PRN GTB PAIN LEVEL 6-10 Last administered on 16:48; Admin Dose 100 MG; Start 07/20/16 at 01:00 Benazepril HCl (Lotensin) 10 mg DAILY PO Last administered on 07/28/16 10:14; Admin Dose 10 MG; Start 07/20/16 at 14:30 Insulin Glargine (Lantus) 30 unit DAILY@20 SC Last administered on 07/27/16 21: 04; Admin Dose 30 UNIT; Start 07/22/16 at 20:00 Acetaminophen (Tylenol Tab) 650 mg Q6H PRN PO PAIN AND OR ELEVATED TEMP Last administered on 07/23/16 11:01; Admin Dose 650 MG; Start 07/23/16 at 11:00 Mupirocin (Bactroban) 1 applic BID TOP Last administered on 07/28/16 10:12; Admin Dose 1 APPLIC; Start 07/25/16 at 21:00 NOEMI JARRELL MD July 28, 2016 17:58
[2016-07-28 19:00] VITALS: BP 117/73; RESP 18
--- NOTE | 2016-07-28 21:09 | RADRPT ---
PROCEDURE: CT abdomen and pelvis without contrast. CLINICAL INDICATION: Abdominal distension, assess for hernia TECHNIQUE: CT scan of the abdomen and pelvis without contrast was performed. The patient was scan brittney without intravenous contrast. 3-D coronal reformatted images were obtained from the axial [facility] e images. The calculated radiation dose measures 1502 mGy centimeters. The CTDI measures 24 mGy COMPARISON: None available FINDINGS: CT abdomen: There is a small to moderate pericardial effusion. There is moderate to prominent coronary artery c alcification. There are moderate bilateral pleural effusions. There is bibasilar compressive atele ctasis.. The liver is normal in size and density, without intrahepatic biliary dilatation. There is a 1.8 cm posterior right lobe hepatic cyst. The spleen and pancreas are unremarkable noncontrast appearance. The gallbladder appears within normal limits. The adrenal glands are symmetric and normal. The kidneys appear normal in size and contour. There is a 5 mm right lower pole renal collecting sys tem stone. There is no retroperitoneal lymphadenopathy. There is edema in the presacral soft tissues and depend ent pelvis. There is a PEG tube in the stomach. There is an epigastric ventral abdominal wall hernia containing fat and a loop of nonobstructed small bowel. Visualized bowel loops appear within normal limits. The appendix is partially visualized and appear s within normal limits.. CT pelvis: There is a Bal catheter in the urinary bladder, with small air within the bladder.. The prostate is not enlarged.. There is no abnormal pelvic mass or adenopathy. There is small pelvic free fluid . There is a comminuted fracture of the left femoral neck, with an intramedullary misa and dynamic scre w fixation hardware placed. There is diffuse bony demineralization. There is lumbar levoscoliosis and degenerative change. There is diffuse body wall edema. There are compression deformities at T11, T12, L2, and L4. There is mild anterolisthesis at L4-5. IMPRESSION: 1. Small to moderate pericardial effusion. Moderate bilateral pleural effusions. Moderate to prom inent coronary artery calcification. Bibasilar atelectasis. 2. Epigastric ventral abdominal wall hernia containing nonobstructed small bowel. 3. 5 mm right lower pole renal collecting system stone, nonobstructing. The for diffuse body wall edema. Presacral and dependent posterior pelvis edema. Small pelvic free fluid. 4. Comminuted left femoral neck fracture, status post hardware fixation. Diffuse bony demineraliza tion. Compression deformities at T11, T12, L2, and L4, of uncertain age. RPTAT: HBST .Zach Aguero MD, Date Time Electronically viewed and signed by .Zach Aguero MD, on 07/28/2016 21:08 .T/
[2016-07-28] MEDS: ATORVASTATIN 10 MG TAB GTB SCH (21:15)
[2016-07-28] MEDS: INSULIN GLARGINE [LANtus] 3 ML PEN SC SCH (21:25)
[2016-07-28] MEDS: HEPARIN 5,000 UNIT/0.5 ML VIAL SC SCH (21:32)
[2016-07-28] MEDS: CHLORPROMAZINE 10 MG TAB GTB SCH (22:46)
[2016-07-29] MEDS: INSULIN ASPART [NOVOLOG] 3 ML PEN SC SCH ×4 (00:20→18:31)
[2016-07-29 05:38] LABS: ADD SCAN DIFF NO
[2016-07-29 05:54] LABS: BASOPHILS % 0.4 % (0.0-2.0); EOSINOPHILS # 0.2 10^3/ul (0.0-0.5); EOSINOPHILS % 4.1 % (0.0-7.0); HEMATOCRIT 24.4 % (42.0-52.0); HEMOGLOBIN 8.1 g/dl (14.0-18.0); LYMPHOCYTES % 18.6 % (15.0-51.0); MEAN CORPUSCULAR HEMOGLOBIN 29.9 pg (29.0-33.0); MEAN CORPUSCULAR HGB CONC 33.2 g/dl (32.0-37.0); MEAN PLATELET VOLUME 9.9 fl (7.4-10.4); MONOCYTE # 0.5 10^3/ul (0.3-0.9); MONOCYTES % 8.8 % (0.0-11.0); NEUTROPHIL # 3.8 10^3/ul (1.6-7.5); NEUTROPHILS % 67.6 % (39.0-77.0); PLATELET COUNT 144 10^3/UL (140-415); RED BLOOD COUNT 2.71 10^6/ul (4.70-6.10); RED CELL DISTRIBUTION WIDTH 15.1 % (11.5-14.5); WHITE BLOOD COUNT 5.6 10^3/ul (4.8-10.8)
[2016-07-29 06:06] LABS: INR 1.17; PT RATIO 1.2
[2016-07-29 06:07] LABS: PARTIAL THROMBOPLASTIN TIME 51.3 Sec (25.0-35.0)
[2016-07-29 06:09] LABS: POTASSIUM 3.5 mmol/L (3.5-5.1)
[2016-07-29 06:12] LABS: CALCIUM 7.9 mg/dl (8.4-10.2); CREATININE 0.98 mg/dl (0.61-1.24)
[2016-07-29 08:00] VITALS: BP 104/63; RESP 18
[2016-07-29] MEDS: BENAZEPRIL 10 MG TAB PO SCH (09:00)
[2016-07-29] MEDS: DOCUSATE SODIUM 10 MG/ML (10ML CUP) GTB SCH ×2 (09:39→20:44)
[2016-07-29] MEDS: LEVETIRACETAM (100 MG/ML) 5ML CUP GTB SCH ×2 (09:39→20:45)
[2016-07-29] MEDS: PAROXETINE 20 MG TAB GTB SCH (09:39)
[2016-07-29] MEDS: FAMOTIDINE 20 MG TAB GTB SCH ×2 (09:39→20:45)
[2016-07-29] MEDS: MUPIROCIN 2% 22 GM OINT TOP SCH ×2 (09:40→20:46)
[2016-07-29] MEDS: SIROLIMUS 1 MG TAB GTB SCH ×2 (09:40→20:45)
[2016-07-29] MEDS: HEPARIN 5,000 UNIT/0.5 ML VIAL SC SCH ×2 (09:44→20:51)
--- NOTE | 2016-07-29 14:51 | CONS ---
Date/Time of Note Date/Time of Note DATE: 07/29/16 TIME: 14:47 Assessment/Plan Assessment/Plan Chief Complaint/Hosp Course IMPRESSION: 1. Preoperative evaluation prior to surgery for femur fracture.-negative troponin x 3/NL EF by echo with no contraindicated valve lesions. OK to proceed to surgery at this time at moderate risk without further noninvasive evaluation. Now Post-op s/p LE ORIF 2. Status post fall. Rule out cardiac etiology. Rule out cardiac arrhythmia. 3. History of paroxysmal atrial fibrillation.-In rate controlled AF by serial ecg's 4. Hypotension-now improved off of pressors and back on med-surg tolerating anti-hypertensives 5. Diabetes mellitus. 6. Femur fracture, left lower extremity. 7. Possible seizure disorder by medications. 8. Dyslipidemia. 9. Abd distension-KUB unremarkable. ? ant abd wall hernia 10. Anemia-s/p transfusions 11.Hyponatremia Recc: -ACEI as tolerated only and will place hold parameters and decrease dose -Contin statin -Pain control -Follow volume status closely -Follow hgb with further transfusions PRBC's as necessary and hold anticoagulation at this time Problems: Consultation Date/Type/Reason Admit Date/Time Jul 19, 2016 at 13:38 Initial Consult Date 07/20/2016 Type of Consultation: Cardiology Reason for Consultation HTN Referring Provider: PREETI OLMOS Exam/Review of Systems Vital Signs Vitals Vital Signs Date Time Temp Pulse Resp B/P Pulse Ox O2 Delivery O2 Flow Rate FiO2 07/29/16 08:00 97.9 85 18 104/63 97 07/28/16 20:00 Nasal Cannula 2.0 Intake and Output 07/28/16 07/28/16 07/29/16 15:00 23:00 07:00 Intake Total 600 ml 600 ml Output Total 1250 ml 2100 ml Balance -650 ml -1500 ml Exam Review of Systems: CONSTITUTIONAL: No fevers, chills. PULMONARY: No sob CARDIOVASCULAR: No chest pain/palpitations GASTROINTESTINAL: No nausea/vomiting. GENITOURINARY: No hematuria/dysuria. MUSCULOSKELETAL: No myagias/arthalgias. PSYCHIATRIC: The patient denies depression. NEUROLOGIC: lethargic Constitutional: alert Psych: no complaints Head: normocephalic ENMT: mucosa pink and moist Neck: jvd (9 cm water), supple Respiratory: diminished breath sounds (at bases/B) Cardiovascular: regular rate and rhythm Gastrointestinal: non-tender, soft Musculoskeletal: muscle weakness (generalized) Extremities: edema Neurological: other (No fopcal deficits) Results Result Diagram: 07/29/16 0502 07/29/16 0502 Results 24 hrs Laboratory Tests Test 07/28/16 18:21 07/28/16 21:08 07/29/16 00:11 07/29/16 05:02 Bedside Glucose 162 159 195 White Blood Count 5.6 Red Blood Count 2.71 L Hemoglobin 8.1 L Hematocrit 24.4 L Mean Corpuscular Volume 90.0 Mean Corpuscular Hemoglobin 29.9 Mean Corpuscular Hemoglobin Concent 33.2 Red Cell Distribution Width 15.1 H Platelet Count 144 Mean Platelet Volume 9.9 Neutrophils % 67.6 Lymphocytes % 18.6 Monocytes % 8.8 Eosinophils % 4.1 Basophils % 0.4 Nucleated Red Blood Cells % 0.0 Neutrophils # 3.8 Lymphocytes # 1.0 Monocytes # 0.5 Eosinophils # 0.2 Basophils # 0.0 Nucleated Red Blood Cells # 0.0 Prothrombin Time 15.0 H Prothrombin Time Ratio 1.2 INR International Normalized Ratio 1.17 Activated Partial Thromboplast Time 51.3 H Sodium Level 136 Potassium Level 3.5 Chloride Level 103 Carbon Dioxide Level 25 Anion Gap 12 Blood Urea Nitrogen 30 H Creatinine 0.98 Glucose Level 172 Calcium Level 7.9 L Test 07/29/16 05:50 07/29/16 12:08 Bedside Glucose 189 187 Medications Medications Current Medications Ondansetron HCl (Zofran Inj) 4 mg Q6H PRN IV NAUSEA AND/OR VOMITING; Start at 17:00 Acetaminophen/ Hydrocodone Bitart ([place] (5/325)) 1 tab Q6H PRN PO MODERATE PAIN LEVEL 4-6 Last administered on 07/23/16 09:19; Admin Dose 1 TAB; Start at 17:00 Levetiracetam (Keppra Liquid) 750 mg BID GTB Last administered on 07/29/16 09: 39; Admin Dose 750 MG; Start 07/19/16 at 21:00 Famotidine (Pepcid) 20 mg BID GTB Last administered on 07/29/16 09:39; Admin Dose 20 MG; Start 07/19/16 at 21:00 Sirolimus (Rapamune) 3 mg BID GTB Last administered on 07/29/16 09:40; Admin Dose 3 MG; Start 07/19/16 at 21:00 Eye Lubricant (Artificial Tears Oph) 2 drop Q6H PRN BOTH EYES DRY EYES; Start 07/19/16 at 18:00 Paroxetine HCl (Paxil) 20 mg DAILY GTB Last administered on 07/29/16 09:39; Admin Dose 20 MG; Start 07/20/16 at 09:00 Atorvastatin Calcium (Lipitor) 10 mg HS GTB Last administered on 07/28/16 21:15 ; Admin Dose 10 MG; Start 07/19/16 at 21:00 Docusate Sodium (Colace Liquid Cup) 100 mg BID GTB Last administered on 09:39; Admin Dose 100 MG; Start 07/19/16 at 21:00 Miscellaneous Information 1 ea NOTE XX ; Start 07/19/16 at 17:00 Glucose (Glutose) 15 gm Q15M PRN PO DECREASED GLUCOSE; Start 07/19/16 at 17:00 Glucose (Glutose) 22.5 gm Q15M PRN PO DECREASED GLUCOSE; Start 07/19/16 at 17: 00 Dextrose (D50w Syringe) 25 ml Q15M PRN IV DECREASED GLUCOSE; Start 07/19/16 at 17:00 Dextrose (D50w Syringe) 50 ml Q15M PRN IV DECREASED GLUCOSE; Start 07/19/16 at 17:00 Glucagon (Glucagen) 1 mg Q15M PRN IM DECREASED GLUCOSE; Start 07/19/16 at 17:00 Glucose (Glutose) 15 gm Q15M PRN BUCCAL DECREASED GLUCOSE; Start 07/19/16 at 17 :00 Insulin Aspart (Novolog Insulin Pen) NOVOLOG *MILD* ALGORI... Q6 SC Last administered on 07/29/16 13:06; Admin Dose 2 UNIT; Start 07/20/16 at 01:00 Tramadol HCl (Ultram) 50 mg Q6H PRN GTB PAIN LEVEL 1-5 Last administered on 00:11; Admin Dose 50 MG; Start 07/20/16 at 01:00 Tramadol HCl (Ultram) 100 mg Q6H PRN GTB PAIN LEVEL 6-10 Last administered on 16:48; Admin Dose 100 MG; Start 07/20/16 at 01:00 Benazepril HCl (Lotensin) 10 mg DAILY PO Last administered on 07/28/16 10:14; Admin Dose 10 MG; Start 07/20/16 at 14:30 Insulin Glargine (Lantus) 30 unit DAILY@20 SC Last administered on 07/28/16 21: 25; Admin Dose 30 UNIT; Start 07/22/16 at 20:00 Acetaminophen (Tylenol Tab) 650 mg Q6H PRN PO PAIN AND OR ELEVATED TEMP Last administered on 07/23/16 11:01; Admin Dose 650 MG; Start 07/23/16 at 11:00 Mupirocin (Bactroban) 1 applic BID TOP Last administered on 07/29/16 09:40; Admin Dose 1 APPLIC; Start 07/25/16 at 21:00 Heparin Sodium (Porcine) (Heparin (5000 Units/0.5 ml)) 5,000 unit BID SC Last administered on 07/29/16 09:44; Admin Dose 5,000 UNIT; Start 07/28/16 at 21:00 Chlorpromazine (Thorazine) 25 mg QHS GTB Last administered on 07/28/16 22:46; Admin Dose 25 MG; Start 07/28/16 at 22:30 SHIMA DIXON July 29, 2016 14:51
--- NOTE | 2016-07-29 17:29 | PN ---
Date/Time of Note Date/Time of Note DATE: 07/29/16 TIME: 17:25 Assessment/Plan VTE Prophylaxis VTE Prophylaxis Intervention: heparin Lines/Catheters IV Catheter Type (from Nrs): TRIPLE LUMEN Urinary Cath still in place: Yes Reason Cath still needed: other (indicate) (scrotal edema, and Swelling ) Assessment/Plan Assessment/Plan 1. Left hip comminuted intertrochanteric displaced fracture.s/p Intramedullar nailing- Post op hypotension required levophed in ICU 2. Fall 2/2 comorbidities from stroke as well as seizures. No reported seizures prior to the onset of fall -2D echo shows no sig findings 3. History of stroke with seizure disorder - Continue home Keppra. 4. Liver cirrhosis secondary to alcohol abuse s/p liver transplant -cont transplant Rx -We will give irradiated and leuko-reduced blood when giving transfusions 5. Diabetes type 2 -NISS 6. History of atrial fibrillation- was on eliquis at home, currenlty eliquis on Hold , cardiology has been following 7. Hypotension secondary to acute blood loss anemia -Status post 2 unit of blood- Hb 8.1 8. MRSA nares colonization, bactroban Prophylaxis-Heparin pt is non ambulatory and he is SNF [facility] post acute rehab S/p Acute rehab consult-not a candidate, will need SNF placement back to [place] Subjective 24 Hr Interval Summary Free Text/Dictation s/p Acute rehab evaluation, not a candidate , recommended for SNF Exam/Review of Systems Vital Signs Vitals Vital Signs Date Time Temp Pulse Resp B/P Pulse Ox O2 Delivery O2 Flow Rate FiO2 07/29/16 08:00 97.9 85 18 104/63 97 07/29/16 08:00 Nasal Cannula 2.0 Intake and Output 07/28/16 07/28/16 07/29/16 15:00 23:00 07:00 Intake Total 600 ml 600 ml Output Total 1250 ml 2100 ml Balance -650 ml -1500 ml Exam Psych: more awake,alert no acute distress Respiratory: clear to auscultation Cardiovascular: regular rate and rhythm Gastrointestinal: soft, No distended Musculoskeletal: nl extremities to inspection Results Result Diagram: 07/29/16 0502 07/29/16 0502 Results 24 hrs Laboratory Tests Test 07/28/16 18:21 07/28/16 21:08 07/29/16 00:11 07/29/16 05:02 Bedside Glucose 162 159 195 White Blood Count 5.6 Red Blood Count 2.71 L Hemoglobin 8.1 L Hematocrit 24.4 L Mean Corpuscular Volume 90.0 Mean Corpuscular Hemoglobin 29.9 Mean Corpuscular Hemoglobin Concent 33.2 Red Cell Distribution Width 15.1 H Platelet Count 144 Mean Platelet Volume 9.9 Neutrophils % 67.6 Lymphocytes % 18.6 Monocytes % 8.8 Eosinophils % 4.1 Basophils % 0.4 Nucleated Red Blood Cells % 0.0 Neutrophils # 3.8 Lymphocytes # 1.0 Monocytes # 0.5 Eosinophils # 0.2 Basophils # 0.0 Nucleated Red Blood Cells # 0.0 Prothrombin Time 15.0 H Prothrombin Time Ratio 1.2 INR International Normalized Ratio 1.17 Activated Partial Thromboplast Time 51.3 H Sodium Level 136 Potassium Level 3.5 Chloride Level 103 Carbon Dioxide Level 25 Anion Gap 12 Blood Urea Nitrogen 30 H Creatinine 0.98 Glucose Level 172 Calcium Level 7.9 L Test 07/29/16 05:50 07/29/16 12:08 Bedside Glucose 189 187 Medications Medications Current Medications Ondansetron HCl (Zofran Inj) 4 mg Q6H PRN IV NAUSEA AND/OR VOMITING; Start at 17:00 Acetaminophen/ Hydrocodone Bitart ([place] (5/325)) 1 tab Q6H PRN PO MODERATE PAIN LEVEL 4-6 Last administered on 07/23/16 09:19; Admin Dose 1 TAB; Start at 17:00 Levetiracetam (Keppra Liquid) 750 mg BID GTB Last administered on 07/29/16 09: 39; Admin Dose 750 MG; Start 07/19/16 at 21:00 Famotidine (Pepcid) 20 mg BID GTB Last administered on 07/29/16 09:39; Admin Dose 20 MG; Start 07/19/16 at 21:00 Sirolimus (Rapamune) 3 mg BID GTB Last administered on 07/29/16 09:40; Admin Dose 3 MG; Start 07/19/16 at 21:00 Eye Lubricant (Artificial Tears Oph) 2 drop Q6H PRN BOTH EYES DRY EYES; Start 07/19/16 at 18:00 Paroxetine HCl (Paxil) 20 mg DAILY GTB Last administered on 07/29/16 09:39; Admin Dose 20 MG; Start 07/20/16 at 09:00 Atorvastatin Calcium (Lipitor) 10 mg HS GTB Last administered on 07/28/16 21:15 ; Admin Dose 10 MG; Start 07/19/16 at 21:00 Docusate Sodium (Colace Liquid Cup) 100 mg BID GTB Last administered on 09:39; Admin Dose 100 MG; Start 07/19/16 at 21:00 Miscellaneous Information 1 ea NOTE XX ; Start 07/19/16 at 17:00 Glucose (Glutose) 15 gm Q15M PRN PO DECREASED GLUCOSE; Start 07/19/16 at 17:00 Glucose (Glutose) 22.5 gm Q15M PRN PO DECREASED GLUCOSE; Start 07/19/16 at 17: 00 Dextrose (D50w Syringe) 25 ml Q15M PRN IV DECREASED GLUCOSE; Start 07/19/16 at 17:00 Dextrose (D50w Syringe) 50 ml Q15M PRN IV DECREASED GLUCOSE; Start 07/19/16 at 17:00 Glucagon (Glucagen) 1 mg Q15M PRN IM DECREASED GLUCOSE; Start 07/19/16 at 17:00 Glucose (Glutose) 15 gm Q15M PRN BUCCAL DECREASED GLUCOSE; Start 07/19/16 at 17 :00 Insulin Aspart (Novolog Insulin Pen) NOVOLOG *MILD* ALGORI... Q6 SC Last administered on 07/29/16 13:06; Admin Dose 2 UNIT; Start 07/20/16 at 01:00 Tramadol HCl (Ultram) 50 mg Q6H PRN GTB PAIN LEVEL 1-5 Last administered on 00:11; Admin Dose 50 MG; Start 07/20/16 at 01:00 Tramadol HCl (Ultram) 100 mg Q6H PRN GTB PAIN LEVEL 6-10 Last administered on 16:48; Admin Dose 100 MG; Start 07/20/16 at 01:00 Insulin Glargine (Lantus) 30 unit DAILY@20 SC Last administered on 07/28/16 21: 25; Admin Dose 30 UNIT; Start 07/22/16 at 20:00 Acetaminophen (Tylenol Tab) 650 mg Q6H PRN PO PAIN AND OR ELEVATED TEMP Last administered on 07/23/16 11:01; Admin Dose 650 MG; Start 07/23/16 at 11:00 Mupirocin (Bactroban) 1 applic BID TOP Last administered on 07/29/16 09:40; Admin Dose 1 APPLIC; Start 07/25/16 at 21:00 Heparin Sodium (Porcine) (Heparin (5000 Units/0.5 ml)) 5,000 unit BID SC Last administered on 07/29/16 09:44; Admin Dose 5,000 UNIT; Start 07/28/16 at 21:00 Chlorpromazine (Thorazine) 25 mg QHS GTB Last administered on 07/28/16 22:46; Admin Dose 25 MG; Start 07/28/16 at 22:30 Benazepril HCl (Lotensin) 5 mg DAILY PO ; Start 07/30/16 at 09:00 NOEMI JARRELL MD July 29, 2016 17:28
[2016-07-29 19:00] VITALS: BP 95/60; RESP 18
[2016-07-29] MEDS: ATORVASTATIN 10 MG TAB GTB SCH (20:45)
[2016-07-29] MEDS: INSULIN GLARGINE [LANtus] 3 ML PEN SC SCH (20:50)
[2016-07-29] MEDS: CHLORPROMAZINE 10 MG TAB GTB SCH (22:46)
[2016-07-30] MEDS: traMADol 50 MG TAB GTB PRN (03:59)
[2016-07-30] MEDS: INSULIN ASPART [NOVOLOG] 3 ML PEN SC SCH ×4 (06:00→18:37)
[2016-07-30 08:03] VITALS: BP 96/52; RESP 19
[2016-07-30] MEDS: BENAZEPRIL 10 MG TAB PO SCH (09:00)
[2016-07-30] MEDS: LEVETIRACETAM (100 MG/ML) 5ML CUP GTB SCH ×2 (09:06→21:02)
[2016-07-30] MEDS: DOCUSATE SODIUM 10 MG/ML (10ML CUP) GTB SCH ×2 (09:06→21:03)
[2016-07-30] MEDS: SIROLIMUS 1 MG TAB GTB SCH ×2 (09:07→21:03)
[2016-07-30] MEDS: FAMOTIDINE 20 MG TAB GTB SCH ×2 (09:07→21:03)
[2016-07-30] MEDS: PAROXETINE 20 MG TAB GTB SCH (09:07)
[2016-07-30] MEDS: HEPARIN 5,000 UNIT/0.5 ML VIAL SC SCH ×2 (09:08→21:12)
[2016-07-30] MEDS: MUPIROCIN 2% 22 GM OINT TOP SCH ×2 (09:18→21:08)
[2016-07-30 10:34] VITALS: BP 108/59; PULSE 110
--- NOTE | 2016-07-30 11:56 | CONS ---
Date/Time of Note Date/Time of Note DATE: 07/30/16 TIME: 11:54 Assessment/Plan Assessment/Plan Additional Assessment/Plan 1. Post-op LE ORIF - tolerated procedure well. 2. Status post fall. Rule out cardiac etiology. Rule out cardiac arrhythmia. 3. History of paroxysmal atrial fibrillation.-In rate controlled AF by serial ecg's - in sinus now. 4. Hypotension-now improved off of pressors and back on med-surg tolerating anti-hypertensives 5. Diabetes mellitus- on meds, keep euglycemic. 6. Femur fracture, left lower extremity. 7. Possible seizure disorder by medications - will Rx as needed. 8. Dyslipidemia. 9. Abd distension-KUB unremarkable. ? ant abd wall hernia 10. Anemia-s/p transfusions 11.Hyponatremia Consultation Date/Type/Reason Admit Date/Time Jul 19, 2016 at 13:38 Type of Consultation: Cardiology Referring Provider: PREETI OLMOS 24 HR Interval Summary Free Text/Dictation NO acute change - tolerated procedure well. ROS: No fever, no chills, no nausea, no vomiting, no diarrhea/constipation No recent weight changes No chest pain, no PND, no orthopnea No dizziness, blurred vision No thirst, no heat or cold intolerance Exam/Review of Systems Vital Signs Vitals Vital Signs Date Time Temp Pulse Resp B/P Pulse Ox O2 Delivery O2 Flow Rate FiO2 07/30/16 10:34 110 108/59 07/30/16 08:03 99.0 19 92 07/29/16 20:51 Nasal Cannula 2.0 Intake and Output 07/29/16 07/29/16 07/30/16 15:00 23:00 07:00 Intake Total 640 ml 880 ml Output Total 1200 ml 900 ml Balance -560 ml -20 ml Exam General: WN/WD/NAD, AOx 1-2 HEENT: Unicetric/atraumatic/EOMI (does not follow commands) NECK: JVD elevated, no thyromegaly Lymph: no lymphadenopathy HEART: regular with no S3, II/ systolic murmur at apex LUNGS: Coarse sounds ABD: soft, NT, ND, +BS : Intact Neuro: non focal SKIN: chronic changes EXT: trace edema, post op L Results Result Diagram: 07/29/16 0502 07/29/16 0502 Results 24 hrs Laboratory Tests Test 07/29/16 12:08 07/29/16 18:16 07/30/16 00:26 07/30/16 06:25 Bedside Glucose 187 142 135 108 Medications Medications Current Medications Ondansetron HCl (Zofran Inj) 4 mg Q6H PRN IV NAUSEA AND/OR VOMITING; Start at 17:00 Acetaminophen/ Hydrocodone Bitart ([place] (5/325)) 1 tab Q6H PRN PO MODERATE PAIN LEVEL 4-6 Last administered on 07/23/16 09:19; Admin Dose 1 TAB; Start at 17:00 Levetiracetam (Keppra Liquid) 750 mg BID GTB Last administered on 07/30/16 09: 06; Admin Dose 750 MG; Start 07/19/16 at 21:00 Famotidine (Pepcid) 20 mg BID GTB Last administered on 07/30/16 09:07; Admin Dose 20 MG; Start 07/19/16 at 21:00 Sirolimus (Rapamune) 3 mg BID GTB Last administered on 07/30/16 09:07; Admin Dose 3 MG; Start 07/19/16 at 21:00 Eye Lubricant (Artificial Tears Oph) 2 drop Q6H PRN BOTH EYES DRY EYES; Start 07/19/16 at 18:00 Paroxetine HCl (Paxil) 20 mg DAILY GTB Last administered on 07/30/16 09:07; Admin Dose 20 MG; Start 07/20/16 at 09:00 Atorvastatin Calcium (Lipitor) 10 mg HS GTB Last administered on 07/29/16 20:45 ; Admin Dose 10 MG; Start 07/19/16 at 21:00 Docusate Sodium (Colace Liquid Cup) 100 mg BID GTB Last administered on 09:06; Admin Dose 100 MG; Start 07/19/16 at 21:00 Miscellaneous Information 1 ea NOTE XX ; Start 07/19/16 at 17:00 Glucose (Glutose) 15 gm Q15M PRN PO DECREASED GLUCOSE; Start 07/19/16 at 17:00 Glucose (Glutose) 22.5 gm Q15M PRN PO DECREASED GLUCOSE; Start 07/19/16 at 17: 00 Dextrose (D50w Syringe) 25 ml Q15M PRN IV DECREASED GLUCOSE; Start 07/19/16 at 17:00 Dextrose (D50w Syringe) 50 ml Q15M PRN IV DECREASED GLUCOSE; Start 07/19/16 at 17:00 Glucagon (Glucagen) 1 mg Q15M PRN IM DECREASED GLUCOSE; Start 07/19/16 at 17:00 Glucose (Glutose) 15 gm Q15M PRN BUCCAL DECREASED GLUCOSE; Start 07/19/16 at 17 :00 Insulin Aspart (Novolog Insulin Pen) NOVOLOG *MILD* ALGORI... Q6 SC Last administered on 07/29/16 18:31; Admin Dose 1 UNIT; Start 07/20/16 at 01:00 Tramadol HCl (Ultram) 50 mg Q6H PRN GTB PAIN LEVEL 1-5 Last administered on 00:11; Admin Dose 50 MG; Start 07/20/16 at 01:00 Tramadol HCl (Ultram) 100 mg Q6H PRN GTB PAIN LEVEL 6-10 Last administered on 03:59; Admin Dose 100 MG; Start 07/20/16 at 01:00 Insulin Glargine (Lantus) 30 unit DAILY@20 SC Last administered on 07/29/16 20: 50; Admin Dose 30 UNIT; Start 07/22/16 at 20:00 Acetaminophen (Tylenol Tab) 650 mg Q6H PRN PO PAIN AND OR ELEVATED TEMP Last administered on 07/23/16 11:01; Admin Dose 650 MG; Start 07/23/16 at 11:00 Mupirocin (Bactroban) 1 applic BID TOP Last administered on 07/30/16 09:18; Admin Dose 1 APPLIC; Start 07/25/16 at 21:00 Heparin Sodium (Porcine) (Heparin (5000 Units/0.5 ml)) 5,000 unit BID SC Last administered on 07/30/16 09:08; Admin Dose 5,000 UNIT; Start 07/28/16 at 21:00 Chlorpromazine (Thorazine) 25 mg QHS GTB Last administered on 07/29/16 22:46; Admin Dose 25 MG; Start 07/28/16 at 22:30 Benazepril HCl (Lotensin) 5 mg DAILY PO ; Start 07/30/16 at 09:00 LIV CRUZ MD July 30, 2016 11:56
--- NOTE | 2016-07-30 13:20 | PN ---
Date/Time of Note Date/Time of Note DATE: 07/30/16 TIME: 13:18 Assessment/Plan VTE Prophylaxis VTE Prophylaxis Intervention: heparin Lines/Catheters IV Catheter Type (from Nrsg): Central Line Central line still needed: Yes (IV fluids ) Urinary Cath still in place: Yes Reason Cath still needed: other (indicate) (Post op , still has scrotal edema, swelling ) Assessment/Plan Assessment/Plan 1. Left hip comminuted intertrochanteric displaced fracture.s/p Intramedullar nailing- Post op hypotension required levophed in ICU 2. Fall 2/2 comorbidities from stroke as well as seizures. No reported seizures prior to the onset of fall -2D echo shows no sig findings 3. History of stroke with seizure disorder - Continue home Keppra. 4. Liver cirrhosis secondary to alcohol abuse s/p liver transplant -cont transplant Rx -We will give irradiated and leuko-reduced blood when giving transfusions 5. Diabetes type 2 -NISS 6. History of atrial fibrillation- was on eliquis at home, currenlty eliquis on Hold , cardiology has been following 7. Hypotension secondary to acute blood loss anemia -Status post 2 unit of blood- Hb 8.1 8. MRSA nares colonization, bactroban Prophylaxis-Heparin pt is non ambulatory and he is from [facility] post acute rehab S/p Acute rehab consult-not a candidate, will need SNF placement back to [place] Subjective 24 Hr Interval Summary Free Text/Dictation doing ok, BP stable, toleratign Tube feeding well Exam/Review of Systems Vital Signs Vitals Vital Signs Date Time Temp Pulse Resp B/P Pulse Ox O2 Delivery O2 Flow Rate FiO2 07/30/16 10:34 110 108/59 07/30/16 08:03 99.0 19 92 07/29/16 20:51 Nasal Cannula 2.0 Intake and Output 07/29/16 07/29/16 07/30/16 15:00 23:00 07:00 Intake Total 640 ml 880 ml Output Total 1200 ml 900 ml Balance -560 ml -20 ml Exam GEN: more awake,alert no acute distress Respiratory: clear to auscultation Cardiovascular: regular rate and rhythm Gastrointestinal: soft, No distended Musculoskeletal: nl extremities to inspection Results Result Diagram: 07/29/16 0502 07/29/16 0502 Results 24 hrs Laboratory Tests Test 07/29/16 18:16 07/30/16 00:26 07/30/16 06:25 07/30/16 12:16 Bedside Glucose 142 135 108 157 Medications Medications Current Medications Ondansetron HCl (Zofran Inj) 4 mg Q6H PRN IV NAUSEA AND/OR VOMITING; Start at 17:00 Acetaminophen/ Hydrocodone Bitart ([place] (5/325)) 1 tab Q6H PRN PO MODERATE PAIN LEVEL 4-6 Last administered on 07/23/16 09:19; Admin Dose 1 TAB; Start at 17:00 Levetiracetam (Keppra Liquid) 750 mg BID GTB Last administered on 07/30/16 09: 06; Admin Dose 750 MG; Start 07/19/16 at 21:00 Famotidine (Pepcid) 20 mg BID GTB Last administered on 07/30/16 09:07; Admin Dose 20 MG; Start 07/19/16 at 21:00 Sirolimus (Rapamune) 3 mg BID GTB Last administered on 07/30/16 09:07; Admin Dose 3 MG; Start 07/19/16 at 21:00 Eye Lubricant (Artificial Tears Oph) 2 drop Q6H PRN BOTH EYES DRY EYES; Start 07/19/16 at 18:00 Paroxetine HCl (Paxil) 20 mg DAILY GTB Last administered on 07/30/16 09:07; Admin Dose 20 MG; Start 07/20/16 at 09:00 Atorvastatin Calcium (Lipitor) 10 mg HS GTB Last administered on 07/29/16 20:45 ; Admin Dose 10 MG; Start 07/19/16 at 21:00 Docusate Sodium (Colace Liquid Cup) 100 mg BID GTB Last administered on 09:06; Admin Dose 100 MG; Start 07/19/16 at 21:00 Miscellaneous Information 1 ea NOTE XX ; Start 07/19/16 at 17:00 Glucose (Glutose) 15 gm Q15M PRN PO DECREASED GLUCOSE; Start 07/19/16 at 17:00 Glucose (Glutose) 22.5 gm Q15M PRN PO DECREASED GLUCOSE; Start 07/19/16 at 17: 00 Dextrose (D50w Syringe) 25 ml Q15M PRN IV DECREASED GLUCOSE; Start 07/19/16 at 17:00 Dextrose (D50w Syringe) 50 ml Q15M PRN IV DECREASED GLUCOSE; Start 07/19/16 at 17:00 Glucagon (Glucagen) 1 mg Q15M PRN IM DECREASED GLUCOSE; Start 07/19/16 at 17:00 Glucose (Glutose) 15 gm Q15M PRN BUCCAL DECREASED GLUCOSE; Start 07/19/16 at 17 :00 Insulin Aspart (Novolog Insulin Pen) NOVOLOG *MILD* ALGORI... Q6 SC Last administered on 07/30/16 13:16; Admin Dose 1 UNIT; Start 07/20/16 at 01:00 Tramadol HCl (Ultram) 50 mg Q6H PRN GTB PAIN LEVEL 1-5 Last administered on 00:11; Admin Dose 50 MG; Start 07/20/16 at 01:00 Tramadol HCl (Ultram) 100 mg Q6H PRN GTB PAIN LEVEL 6-10 Last administered on 03:59; Admin Dose 100 MG; Start 07/20/16 at 01:00 Insulin Glargine (Lantus) 30 unit DAILY@20 SC Last administered on 07/29/16 20: 50; Admin Dose 30 UNIT; Start 07/22/16 at 20:00 Acetaminophen (Tylenol Tab) 650 mg Q6H PRN PO PAIN AND OR ELEVATED TEMP Last administered on 07/23/16 11:01; Admin Dose 650 MG; Start 07/23/16 at 11:00 Mupirocin (Bactroban) 1 applic BID TOP Last administered on 07/30/16 09:18; Admin Dose 1 APPLIC; Start 07/25/16 at 21:00 Heparin Sodium (Porcine) (Heparin (5000 Units/0.5 ml)) 5,000 unit BID SC Last administered on 07/30/16 09:08; Admin Dose 5,000 UNIT; Start 07/28/16 at 21:00 Chlorpromazine (Thorazine) 25 mg QHS GTB Last administered on 07/29/16 22:46; Admin Dose 25 MG; Start 07/28/16 at 22:30 Benazepril HCl (Lotensin) 5 mg DAILY PO ; Start 07/30/16 at 09:00 NOEMI JARRELL MD July 30, 2016 13:20
[2016-07-30] MEDS ORDERED: INSULIN ASPART [NOVOLOG] 3 ML PEN SC SCH (21:00)
[2016-07-30] MEDS: CHLORPROMAZINE 10 MG TAB GTB SCH (21:02)
[2016-07-30] MEDS: ATORVASTATIN 10 MG TAB GTB SCH (21:03)
[2016-07-30] MEDS: INSULIN GLARGINE [LANtus] 3 ML PEN SC SCH (21:11)
[2016-07-30] MEDS: Insulin NOVOLOG SS MILD Algorithm (SS with meals and bedtime) SC SCH (21:12)
[2016-07-31] MEDS: ACCUCHECK AT 2AM (Patients on SS coverage) XX SCH (02:50)
[2016-07-31 08:06] VITALS: BP 119/69; RESP 19
[2016-07-31] MEDS: LEVETIRACETAM (100 MG/ML) 5ML CUP GTB SCH ×2 (10:14→20:42)
[2016-07-31] MEDS: DOCUSATE SODIUM 10 MG/ML (10ML CUP) GTB SCH ×2 (10:14→20:42)
[2016-07-31] MEDS: HEPARIN 5,000 UNIT/0.5 ML VIAL SC SCH (10:15)
[2016-07-31] MEDS: FAMOTIDINE 20 MG TAB GTB SCH ×2 (10:15→20:42)
[2016-07-31] MEDS: PAROXETINE 20 MG TAB GTB SCH (10:16)
[2016-07-31] MEDS: BENAZEPRIL 10 MG TAB PO SCH (10:16)
[2016-07-31] MEDS: SIROLIMUS 1 MG TAB GTB SCH ×2 (10:16→20:43)
[2016-07-31] MEDS: Insulin NOVOLOG SS MILD Algorithm (SS with meals and bedtime) SC SCH ×4 (10:18→21:00)
[2016-07-31] MEDS: MUPIROCIN 2% 22 GM OINT TOP SCH ×2 (10:18→20:42)
--- NOTE | 2016-07-31 13:28 | CONS ---
Date/Time of Note Date/Time of Note DATE: 07/31/16 TIME: 13:27 Assessment/Plan Assessment/Plan Additional Assessment/Plan 1. Post-op LE ORIF - tolerated procedure well - con't to recover 2. Status post fall. Rule out cardiac etiology. Rule out cardiac arrhythmia- no new episodes now, tolerated procedure well 3. History of paroxysmal atrial fibrillation.-In rate controlled AF by serial ecg's - in sinus now. 4. Hypotension-now improved off of pressors and back on med-surg tolerating anti-hypertensives- BETTER 5. Diabetes mellitus- on meds, keep euglycemic. 6. Femur fracture, left lower extremity. 7. Possible seizure disorder by medications - will Rx as needed. 8. Dyslipidemia. 9. Abd distension-KUB unremarkable. ? ant abd wall hernia 10. Anemia-s/p transfusions 11.Hyponatremia Consultation Date/Type/Reason Admit Date/Time Jul 19, 2016 at 13:38 Type of Consultation: Cardiology Referring Provider: PREETI OLMOS 24 HR Interval Summary Free Text/Dictation NO acute events - recovering post op. ROS: No fever, no chills, no nausea, no vomiting, no diarrhea/constipation No recent weight changes No chest pain, no PND, no orthopnea No dizziness, blurred vision No thirst, no heat or cold intolerance Exam/Review of Systems Vital Signs Vitals Vital Signs Date Time Temp Pulse Resp B/P Pulse Ox O2 Delivery O2 Flow Rate FiO2 07/31/16 08:06 98.0 80 19 119/69 97 07/30/16 20:45 Nasal Cannula 2.0 Intake and Output 07/30/16 07/30/16 07/31/16 15:00 23:00 07:00 Intake Total 440 ml 880 ml Output Total 1000 ml 800 ml Balance -560 ml 80 ml Exam General: WN/WD/NAD, AOx0-1 HEENT: Unicetric/atraumatic/EOMI (follow commands) NECK: JVD elevated, no thyromegaly Lymph: no lymphadenopathy HEART: regular with no S3, II/ systolic murmur at apex LUNGS: Coarse sounds ABD: soft, NT, ND, +BS : Intact Neuro: non focal SKIN: chronic changes EXT: trace edema, post op Results Result Diagram: 07/29/16 0502 07/29/16 0502 Results 24 hrs Laboratory Tests Test 07/30/16 18:10 07/30/16 21:06 07/31/16 02:47 07/31/16 08:15 Bedside Glucose 185 187 154 157 Test 07/31/16 12:23 Bedside Glucose 186 Medications Medications Current Medications Ondansetron HCl (Zofran Inj) 4 mg Q6H PRN IV NAUSEA AND/OR VOMITING; Start at 17:00 Acetaminophen/ Hydrocodone Bitart ([place] (5/325)) 1 tab Q6H PRN PO MODERATE PAIN LEVEL 4-6 Last administered on 07/23/16 09:19; Admin Dose 1 TAB; Start at 17:00 Levetiracetam (Keppra Liquid) 750 mg BID GTB Last administered on 07/31/16 10: 14; Admin Dose 750 MG; Start 07/19/16 at 21:00 Famotidine (Pepcid) 20 mg BID GTB Last administered on 07/31/16 10:15; Admin Dose 20 MG; Start 07/19/16 at 21:00 Sirolimus (Rapamune) 3 mg BID GTB Last administered on 07/31/16 10:16; Admin Dose 3 MG; Start 07/19/16 at 21:00 Eye Lubricant (Artificial Tears Oph) 2 drop Q6H PRN BOTH EYES DRY EYES; Start 07/19/16 at 18:00 Paroxetine HCl (Paxil) 20 mg DAILY GTB Last administered on 07/31/16 10:16; Admin Dose 20 MG; Start 07/20/16 at 09:00 Atorvastatin Calcium (Lipitor) 10 mg HS GTB Last administered on 07/30/16 21:03 ; Admin Dose 10 MG; Start 07/19/16 at 21:00 Docusate Sodium (Colace Liquid Cup) 100 mg BID GTB Last administered on 10:14; Admin Dose 100 MG; Start 07/19/16 at 21:00 Miscellaneous Information 1 ea NOTE XX ; Start 07/19/16 at 17:00 Glucose (Glutose) 15 gm Q15M PRN PO DECREASED GLUCOSE; Start 07/19/16 at 17:00 Glucose (Glutose) 22.5 gm Q15M PRN PO DECREASED GLUCOSE; Start 07/19/16 at 17: 00 Dextrose (D50w Syringe) 25 ml Q15M PRN IV DECREASED GLUCOSE; Start 07/19/16 at 17:00 Dextrose (D50w Syringe) 50 ml Q15M PRN IV DECREASED GLUCOSE; Start 07/19/16 at 17:00 Glucagon (Glucagen) 1 mg Q15M PRN IM DECREASED GLUCOSE; Start 07/19/16 at 17:00 Glucose (Glutose) 15 gm Q15M PRN BUCCAL DECREASED GLUCOSE; Start 07/19/16 at 17 :00 Tramadol HCl (Ultram) 50 mg Q6H PRN GTB PAIN LEVEL 1-5 Last administered on 00:11; Admin Dose 50 MG; Start 07/20/16 at 01:00 Tramadol HCl (Ultram) 100 mg Q6H PRN GTB PAIN LEVEL 6-10 Last administered on 03:59; Admin Dose 100 MG; Start 07/20/16 at 01:00 Insulin Glargine (Lantus) 30 unit DAILY@20 SC Last administered on 07/30/16 21: 11; Admin Dose 30 UNIT; Start 07/22/16 at 20:00 Acetaminophen (Tylenol Tab) 650 mg Q6H PRN PO PAIN AND OR ELEVATED TEMP Last administered on 07/23/16 11:01; Admin Dose 650 MG; Start 07/23/16 at 11:00 Mupirocin (Bactroban) 1 applic BID TOP Last administered on 07/31/16 10:18; Admin Dose 1 APPLIC; Start 07/25/16 at 21:00 Heparin Sodium (Porcine) (Heparin (5000 Units/0.5 ml)) 5,000 unit BID SC Last administered on 07/31/16 10:15; Admin Dose 5,000 UNIT; Start 07/28/16 at 21:00 Chlorpromazine (Thorazine) 25 mg QHS GTB Last administered on 07/30/16 21:02; Admin Dose 25 MG; Start 07/28/16 at 22:30 Benazepril HCl (Lotensin) 5 mg DAILY PO Last administered on 07/31/16 10:16; Admin Dose 5 MG; Start 07/30/16 at 09:00 Diagnostic Test (Pha) (Accu-Chek) 1 ea 02 XX Last administered on 07/31/16 02: 50; Admin Dose 1 EA; Start 07/31/16 at 02:00 LIV CRUZ MD July 31, 2016 13:28
--- NOTE | 2016-07-31 13:31 | PN ---
Date/Time of Note Date/Time of Note DATE: 07/31/16 TIME: 13:30 Assessment/Plan VTE Prophylaxis VTE Prophylaxis Intervention: other (Eliquis ) Lines/Catheters IV Catheter Type (from Nrsg): Saline Lock Urinary Cath still in place: Yes Reason Cath still needed: other (indicate) (Post op scrotal edema, swelling ) Assessment/Plan Assessment/Plan 1. Left hip comminuted intertrochanteric displaced fracture.s/p Intramedullar nailing- Post op hypotension required levophed in ICU 2. Fall 2/2 comorbidities from stroke as well as seizures. No reported seizures prior to the onset of fall- 2 D echo normal 3. History of stroke with seizure disorder- on PO keppra at home 4. Liver cirrhosis secondary to alcohol abuse s/p liver transplant 5. Diabetes type 2- on Sliding scale 6. History of atrial fibrillation- resume eliquis today with 2.5 mg PO BID 7. Hypotension secondary to acute blood loss anemia -Status post 2 unit of blood- Hb 8.1 8. MRSA nares colonization, bactroban Prophylaxis- stop heparin today, resume eliquis today with 2.5 mg PO BID for atrial fibrillation and also for Post op DVT prophylaxis pt is non ambulatory from baseline S/p Acute rehab consult-not a candidate for acuter rehab- case management orderd for SNF placement back to [facility] 24 Hr Interval Summary Free Text/Dictation pt remained stable, non ambulatory, HR stable Exam/Review of Systems Vital Signs Vitals Vital Signs Date Time Temp Pulse Resp B/P Pulse Ox O2 Delivery O2 Flow Rate FiO2 07/31/16 08:06 98.0 80 19 119/69 97 07/30/16 20:45 Nasal Cannula 2.0 Intake and Output 07/30/16 07/30/16 07/31/16 15:00 23:00 07:00 Intake Total 440 ml 880 ml Output Total 1000 ml 800 ml Balance -560 ml 80 ml Exam GEN: more awake,alert no acute distress Respiratory: clear to auscultation Cardiovascular: regular rate and rhythm Gastrointestinal: soft, No distended Musculoskeletal: nl extremities to inspection Results Result Diagram: 07/29/16 0502 07/29/16 0502 Results 24 hrs Laboratory Tests Test 07/30/16 18:10 07/30/16 21:06 07/31/16 02:47 07/31/16 08:15 Bedside Glucose 185 187 154 157 Test 07/31/16 12:23 Bedside Glucose 186 Medications Medications Current Medications Ondansetron HCl (Zofran Inj) 4 mg Q6H PRN IV NAUSEA AND/OR VOMITING; Start at 17:00 Acetaminophen/ Hydrocodone Bitart ([place] (5/325)) 1 tab Q6H PRN PO MODERATE PAIN LEVEL 4-6 Last administered on 07/23/16 09:19; Admin Dose 1 TAB; Start at 17:00 Levetiracetam (Keppra Liquid) 750 mg BID GTB Last administered on 07/31/16 10: 14; Admin Dose 750 MG; Start 07/19/16 at 21:00 Famotidine (Pepcid) 20 mg BID GTB Last administered on 07/31/16 10:15; Admin Dose 20 MG; Start 07/19/16 at 21:00 Sirolimus (Rapamune) 3 mg BID GTB Last administered on 07/31/16 10:16; Admin Dose 3 MG; Start 07/19/16 at 21:00 Eye Lubricant (Artificial Tears Oph) 2 drop Q6H PRN BOTH EYES DRY EYES; Start 07/19/16 at 18:00 Paroxetine HCl (Paxil) 20 mg DAILY GTB Last administered on 07/31/16 10:16; Admin Dose 20 MG; Start 07/20/16 at 09:00 Atorvastatin Calcium (Lipitor) 10 mg HS GTB Last administered on 07/30/16 21:03 ; Admin Dose 10 MG; Start 07/19/16 at 21:00 Docusate Sodium (Colace Liquid Cup) 100 mg BID GTB Last administered on 10:14; Admin Dose 100 MG; Start 07/19/16 at 21:00 Miscellaneous Information 1 ea NOTE XX ; Start 07/19/16 at 17:00 Glucose (Glutose) 15 gm Q15M PRN PO DECREASED GLUCOSE; Start 07/19/16 at 17:00 Glucose (Glutose) 22.5 gm Q15M PRN PO DECREASED GLUCOSE; Start 07/19/16 at 17: 00 Dextrose (D50w Syringe) 25 ml Q15M PRN IV DECREASED GLUCOSE; Start 07/19/16 at 17:00 Dextrose (D50w Syringe) 50 ml Q15M PRN IV DECREASED GLUCOSE; Start 07/19/16 at 17:00 Glucagon (Glucagen) 1 mg Q15M PRN IM DECREASED GLUCOSE; Start 07/19/16 at 17:00 Glucose (Glutose) 15 gm Q15M PRN BUCCAL DECREASED GLUCOSE; Start 07/19/16 at 17 :00 Tramadol HCl (Ultram) 50 mg Q6H PRN GTB PAIN LEVEL 1-5 Last administered on 00:11; Admin Dose 50 MG; Start 07/20/16 at 01:00 Tramadol HCl (Ultram) 100 mg Q6H PRN GTB PAIN LEVEL 6-10 Last administered on 03:59; Admin Dose 100 MG; Start 07/20/16 at 01:00 Insulin Glargine (Lantus) 30 unit DAILY@20 SC Last administered on 07/30/16 21: 11; Admin Dose 30 UNIT; Start 07/22/16 at 20:00 Acetaminophen (Tylenol Tab) 650 mg Q6H PRN PO PAIN AND OR ELEVATED TEMP Last administered on 07/23/16 11:01; Admin Dose 650 MG; Start 07/23/16 at 11:00 Mupirocin (Bactroban) 1 applic BID TOP Last administered on 07/31/16 10:18; Admin Dose 1 APPLIC; Start 07/25/16 at 21:00 Heparin Sodium (Porcine) (Heparin (5000 Units/0.5 ml)) 5,000 unit BID SC Last administered on 07/31/16 10:15; Admin Dose 5,000 UNIT; Start 07/28/16 at 21:00 Chlorpromazine (Thorazine) 25 mg QHS GTB Last administered on 07/30/16 21:02; Admin Dose 25 MG; Start 07/28/16 at 22:30 Benazepril HCl (Lotensin) 5 mg DAILY PO Last administered on 07/31/16 10:16; Admin Dose 5 MG; Start 07/30/16 at 09:00 Diagnostic Test (Pha) (Accu-Chek) 1 ea 02 XX Last administered on 07/31/16 02: 50; Admin Dose 1 EA; Start 07/31/16 at 02:00 NOEMI JARRELL MD July 31, 2016 13:31
[2016-07-31 20:27] VITALS: BP 117/63; RESP 20
[2016-07-31] MEDS: ATORVASTATIN 10 MG TAB GTB SCH (20:42)
[2016-07-31] MEDS: CHLORPROMAZINE 10 MG TAB GTB SCH (20:43)
[2016-07-31] MEDS: INSULIN GLARGINE [LANtus] 3 ML PEN SC SCH (20:46)
[2016-07-31] MEDS: APIXABAN 5 MG TABLET PO SCH (20:46)
[2016-08-01] MEDS: ACCUCHECK AT 2AM (Patients on SS coverage) XX SCH (01:50)
[2016-08-01 05:16] LABS: ADD SCAN DIFF NO
[2016-08-01 05:37] LABS: BASOPHILS % 0.5 % (0.0-2.0); EOSINOPHILS # 0.3 10^3/ul (0.0-0.5); EOSINOPHILS % 4.3 % (0.0-7.0); HEMATOCRIT 24.2 % (42.0-52.0); HEMOGLOBIN 7.8 g/dl (14.0-18.0); LYMPHOCYTES # 1.2 10^3/ul (0.8-2.9); LYMPHOCYTES % 20.5 % (15.0-51.0); MEAN CORPUSCULAR HEMOGLOBIN 29.3 pg (29.0-33.0); MEAN CORPUSCULAR HGB CONC 32.2 g/dl (32.0-37.0); MONOCYTE # 0.5 10^3/ul (0.3-0.9); MONOCYTES % 9.2 % (0.0-11.0); NEUTROPHIL # 3.7 10^3/ul (1.6-7.5); NEUTROPHILS % 64.8 % (39.0-77.0); PLATELET COUNT 174 10^3/UL (140-415); RED BLOOD COUNT 2.66 10^6/ul (4.70-6.10); RED CELL DISTRIBUTION WIDTH 14.7 % (11.5-14.5); WHITE BLOOD COUNT 5.8 10^3/ul (4.8-10.8)
[2016-08-01 05:41] LABS: CREATININE 1.17 mg/dl (0.61-1.24)
[2016-08-01 05:42] LABS: CALCIUM 7.9 mg/dl (8.4-10.2); INR 1.27; PT RATIO 1.3
[2016-08-01] MEDS: Insulin NOVOLOG SS MILD Algorithm (SS with meals and bedtime) SC SCH ×4 (08:26→20:43)
[2016-08-01 08:27] VITALS: BP 105/57; RESP 18
[2016-08-01] MEDS: LEVETIRACETAM (100 MG/ML) 5ML CUP GTB SCH ×2 (10:01→20:48)
[2016-08-01] MEDS: FAMOTIDINE 20 MG TAB GTB SCH ×2 (10:02→20:38)
[2016-08-01] MEDS: DOCUSATE SODIUM 10 MG/ML (10ML CUP) GTB SCH ×2 (10:02→20:48)
[2016-08-01] MEDS: SIROLIMUS 1 MG TAB GTB SCH ×2 (10:03→20:37)
[2016-08-01] MEDS: PAROXETINE 20 MG TAB GTB SCH (10:03)
[2016-08-01] MEDS: BENAZEPRIL 10 MG TAB PO SCH (10:03)
[2016-08-01] MEDS: MUPIROCIN 2% 22 GM OINT TOP SCH ×2 (10:04→20:39)
[2016-08-01] MEDS: APIXABAN 5 MG TABLET PO SCH ×2 (10:04→20:38)
--- NOTE | 2016-08-01 14:20 | PN ---
Date/Time of Note Date/Time of Note DATE: 08/01/16 TIME: 14:18 Assessment/Plan VTE Prophylaxis VTE Prophylaxis Intervention: other Lines/Catheters IV Catheter Type (from Nrs): Saline Lock Assessment/Plan Chief Complaint/Hosp Course 1. Left hip comminuted intertrochanteric displaced fracture.s/p Intramedullar nailing- Post op hypotension required levophed in ICU 2. Fall 2/2 comorbidities from stroke as well as seizures. No reported seizures prior to the onset of fall- 2 D echo normal 3. History of stroke with seizure disorder- on PO keppra at home 4. Liver cirrhosis secondary to alcohol abuse s/p liver transplant 5. Diabetes type 2- on Sliding scale 6. History of atrial fibrillation- resume eliquis today with 2.5 mg PO BID 7. Hypotension secondary to acute blood loss anemia -Status post 2 unit of blood- Hb 8.1 8. MRSA nares colonization, bactroban Prophylaxis- eliquis 2.5 mg PO BID for atrial fibrillation and also for Post op DVT prophylaxis pt is non ambulatory from baseline S/p Acute rehab consult-not a candidate for acute rehab- case management order for SNF placement back to [place] Problems: Subjective 24 Hr Interval Summary Constitutional: no complaints Exam/Review of Systems Vital Signs Vitals Vital Signs Date Time Temp Pulse Resp B/P Pulse Ox O2 Delivery O2 Flow Rate FiO2 08/01/16 08:27 98.2 92 18 105/57 95 07/30/16 20:45 Nasal Cannula 2.0 Intake and Output 07/31/16 07/31/16 08/01/16 15:00 23:00 07:00 Intake Total 780 ml 740 ml Output Total 800 ml 950 ml Balance -20 ml -210 ml Exam Constitutional: alert Respiratory: clear to auscultation Cardiovascular: regular rate and rhythm Gastrointestinal: soft, No distended Musculoskeletal: nl extremities to inspection Results Result Diagram: 08/01/16 0437 08/01/16 0437 Results 24 hrs Laboratory Tests Test 07/31/16 17:30 07/31/16 20:40 08/01/16 01:42 08/01/16 04:37 Bedside Glucose 172 179 181 White Blood Count 5.8 Red Blood Count 2.66 L Hemoglobin 7.8 L Hematocrit 24.2 L Mean Corpuscular Volume 91.0 Mean Corpuscular Hemoglobin 29.3 Mean Corpuscular Hemoglobin Concent 32.2 Red Cell Distribution Width 14.7 H Platelet Count 174 # Mean Platelet Volume 10.0 Neutrophils % 64.8 Lymphocytes % 20.5 Monocytes % 9.2 Eosinophils % 4.3 Basophils % 0.5 Nucleated Red Blood Cells % 0.0 Neutrophils # 3.7 Lymphocytes # 1.2 Monocytes # 0.5 Eosinophils # 0.3 Basophils # 0.0 Nucleated Red Blood Cells # 0.0 Prothrombin Time 16.0 H Prothrombin Time Ratio 1.3 INR International Normalized Ratio 1.27 Activated Partial Thromboplast Time 48.0 H Sodium Level 138 Potassium Level 4.0 Chloride Level 103 Carbon Dioxide Level 26 Anion Gap 13 Blood Urea Nitrogen 36 H Creatinine 1.17 Glucose Level 165 Calcium Level 7.9 L Test 08/01/16 08:00 08/01/16 12:27 Bedside Glucose 187 190 Medications Medications Current Medications Ondansetron HCl (Zofran Inj) 4 mg Q6H PRN IV NAUSEA AND/OR VOMITING; Start at 17:00 Acetaminophen/ Hydrocodone Bitart ([place] (5/325)) 1 tab Q6H PRN PO MODERATE PAIN LEVEL 4-6 Last administered on 07/23/16 09:19; Admin Dose 1 TAB; Start at 17:00 Levetiracetam (Keppra Liquid) 750 mg BID GTB Last administered on 08/01/16 10: 01; Admin Dose 750 MG; Start 07/19/16 at 21:00 Famotidine (Pepcid) 20 mg BID GTB Last administered on 08/01/16 10:02; Admin Dose 20 MG; Start 07/19/16 at 21:00 Sirolimus (Rapamune) 3 mg BID GTB Last administered on 08/01/16 10:03; Admin Dose 3 MG; Start 07/19/16 at 21:00 Eye Lubricant (Artificial Tears Oph) 2 drop Q6H PRN BOTH EYES DRY EYES; Start 07/19/16 at 18:00 Paroxetine HCl (Paxil) 20 mg DAILY GTB Last administered on 08/01/16 10:03; Admin Dose 20 MG; Start 07/20/16 at 09:00 Atorvastatin Calcium (Lipitor) 10 mg HS GTB Last administered on 07/31/16 20:42 ; Admin Dose 10 MG; Start 07/19/16 at 21:00 Docusate Sodium (Colace Liquid Cup) 100 mg BID GTB Last administered on 10:02; Admin Dose 100 MG; Start 07/19/16 at 21:00 Miscellaneous Information 1 ea NOTE XX ; Start 07/19/16 at 17:00 Glucose (Glutose) 15 gm Q15M PRN PO DECREASED GLUCOSE; Start 07/19/16 at 17:00 Glucose (Glutose) 22.5 gm Q15M PRN PO DECREASED GLUCOSE; Start 07/19/16 at 17: 00 Dextrose (D50w Syringe) 25 ml Q15M PRN IV DECREASED GLUCOSE; Start 07/19/16 at 17:00 Dextrose (D50w Syringe) 50 ml Q15M PRN IV DECREASED GLUCOSE; Start 07/19/16 at 17:00 Glucagon (Glucagen) 1 mg Q15M PRN IM DECREASED GLUCOSE; Start 07/19/16 at 17:00 Glucose (Glutose) 15 gm Q15M PRN BUCCAL DECREASED GLUCOSE; Start 07/19/16 at 17 :00 Tramadol HCl (Ultram) 50 mg Q6H PRN GTB PAIN LEVEL 1-5 Last administered on 00:11; Admin Dose 50 MG; Start 07/20/16 at 01:00 Tramadol HCl (Ultram) 100 mg Q6H PRN GTB PAIN LEVEL 6-10 Last administered on 03:59; Admin Dose 100 MG; Start 07/20/16 at 01:00 Insulin Glargine (Lantus) 30 unit DAILY@20 SC Last administered on 07/31/16 20: 46; Admin Dose 30 UNIT; Start 07/22/16 at 20:00 Acetaminophen (Tylenol Tab) 650 mg Q6H PRN PO PAIN AND OR ELEVATED TEMP Last administered on 07/23/16 11:01; Admin Dose 650 MG; Start 07/23/16 at 11:00 Mupirocin (Bactroban) 1 applic BID TOP Last administered on 08/01/16 10:04; Admin Dose 1 APPLIC; Start 07/25/16 at 21:00 Chlorpromazine (Thorazine) 25 mg QHS GTB Last administered on 5/7/17at 20:43; Admin Dose 25 MG; Start 07/28/16 at 22:30 Benazepril HCl (Lotensin) 5 mg DAILY PO Last administered on 08/01/16 10:03; Admin Dose 5 MG; Start 07/30/16 at 09:00 Diagnostic Test (Pha) (Accu-Chek) 1 ea 02 XX Last administered on 07/31/16 02: 50; Admin Dose 1 EA; Start 07/31/16 at 02:00 Apixaban (Eliquis) 2.5 mg BID PO Last administered on 08/01/16 10:04; Admin Dose 2.5 MG; Start 07/31/16 at 21:00 PREETI OLMOS August 01, 2016 14:20
--- NOTE | 2016-08-01 17:28 | CONS ---
Date/Time of Note Date/Time of Note DATE: 08/01/16 TIME: 17:25 Assessment/Plan Assessment/Plan Chief Complaint/Hosp Course IMPRESSION: 1. Preoperative evaluation prior to surgery for femur fracture.-negative troponin x 3/NL EF by echo with no contraindicated valve lesions. OK to proceed to surgery at this time at moderate risk without further noninvasive evaluation. Now Post-op s/p LE ORIF 2. Status post fall. Rule out cardiac etiology. Rule out cardiac arrhythmia. 3. History of paroxysmal atrial fibrillation.-In rate controlled AF by serial ecg's 4. Hypotension-now improved off of pressors and back on med-surg tolerating anti-hypertensives 5. Diabetes mellitus. 6. Femur fracture, left lower extremity. 7. Possible seizure disorder by medications. 8. Dyslipidemia. 9. Abd distension-KUB unremarkable. ? ant abd wall hernia 10. Anemia-s/p transfusions 11.Hyponatremia Recc: -Hold ACEI given marginal BP -Contin statin -Pain control -Follow volume status closely -Follow hgb closely back on eliquis Problems: Consultation Date/Type/Reason Admit Date/Time Jul 19, 2016 at 13:38 Initial Consult Date 07/20/2016 Type of Consultation: Cardiology Reason for Consultation HTN Referring Provider: PREETI OLMOS Exam/Review of Systems Vital Signs Vitals Vital Signs Date Time Temp Pulse Resp B/P Pulse Ox O2 Delivery O2 Flow Rate FiO2 08/01/16 08:27 98.2 92 18 105/57 95 07/30/16 20:45 Nasal Cannula 2.0 Intake and Output 07/31/16 07/31/16 08/01/16 15:00 23:00 07:00 Intake Total 780 ml 740 ml Output Total 800 ml 950 ml Balance -20 ml -210 ml Exam Review of Systems: CONSTITUTIONAL: No fevers, chills. PULMONARY: No sob CARDIOVASCULAR: No chest pain/palpitations GASTROINTESTINAL: No nausea/vomiting. GENITOURINARY: No hematuria/dysuria. MUSCULOSKELETAL: No myagias/arthalgias. PSYCHIATRIC: The patient denies depression. NEUROLOGIC: lethargic Constitutional: alert Psych: no complaints Head: normocephalic ENMT: mucosa pink and moist Neck: jvd (9 cm water), supple Respiratory: diminished breath sounds (at bases/B) Cardiovascular: regular rate and rhythm Gastrointestinal: non-tender, soft Musculoskeletal: muscle tone (normal) Extremities: edema (none) Neurological: other (No focal deficits) Results Result Diagram: 08/01/16 0437 08/01/16 0437 Results 24 hrs Laboratory Tests Test 07/31/16 17:30 07/31/16 20:40 08/01/16 01:42 08/01/16 04:37 Bedside Glucose 172 179 181 White Blood Count 5.8 Red Blood Count 2.66 L Hemoglobin 7.8 L Hematocrit 24.2 L Mean Corpuscular Volume 91.0 Mean Corpuscular Hemoglobin 29.3 Mean Corpuscular Hemoglobin Concent 32.2 Red Cell Distribution Width 14.7 H Platelet Count 174 # Mean Platelet Volume 10.0 Neutrophils % 64.8 Lymphocytes % 20.5 Monocytes % 9.2 Eosinophils % 4.3 Basophils % 0.5 Nucleated Red Blood Cells % 0.0 Neutrophils # 3.7 Lymphocytes # 1.2 Monocytes # 0.5 Eosinophils # 0.3 Basophils # 0.0 Nucleated Red Blood Cells # 0.0 Prothrombin Time 16.0 H Prothrombin Time Ratio 1.3 INR International Normalized Ratio 1.27 Activated Partial Thromboplast Time 48.0 H Sodium Level 138 Potassium Level 4.0 Chloride Level 103 Carbon Dioxide Level 26 Anion Gap 13 Blood Urea Nitrogen 36 H Creatinine 1.17 Glucose Level 165 Calcium Level 7.9 L Test 08/01/16 08:00 08/01/16 12:27 Bedside Glucose 187 190 Medications Medications Current Medications Ondansetron HCl (Zofran Inj) 4 mg Q6H PRN IV NAUSEA AND/OR VOMITING; Start at 17:00 Acetaminophen/ Hydrocodone Bitart ([place] (5/325)) 1 tab Q6H PRN PO MODERATE PAIN LEVEL 4-6 Last administered on 07/23/16 09:19; Admin Dose 1 TAB; Start at 17:00 Levetiracetam (Keppra Liquid) 750 mg BID GTB Last administered on 08/01/16 10: 01; Admin Dose 750 MG; Start 07/19/16 at 21:00 Famotidine (Pepcid) 20 mg BID GTB Last administered on 08/01/16 10:02; Admin Dose 20 MG; Start 07/19/16 at 21:00 Sirolimus (Rapamune) 3 mg BID GTB Last administered on 08/01/16 10:03; Admin Dose 3 MG; Start 07/19/16 at 21:00 Eye Lubricant (Artificial Tears Oph) 2 drop Q6H PRN BOTH EYES DRY EYES; Start 07/19/16 at 18:00 Paroxetine HCl (Paxil) 20 mg DAILY GTB Last administered on 08/01/16 10:03; Admin Dose 20 MG; Start 07/20/16 at 09:00 Atorvastatin Calcium (Lipitor) 10 mg HS GTB Last administered on 07/31/16 20:42 ; Admin Dose 10 MG; Start 07/19/16 at 21:00 Docusate Sodium (Colace Liquid Cup) 100 mg BID GTB Last administered on 10:02; Admin Dose 100 MG; Start 07/19/16 at 21:00 Miscellaneous Information 1 ea NOTE XX ; Start 07/19/16 at 17:00 Glucose (Glutose) 15 gm Q15M PRN PO DECREASED GLUCOSE; Start 07/19/16 at 17:00 Glucose (Glutose) 22.5 gm Q15M PRN PO DECREASED GLUCOSE; Start 07/19/16 at 17: 00 Dextrose (D50w Syringe) 25 ml Q15M PRN IV DECREASED GLUCOSE; Start 07/19/16 at 17:00 Dextrose (D50w Syringe) 50 ml Q15M PRN IV DECREASED GLUCOSE; Start 07/19/16 at 17:00 Glucagon (Glucagen) 1 mg Q15M PRN IM DECREASED GLUCOSE; Start 07/19/16 at 17:00 Glucose (Glutose) 15 gm Q15M PRN BUCCAL DECREASED GLUCOSE; Start 07/19/16 at 17 :00 Tramadol HCl (Ultram) 50 mg Q6H PRN GTB PAIN LEVEL 1-5 Last administered on 00:11; Admin Dose 50 MG; Start 07/20/16 at 01:00 Tramadol HCl (Ultram) 100 mg Q6H PRN GTB PAIN LEVEL 6-10 Last administered on 03:59; Admin Dose 100 MG; Start 07/20/16 at 01:00 Insulin Glargine (Lantus) 30 unit DAILY@20 SC Last administered on 07/31/16 20: 46; Admin Dose 30 UNIT; Start 07/22/16 at 20:00 Acetaminophen (Tylenol Tab) 650 mg Q6H PRN PO PAIN AND OR ELEVATED TEMP Last administered on 07/23/16 11:01; Admin Dose 650 MG; Start 07/23/16 at 11:00 Mupirocin (Bactroban) 1 applic BID TOP Last administered on 08/01/16 10:04; Admin Dose 1 APPLIC; Start 07/25/16 at 21:00 Chlorpromazine (Thorazine) 25 mg QHS GTB Last administered on 07/31/16 20:43; Admin Dose 25 MG; Start 07/28/16 at 22:30 Benazepril HCl (Lotensin) 5 mg DAILY PO Last administered on 08/01/16 10:03; Admin Dose 5 MG; Start 07/30/16 at 09:00 Diagnostic Test (Pha) (Accu-Chek) 1 ea 02 XX Last administered on 07/31/16 02: 50; Admin Dose 1 EA; Start 07/31/16 at 02:00 Apixaban (Eliquis) 2.5 mg BID PO Last administered on 08/01/16 10:04; Admin Dose 2.5 MG; Start 07/31/16 at 21:00 SHIMA DIXON August 01, 2016 17:28
[2016-08-01] MEDS: CHLORPROMAZINE 10 MG TAB GTB SCH (20:37)
[2016-08-01] MEDS: ATORVASTATIN 10 MG TAB GTB SCH (20:38)
[2016-08-01] MEDS: INSULIN GLARGINE [LANtus] 3 ML PEN SC SCH (20:42)
[2016-08-01 20:44] VITALS: BP 94/60; RESP 19
[2016-08-02] MEDS: ACCUCHECK AT 2AM (Patients on SS coverage) XX SCH (01:51)
[2016-08-02] MEDS: BENAZEPRIL 10 MG TAB PO SCH (09:00)
--- NOTE | 2016-08-02 09:01 | CONS ---
Date/Time of Note Date/Time of Note DATE: 08/02/16 TIME: 08:59 Assessment/Plan Assessment/Plan Additional Assessment/Plan 1. Post-op LE ORIF - tolerated procedure well - con't to recover - in good fluid status now 2. Status post fall. Rule out cardiac etiology. Rule out cardiac arrhythmia- no new episodes now, tolerated procedure well 3. History of paroxysmal atrial fibrillation.-In rate controlled AF by serial ecg's - in sinus now. SINUS by exam - off tele. 4. Hypotension-now improved off of pressors and back on med-surg tolerating anti-hypertensives- BETTER 5. Diabetes mellitus- on meds, keep euglycemic. 6. Femur fracture, left lower extremity. 7. Possible seizure disorder by medications - will Rx as needed. 8. Dyslipidemia. 9. Abd distension-KUB unremarkable. ? ant abd wall hernia 10. Anemia-s/p transfusions 11.Hyponatremia Consultation Date/Type/Reason Admit Date/Time Jul 19, 2016 at 13:38 Type of Consultation: Cardiology Referring Provider: PREETI OLMOS 24 HR Interval Summary Free Text/Dictation NO acute change - BP stable - off tele - con't to recover now. ROS: No fever, no chills, no nausea, no vomiting, no diarrhea/constipation No recent weight changes No chest pain, no PND, no orthopnea No dizziness, blurred vision No thirst, no heat or cold intolerance Exam/Review of Systems Vital Signs Vitals Vital Signs Date Time Temp Pulse Resp B/P Pulse Ox O2 Delivery O2 Flow Rate FiO2 08/01/16 20:44 99.2 96 19 94/60 93 07/30/16 20:45 Nasal Cannula 2.0 Intake and Output 08/01/16 08/01/16 08/02/16 15:00 23:00 07:00 Intake Total 780 ml 780 ml Output Total 1100 ml 1100 ml Balance -320 ml -320 ml Exam General: WN/WD/NAD, AOx 1 HEENT: Unicetric/atraumatic/EOMI (follow some commands) NECK: JVD elevated, no thyromegaly Lymph: no lymphadenopathy HEART: regular with no S3, II/ systolic murmur at apex LUNGS: Coarse sounds ABD: soft, NT, ND, +BS : Intact Neuro: non focal SKIN: chronic changes EXT: trace edema, post op Results Result Diagram: 08/01/16 0437 08/01/16 0437 Results 24 hrs Laboratory Tests Test 08/01/16 12:27 08/01/16 17:31 08/01/16 20:41 08/02/16 01:40 Bedside Glucose 190 206 222 H 230 H Medications Medications Current Medications Ondansetron HCl (Zofran Inj) 4 mg Q6H PRN IV NAUSEA AND/OR VOMITING; Start at 17:00 Acetaminophen/ Hydrocodone Bitart ([place] (5/325)) 1 tab Q6H PRN PO MODERATE PAIN LEVEL 4-6 Last administered on 07/23/16 09:19; Admin Dose 1 TAB; Start at 17:00 Levetiracetam (Keppra Liquid) 750 mg BID GTB Last administered on 08/01/16 20: 48; Admin Dose 750 MG; Start 07/19/16 at 21:00 Famotidine (Pepcid) 20 mg BID GTB Last administered on 08/01/16 20:38; Admin Dose 20 MG; Start 07/19/16 at 21:00 Sirolimus (Rapamune) 3 mg BID GTB Last administered on 08/01/16 20:37; Admin Dose 3 MG; Start 07/19/16 at 21:00 Eye Lubricant (Artificial Tears Oph) 2 drop Q6H PRN BOTH EYES DRY EYES; Start 07/19/16 at 18:00 Paroxetine HCl (Paxil) 20 mg DAILY GTB Last administered on 08/01/16 10:03; Admin Dose 20 MG; Start 07/20/16 at 09:00 Atorvastatin Calcium (Lipitor) 10 mg HS GTB Last administered on 08/01/16 20:38 ; Admin Dose 10 MG; Start 07/19/16 at 21:00 Docusate Sodium (Colace Liquid Cup) 100 mg BID GTB Last administered on 20:48; Admin Dose 100 MG; Start 07/19/16 at 21:00 Miscellaneous Information 1 ea NOTE XX ; Start 07/19/16 at 17:00 Glucose (Glutose) 15 gm Q15M PRN PO DECREASED GLUCOSE; Start 07/19/16 at 17:00 Glucose (Glutose) 22.5 gm Q15M PRN PO DECREASED GLUCOSE; Start 07/19/16 at 17: 00 Dextrose (D50w Syringe) 25 ml Q15M PRN IV DECREASED GLUCOSE; Start 07/19/16 at 17:00 Dextrose (D50w Syringe) 50 ml Q15M PRN IV DECREASED GLUCOSE; Start 07/19/16 at 17:00 Glucagon (Glucagen) 1 mg Q15M PRN IM DECREASED GLUCOSE; Start 07/19/16 at 17:00 Glucose (Glutose) 15 gm Q15M PRN BUCCAL DECREASED GLUCOSE; Start 07/19/16 at 17 :00 Tramadol HCl (Ultram) 50 mg Q6H PRN GTB PAIN LEVEL 1-5 Last administered on 00:11; Admin Dose 50 MG; Start 07/20/16 at 01:00 Tramadol HCl (Ultram) 100 mg Q6H PRN GTB PAIN LEVEL 6-10 Last administered on 03:59; Admin Dose 100 MG; Start 07/20/16 at 01:00 Insulin Glargine (Lantus) 30 unit DAILY@20 SC Last administered on 08/01/16 20: 42; Admin Dose 30 UNIT; Start 07/22/16 at 20:00 Acetaminophen (Tylenol Tab) 650 mg Q6H PRN PO PAIN AND OR ELEVATED TEMP Last administered on 07/23/16 11:01; Admin Dose 650 MG; Start 07/23/16 at 11:00 Mupirocin (Bactroban) 1 applic BID TOP Last administered on 08/01/16 20:39; Admin Dose 1 APPLIC; Start 07/25/16 at 21:00 Chlorpromazine (Thorazine) 25 mg QHS GTB Last administered on 08/01/16 20:37; Admin Dose 25 MG; Start 07/28/16 at 22:30 Benazepril HCl (Lotensin) 5 mg DAILY PO Last administered on 08/01/16 10:03; Admin Dose 5 MG; Start 07/30/16 at 09:00 Diagnostic Test (Pha) (Accu-Chek) 1 ea 02 XX Last administered on 07/31/16 02: 50; Admin Dose 1 EA; Start 07/31/16 at 02:00 Apixaban (Eliquis) 2.5 mg BID PO Last administered on 08/01/16 20:38; Admin Dose 2.5 MG; Start 07/31/16 at 21:00 LIV CRUZ MD August 02, 2016 09:01
[2016-08-02] MEDS: LEVETIRACETAM (100 MG/ML) 5ML CUP GTB SCH ×2 (09:11→20:56)
[2016-08-02] MEDS: DOCUSATE SODIUM 10 MG/ML (10ML CUP) GTB SCH ×2 (09:11→21:00)
[2016-08-02 09:12] VITALS: BP 107/64; RESP 18
[2016-08-02] MEDS: APIXABAN 5 MG TABLET PO SCH ×2 (09:12→20:57)
[2016-08-02] MEDS: PAROXETINE 20 MG TAB GTB SCH (09:12)
[2016-08-02] MEDS: SIROLIMUS 1 MG TAB GTB SCH ×2 (09:12→21:22)
[2016-08-02] MEDS: FAMOTIDINE 20 MG TAB GTB SCH ×2 (09:12→20:56)
[2016-08-02] MEDS: MUPIROCIN 2% 22 GM OINT TOP SCH ×2 (09:13→20:56)
[2016-08-02] MEDS: Insulin NOVOLOG SS MILD Algorithm (SS with meals and bedtime) SC SCH ×4 (09:25→21:20)
--- NOTE | 2016-08-02 14:06 | RADRPT ---
PROCEDURE: Video-fluoroscopy swallowing study. CLINICAL INDICATION: Dysphagia. TECHNIQUE: Fluoroscopic guided video swallowing study was done in conjunction with the speech ther apist. The study was confined to the oral, pharyngeal, and cervical phases of the swallowing mechani sm. 2.2 minutes of fluoroscopy time was used. COMPARISON: No prior study is available for comparison. FINDINGS: There is penetration during swallowing but no aspiration. IMPRESSION: 1. Penetration without aspiration. 2. Please refer to the speech therapist's recommendations for future feedings. RPTAT: QQ .Dave Garibay MD, MD Date Time Electronically viewed and signed by .Dave Garibay MD, on 08/02/2016 14:06 .R/
--- NOTE | 2016-08-02 14:55 | PN ---
Date/Time of Note Date/Time of Note DATE: 08/02/16 TIME: 14:39 Assessment/Plan VTE Prophylaxis VTE Prophylaxis Intervention: other Lines/Catheters IV [facility]from [facility] Saline Lock Urinary Cath still in place: No Assessment/Plan Chief Complaint/Hosp Course 1. Left hip comminuted intertrochanteric displaced fracture.s/p Intramedullar nailing 2. Fall 2/2 comorbidities from stroke as well as seizures. No reported seizures prior to the onset of fall- 2 D echo normal 3. History of stroke with seizure disorder- on PO keppra at home 4. Liver cirrhosis secondary to alcohol abuse s/p liver transplant 5. Diabetes type 2- on Sliding scale 6. History of atrial fibrillation- resume eliquis today with 2.5 mg PO BID 7. Hypotension secondary to acute blood loss anemia -Status post 2 unit of blood- Hb 8.1 8. MRSA nares colonization, bactroban Prophylaxis- eliquis 2.5 mg PO BID for atrial fibrillation and also for Post op DVT prophylaxis pt is non ambulatory from baseline S/p Acute rehab consult-not a candidate for acute rehab- case management order for SNF placement back to [place] Problems: Subjective 24 Hr Interval Summary Constitutional: no complaints Exam/Review of Systems Vital Signs Vitals Vital Signs Date Time Temp Pulse Resp B/P Pulse Ox O2 Delivery O2 Flow Rate FiO2 08/02/16 09:12 98.7 94 18 107/64 97 07/30/16 20:45 Nasal Cannula 2.0 Intake and Output 08/01/16 08/01/16 08/02/16 15:00 23:00 07:00 Intake Total 780 ml 780 ml Output Total 1100 ml 1100 ml Balance -320 ml -320 ml Exam Constitutional: alert Respiratory: clear to auscultation Cardiovascular: regular rate and rhythm Gastrointestinal: soft, No distended Musculoskeletal: nl extremities to inspection Results Result Diagram: 08/01/16 0437 08/01/16 0437 Results 24 hrs Laboratory Tests Test 08/01/16 17:31 08/01/16 20:41 08/02/16 01:40 08/02/16 09:11 Bedside Glucose 206 222 H 230 H 202 Test 08/02/16 12:18 Bedside Glucose 202 Medications Medications Current Medications Ondansetron HCl (Zofran Inj) 4 mg Q6H PRN IV NAUSEA AND/OR VOMITING; Start at 17:00 Acetaminophen/ Hydrocodone Bitart ([place] (5/325)) 1 tab Q6H PRN PO MODERATE PAIN LEVEL 4-6 Last administered on 07/23/16 09:19; Admin Dose 1 TAB; Start at 17:00 Levetiracetam (Keppra Liquid) 750 mg BID GTB Last administered on 08/02/16 09: 11; Admin Dose 750 MG; Start 07/19/16 at 21:00 Famotidine (Pepcid) 20 mg BID GTB Last administered on 08/02/16 09:12; Admin Dose 20 MG; Start 07/19/16 at 21:00 Sirolimus (Rapamune) 3 mg BID GTB Last administered on 08/02/16 09:12; Admin Dose 3 MG; Start 07/19/16 at 21:00 Eye Lubricant (Artificial Tears Oph) 2 drop Q6H PRN BOTH EYES DRY EYES; Start 07/19/16 at 18:00 Paroxetine HCl (Paxil) 20 mg DAILY GTB Last administered on 08/02/16 09:12; Admin Dose 20 MG; Start 07/20/16 at 09:00 Atorvastatin Calcium (Lipitor) 10 mg HS GTB Last administered on 08/01/16 20:38 ; Admin Dose 10 MG; Start 07/19/16 at 21:00 Docusate Sodium (Colace Liquid Cup) 100 mg BID GTB Last administered on 09:11; Admin Dose 100 MG; Start 07/19/16 at 21:00 Miscellaneous Information 1 ea NOTE XX ; Start 07/19/16 at 17:00 Glucose (Glutose) 15 gm Q15M PRN PO DECREASED GLUCOSE; Start 07/19/16 at 17:00 Glucose (Glutose) 22.5 gm Q15M PRN PO DECREASED GLUCOSE; Start 07/19/16 at 17: 00 Dextrose (D50w Syringe) 25 ml Q15M PRN IV DECREASED GLUCOSE; Start 07/19/16 at 17:00 Dextrose (D50w Syringe) 50 ml Q15M PRN IV DECREASED GLUCOSE; Start 07/19/16 at 17:00 Glucagon (Glucagen) 1 mg Q15M PRN IM DECREASED GLUCOSE; Start 07/19/16 at 17:00 Glucose (Glutose) 15 gm Q15M PRN BUCCAL DECREASED GLUCOSE; Start 07/19/16 at 17 :00 Tramadol HCl (Ultram) 50 mg Q6H PRN GTB PAIN LEVEL 1-5 Last administered on 00:11; Admin Dose 50 MG; Start 07/20/16 at 01:00 Tramadol HCl (Ultram) 100 mg Q6H PRN GTB PAIN LEVEL 6-10 Last administered on 03:59; Admin Dose 100 MG; Start 07/20/16 at 01:00 Insulin Glargine (Lantus) 30 unit DAILY@20 SC Last administered on 08/01/16 20: 42; Admin Dose 30 UNIT; Start 07/22/16 at 20:00 Acetaminophen (Tylenol Tab) 650 mg Q6H PRN PO PAIN AND OR ELEVATED TEMP Last administered on 07/23/16 11:01; Admin Dose 650 MG; Start 07/23/16 at 11:00 Mupirocin (Bactroban) 1 applic BID TOP Last administered on 08/02/16 09:13; Admin Dose 1 APPLIC; Start 07/25/16 at 21:00 Chlorpromazine (Thorazine) 25 mg QHS GTB Last administered on 08/01/16 20:37; Admin Dose 25 MG; Start 07/28/16 at 22:30 Benazepril HCl (Lotensin) 5 mg DAILY PO Last administered on 08/01/16 10:03; Admin Dose 5 MG; Start 07/30/16 at 09:00 Diagnostic Test (Pha) (Accu-Chek) 1 ea 02 XX Last administered on 07/31/16 02: 50; Admin Dose 1 EA; Start 07/31/16 at 02:00 Apixaban (Eliquis) 2.5 mg BID PO Last administered on 08/02/16 09:12; Admin Dose 2.5 MG; Start 07/31/16 at 21:00 PREETI OLMOS August 02, 2016 14:55
[2016-08-02 20:44] VITALS: BP 102/64; RESP 20
[2016-08-02] MEDS: INSULIN GLARGINE [LANtus] 3 ML PEN SC SCH (20:54)
[2016-08-02] MEDS: CHLORPROMAZINE 10 MG TAB GTB SCH (20:55)
[2016-08-02] MEDS: ATORVASTATIN 10 MG TAB GTB SCH (20:57)
[2016-08-03] MEDS: ACCUCHECK AT 2AM (Patients on SS coverage) XX SCH (02:00)
[2016-08-03 07:40] VITALS: BP 105/76; RESP 20
[2016-08-03] MEDS: DOCUSATE SODIUM 10 MG/ML (10ML CUP) GTB SCH (08:41)
[2016-08-03] MEDS: LEVETIRACETAM (100 MG/ML) 5ML CUP GTB SCH (08:41)
[2016-08-03] MEDS: PAROXETINE 20 MG TAB GTB SCH (08:41)
[2016-08-03] MEDS: FAMOTIDINE 20 MG TAB GTB SCH (08:41)
[2016-08-03] MEDS: APIXABAN 5 MG TABLET PO SCH (08:42)
[2016-08-03] MEDS: BENAZEPRIL 10 MG TAB PO SCH (08:42)
[2016-08-03] MEDS: MUPIROCIN 2% 22 GM OINT TOP SCH (08:43)
[2016-08-03] MEDS: Insulin NOVOLOG SS MILD Algorithm (SS with meals and bedtime) SC SCH ×2 (08:51→11:56)
[2016-08-03] MEDS: SIROLIMUS 1 MG TAB GTB SCH (09:40)
--- NOTE | 2016-08-03 17:59 | DS ---
DATE OF ADMISSION: 07/19/2016 DATE OF DISCHARGE: 08/03/2016 DISCHARGE DIAGNOSES: 1. Left hip fracture, status post surgical repair. 2. Fall secondary to comorbidities from stroke as well as seizures, no reported seizures prior to t he onset of fall. 3. History of stroke or seizure disorder. Continue p.o. Keppra. 4. Liver cirrhosis secondary to alcohol abuse secondary to liver transplant. Continue antirejectio n medications. 5. Diabetes type 2. Continue home insulin dose. 6. Atrial fibrillation. Continue home Eliquis. 7. Hypotension, resolved. 8. Methicillin-resistant Staphylococcus aureus nares colonization, status post Bactroban. HOSPITAL COURSE: The patient is a 65-year-old male with a history of alcohol cirrhosis, status post liver transplant on rejection medications, atrial fibrillation, seizure disorder, stroke with dysph agia status post PEG tube placement. Patient resides in a correction facility. The patient re portedly had a fall secondary to his generalized debilitated state. No reported seizures prior to t he onset of fall. Denies any syncope. The patient was found to have a left femur fracture. Dr. Ortiz of orthopedics was consulted and the patient had a surgical repair of the fracture. The pat ient was hypotensive after surgery and so the patient may have had some blood loss causing hypertens ion. He was given several units of packed red blood cells. The patient's blood pressure ultimately stabilized. The patient was seen by PT as well as speech therapy during hospitalization. Patient had limited mobility due to pain and generalized weakness. The patient required max assist during t ransfers. Speech therapy did a video swallow. They recommend only trials a pureed nectar via spoo n. Recommended that it is okay to give ice chips and a small amount of nectar via spoon and recomme nded continue with speech therapy once he returns to SNF. No other significant acute issues during hospitalization. His mentation did wax and wane but apparently was at baseline according to the tala lyn. On the day of discharge, the patient's vitals, labs, physical exam were stable. There were n o other acute issues and questions were answered. CONDITION ON DISCHARGE: Stable. DISPOSITION: This was back to his correction facility. MEDICATIONS: The patient to resume all previous long-term medications. No new medications were prescribed. FOLLOWUP: The patient is to follow up with physician at the correction facility. [facility] than 30 minutes were spent coordinating discharge of this patient. Dictated By: PREETI OLMOS MD BS/NTS Conf#: [id number] DID#: [id number]
[2016-08-03] MEDS ORDERED: INSULIN GLARGINE [LANtus] 3 ML PEN SC SCH (20:00)
== END 2016-08-03 15:30 | DRG 481 ==
LOC: MS2 13:38 → ICU 07-23 11:41 → MS1 07-26 17:50
PROVIDERS: ADMIT Internal Medicine; ATTEND Internal Medicine
PROC: 0QS706Z Reposition Left Upper Femur with Intramedullary Internal Fixation Device, Open Approach (ICD-10-PCS; principal; 2016-07-22 19:00)
PROC: 06HM33Z Insertion of Infusion Device into Right Femoral Vein, Percutaneous Approach (ICD-10-PCS; 2016-07-23)
PROC: 30233N1 Transfusion of Nonautologous Red Blood Cells into Peripheral Vein, Percutaneous Approach (ICD-10-PCS; 2016-07-24)
PROC: 4A033R1 Measurement of Arterial Saturation, Peripheral, Percutaneous Approach (ICD-10-PCS; 2016-07-26)
DX: S72.142A Displaced intertrochanteric fracture of left femur, initial encounter for closed fracture (principal); D62 Acute posthemorrhagic anemia; Z94.4 Liver transplant status; E87.1 Hypo-osmolality and hyponatremia; I48.0 Paroxysmal atrial fibrillation; I69.391 Dysphagia following cerebral infarction; R13.10 Dysphagia, unspecified; Z93.1 Gastrostomy status; G40.909 Epilepsy, unspecified, not intractable, without status epilepticus; I95.81 Postprocedural hypotension; F10.10 Alcohol abuse, uncomplicated; E11.9 Type 2 diabetes mellitus without complications; E78.5 Hyperlipidemia, unspecified; R14.0 Abdominal distension (gaseous); Z79.4 Long term (current) use of insulin; Z79.01 Long term (current) use of anticoagulants; Z22.322 Carrier or suspected carrier of Methicillin resistant Staphylococcus aureus; W18.39XA Other fall on same level, initial encounter; Y92.129 Unspecified place in nursing home as the place of occurrence of the external cause
CPT/HCPCS: 36430; 36600; 71010; 73510; 74000; 74176; 74230; 80048; 80053; 80061; 81001; 81003; 82140; 82803; 82962; 83036; 83735; 84100; 84484; 85014; 85018; 85025; 85610; 85730; 86850; 86900; 86901; 86920; 87040; 87081; 92526; 92610; 92611; 93005; 93306; 97110; 97163; 97530; J1940; C1713; J0690; J1644; J1815; J2250; J2370; J2405; J3010; J3230; J7030; J7040; J7042; J7060; P9016; P9045

== ENCOUNTER 2018-06-14 18:00 | Inpatient (IN) | payer BC ==
[~2018-06-14] VITALS: Ht 157.5 cm; Wt 74.7 kg
[2018-06-15 18:27] VITALS: BP 119/77; PULSE 98; RESP 18
--- NOTE | 2018-06-15 18:57 | HP ---
Date/Time of Note Date/Time of Note DATE: 06/15/18 TIME: 18:40 Assessment/Plan VTE Prophylaxis Pharmacological prophylaxis: heparin Assessment/Plan Hospital Course 67 yo male with h/o CVA s/p craniectomy, chronic encephelopathy, DMII, cirrhosis s/p transplant who was admitted to [facility] 06/11 for pneumonia and seizures, now transferred for further managemetn Healthcare associated pneumonia: - Continue levaquin, amikacin per ID - PRIVACY ANALYST Nera followed at [facility], will consult A Fib: - Continue Apixaban 5 BID Seizures: - Continue [id number] BID, Keppra 500 BID - Consult Dr Sewell DMII: - Basal/bolus insulin Chroinc respiratory failrue: - Trach collar A Fib: - Continue apixaban Tube feeds Further discharge and management planning tomorrow HPI/ROS Admit Date/Time Admit Date/Time Jun 15, 2018 at 18:01 Hx of Present Illness 67 yo male with h/o chronic encephelopathy s/p CVA, etoh cirrhosis s/p transplant, neurocystercercosis s/p craniotomy, DMII, atrial fibrillation transferred from [facility] for management of seizures Admitted to [facility] h[facility] 06/11 with seiuzures and fever. Found to have pneumonia. He was treated with cefepime and vanco. He was given keppra for seizures. Transferred here for further management. ROS Constitutional: no complaints, improved Eyes: no complaints ENT: no complaints Respiratory: no complaints Cardiovascular: no complaints Gastrointestinal: no complaints Genitourinary: no complaints Musculoskeletal: no complaints Skin: no complaints Neurologic: no complaints Endocrine: no complaints Lymphatic: no complaints Psychological: no complaints, nl mood/affect Immunologic: no complaints PMH/Family/Social Past Medical History Chronic respiratory failure Cirrohsis s/p transplant A Fib Coded Allergies: morphine (Verified Allergy, Unknown, 07/19/16) Past Surgical History Past Surgical Hx: no surgical history Family History Significant Family History: no pertinent family hx Social History Alcohol Use: none Drug Use: none Exam/Review of Systems Vital Signs Vitals Vital Signs Date Temp Pulse Resp B/P (MAP) Pulse Ox O2 O2 Flow FiO2 Time Delivery Rate 06/15/18 98.6 98 18 119/77 98 T Tube 10.0 18:27 (91) 06/15/18 35 18:15 Exam Exam Alert, responsive to commands Nonverbal Trach collar O2 Irreg irreg breathign comfortably 1/5 sternght in b/l arms and b/l legs Abd soft tn USHA Arana MD Jun 15, 2018 18:57
[2018-06-15] MEDS ORDERED: NACL 0.9% 3 ML SYG IV SCH (19:00)
[2018-06-15] MEDS ORDERED: AMIKACIN IV PER PHARMACY XX SCH (19:00)
[2018-06-15] MEDS ORDERED: HYDROmorphONE 0.5 MG/0.5 ML SYG IV PRN (19:00)
[2018-06-15 19:01] VITALS: Ht 157.5 cm; Wt 74.7 kg
[2018-06-15] MEDS ORDERED: GLUCAGON 1 MG INJ IM PRN (19:30)
[2018-06-15] MEDS ORDERED: GLUCOSE GEL 15 GRAM TUBE PO PRN ×2 (19:30)
[2018-06-15] MEDS ORDERED: DEXTROSE 50% 50 ML SYRINGE IV PRN ×2 (19:30)
[2018-06-15] MEDS ORDERED: GLUCOSE GEL 15 GRAM TUBE BUCCAL PRN (19:30)
[2018-06-15 20:00] VITALS: BP 140/77; PULSE 91; PULSE 98; RESP 19
[2018-06-15] MEDS ORDERED: INSULIN GLARGINE [LANTus] (100 UNITS/ML) SYG SC SCH (20:00)
[2018-06-15] MEDS ORDERED: MEROPENEM 1 GM/50ML(PMX) 50 ML IVPB SCH (20:43)
[2018-06-15] MEDS ORDERED: ERGO500013 PO (20:57)
[2018-06-15] MEDS ORDERED: LEVE500S8 GTB (20:57)
[2018-06-15] MEDS ORDERED: DOCU50LI23 GTB (20:57)
[2018-06-15] MEDS ORDERED: FAMO20TA18 GTB (20:57)
[2018-06-15] MEDS ORDERED: IPRA3AMP29 INHALATION (20:57)
[2018-06-15] MEDS ORDERED: DIGO125T93 GTB (20:57)
[2018-06-15] MEDS ORDERED: LEVO250T9 IVPB (20:57)
[2018-06-15] MEDS ORDERED: ATRO INHALATION (20:57)
[2018-06-15] MEDS ORDERED: ASCO500C7 G-TUBE (20:57)
[2018-06-15] MEDS ORDERED: NPH SQ (20:57)
[2018-06-15] MEDS ORDERED: NEUTPHOS PO (20:57)
[2018-06-15] MEDS ORDERED: CHLO25TA18 GTB (20:57)
[2018-06-15] MEDS ORDERED: METO5VIA28 IV (20:57)
[2018-06-15] MEDS ORDERED: FOLI-49 GTB (20:57)
[2018-06-15] MEDS ORDERED: FLUO20CA22 G-TUBE (20:57)
[2018-06-15] MEDS ORDERED: ALBU2.5V3 NEB (20:57)
[2018-06-15] MEDS ORDERED: DIPH12.59 GTB (20:57)
[2018-06-15] MEDS ORDERED: ACET325S G-TUBE (20:57)
[2018-06-15] MEDS ORDERED: FER325 PO (20:57)
[2018-06-15] MEDS ORDERED: PUMP MISCELLANEOUS INH (20:57)
[2018-06-15] MEDS ORDERED: BACI1PAC3 TP (20:57)
[2018-06-15] MEDS ORDERED: CARB15DR3 BOTH EYES (20:57)
[2018-06-15] MEDS ORDERED: ATOR10TA65 GTB (20:57)
[2018-06-15] MEDS ORDERED: APIX5TAB GTB (20:57)
[2018-06-15] MEDS ORDERED: NOVO3I SC (20:57)
[2018-06-15] MEDS ORDERED: METO-448 PO (20:57)
[2018-06-15] MEDS ORDERED: AMIK500V2 IV* (20:57)
[2018-06-15] MEDS ORDERED: LACO100T3 GTB (20:57)
[2018-06-15] MEDS ORDERED: BALS5OIN TOP (20:57)
[2018-06-15] MEDS ORDERED: INSULIN ASPART [NOVOLOG] 3 ML PEN SC SCH (21:00)
[2018-06-15] MEDS: APIXABAN 5 MG TABLET PO SCH (22:09)
[2018-06-15] MEDS: LACOSAMIDE (100 MG/10 ML PO SYR) PO SCH (22:25)
[2018-06-15] MEDS: LEVETIRACETAM 500 MG (PMX) 100 ML IVPB SCH (22:25)
[2018-06-15] MEDS: MEROPENEM 1 GM/50ML(PMX) 50 ML IVPB SCH (22:45)
[2018-06-15] MEDS: LEVOFLOXACIN 250MG/D5W (PMX) 50 ML IVPB SCH (23:30)
[2018-06-16] VITALS (8 sets, daily range): BP systolic 110–133; BP diastolic 71–77; PULSE 88–101; RESP 18–20
[2018-06-16] MEDS ORDERED: ONDANSETRON 4 MG INJ IV PRN (00:30)
[2018-06-16] MEDS ORDERED: ACETAMINOPHEN 650MG/20.3ML CUP GTB PRN (00:30)
[2018-06-16] MEDS: ALTEPLASE (CATHFLO) 2 MG INJ CATHETER PRN ×3 (01:46→03:24)
[2018-06-16] MEDS ORDERED: Insulin NOVOLOG SS MODERATE Algorithm(NPO/TPN/ENTERAL FEEDS) SC SCH (03:00)
[2018-06-16] MEDS ORDERED: INSULIN ASPART [NOVOLOG] 3 ML PEN SC SCH (03:00)
[2018-06-16] MEDS ORDERED: PENDING SANTYL ORDER FOR WOUND CARE XX PRN (05:00)
[2018-06-16] MEDS: MEROPENEM 1 GM/50ML(PMX) 50 ML IVPB SCH ×3 (06:00→21:44)
[2018-06-16] MEDS: Insulin NOVOLOG SS MODERATE Algorithm(NPO/TPN/ENTERAL FEEDS) SC SCH ×3 (06:16→17:21)
[2018-06-16] MEDS: LEVETIRACETAM 500 MG (PMX) 100 ML IVPB SCH ×2 (08:34→21:45)
[2018-06-16] MEDS: APIXABAN 5 MG TABLET PO SCH ×2 (08:34→21:44)
[2018-06-16] MEDS: LACOSAMIDE (100 MG/10 ML PO SYR) PO SCH ×2 (08:37→21:44)
--- NOTE | 2018-06-16 12:07 | PN ---
Date/Time of Note Date/Time of Note DATE: 06/16/18 TIME: 12:03 Assessment/Plan VTE Prophylaxis Risk score (from [facility])>0 risk: 11 SCD applied (from [facility]): Yes SCD contraindicated: other Pharmacological prophylaxis: other Pharm contraindication: other Lines/Catheters [facility]from [facility] Saline Lock Urinary Cath still in place: Yes Reason Cath still needed: other (indicate) Assessment/Plan Assessment/Plan trach/vent h/o cirrrohsis transplant azotemia non oliguric prn f/u Result Diagram: 06/16/18 1119 06/15/181948 Results 24hrs Laboratory Tests Test 06/15/18 19:49 06/15/18 22:07 06/16/18 06:12 06/16/18 11:19 White Blood Count 10.3 # 11.8 H Red Blood Count 3.26 #L 3.37 L Hemoglobin 9.0 L 9.3 L Hematocrit 30.8 #L 32.1 L Mean Corpuscular 94.5 95.3 Volume Mean Corpuscular 27.6 L 27.6 L Hemoglobin Mean Corpuscular 29.2 L 29.0 L Hemoglobin Concent Red Cell 17.2 H 17.8 H Distribution Width Platelet Count 348 # 343 Mean Platelet Volume 10.6 H 10.6 H Immature 1.000 H 1.300 H Granulocytes % Neutrophils % 74.8 76.3 Lymphocytes % 15.5 13.3 L Monocytes % 6.6 7.1 Eosinophils % 1.9 1.8 Basophils % 0.2 0.2 Nucleated Red Blood 0.2 H 0.3 H Cells % Immature 0.100 H 0.150 H Granulocytes # Neutrophils # 7.7 H 9.1 H Lymphocytes # 1.6 1.6 Monocytes # 0.7 0.8 Eosinophils # 0.2 0.2 Basophils # 0.0 0.0 Nucleated Red Blood 0.0 0.0 Cells # Sodium Level 147 H Potassium Level 4.8 Chloride Level 118 H Carbon Dioxide Level 22 Anion Gap 7 Blood Urea Nitrogen 30 H Creatinine 0.75 Est Glomerular > 60 Filtrat Rate mL/min Glucose Level 333 H Calcium Level 8.9 Bedside Glucose 317 H 341 H Hemoglobin A1c 7.7 H Test 06/16/18 11:28 Bedside Glucose 259 H Exam/Review of Systems Exam Vitals Vital Signs Date Temp Pulse Resp B/P (MAP) Pulse Ox O2 O2 Flow FiO2 Time Delivery Rate 06/16/18 99 5.0 28 09:01 06/16/18 96 18 Aerosol 09:01 T Tube 06/16/18 98.0 110/71 07:46 (84) Intake and Output 06/15/18 06/15/18 06/16/18 1515:00 23:00 07:00 IntakeIntake Total 100 ml 630 ml OutputOutput Total 1100 ml BalanceBalance 100 ml -470 ml Constitutional: other Head: other Eyes: nl conjunctiva ENMT: nl external ears & nose, intubated Neck: supple, non-tender Respiratory: clear to auscultation, normal air movement Cardiovascular: regular rate and rhythm, nl pulses Gastrointestinal: soft, bowel sounds Musculoskeletal: nl extremities to inspection Extremities: edema Results Results 24hrs Laboratory Tests Test 06/15/18 19:49 06/15/18 22:07 06/16/18 06:12 06/16/18 11:19 White Blood Count 10.3 # 11.8 H Red Blood Count 3.26 #L 3.37 L Hemoglobin 9.0 L 9.3 L Hematocrit 30.8 #L 32.1 L Mean Corpuscular 94.5 95.3 Volume Mean Corpuscular 27.6 L 27.6 L Hemoglobin Mean Corpuscular 29.2 L 29.0 L Hemoglobin Concent Red Cell 17.2 H 17.8 H Distribution Width Platelet Count 348 # 343 Mean Platelet Volume 10.6 H 10.6 H Immature 1.000 H 1.300 H Granulocytes % Neutrophils % 74.8 76.3 Lymphocytes % 15.5 13.3 L Monocytes % 6.6 7.1 Eosinophils % 1.9 1.8 Basophils % 0.2 0.2 Nucleated Red Blood 0.2 H 0.3 H Cells % Immature 0.100 H 0.150 H Granulocytes # Neutrophils # 7.7 H 9.1 H Lymphocytes # 1.6 1.6 Monocytes # 0.7 0.8 Eosinophils # 0.2 0.2 Basophils # 0.0 0.0 Nucleated Red Blood 0.0 0.0 Cells # Sodium Level 147 H Potassium Level 4.8 Chloride Level 118 H Carbon Dioxide Level 22 Anion Gap 7 Blood Urea Nitrogen 30 H Creatinine 0.75 Est Glomerular > 60 Filtrat Rate mL/min Glucose Level 333 H Calcium Level 8.9 Bedside Glucose 317 H 341 H Hemoglobin A1c 7.7 H Test 06/16/18 11:28 Bedside Glucose 259 H Medications Medication Current Medications IV Flush (NS 3 ml) 3 ml PER PROTOCOL IV ; Start 06/15/18 at 19:00 Hydromorphone HCl (Dilaudid) 0.5 mg Q4H PRN IV .SEVERE PAIN 7-10; Start 06/15/18 at 19:00 Levofloxacin/ Dextrose 50 ml @ 50 mls/hr Q24H IVPB Last administered on 06/15/18at 23:30; Admin Dose 50 MLS/HR; Start 06/15/18 at 21:00 Apixaban (Eliquis) 5 mg BID PO Last administered on 06/16/18at 08:34; Admin Dose 5 MG; Start 06/15/18 at 21:00 Levetiracetam 100 ml @ 400 mls/hr Q12 IVPB Last administered on 06/16/18at 08:34; Admin Dose 400 MLS/HR; Start 06/15/18 at 21:00 Lacosamide (Vimpat Liq) 100 mg BID PO Last administered on 06/16/18at 08:37; Admin Dose 100 MG; Start 06/15/18 at 21:00 Insulin Glargine (Lantus) 11 units DAILY@2000 SC Last administered on 06/15/18at 22:12; Admin Dose 11 UNITS; Start 06/15/18 at 20:00 Miscellaneous Information 1 ea NOTE XX ; Start 06/15/18 at 19:30 Glucose (Glutose) 15 gm Q15M PRN PO DECREASED GLUCOSE; Start 06/15/18 at 19:30 Glucose (Glutose) 22.5 gm Q15M PRN PO DECREASED GLUCOSE; Start 06/15/18 at 19:30 Dextrose (D50w Syringe) 25 ml Q15M PRN IV DECREASED GLUCOSE; Start 06/15/18 at 19:30 Dextrose (D50w Syringe) 50 ml Q15M PRN IV DECREASED GLUCOSE; Start 06/15/18 at 19:30 Glucagon (Glucagen) 1 mg Q15M PRN IM DECREASED GLUCOSE; Start 06/15/18 at 19:30 Glucose (Glutose) 15 gm Q15M PRN BUCCAL DECREASED GLUCOSE; Start 3/22/19 at 19:30 Alteplase, Recombinant (Cathflo (Activase)) 2 mg MAY REPEAT X1 PRN CATHETER IF CATHETER REMAINS OCCULUDED Last administered on 06/16/18at 03:24; Admin Dose 2 MG; Start 06/15/18 at 21:30 Meropenem/Sodium Chloride 50 ml @ 100 mls/hr Q8 IVPB Last administered on 06/16/18at 06:00; Admin Dose 100 MLS/HR; Start 06/15/18 at 22:19 Ondansetron HCl (Zofran Inj) 4 mg Q4H PRN IV NAUSEA AND/OR VOMITING; Start 06/16/18 at 00:30 Acetaminophen (Tylenol Liquid) 650 mg Q6 PRN GTB MILD PAIN(1-3)OR ELEVATED TEMP; Start 06/16/18 at 00:30 Insulin Aspart (Novolog Insulin Pen) (Adult SC Insulin - Moder... Q6 SC Last administered on 06/16/18at 11:33; Admin Dose 6 UNIT; Start 06/16/18 at 06:00 Miscellaneous Information (Pending Santyl Order For Wound Care) This patient palafox... PRN PRN XX WOUND CARE; Start 06/16/18 at 05:00 BALTAZAR BROWNING MD Jun 16, 2018 12:07
--- NOTE | 2018-06-16 13:22 | CONS ---
DATE OF ADMISSION: 06/15/2018 DATE OF CONSULTATION: 06/16/2018 TYPE OF CONSULTATION: Infectious disease. REASON FOR CONSULTATION: Antibiotic management. HISTORY OF PRESENT ILLNESS: Alhaji Pradhan is a 67-year-old male with: 1. History of chronic encephalopathy status post CVA. 2. Alcoholic cirrhosis, status post transplant. 3. Neurocysticercosis status post craniotomy. 4. Diabetes mellitus. 5. Atrial fibrillation, transferred from [facility] for management of seizures. He was admitted to [facility] on 06/11/2018 with seizures and fever, found to have pneumonia, antoinette ated with vancomycin and cefepime, given Keppra for seizures, transferred to [facility] for further management. Past problems include chronic respiratory failure, cirrhosis, status post transplant. Patient has no past surgical history. He was started on Levaquin and amikacin per ID. He was seen by the ER nurse practitioner, our infectious disease team at [facility]. The patient also has atrial fibrill ation, seizures, diabetes mellitus, chronic respiratory failure with a trach collar. PAST MEDICAL HISTORY: Operations: None. FAMILY HISTORY: Noncontributory. SOCIAL HISTORY: Does not smoke, drink or abuse drugs. ALLERGIES: None to penicillin, sulfa or foods. MEDICATIONS: Per chart. REVIEW OF SYSTEMS: Noncontributory. PHYSICAL EXAMINATION: GENERAL: The patient is awake, nonverbal. VITAL SIGNS: Stable. He is afebrile. SKIN: Without generalized rash. HEENT: Within normal limits. NECK: He has a trach collar. CHEST: Decreased breath sounds at the bases. HEART: Irregularly irregular rhythm. ABDOMEN: Soft, nontender, without organosplenomegaly or masses. EXTREMITIES: Without cyanosis, clubbing, or edema. RECTAL AND GENITAL: Deferred. NEUROLOGIC: No focal neurological abnormality. LABORATORY DATA: White count was 10.3, H and H of 9 and 30.8, platelet count 348,000. BUN and creat inine was 30/0.75. IMPRESSION AND PLAN: The patient currently is on meropenem and Levaquin. We will continue him on cu rrent therapy. I will dictate my findings to the hospitalist. Dictated By: ALICE LINARES MD, JD/JEFFREY Conf#: [id number] DID#: [id number] CC: SHIMA DILL MD;*[facility]*
[2018-06-16] MEDS: BALSAM PERU/CASTOR OIL 60 GM TUBE TOP SCH (15:44)
--- NOTE | 2018-06-16 16:29 | PN ---
Date/Time of Note Date/Time of Note DATE: 06/16/18 TIME: 16:27 Assessment/Plan VTE Prophylaxis Risk score (from Nsg)>0 risk: 11 SCD applied (from Nsg): Yes Pharmacological prophylaxis: heparin Lines/Catheters IV Catheter Type (from Nrsg): Saline Lock Urinary Cath still in place: Yes Reason Cath still needed: urinary retention Assessment/Plan Hospital Course 67 yo male with h/o CVA s/p craniectomy, chronic encephelopathy, DMII, cirrhosis s/p transplant who was admitted to [facility] 06/11 for pneumonia and seizures, now transferred for further managemetn Healthcare associated pneumonia: - Continue abx per ID, 7 day course A Fib: - Continue Apixaban 5 BID Seizures: - Continue [id number] BID, Keppra 500 BID - Consult Dr Sewell DMII: - Basal/bolus insulin Chroinc respiratory failrue: - Trach collar A Fib: - Continue apixaban Tube feeds Ready for discharge Result Diagram: 06/16/18 1119 06/16/18 1118 Results 24hrs Laboratory Tests Test 06/15/18 19:49 06/15/18 22:07 06/16/18 06:12 06/16/18 11:18 White Blood Count 10.3 # Red Blood Count 3.26 #L Hemoglobin 9.0 L Hematocrit 30.8 #L Mean Corpuscular 94.5 Volume Mean Corpuscular 27.6 L Hemoglobin Mean Corpuscular 29.2 L Hemoglobin Concent Red Cell 17.2 H Distribution Width Platelet Count 348 # Mean Platelet Volume 10.6 H Immature 1.000 H Granulocytes % Neutrophils % 74.8 Lymphocytes % 15.5 Monocytes % 6.6 Eosinophils % 1.9 Basophils % 0.2 Nucleated Red Blood 0.2 H Cells % Immature 0.100 H Granulocytes # Neutrophils # 7.7 H Lymphocytes # 1.6 Monocytes # 0.7 Eosinophils # 0.2 Basophils # 0.0 Nucleated Red Blood 0.0 Cells # Sodium Level 147 H 149 H Potassium Level 4.8 4.5 Chloride Level 118 H 117 H Carbon Dioxide Level 22 23 Anion Gap 7 9 Blood Urea Nitrogen 30 H 27 H Creatinine 0.75 0.78 Est Glomerular > 60 > 60 Filtrat Rate mL/min Glucose Level 333 H 279 H Calcium Level 8.9 9.1 Bedside Glucose 317 H 341 H Total Bilirubin 0.2 Direct Bilirubin 0.00 Indirect Bilirubin 0.2 Aspartate Amino 20 Transf (AST/SGOT) Alanine 8 L Aminotransferase (AL T/SGPT) Alkaline Phosphatase 166 H Total Protein 8.1 Albumin 3.1 L Globulin 5.00 H Albumin/Globulin 0.62 Ratio Test 06/16/18 11:19 06/16/18 11:28 White Blood Count 11.8 H Red Blood Count 3.37 L Hemoglobin 9.3 L Hematocrit 32.1 L Mean Corpuscular 95.3 Volume Mean Corpuscular 27.6 L Hemoglobin Mean Corpuscular 29.0 L Hemoglobin Concent Red Cell 17.8 H Distribution Width Platelet Count 343 Mean Platelet Volume 10.6 H Immature 1.300 H Granulocytes % Neutrophils % 76.3 Lymphocytes % 13.3 L Monocytes % 7.1 Eosinophils % 1.8 Basophils % 0.2 Nucleated Red Blood 0.3 H Cells % Immature 0.150 H Granulocytes # Neutrophils # 9.1 H Lymphocytes # 1.6 Monocytes # 0.8 Eosinophils # 0.2 Basophils # 0.0 Nucleated Red Blood 0.0 Cells # Hemoglobin A1c 7.7 H Bedside Glucose 259 H Subjective 24 Hr Interval Summary Free Text/Dictation Patient now back to baseline per his family at bedside No complaints per patient Exam/Review of Systems Exam Vitals Vital Signs Date Temp Pulse Resp B/P (MAP) Pulse Ox O2 O2 Flow FiO2 Time Delivery Rate 06/16/18 84 18 99 Aerosol 5.0 28 12:37 T Tube 06/16/18 98.6 120/72 11:51 (88) Intake and Output 06/15/18 06/15/18 06/16/18 1515:00 23:00 07:00 IntakeIntake Total 100 ml 630 ml OutputOutput Total 1100 ml BalanceBalance 100 ml -470 ml Exam Alert Responsive to commands Breathing comfortably on trach collar RRR Clear lungs Flaccid weakness throughout 1/ CN in tact Results Results 24hrs Laboratory Tests Test 06/15/18 19:49 06/15/18 22:07 06/16/18 06:12 06/16/18 11:18 White Blood Count 10.3 # Red Blood Count 3.26 #L Hemoglobin 9.0 L Hematocrit 30.8 #L Mean Corpuscular 94.5 Volume Mean Corpuscular 27.6 L Hemoglobin Mean Corpuscular 29.2 L Hemoglobin Concent Red Cell 17.2 H Distribution Width Platelet Count 348 # Mean Platelet Volume 10.6 H Immature 1.000 H Granulocytes % Neutrophils % 74.8 Lymphocytes % 15.5 Monocytes % 6.6 Eosinophils % 1.9 Basophils % 0.2 Nucleated Red Blood 0.2 H Cells % Immature 0.100 H Granulocytes # Neutrophils # 7.7 H Lymphocytes # 1.6 Monocytes # 0.7 Eosinophils # 0.2 Basophils # 0.0 Nucleated Red Blood 0.0 Cells # Sodium Level 147 H 149 H Potassium Level 4.8 4.5 Chloride Level 118 H 117 H Carbon Dioxide Level 22 23 Anion Gap 7 9 Blood Urea Nitrogen 30 H 27 H Creatinine 0.75 0.78 Est Glomerular > 60 > 60 Filtrat Rate mL/min Glucose Level 333 H 279 H Calcium Level 8.9 9.1 Bedside Glucose 317 H 341 H Total Bilirubin 0.2 Direct Bilirubin 0.00 Indirect Bilirubin 0.2 Aspartate Amino 20 Transf (AST/SGOT) Alanine 8 L Aminotransferase (AL T/SGPT) Alkaline Phosphatase 166 H Total Protein 8.1 Albumin 3.1 L Globulin 5.00 H Albumin/Globulin 0.62 Ratio Test 06/16/18 11:19 06/16/18 11:28 White Blood Count 11.8 H Red Blood Count 3.37 L Hemoglobin 9.3 L Hematocrit 32.1 L Mean Corpuscular 95.3 Volume Mean Corpuscular 27.6 L Hemoglobin Mean Corpuscular 29.0 L Hemoglobin Concent Red Cell 17.8 H Distribution Width Platelet Count 343 Mean Platelet Volume 10.6 H Immature 1.300 H Granulocytes % Neutrophils % 76.3 Lymphocytes % 13.3 L Monocytes % 7.1 Eosinophils % 1.8 Basophils % 0.2 Nucleated Red Blood 0.3 H Cells % Immature 0.150 H Granulocytes # Neutrophils # 9.1 H Lymphocytes # 1.6 Monocytes # 0.8 Eosinophils # 0.2 Basophils # 0.0 Nucleated Red Blood 0.0 Cells # Hemoglobin A1c 7.7 H Bedside Glucose 259 H Medications Medication Current Medications IV Flush (NS 3 ml) 3 ml PER PROTOCOL IV ; Start 06/15/18 at 19:00 Hydromorphone HCl (Dilaudid) 0.5 mg Q4H PRN IV .SEVERE PAIN 7-10; Start 06/15/18 at 19:00 Levofloxacin/ Dextrose 50 ml @ 50 mls/hr Q24H IVPB Last administered on 06/15/18at 23:30; Admin Dose 50 MLS/HR; Start 06/15/18 at 21:00 Apixaban (Eliquis) 5 mg BID PO Last administered on 06/16/18at 08:34; Admin Dose 5 MG; Start 06/15/18 at 21:00 Levetiracetam 100 ml @ 400 mls/hr Q12 IVPB Last administered on 06/16/18 08:34; Admin Dose 400 MLS/HR; Start 06/15/18 at 21:00 Lacosamide (Vimpat Liq) 100 mg BID PO Last administered on 06/16/18 08:37; Admin Dose 100 MG; Start 06/15/18 at 21:00 Insulin Glargine (Lantus) 11 units DAILY@2000 SC Last administered on 06/15/18at 22:12; Admin Dose 11 UNITS; Start 06/15/18 at 20:00 Miscellaneous Information 1 ea NOTE XX ; Start 06/15/18 at 19:30 Glucose (Glutose) 15 gm Q15M PRN PO DECREASED GLUCOSE; Start 06/15/18 at 19:30 Glucose (Glutose) 22.5 gm Q15M PRN PO DECREASED GLUCOSE; Start 06/15/18 at 19:30 Dextrose (D50w Syringe) 25 ml Q15M PRN IV DECREASED GLUCOSE; Start 06/15/18 at 19:30 Dextrose (D50w Syringe) 50 ml Q15M PRN IV DECREASED GLUCOSE; Start 06/15/18 at 19:30 Glucagon (Glucagen) 1 mg Q15M PRN IM DECREASED GLUCOSE; Start 06/15/18 at 19:30 Glucose (Glutose) 15 gm Q15M PRN BUCCAL DECREASED GLUCOSE; Start 06/15/18 at 19:30 Alteplase, Recombinant (Cathflo (Activase)) 2 mg MAY REPEAT X1 PRN CATHETER IF CATHETER REMAINS OCCULUDED Last administered on 06/16/18at 03:24; Admin Dose 2 MG; Start 06/15/18 at 21:30 Meropenem/Sodium Chloride 50 ml @ 100 mls/hr Q8 IVPB Last administered on 06/16/18at 13:47; Admin Dose 100 MLS/HR; Start 06/15/18 at 22:19 Ondansetron HCl (Zofran Inj) 4 mg Q4H PRN IV NAUSEA AND/OR VOMITING; Start 06/16/18 at 00:30 Acetaminophen (Tylenol Liquid) 650 mg Q6 PRN GTB MILD PAIN(1-3)OR ELEVATED TEMP; Start 06/16/18 at 00:30 Insulin Aspart (Novolog Insulin Pen) (Adult SC Insulin - Moder... Q6 SC Last administered on 06/16/18at 11:33; Admin Dose 6 UNIT; Start 06/16/18 at 06:00 Miscellaneous Information (Pending Santyl Order For Wound Care) This patient palafox... PRN PRN XX WOUND CARE; Start 06/16/18 at 05:00 USHA FITZGERALD MD Jun 16, 2018 16:29
[2018-06-16] MEDS ORDERED: INSULIN GLARGINE [LANTus] (100 UNITS/ML) SYG SC SCH (20:00)
[2018-06-16] MEDS: LEVOFLOXACIN 250MG/D5W (PMX) 50 ML IVPB SCH (21:44)
[2018-06-17] VITALS (9 sets, daily range): BP systolic 104–135; BP diastolic 66–75; PULSE 73–103; RESP 18–24
[2018-06-17] MEDS: Insulin NOVOLOG SS MODERATE Algorithm(NPO/TPN/ENTERAL FEEDS) SC SCH ×5 (00:58→22:22)
[2018-06-17] MEDS: MEROPENEM 1 GM/50ML(PMX) 50 ML IVPB SCH (06:27)
[2018-06-17] MEDS: APIXABAN 5 MG TABLET PO SCH ×2 (08:30→22:09)
[2018-06-17] MEDS: LEVETIRACETAM 500 MG (PMX) 100 ML IVPB SCH ×2 (08:30→22:10)
[2018-06-17] MEDS: LACOSAMIDE (100 MG/10 ML PO SYR) PO SCH ×2 (08:30→21:00)
[2018-06-17] MEDS: BALSAM PERU/CASTOR OIL 60 GM TUBE TOP SCH (08:32)
[2018-06-17] MEDS: metFORMIN 850 MG TAB GTB SCH ×2 (11:48→17:43)
--- NOTE | 2018-06-17 12:37 | PN ---
Date/Time of Note Date/Time of Note DATE: 06/17/18 TIME: 12:32 Assessment/Plan VTE Prophylaxis Risk score (from Nsg)>0 risk: 5 SCD applied (from Nsg): Yes Pharmacological prophylaxis: heparin Lines/Catheters IV Catheter Type (from Nrsg): Saline Lock Urinary Cath still in place: Yes Reason Cath still needed: urinary retention Assessment/Plan Hospital Course 67 yo male with h/o CVA s/p craniectomy, chronic encephelopathy, DMII, cirrhosis s/p transplant who was admitted to [facility] 06/11 for pneumonia and seizures, now transferred for further management. Now stable and ready to be discharged back to facility Healthcare associated pneumonia: - a/p abx 7 day course started 06/11 at [facility]. Dc abx and observe A Fib: - Continue Apixaban 5 BID Seizures: - Continue BID, Keppra 500 BID DMII: - Basal/bolus insulin Chroinc respiratory failrue: - Trach collar A Fib: - Continue apixaban Tube feeds Ready for discharge back to facility. Currently at baseline Result Diagram: 06/16/18 1119 06/16/18 1118 Results 24hrs Laboratory Tests Test 06/16/18 17:16 06/16/18 22:05 06/17/18 00:43 06/17/18 06:28 Bedside Glucose 247 H 241 H 295 H 282 H Test 06/17/18 11:39 Bedside Glucose 239 H Subjective 24 Hr Interval Summary Free Text/Dictation No change to clinical status, resting comfortably At apparent baseline Exam/Review of Systems Exam Vitals Vital Signs Date Temp Pulse Resp B/P (MAP) Pulse Ox O2 O2 Flow FiO2 Time Delivery Rate 06/17/18 84 18 99 Aerosol 5.0 28 12:25 T Tube 06/17/18 99.4 104/66 07:35 (79) Intake and Output 06/16/18 06/16/18 06/17/18 1515:00 23:00 07:00 IntakeIntake Total 100 ml 880 ml 1380 ml OutputOutput Total 500 ml 450 ml BalanceBalance 100 ml 380 ml 930 ml Exam Alert Responsive Nonverbal Responds to commands Breathing comfortably on trach collar Flaccid weakness throughout Results Results 24hrs Laboratory Tests Test 06/16/18 17:16 06/16/18 22:05 06/17/18 00:43 06/17/18 06:28 Bedside Glucose 247 H 241 H 295 H 282 H Test 06/17/18 11:39 Bedside Glucose 239 H Medications Medication Current Medications IV Flush (NS 3 ml) 3 ml PER PROTOCOL IV ; Start 06/15/18 at 19:00 Hydromorphone HCl (Dilaudid) 0.5 mg Q4H PRN IV .SEVERE PAIN 7-10; Start 06/15/18 at 19:00 Levofloxacin/ Dextrose 50 ml @ 50 mls/hr Q24H IVPB Last administered on 06/16/18at 21:44; Admin Dose 50 MLS/HR; Start 06/15/18 at 21:00 Apixaban (Eliquis) 5 mg BID PO Last administered on 06/17/18 08:30; Admin Dose 5 MG; Start 06/15/18 at 21:00 Levetiracetam 100 ml @ 400 mls/hr Q12 IVPB Last administered on 06/17/18 08:30; Admin Dose 400 MLS/HR; Start 06/15/18 at 21:00 Lacosamide (Vimpat Liq) 100 mg BID PO Last administered on 06/17/18 08:30; Ad min Dose 100 MG; Start 06/15/18 at 21:00 Miscellaneous Information 1 ea NOTE XX ; Start 06/15/18 at 19:30 Glucose (Glutose) 15 gm Q15M PRN PO DECREASED GLUCOSE; Start 06/15/18 at 19:30 Glucose (Glutose) 22.5 gm Q15M PRN PO DECREASED GLUCOSE; Start 06/15/18 at 19:30 Dextrose (D50w Syringe) 25 ml Q15M PRN IV DECREASED GLUCOSE; Start 06/15/18 at 19:30 Dextrose (D50w Syringe) 50 ml Q15M PRN IV DECREASED GLUCOSE; Start 06/15/18 at 19:30 Glucagon (Glucagen) 1 mg Q15M PRN IM DECREASED GLUCOSE; Start 06/15/18 at 19:30 Glucose (Glutose) 15 gm Q15M PRN BUCCAL DECREASED GLUCOSE; Start 06/15/18 at 1 9:30 Alteplase, Recombinant (Cathflo (Activase)) 2 mg MAY REPEAT X1 PRN CATHETER IF CATHETER REMAINS OCCULUDED Last administered on 06/16/18at 03:24; Admin Dose 2 MG; Start 06/15/18 at 21:30 Meropenem/Sodium Chloride 50 ml @ 100 mls/hr Q8 IVPB Last administered on 06/17/18at 06:27; Admin Dose 100 MLS/HR; Start 06/15/18 at 22:19 Ondansetron HCl (Zofran Inj) 4 mg Q4H PRN IV NAUSEA AND/OR VOMITING; Start 06/16/18 at 00:30 Acetaminophen (Tylenol Liquid) 650 mg Q6 PRN GTB MILD PAIN(1-3)OR ELEVATED TEMP; Start 06/16/18 at 00:30 Insulin Aspart (Novolog Insulin Pen) (Adult SC Insulin - Moder... Q6 SC Last administered on 06/17/18at 11:49; Admin Dose 6 UNIT; Start 06/16/18 at 06:00 Miscellaneous Information (Pending Santyl Order For Wound Care) This patient palafox... PRN PRN XX WOUND CARE; Start 06/16/18 at 05:00 Insulin Glargine (Lantus) 30 units DAILY@2000 SC ; Start 06/17/18 at 20:00 Metformin HCl (Glucophage) 850 mg BID WITH MEALS GTB Last administered on 06/17/18at 11:48; Admin Dose 850 MG; Start 06/17/18 at 11:00 USHA FITZGERALD MD Jun 17, 2018 12:37
--- NOTE | 2018-06-17 15:00 | DS ---
Date/Time of Note Date/Time of Note DATE: 06/17/18 TIME: 15:00 Discharge Summary Admission/Discharge Info Admit Date/Time Jun 15, 2018 at 18:01 Discharge Date/Time Discharge Diagnosis Pneumonia Chronic respiratory failure Patient Condition: Stable Hx of Present Illness 67 yo male with h/o chronic encephelopathy s/p CVA, etoh cirrhosis s/p trans plant, neurocystercercosis s/p craniotomy, DMII, atrial fibrillation transferred from [facility] for management of seizures Admitted to [facility] 06/11 with seiuzures and fever. Found to have pneumonia. He was treated with cefepime and vanco. He was given keppra for seizures. Transferred here for further management. Hospital Course 67 yo male with h/o CVA s/p craniectomy, chronic encephelopathy, DMII, cirrhosis s/p transplant who was admitted to [facility] 06/11 for pneumonia and seizures, now transferred for further management. Now stable and ready to be discharged back to facility Healthcare associated pneumonia: - a/p abx 7 day course started 06/11 at [facility]. Dc abx A Fib: - Continue Apixaban 5 BID Seizures: - Continue [id number] BID, Keppra 500 BID DMII: - Basal/bolus insulin Chroinc respiratory failrue: - Trach collar A Fib: - Continue apixaban Tube feeds Ready for discharge back to facility. Currently at baseline Home Meds Reported Medications Miscellaneous* PUMP (Miscellaneous* PUMP) 1 Each Pump.resvr, 0.5 MG INH Q4, EA 06/15/18 Ipratropium-Albuterol (Ipratropium-Albuterol) 0.5-3 Mg/3 Ml Ampul.neb, 3 ML INHALATION Q6, #30 VIAL 06/15/18 Ipratropium [place]* (Atrovent HFA*) 12.9 Gm Aer.w.adap, 2 PUFF INHALATION Q4H for SHORTNESS OF BREATH, #1 INHALER 06/15/18 Insulin Human Nph (Novolin-N) 100 Units/Ml Susp, 14 SQ QHS 06/15/18 Amikacin Sulfate (Amikacin Sulfate) 500 Mg/2 Ml Vial, 800 MG IV* ONCE, VIAL 06/15/18 Digoxin* (Lanoxin*) 0.125 Mg Tablet, 0.125 MG GTB DAILY, TAB 06/15/18 Sodium Phosphate* (Phos-Nak*) 250 Mg/Pkt Soln, 250 MG PO TID, PACKET 06/15/18 Insulin Aspart* (Novolog Insulin Pen*) 100 Unit/Ml Soln, 0 SC .SLIDING SCALE Q6, EA 06/15/18 Balsam Joseph/[place] Oil (Venelex Ointment Packet) 5 Gm Oint.pack, 5 GM TOP BID, PACKET 06/15/18 Bacitracin (Bacitracin) 1 Each Packet, 1 EACH TP BID, PACKET 06/15/18 Lacosamide (Vimpat) 100 Mg Tablet, 100 MG GTB BID, TAB 06/15/18 Ferrous Sulfate* (Ferrous Sulfate*) 325 Mg Tabec, 300 MG PO TID, TAB 06/15/18 Famotidine* (Famotidine*) 20 Mg Tablet, 20 MG GTB BID, #60 TAB 06/15/18 Diphenhydramine Hcl* (Diphenhydramine Hcl*) 12.5 Mg/5 Ml Elixir, 12.5 MG GTB Q6H PRN for ITCHING, ML 06/15/18 Folic Acid* (Folic Acid*) 1 Mg Tablet, 1 MG GTB DAILY, TAB 06/15/18 Levetiracetam* (Levetiracetam*) 500 Mg/5 Ml Solution, 750 MG GTB BID, ML 06/15/18 Atorvastatin Calcium (Atorvastatin Calcium) 10 Mg Tablet, 10 MG GTB QHS, #30 TAB 06/15/18 Fluoxetine Hcl* (Fluoxetine Hcl*) 20 Mg Capsule, 20 MG G-TUBE DAILY, CAP 06/15/18 Ascorbic Acid* (Vitamin C*) 500 Mg Capsule.sa, 500 MG G-TUBE DAILY, CAP 06/15/18 Albuterol Sulfate* (Albuterol Sulfate* Neb) 0.083%-3 Ml Neb, 2.5 MG NEB Q4 PRN for WHEEZING AND SOB, #30 VIAL 06/15/18 Ergocalciferol (Vitamin D2) (VITAMIN D2) 50,000 Unit Capsule, 58221 UNIT PO QMonday, CAP 06/15/18 Apixaban* (Eliquis*) 5 Mg Tablet, 5 MG GTB Q12, TAB 06/15/18 Docusate Sodium* (Colace* Liq) 50 Mg/5 Ml Liquid, 100 MG GTB BID, EA 06/15/18 Carboxymethylcellulose Sodium* (Refresh Tears*) 15 Ml Drops, 2 DROP BOTH EYES Q8, #1 EA 06/15/18 Chlorpromazine Hcl* (Chlorpromazine Hcl*) 25 Mg Tablet, 25 MG GTB QHS, TAB 06/15/18 Acetaminophen* (Acetaminophen* Susp) 325 Mg/10.15 Ml Solution, 650 MG G-TUBE Q4H PRN for PAIN OR TEMP ABOVE 38C, ML 06/15/18 Metoprolol Tartrate* (Lopressor* Inj) 5 Mg/5 Ml Soln, 5 MG IV Q4 for HR > 130, VIAL 06/15/18 Metoprolol Tartrate* (Lopressor*) 25 Mg Tab, 25 MG PO BID, #60 TAB 06/15/18 Levofloxacin* (Levofloxacin*) 250 Mg Tablet, 250 MG IVPB DAILY, TAB 250 mg/ 50 mL 06/15/18 Primary Care Provider Breanna Morris Pending Labs Laboratory Tests Test 06/16/18 17:16 06/16/18 22:05 06/17/18 00:43 06/17/18 06:28 Bedside 247 241 295 282 Glucose mg/dL (70-220) mg/dL (70-220) mg/dL (70-220) mg/dL (70-220) Test 06/17/18 11:39 06/17/18 14:31 Bedside 239 Glucose mg/dL (70-220) White Blood 11.2 Count 10^3/ul (4.8-1 0.8) Red Blood 3.23 Count 10^6/ul (4.70- 6.10) Hemoglobin 8.7 g/dl (14.0-18. 0) Hematocrit 30.8 % (42.0-52.0) Mean 95.4 Corpuscular fl (82.0-101.0 Volume ) Mean 26.9 Corpuscular pg (29.0-33.0) Hemoglobin Mean 28.2 Corpuscular g/dl (32.0-37. Hemoglobin Conc 0) ent Red Cell 17.8 Distribution % (11.5-14.5) Width Platelet Count 345 10^3/UL (140-4 15) Mean Platelet 10.7 Volume fl (7.4-10.4) Immature 1.700 Granulocytes % % (0.001-0.429 ) Neutrophils % 70.6 % (39.0-77.0) Lymphocytes % 17.0 % (15.0-51.0) Monocytes % 7.7 % (0.0-11.0) Eosinophils % 2.7 % (0.0-7.0) Basophils % 0.3 % (0.0-2.0) Nucleated Red 0.0 Blood Cells % /100WBC (0.0-0 .0) Immature 0.190 Granulocytes # 10^3/ul (0.0-0 .031) Neutrophils # 7.9 10^3/ul (1.6-7 .5) Lymphocytes # 1.9 10^3/ul (0.8-2 .9) Monocytes # 0.9 10^3/ul (0.3-0 .9) Eosinophils # 0.3 10^3/ul (0.0-0 .5) Basophils # 0.0 10^3/ul (0.0-0 .1) Nucleated Red 0.0 Blood Cells # 10^3/ul (0.0-0 .0) USHA FITZGERALD MD Jun 17, 2018 15:00
--- NOTE | 2018-06-17 15:55 | CONS ---
Assessment/Plan Assessment/Plan Hospital Course (Demo Recall) No acute events overnight patient is awake, noncommunicative, in no distress, afebrile. WBC 11.2 platelets 345 neutrophils 70.6 BUN 26 creatinine 0.78 MRSA swab came back positive Indwelling's: Trach PEG Bal Antimicrobials patient is currently off antibiotics Physical examination: Well-developed chronically ill-appearing elderly man who is in no distress. Head atraumatic normocephalic sclera nonicteric vehicle mucosa dry neck is supple chest rise symmetrical breath sounds diminished bases heart S1-S2 abdomen soft bowel sounds present extremities without cyanosis Assessment: 1. Status post sepsis 2. Healthcare associated pneumonia with sputum culture at previous facility grew multidrug-resistant Pseudomonas and Klebsiella ESBL 3. Seizure disorder 4. Chronic respiratory failure and dysphagia 5. Anoxic encephalopathy 6. MRSA nares colonization Plan: We will restart patient on amikacin and oral doxycycline, repeat chest x- ray in a.m. Consultation Date/Type/Reason Admit Date/Time Jun 15, 2018 at 18:01 Initial Consult Date Type of Consult id Date/Time of Note DATE: 06/17/18 TIME: 15:55 Exam/Review of Systems Exam Vitals Vital Signs Date Temp Pulse Resp B/P (MAP) Pulse Ox O2 O2 Flow FiO2 Time Delivery Rate 06/17/18 99.0 93 18 119/74 99 Trach 15:15 (89) Collar 06/17/18 5.0 28 12:25 Intake and Output 06/16/18 06/16/18 06/17/18 1515:00 23:00 07:00 IntakeIntake Total 100 ml 880 ml 1380 ml OutputOutput Total 500 ml 450 ml BalanceBalance 100 ml 380 ml 930 ml Results Result Diagram: 06/17/18 1431 06/17/18 1431 Results 24hrs Laboratory Tests Test 06/16/18 17:16 06/16/18 22:05 06/17/18 00:43 06/17/18 06:28 Bedside Glucose 247 H 241 H 295 H 282 H Test 06/17/18 11:39 06/17/18 14:31 Bedside Glucose 239 H White Blood Count 11.2 H Red Blood Count 3.23 L Hemoglobin 8.7 L Hematocrit 30.8 L Mean Corpuscular 95.4 Volume Mean Corpuscular 26.9 L Hemoglobin Mean Corpuscular 28.2 L Hemoglobin Concent Red Cell 17.8 H Distribution Width Platelet Count 345 Mean Platelet Volume 10.7 H Immature 1.700 H Granulocytes % Neutrophils % 70.6 Lymphocytes % 17.0 Monocytes % 7.7 Eosinophils % 2.7 Basophils % 0.3 Nucleated Red Blood 0.0 Cells % Immature 0.190 H Granulocytes # Neutrophils # 7.9 H Lymphocytes # 1.9 Monocytes # 0.9 Eosinophils # 0.3 Basophils # 0.0 Nucleated Red Blood 0.0 Cells # Sodium Level 147 H Potassium Level 4.4 Chloride Level 115 H Carbon Dioxide Level 26 Anion Gap 6 Blood Urea Nitrogen 26 H Creatinine 0.78 Est Glomerular > 60 Filtrat Rate mL/min Glucose Level 161 # Calcium Level 9.0 Medications Medication Current Medications IV Flush (NS 3 ml) 3 ml PER PROTOCOL IV ; Start 06/15/18 at 19:00 Hydromorphone HCl (Dilaudid) 0.5 mg Q4H PRN IV .SEVERE PAIN 7-10; Start 06/15/18 at 19:00 Apixaban (Eliquis) 5 mg BID PO Last administered on 06/17/18at 08:30; Admin Dose 5 MG; Start 06/15/18 at 21:00 Levetiracetam 100 ml @ 400 mls/hr Q12 IVPB Last administered on 06/17/18at 08:30; Admin Dose 400 MLS/HR; Start 06/15/18 at 21:00 Lacosamide (Vimpat Liq) 100 mg BID PO Last administered on 06/17/18at 08:30; Admin Dose 100 MG; Start 06/15/18 at 21:00 Miscellaneous Information 1 ea NOTE XX ; Start 06/15/18 at 19:30 Glucose (Glutose) 15 gm Q15M PRN PO DECREASED GLUCOSE; Start 06/15/18 at 19:30 Glucose (Glutose) 22.5 gm Q15M PRN PO DECREASED GLUCOSE; Start 06/15/18 at 19:30 Dextrose (D50w Syringe) 25 ml Q15M PRN IV DECREASED GLUCOSE; Start 06/15/18 at 19:30 Dextrose (D50w Syringe) 50 ml Q15M PRN IV DECREASED GLUCOSE; Start 06/15/18 at 19:30 Glucagon (Glucagen) 1 mg Q15M PRN IM DECREASED GLUCOSE; Start 06/15/18 at 19:30 Glucose (Glutose) 15 gm Q15M PRN BUCCAL DECREASED GLUCOSE; Start 06/15/18 at 19:30 Alteplase, Recombinant (Cathflo (Activase)) 2 mg MAY REPEAT X1 PRN CATHETER IF C ATHETER REMAINS OCCULUDED Last administered on 06/16/18at 03:24; Admin Dose 2 MG; Start 06/15/18 at 21:30 Ondansetron HCl (Zofran Inj) 4 mg Q4H PRN IV NAUSEA AND/OR VOMITING; Start 06/16/18 at 00:30 Acetaminophen (Tylenol Liquid) 650 mg Q6 PRN GTB MILD PAIN(1-3)OR ELEVATED TEMP; Start 06/16/18 at 00:30 Insulin Aspart (Novolog Insulin Pen) (Adult SC Insulin - Moder... Q6 SC Last administered on 06/17/18at 11:49; Admin Dose 6 UNIT; Start 06/16/18 at 06:00 Miscellaneous Information (Pending [facility] Order For Wound Care) This patient palafox... PRN PRN XX WOUND CARE; Start 06/16/18 at 05:00 Insulin Glargine (Lantus) 30 units DAILY@2000 SC ; Start 06/17/18 at 20:00 Metformin HCl (Glucophage) 850 mg BID WITH MEALS GTB Last administered on 06/17/18at 11:48; Admin Dose 850 MG; Start 06/17/18 at 11:00 RON MENDOZA NP Jun 17, 2018 15:55
[2018-06-17] MEDS ORDERED: AMIKACIN IV PER PHARMACY XX SCH (16:00)
[2018-06-17] MEDS ORDERED: AMIKACIN 750 MG in SOD CHLORIDE 0.9% 100 ML IVPB SCH (18:00)
[2018-06-17] MEDS ORDERED: INSULIN GLARGINE [LANTus] (100 UNITS/ML) SYG SC SCH (20:00)
[2018-06-17] MEDS: MUPIROCIN 2% 22 GM OINT TOP SCH (22:09)
[2018-06-17] MEDS: DOXYCYCLINE 100 MG TAB PO SCH (22:10)
[2018-06-18] VITALS: BP 130/79; PULSE 94; RESP 18
[2018-06-18] MEDS: Insulin NOVOLOG SS MODERATE Algorithm(NPO/TPN/ENTERAL FEEDS) SC SCH ×3 (06:27→17:20)
[2018-06-18] MEDS: LACOSAMIDE (100 MG/10 ML PO SYR) PO SCH (08:32)
[2018-06-18] MEDS: LEVETIRACETAM 500 MG (PMX) 100 ML IVPB SCH (08:32)
[2018-06-18] MEDS: APIXABAN 5 MG TABLET PO SCH (08:33)
[2018-06-18] MEDS: DOXYCYCLINE 100 MG TAB PO SCH (08:33)
[2018-06-18] MEDS: BALSAM PERU/CASTOR OIL 60 GM TUBE TOP SCH (08:33)
[2018-06-18] MEDS: MUPIROCIN 2% 22 GM OINT TOP SCH (08:33)
[2018-06-18] MEDS: metFORMIN 850 MG TAB GTB SCH ×2 (08:33→17:19)
[2018-06-18 08:36] VITALS: BP 120/71; PULSE 93; RESP 17
--- NOTE | 2018-06-18 13:21 | CONS ---
Assessment/Plan Assessment/Plan Hospital Course (Demo Recall) No acute events overnight patient is awake, looks comfortable, afebrile MRSA swab came back positive Indwelling's: Trach PEG Bal Antimicrobials: Doxycycline, Amikacin Physical examination: Well-developed chronically ill-appearing elderly man who is in no distress. Head atraumatic normocephalic sclera nonicteric vehicle mucosa dry neck is supple chest rise symmetrical breath sounds diminished bases heart S1-S2 abdomen soft bowel sounds present extremities without cyanosis Assessment: 1. Status post sepsis 2. Healthcare associated pneumonia with sputum culture at previous facility grew multidrug-resistant Pseudomonas and Klebsiella ESBL 3. Seizure disorder 4. Chronic respiratory failure and dysphagia 5. Anoxic encephalopathy 6. MRSA nares colonization Plan: Stable, continue abx, f/u repeat chest x-ray Consultation Date/Type/Reason Admit Date/Time Jun 15, 2018 at 18:01 Initial Consult Date Type of Consult id Date/Time of Note DATE: 06/18/18 TIME: 13:20 Exam/Review of Systems Exam Vitals Vital Signs Date Temp Pulse Resp B/P (MAP) Pulse Ox O2 O2 Flow FiO2 Time Delivery Rate 06/18/18 5.0 08:49 06/18/18 98.5 93 17 120/71 97 08:36 (87) 06/18/18 28 04:30 06/17/18 Trach 15:15 Collar Intake and Output 06/17/18 06/17/18 06/18/18 1515:00 23:00 07:00 IntakeIntake Total 1082 ml 880 ml OutputOutput Total 500 ml 600 ml BalanceBalance 582 ml 280 ml Results Result Diagram: 06/17/18 1431 06/17/18 1431 Results 24hrs Laboratory Tests Test 06/17/18 14:31 06/17/18 17:42 06/17/18 21:26 06/18/18 06:19 White Blood Count 11.2 H Red Blood Count 3.23 L Hemoglobin 8.7 L Hematocrit 30.8 L Mean Corpuscular 95.4 Volume Mean Corpuscular 26.9 L Hemoglobin Mean Corpuscular 28.2 L Hemoglobin Concent Red Cell 17.8 H Distribution Width Platelet Count 345 Mean Platelet Volume 10.7 H Immature 1.700 H Granulocytes % Neutrophils % 70.6 Lymphocytes % 17.0 Monocytes % 7.7 Eosinophils % 2.7 Basophils % 0.3 Nucleated Red Blood 0.0 Cells % Immature 0.190 H Granulocytes # Neutrophils # 7.9 H Lymphocytes # 1.9 Monocytes # 0.9 Eosinophils # 0.3 Basophils # 0.0 Nucleated Red Blood 0.0 Cells # Sodium Level 147 H Potassium Level 4.4 Chloride Level 115 H Carbon Dioxide Level 26 Anion Gap 6 Blood Urea Nitrogen 26 H Creatinine 0.78 Est Glomerular > 60 Filtrat Rate mL/min Glucose Level 161 # Calcium Level 9.0 Bedside Glucose 189 153 203 Test 06/18/18 06:36 06/18/18 11:31 Random Amikacin 16.2 Level Bedside Glucose 161 Medications Medication Current Medications IV Flush (NS 3 ml) 3 ml PER PROTOCOL IV ; Start 06/15/18 at 19:00 Hydromorphone HCl (Dilaudid) 0.5 mg Q4H PRN IV .SEVERE PAIN 7-10; Start 06/15/18 at 19:00 Apixaban (Eliquis) 5 mg BID PO Last administered on 06/18/18at 08:33; Admin Dose 5 MG; Start 06/15/18 at 21:00 Levetiracetam 100 ml @ 400 mls/hr Q12 IVPB Last administered on 06/18/18at 08:32; Admin Dose 400 MLS/HR; Start 06/15/18 at 21:00 Lacosamide (Vimpat Liq) 100 mg BID PO Last administered on 06/18/18at 08:32; Admin Dose 100 MG; Start 06/15/18 at 21:00 Miscellaneous Information 1 ea NOTE XX ; Start 06/15/18 at 19:30 Glucose (Glutose) 15 gm Q15M PRN PO DECREASED GLUCOSE; Start 06/15/18 at 19:30 Glucose (Glutose) 22.5 gm Q15M PRN PO DECREASED GLUCOSE; Start 06/15/18 at 19:30 Dextrose (D50w Syringe) 25 ml Q15M PRN IV DECREASED GLUCOSE; Start 06/15/18 at 19:30 Dextrose (D50w Syringe) 50 ml Q15M PRN IV DECREASED GLUCOSE; Start 06/15/18 at 19:30 Glucagon (Glucagen) 1 mg Q15M PRN IM DECREASED GLUCOSE; Start 06/15/18 at 19:30 Glucose (Glutose) 15 gm Q15M PRN BUCCAL DECREASED GLUCOSE; Start 06/15/18 at 19:30 Alteplase, Recombinant (Cathflo (Activase)) 2 mg MAY REPEAT X1 PRN CATHETER IF CATHETER REMAINS OCCULUDED Last administered on 06/16/18 03:24; Admin Dose 2 MG; Start 06/15/18 at 21:30 Ondansetron HCl (Zofran Inj) 4 mg Q4H PRN IV NAUSEA AND/OR VOMITING; Start 06/16/18 at 00:30 Acetaminophen (Tylenol Liquid) 650 mg Q6 PRN GTB MILD PAIN(1-3)OR ELEVATED TEMP; Start 06/16/18 at 00:30 Insulin Aspart (Novolog Insulin Pen) (Adult SC Insulin - Moder... Q6 SC Last administered on 06/18/18 11:36; Admin Dose 2 UNIT; Start 06/16/18 at 06:00 Miscellaneous Information (Pending Santyl Order For Wound Care) This patient palafox... PRN PRN XX WOUND CARE; Start 06/16/18 at 05:00 Insulin Glargine (Lantus) 30 units DAILY@2000 SC Last administered on 06/17/18 22:13; Admin Dose 30 UNITS; Start 06/17/18 at 20:00 Metformin HCl (Glucophage) 850 mg BID WITH MEALS GTB Last administered on 06/18/18 08:33; Admin Dose 850 MG; Start 06/17/18 at 11:00 Amikacin Sulfate (Amikacin Iv Per Pharmacy) AMIKACIN PER PHARMACY NOTE XX ; Start 06/17/18 at 16:00 Doxycycline Hyclate (Vibramycin) 100 mg BID PO Last administered on 06/18/18 08:33; Admin Dose 100 MG; Start 06/17/18 at 21:00 Mupirocin (Bactroban) 1 applic BID TOP Last administered on 06/18/18 08:33; Admin Dose 1 APPLIC; Start 06/17/18 at 21:00 Amikacin Sulfate 750 mg/Sodium Chloride 103 ml @ 102 mls/hr Q24H IVPB Last administered on 06/17/18 17:41; Admin Dose 102 MLS/HR; Start 06/17/18 at 18:00 RON MENDOZA NP Jun 18, 2018 13:21
[2018-06-18 13:34] VITALS: BP 108/75; PULSE 84; RESP 16
--- NOTE | 2018-06-18 15:39 | PN ---
Date/Time of Note Date/Time of Note DATE: 06/18/18 TIME: 15:36 Assessment/Plan VTE Prophylaxis Risk score (from Ns)>0 risk: 8 SCD applied (from Ns): Yes Pharmacological prophylaxis: NA/contraindicated Pharm contraindication: other Assessment/Plan Hospital Course 67 yo male with h/o CVA s/p craniectomy, chronic encephalopathy, DMII, cirrhosis s/p transplant who was admitted to [facility] 06/11 for pneumonia and seizures, now transferred for further management. Now stable and ready to be discharged back to facility Healthcare associated pneumonia: - a/p abx 7 day course started 06/11 at [facility]. Dc'd abx A Fib: - Continue Apixaban 5 BID Seizures: - Continue [id number] BID, Keppra 500 BID DMII: - Basal/bolus insulin Chronic respiratory failure: - Trach collar A Fib: - Continue apixaban MRSA colonization of nares -Bactroban -No indication for isolation DC planning: Patient ready for DC back to half-way, patient does not require an isolation bed Result Diagram: 06/17/18 1431 06/17/18 1431 Results 24hrs Laboratory Tests Test 06/17/18 17:42 06/17/18 21:26 06/18/18 06:19 06/18/18 06:36 Bedside Glucose 189 153 203 Random Amikacin 16.2 Level Test 06/18/18 11:31 Bedside Glucose 161 Subjective 24 Hr Interval Summary Subjective hx not possible: pt non-verbal Exam/Review of Systems Exam Vitals Vital Signs Date Temp Pulse Resp B/P (MAP) Pulse Ox O2 O2 Flow FiO2 Time Delivery Rate 06/18/18 97.9 84 16 108/75 97 Trach 5.0 13:34 (86) Collar 06/18/18 28 04:30 Intake and Output 06/17/18 06/17/18 06/18/18 1515:00 23:00 07:00 IntakeIntake Total 1082 ml 880 ml OutputOutput Total 500 ml 600 ml BalanceBalance 582 ml 280 ml Constitutional: non-verbal Respiratory: clear to auscultation Cardiovascular: regular rate and rhythm Gastrointestinal: soft; No distended Musculoskeletal: nl extremities to inspection Results Results 24hrs Laboratory Tests Test 06/17/18 17:42 06/17/18 21:26 06/18/18 06:19 06/18/18 06:36 Bedside Glucose 189 153 203 Random Amikacin 16.2 Level Test 06/18/18 11:31 Bedside Glucose 161 Medications Medication Current Medications IV Flush (NS 3 ml) 3 ml PER PROTOCOL IV ; Start 06/15/18 at 19:00 Hydromorphone HCl (Dilaudid) 0.5 mg Q4H PRN IV .SEVERE PAIN 7-10; Start 05/26 05/15 at 19:00 Apixaban (Eliquis) 5 mg BID PO Last administered on 06/18/18at 08:33; Admin Dose 5 MG; Start 06/15/18 at 21:00 Levetiracetam 100 ml @ 400 mls/hr Q12 IVPB Last administered on 06/18/18 08:32; Admin Dose 400 MLS/HR; Start 06/15/18 at 21:00 Lacosamide (Vimpat Liq) 100 mg BID PO Last administered on 06/18/18 08:32; Admin Dose 100 MG; Start 06/15/18 at 21:00 Miscellaneous Information 1 ea NOTE XX ; Start 06/15/18 at 19:30 Glucose (Glutose) 15 gm Q15M PRN PO DECREASED GLUCOSE; Start 06/15/18 at 19:30 Glucose (Glutose) 22.5 gm Q15M PRN PO DECREASED GLUCOSE; Start 06/15/18 at 19:3 0 Dextrose (D50w Syringe) 25 ml Q15M PRN IV DECREASED GLUCOSE; Start 06/15/18 at 19:30 Dextrose (D50w Syringe) 50 ml Q15M PRN IV DECREASED GLUCOSE; Start 06/15/18 at 19:30 Glucagon (Glucagen) 1 mg Q15M PRN IM DECREASED GLUCOSE; Start 06/15/18 at 19:30 Glucose (Glutose) 15 gm Q15M PRN BUCCAL DECREASED GLUCOSE; Start 06/15/18 at 19:30 Alteplase, Recombinant (Cathflo (Activase)) 2 mg MAY REPEAT X1 PRN CATHETER IF CATHETER REMAINS OCCULUDED Last administered on 06/16/18at 03:24; Admin Dose 2 MG; Start 06/15/18 at 21:30 Ondansetron HCl (Zofran Inj) 4 mg Q4H PRN IV NAUSEA AND/OR VOMITING; Start 06/16/18 at 00:30 Acetaminophen (Tylenol Liquid) 650 mg Q6 PRN GTB MILD PAIN(1-3)OR ELEVATED TEMP; Start 06/16/18 at 00:30 Insulin Aspart (Novolog Insulin Pen) (Adult SC Insulin - Moder... Q6 SC Last administered on 06/18/18 11:36; Admin Dose 2 UNIT; Start 06/16/18 at 06:00 [facility] This patient palafox... PRN PRN XX WOUND CARE; Start 06/16/18 at 05:00 Insulin Glargine (Lantus) 30 units DAILY@2000 SC Last administered on 06/17/18 22:13; Admin Dose 30 UNITS; Start 06/17/18 at 20:00 Metformin HCl (Glucophage) 850 mg BID WITH MEALS GTB Last administered on 06/18/18 08:33; Admin Dose 850 MG; Start 06/17/18 at 11:00 Amikacin Sulfate (Amikacin Iv Per Pharmacy) AMIKACIN PER PHARMACY NOTE XX ; Start 06/17/18 at 16:00 Doxycycline Hyclate (Vibramycin) 100 mg BID PO Last administered on 06/18/18 08:33; Admin Dose 100 MG; Start 06/17/18 at 21:00 Mupirocin (Bactroban) 1 applic BID TOP Last administered on 06/18/18 08:33; Admin Dose 1 APPLIC; Start 06/17/18 at 21:00 Amikacin Sulfate 750 mg/Sodium Chloride 103 ml @ 102 mls/hr Q24H IVPB Last administered on 06/17/18 17:41; Admin Dose 102 MLS/HR; Start 06/17/18 at 18:00 PREETI OLMOS Jun 18, 2018 15:39
[2018-06-19] MEDS ORDERED: AMIKACIN 750 MG in SOD CHLORIDE 0.9% 100 ML IVPB SCH (18:00)
== END 2018-06-18 19:10 | DRG 871 ==
LOC: TEL 06-15 18:01 → 5EC 06-18 12:34
PROVIDERS: ADMIT Internal Medicine; ATTEND Internal Medicine
PROC: 5A1945Z Respiratory Ventilation, 24-96 Consecutive Hours (ICD-10-PCS; principal; 2018-06-15)
DX: A41.9 Sepsis, unspecified organism (principal); J18.9 Pneumonia, unspecified organism; G93.49 Other encephalopathy; Z94.4 Liver transplant status; J96.10 Chronic respiratory failure, unspecified whether with hypoxia or hypercapnia; I48.91 Unspecified atrial fibrillation; Z99.81 Dependence on supplemental oxygen; I69.998 Other sequelae following unspecified cerebrovascular disease; E11.9 Type 2 diabetes mellitus without complications; G40.909 Epilepsy, unspecified, not intractable, without status epilepticus; Y95 Nosocomial condition; Z79.4 Long term (current) use of insulin; Z79.84 Long term (current) use of oral hypoglycemic drugs
CPT/HCPCS: 71045; 80048; 80053; 80150; 82962; 83036; 85025; 87081; J0278; J1815; J1953; J1956; J2185

== ENCOUNTER 2018-07-24 02:07 | Inpatient (IN) | payer BC ==
[2018-07-24] VITALS (13 sets, daily range): BP systolic 101–115; BP diastolic 55–66; PULSE 62–106; RESP 16–20; BMI 22.9
[~2018-07-24] VITALS: Ht 185.4 cm; Wt 89.7 kg
[~2018-07-24 02:07] MED LIST: ACET325S G-TUBE; ALBU2.5V3 NEB; APIX5TAB GTB; ASCO500C7 G-TUBE; ATOR10TA65 GTB; ATRO INHALATION; BALS5OIN TOP; CARB15DR3 BOTH EYES; CHLO25TA18 GTB; DIGO125T93 GTB; DIPH12.59 GTB; ERGO500013 PO; FAMO20TA18 GTB; FLUO20CA22 G-TUBE; FOLI-49 GTB; IPRA3AMP29 INHALATION; LACO100T3 GTB; LEVE500S8 GTB; METO-448 PO; METO5VIA28 IV; NEUTPHOS PO; NOVO3I SC; NPH SQ; PUMP MISCELLANEOUS INH
--- NOTE | 2018-07-24 14:24 | HP ---
Date/Time of Note Date/Time of Note DATE: 07/24/18 TIME: 14:16 Assessment/Plan VTE Prophylaxis SCD applied (from Ns): Yes Pharmacological prophylaxis: NA/contraindicated Pharm contraindication: bleeding Assessment/Plan Hospital Course 67 yo M with history of craniectomy, chronic respiratory failure with hypoxia, tracheostomy, gastrostomy, chronic atrial fibrillation, type 2 diabetes mellitus, chronic anemia, status post liver transplant for which indication is not documented, hypertension, dyslipidemia, chronic kidney disease. sent from [facility] for SOB and hematuria currently managed as follows : 1. Sepsis likely 2/2HCAP and UTI 2. Acute on chronic resp failure -chronically vent dependent, was on SIMV and now back on AC 3. HCAP 4. Hematuria with acute on chronic blood loss anemia likely 2/2 UTI with eliquis therapy 5. Chronic AFib with good rate control -eliquis on hold 2/2 #4 6. DM 2 with hyperglycemia 2/2 meds on hold -aic 7.6, likley unreliable in this anemic patient 7. Iron deficiency 8. history of craniectomy, chronic respiratory failure with hypoxia, tracheostomy, gastrostomy -resumed on PEG feeds 9. Status post liver transplant for which indication is not documented 10. hypertension 11. dyslipidemia 12. Chronic debility with msc wasting Plan: admit tele Hematuria : blood transfusion, hold eliquis, urology consul, UA and urine urine cultures, empiric abx resp failure: pulm consult, vent mgt, abx, resp and blood cultures Continue all other home meds Supportive care, PT, regular turning, oral and trach care continue Tube feeds and resume hypoglycemics Further interventions per course. PPX: scds HPI/ROS Admit Date/Time Admit Date/Time Jul 24, 2018 at 09:14 Hx of Present Illness 82-year-old male who was transferred to us from [facility] due to insurance reasons for evaluation of hematuria. The patient resides in a [facility] facility, [facility], and is o n chronic ventilator support with via tracheostomy. He was sent from the [facility] because of worsening respiratory distress and hematuria. By chart review the patient is also on Eliquis but this has been on hold. From chart review patient has a history of craniectomy, chronic respiratory failure with hypoxia, tracheostomy, gastrostomy, chronic atrial fibrillation, type 2 diabetes mellitus, chronic anemia, status post liver transplant for which indication is not documented, hypertension, dyslipidemia, chronic kidney disease. Home medications are -DiaBeta source at 75 cc/h for 20hours -Benadryl -Valganciclovir 50 mg/mL, 10 mL via G-tube every 12 status post liver transplant -DuoNeb as needed -NPH 20 units nightly -Sodium phosphate to 50 mg via G-tube 3 times daily -Sirolimus 3 mg twice a day -Scopolamine 1.5 mg patch every 72 hours for secretions -Eliquis 5 mg every 12 -Neupogen 10,000 units Monday -Ferrous sulfate 330 mg daily -Fluoxetine 20 mg -Vitamin C 500 daily -Lipitor 10 mg nightly -Colace 100 mg twice Vimpat 200 mg every 12 -Keppra 100 mg 750 mg twice a day -Famotidine 20 every 12 -Tylenol as needed -Artificial tears as needed -Chlorpromazine 25 mg nightly -Cranberry tab daily -Digoxin 25 mg every 48 hours -Metoprolol 25 every 12 -Vitamin D2 50,000 units q. weekly on Mondays -folic acid 1 mg . ROS Subjective hx not possible: pt non-verbal PMH/Family/Social Past Medical History history of craniectomy, chronic respiratory failure with hypoxia, tracheostomy, gastrostomy, chronic atrial fibrillation, type 2 diabetes mellitus, chronic anemia, status post liver transplant for which indication is not documented, hypertension, dyslipidemia, chronic kidney disease. Coded Allergies: morphine (Verified Allergy, Unknown, 07/19/16) Family History Significant Family History: no pertinent family hx Exam/Review of Systems Vital Signs Vitals Vital Signs Date Temp Pulse Resp B/P (MAP) Pulse Ox O2 O2 Flow FiO2 Time Delivery Rate 07/24/18 62 13:48 Exam Exam Constitutional: can follow commands and tries to mouth words Eyes open spontaneously, No distress Psych: unable to assess Head: old scars, no acute trauma Eyes: PERRL, No icteric ENMT: pink and moist mucosa, no exudates Neck: non-tender Respiratory: diminished breath sounds, coarse bs No labored breathing Cardiovascular: regular rate and rhythm, No murmurs/extra sounds Gastrointestinal: soft, non-tender, bowel sounds, other (PEG tube noted with no cellulitis or discharge), large surgical scar well healed Genitourinary - male: nl external genitalia, casey with [place] colored urine Extremities: can move all extremities spontaneously but very weak and not against gravity. 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 diffuse msc wasting Neurological: lethargic, follows commands No nl strength LESLIE FLOREZ Jul 24, 2018 14:24
[2018-07-24] MEDS ORDERED: ACETAMINOPHEN 325 MG TAB PO PRN (14:30)
[2018-07-24] MEDS ORDERED: NACL 0.9% 3 ML SYG IV SCH (14:30)
[2018-07-24] MEDS ORDERED: morphine 2 MG INJ IV PRN (14:30)
[2018-07-24] MEDS ORDERED: ONDANSETRON 4 MG INJ IV PRN (14:30)
[2018-07-24] MEDS ORDERED: ZOLPIDEM 5 MG TAB PO PRN (14:30)
[2018-07-24] MEDS ORDERED: LORAZEPAM 0.5 MG TAB GTB PRN (14:30)
[2018-07-24] MEDS ORDERED: ALBUTEROL 0.083% (NEB) 2.5 MG/3 ML AMP NEB PRN (14:30)
[2018-07-24] MEDS ORDERED: VANCOMYCIN IV PER PHARMACY XX SCH (15:00)
[2018-07-24] MEDS ORDERED: GLUCAGON 1 MG INJ IM PRN (15:30)
[2018-07-24] MEDS ORDERED: DEXTROSE 50% 50 ML SYRINGE IV PRN ×2 (15:30)
[2018-07-24] MEDS ORDERED: PENDING SANTYL ORDER FOR WOUND CARE XX PRN (15:30)
[2018-07-24] MEDS ORDERED: GLUCOSE GEL 15 GRAM TUBE PO PRN ×2 (15:30)
[2018-07-24] MEDS ORDERED: GLUCOSE GEL 15 GRAM TUBE BUCCAL PRN (15:30)
[2018-07-24] MEDS: SOD CHLORIDE 0.9% 1,000 ML IV SCH (15:57)
[2018-07-24] MEDS: PIPER-TAZO 3.375 GM IV (PMX) 100 ML IVPB SCH ×2 (15:59→23:04)
[2018-07-24] MEDS: INSULIN ASPART [NOVOLOG] 3 ML PEN SC SCH ×2 (17:58→20:37)
--- NOTE | 2018-07-24 19:21 | CONS ---
Assessment/Plan Assessment/Plan Hospital Course (Demo Recall) 82-year-old male was transferred from [facility] due to insurance reasons for evaluation of hematuria. The patient resides in a [facility], [facility], and is on chronic ventilator support via tracheostomy. He was sent from the [facility] because of worsening respiratory distress and hematuria. By chart review the patient is also on Eliquis but this has been on hold. Patient has a history of craniectomy, chronic respiratory failure with hypoxia, tracheostomy, gastrostomy, chronic atrial fibrillation, type 2 diabetes mellitus, chronic anemia, status post liver transplant for which indication is not documented, hypertension, dyslipidemia, chronic kidney disease. A urology consultation was requested because of the hematuria. The patient himself cannot give any history. However upon examination he does have a Bal catheter and that is draining clear urine in the tubing. He may have had some blood in the bag but the urine in the tubing is clear and has some sediment in it,. So most likely he is infected I ordered the urine for culture and sensitivity. For now keep the Bal cath eter in place. If there is any problem that needs urological attention you may call Dr. Suarez who is covering me while I am away. Consultation Date/Type/Reason Admit Date/Time Jul 24, 2018 at 09:14 Date of Consultation: Jul 24, 2018 Type of Consult Urology Reason for Consultation Hematuria Requesting Provider: LESLIE FLOREZ Date/Time of Note DATE: 07/24/18 TIME: 19:10 Hx of Present Illness 82-year-old male was transferred from [facility] due to insurance reasons for evaluation of hematuria. The patient resides in a [facility], [facility], and is on chronic ventilator support via tracheostomy. He was sent from the [facility] because of worsening respiratory distress and hematuria. By chart review the patient is also on Eliquis but this has been on hold. Patient has a history of craniectomy, chronic respiratory failure with hypoxia, tracheostomy, gastrostomy, chronic atrial fibrillation, type 2 diabetes mellitus, chronic anemia, status post liver transplant for which indication is not documented, hypertension, dyslipidemia, chronic kidney disease. A urology consultation was requested because of the hematuria. The patient himself cannot give any history. However upon examination he does have a Bal catheter and that is draining clear urine in the tubing. He may have had some blood in the bag but the urine in the tubing is clear and has some sediment in it,. So most likely he is infected Subjective hx not possible: pt non-verbal Past Medical History Medical History: diabetes, high cholesterol, hypertension, other (Respiratory failure, atrial fibrillation, anemia) Home Meds Reported Medications Miscellaneous* PUMP (Miscellaneous* PUMP) 1 Each Pump.resvr, 0.5 MG INH Q4, EA 06/15/18 Ipratropium-Albuterol (Ipratropium-Albuterol) 0.5-3 Mg/3 Ml Ampul.neb, 3 ML INHALATION Q6, #30 VIAL 06/15/18 Ipratropium Barnard* (Atrovent HFA*) 12.9 Gm Aer.w.adap, 2 PUFF INHALATION Q4H for SHORTNESS OF BREATH, #1 INHALER 06/15/18 Insulin Human Nph (Novolin-N) 100 Units/Ml Susp, 14 SQ QHS 06/15/18 Digoxin* (Lanoxin*) 0.125 Mg Tablet, 0.125 MG GTB DAILY, TAB 06/15/18 Sodium Phosphate* (Phos-Nak*) 250 Mg/Pkt Soln, 250 MG PO TID, PACKET 06/15/18 Insulin Aspart* (Novolog Insulin Pen*) 100 Unit/Ml Soln, 0 SC .SLIDING SCALE Q6, EA 06/15/18 Balsam Joseph/[place] Oil (Venelex Ointment Packet) 5 Gm Oint.pack, 5 GM TOP BID, PACKET 06/15/18 Lacosamide (Vimpat) 100 Mg Tablet, 100 MG GTB BID, TAB 06/15/18 Famotidine* (Famotidine*) 20 Mg Tablet, 20 MG GTB BID, #60 TAB 06/15/18 Diphenhydramine Hcl* (Diphenhydramine Hcl*) 12.5 Mg/5 Ml Elixir, 12.5 MG GTB Q6H PRN for ITCHING, ML 06/15/18 Folic Acid* (Folic Acid*) 1 Mg Tablet, 1 MG GTB DAILY, TAB 06/15/18 Levetiracetam* (Levetiracetam*) 500 Mg/5 Ml Solution, 750 MG GTB BID, ML 06/15/18 Atorvastatin Calcium (Atorvastatin Calcium) 10 Mg Tablet, 10 MG GTB QHS, #30 TAB 06/15/18 Fluoxetine Hcl* (Fluoxetine Hcl*) 20 Mg Capsule, 20 MG G-TUBE DAILY, CAP 06/15/18 Ascorbic Acid* (Vitamin C*) 500 Mg Capsule.sa, 500 MG G-TUBE DAILY, CAP 06/15/18 Albuterol Sulfate* (Albuterol Sulfate* Neb) 0.083%-3 Ml Neb, 2.5 MG NEB Q4 PRN for WHEEZING AND SOB, #30 VIAL 06/15/18 Ergocalciferol (Vitamin D2) (VITAMIN D2) 50,000 Unit Capsule, 55115 UNIT PO QMonday, CAP 06/15/18 Apixaban* (Eliquis*) 5 Mg Tablet, 5 MG GTB Q12, TAB 06/15/18 Carboxymethylcellulose Sodium* (Refresh Tears*) 15 Ml Drops, 2 DROP BOTH EYES Q8, #1 EA 06/15/18 Chlorpromazine Hcl* (Chlorpromazine Hcl*) 25 Mg Tablet, 25 MG GTB QHS, TAB 06/15/18 Acetaminophen* (Acetaminophen* Susp) 325 Mg/10.15 Ml Solution, 650 MG G-TUBE Q4H PRN for PAIN OR TEMP ABOVE 38C, ML 06/15/18 Metoprolol Tartrate* (Lopressor* Inj) 5 Mg/5 Ml Soln, 5 MG IV Q4 for HR > 130, VIAL 06/15/18 Metoprolol Tartrate* (Lopressor*) 25 Mg Tab, 25 MG PO BID, #60 TAB 06/15/18 Medications Current Medications Sodium Chloride 1,000 ml @ 80 mls/hr [id number] IV Last administered on 07/24/18at 15:57; Admin Dose 80 MLS/HR; Start 07/24/18 at 14:24 IV Flush (NS 3 ml) 3 ml PER PROTOCOL IV ; Start 07/24/18 at 14:30 Lorazepam (Ativan) 0.5 mg Q8H PRN GTB .ANXIETY; Start 07/24/18 at 14:30 Ondansetron HCl (Zofran Inj) 4 mg Q6H PRN IV NAUSEA/VOMITING; Start 07/24/18 at 14:30 Morphine Sulfate (morphine) 2 mg Q4H PRN IV .PAIN 7-10; Start 07/24/18 at 14:30 Zolpidem Tartrate (Ambien) 5 mg QHS PRN PO .INSOMNIA; Start 07/24/18 at 14:30 Acetaminophen (Tylenol Liquid) 650 mg Q4H PRN PEG MILD PAIN(1-3) OR TEMP>38C; Start 07/24/18 at 14:30 Albuterol (Proventil 0.083% (Neb)) 2.5 mg Q4 PRN NEB WHEEZING AND SOB; Start 07/24/18 at 14:30 Ascorbic Acid (Vitamin C) 500 mg DAILY PEG ; Start 07/25/18 at 09:00 Atorvastatin Calcium (Lipitor) 10 mg QHS GTB ; Start 07/24/18 at 21:00 Eye Lubricant (Refresh Plus) 2 drop Q8 BOTH EYES ; Start 07/24/18 at 22:00 Digoxin (Digoxin) 0.125 mg DAILY@1300 GTB ; Start 07/25/18 at 13:00 Ergocalciferol (Drisdol Liquid (Ped)) 50,000 units Q7D GTB ; Start 07/30/18 at 09:00 Famotidine (Pepcid) 20 mg BID GTB ; Start 07/24/18 at 21:00 Fluoxetine HCl (Prozac) 20 mg DAILY PEG ; Start 07/25/18 at 09:00 Folic Acid (Folic Acid) 1 mg DAILY GTB ; Start 07/25/18 at 09:00 Levetiracetam (Keppra Liquid) 750 mg BID GTB ; Start 07/24/18 at 21:00 Metoprolol Tartrate (Lopressor) 25 mg BID PO ; Start 07/24/18 at 21:00 Sodium Phosphate (Neutra-Phos) 250 mg TID PO ; Start 07/24/18 at 21:00 Miscellaneous Information 5 gm BID TOP ; Start 07/24/18 at 21:00; Status UNV Lacosamide (Vimpat Liq) 100 mg BID GTB ; Start 07/24/18 at 21:00 Albuterol (Ventolin Hfa) 2 puff Q6H RESP THERAPY INH ; Start 07/24/18 at 20:00 Ipratropium Barnard (Atrovent Hfa) 2 puff Q6HWA RESP THERAPY INH ; Start 07/24/18 at 20:00 Vancomycin HCl (Vanco Iv Per Pharmacy) VANCOMYCIN PER PHARMACY PER PROTOCOL XX ; Start 07/24/18 at 15:00 Piperacillin Sod/ Tazobactam Sod 100 ml @ 200 mls/hr Q8 IVPB Last administered on 07/24/18at 15:59; Admin Dose 200 MLS/HR; Start 07/24/18 at 16:00 Diagnostic Test (Pha) (Accu-Chek) 1 ea 02 XX ; Start 07/25/18 at 02:00 Insulin Aspart (Novolog Insulin Pen) NOVOLOG *MILD* ALGORITHM WITH MEALS BEDTIME SC Last administered on 07/24/18at 17:58; Admin Dose 5 UNIT; Start 07/24/18 at 18:00 Miscellaneous Information 1 ea NOTE XX ; Start 07/24/18 at 15:30 Glucose (Glutose) 15 gm Q15M PRN PO DECREASED GLUCOSE; Start 07/24/18 at 15:30 Glucose (Glutose) 22.5 gm Q15M PRN PO DECREASED GLUCOSE; Start 07/24/18 at 15:30 Dextrose (D50w Syringe) 25 ml Q15M PRN IV DECREASED GLUCOSE; Start 07/24/18 at 15:30 Dextrose (D50w Syringe) 50 ml Q15M PRN IV DECREASED GLUCOSE; Start 07/24/18 at 15:30 Glucagon (Glucagen) 1 mg Q15M PRN IM DECREASED GLUCOSE; Start 07/24/18 at 15:30 Glucose (Glutose) 15 gm Q15M PRN BUCCAL DECREASED GLUCOSE; Start 07/24/18 at 15:30 Miscellaneous Information (Pending [facility] Order For Wound Care) This patient palafox... PRN PRN XX WOUND CARE; Start 07/24/18 at 15:30 Vancomycin HCl 1.5 gm/Sodium Chloride 250 ml @ 83.333 mls/ hr ONCE IVPB ; Start 07/24/18 at 20:00; Stop 07/25/18 at 01:00 Vancomycin HCl 250 ml @ 125 mls/hr Q12H IVPB ; Start 07/25/18 at 08:00 Allergies: Coded Allergies: morphine (Verified Allergy, Unknown, 07/19/16) Past Surgical History Past Surgical Hx: other (Craniotomy, liver transplant, left hip fracture surgery) Social History Alcohol Use: other (Unknown) Smoking Status: Unknown if ever smoked Exam/Review of Systems Exam Vitals Vital Signs Date Temp Pulse Resp B/P (MAP) Pulse Ox O2 O2 Flow FiO2 Time Delivery Rate 07/24/18 68 18:31 07/24/18 40 17:08 07/24/18 20 98 15:45 07/24/18 99.7 115/55 15:35 (75) Constitutional: alert Psych: no complaints Head: normocephalic ENMT: other (Tracheostomy) Neck: supple, non-tender Respiratory: normal air movement Gastrointestinal: soft, other (Has a G-tube in place) Genitourinary - Male: nl penis, nl scrotum Musculoskeletal: nl extremities to inspection Extremities: No calf tenderness Neurological: nl mental status Skin: nl turgor Results Result Diagram: 07/24/18 1528 Results 24hrs Laboratory Tests Test 07/24/18 15:26 07/24/18 15:28 07/24/18 17:52 Prothrombin Time 17.9 H Prothrombin Time Ratio 1.4 INR International Normalized Ratio 1.47 Activated Partial Thromboplast Time 39.5 H Phosphorus Level 2.9 Magnesium Level 2.5 Iron Level < 10 L Total Iron Binding Capacity 186 L Percent Iron Saturation Total Bilirubin 0.4 Direct Bilirubin 0.00 Indirect Bilirubin 0.4 Aspartate Amino Transf (AST/SGOT) 22 Alanine Aminotransferase (ALT/SGPT) < 6 L Alkaline Phosphatase 130 H Creatine Kinase 20 L Creatine Kinase Index 2.9 Creatinine Kinase MB (Mass) 0.58 Troponin I 0.093 Total Protein 8.1 Albumin 3.1 L Digoxin Level 1.2 Blood Urea Nitrogen 42 H Creatinine 1.15 Bedside Glucose 315 H Medications Medication Current Medications Sodium Chloride 1,000 ml @ 80 mls/hr [id number] IV Last administered on 07/24/18at 15:57; Admin Dose 80 MLS/HR; Start 07/24/18 at 14:24 IV Flush (NS 3 ml) 3 ml PER PROTOCOL IV ; Start 07/24/18 at 14:30 Lorazepam (Ativan) 0.5 mg Q8H PRN GTB .ANXIETY; Start 07/24/18 at 14:30 Ondansetron HCl (Zofran Inj) 4 mg Q6H PRN IV NAUSEA/VOMITING; Start 07/24/18 at 14:30 Morphine Sulfate (morphine) 2 mg Q4H PRN IV .PAIN 7-10; Start 07/24/18 at 14:30 Zolpidem Tartrate (Ambien) 5 mg QHS PRN PO .INSOMNIA; Start 07/24/18 at 14:30 Acetaminophen (Tylenol Liquid) 650 mg Q4H PRN PEG MILD PAIN(1-3) OR TEMP>38C; Start 07/24/18 at 14:30 Albuterol (Proventil 0.083% (Neb)) 2.5 mg Q4 PRN NEB WHEEZING AND SOB; Start 07/24/18 at 14:30 Ascorbic Acid (Vitamin C) 500 mg DAILY PEG ; Start 07/25/18 at 09:00 Atorvastatin Calcium (Lipitor) 10 mg QHS GTB ; Start 07/24/18 at 21:00 Eye Lubricant (Refresh Plus) 2 drop Q8 BOTH EYES ; Start 07/24/18 at 22:00 Digoxin (Digoxin) 0.125 mg DAILY@1300 GTB ; Start 07/25/18 at 13:00 Ergocalciferol (Drisdol Liquid (Ped)) 50,000 units Q7D GTB ; Start 07/30/18 at 09:00 Famotidine (Pepcid) 20 mg BID GTB ; Start 07/24/18 at 21:00 Fluoxetine HCl (Prozac) 20 mg DAILY PEG ; Start 07/25/18 at 09:00 Folic Acid (Folic Acid) 1 mg DAILY GTB ; Start 07/25/18 at 09:00 Levetiracetam (Keppra Liquid) 750 mg BID GTB ; Start 07/24/18 at 21:00 Metoprolol Tartrate (Lopressor) 25 mg BID PO ; Start 07/24/18 at 21:00 Sodium Phosphate (Neutra-Phos) 250 mg TID PO ; Start 07/24/18 at 21:00 Miscellaneous Information 5 gm BID TOP ; Start 07/24/18 at 21:00; Status UNV Lacosamide (Vimpat Liq) 100 mg BID GTB ; Start 07/24/18 at 21:00 Albuterol (Ventolin Hfa) 2 puff Q6H RESP THERAPY INH ; Start 07/24/18 at 20:00 Ipratropium Barnard (Atrovent Hfa) 2 puff Q6HWA RESP THERAPY INH ; Start 07/24/18 at 20:00 Vancomycin HCl (Vanco Iv Per Pharmacy) VANCOMYCIN PER PHARMACY PER PROTOCOL XX ; Start 07/24/18 at 15:00 Piperacillin Sod/ Tazobactam Sod 100 ml @ 200 mls/hr Q8 IVPB Last administered on 07/24/18at 15:59; Admin Dose 200 MLS/HR; Start 07/24/18 at 16:00 Diagnostic Test (Pha) (Accu-Chek) 1 ea 02 XX ; Start 07/25/18 at 02:00 Insulin Aspart (Novolog Insulin Pen) NOVOLOG *MILD* ALGORITHM WITH MEALS BEDTIME SC Last administered on 07/24/18at 17:58; Admin Dose 5 UNIT; Start 07/24/18 at 18:00 Miscellaneous Information 1 ea NOTE XX ; Start 07/24/18 at 15:30 Glucose (Glutose) 15 gm Q15M PRN PO DECREASED GLUCOSE; Start 07/24/18 at 15:30 Glucose (Glutose) 22.5 gm Q15M PRN PO DECREASED GLUCOSE; Start 07/24/18 at 15:30 Dextrose (D50w Syringe) 25 ml Q15M PRN IV DECREASED GLUCOSE; Start 07/24/18 at 15:30 Dextrose (D50w Syringe) 50 ml Q15M PRN IV DECREASED GLUCOSE; Start 07/24/18 at 15:30 Glucagon (Glucagen) 1 mg Q15M PRN IM DECREASED GLUCOSE; Start 07/24/18 at 15:30 Glucose (Glutose) 15 gm Q15M PRN BUCCAL DECREASED GLUCOSE; Start 07/24/18 at 15:30 Miscellaneous Information (Pending [facility] Order For Wound Care) This patient palafox... PRN PRN XX WOUND CARE; Start 07/24/18 at 15:30 Vancomycin HCl 1.5 gm/Sodium Chloride 250 ml @ 83.333 mls/ hr ONCE IVPB ; Start 07/24/18 at 20:00; Stop 07/25/18 at 01:00 Vancomycin HCl 250 ml @ 125 mls/hr Q12H IVPB ; Start 07/25/18 at 08:00 VIVI CASTRO MD Jul 24, 2018 19:21
[2018-07-24] MEDS: ALBUTEROL HFA 8 GM INHALER INH SCH (20:00)
[2018-07-24] MEDS ORDERED: VANCOMYCIN HCL 1.5 GM in SOD CHLORIDE 0.9% 250 ML IVPB SCH (20:00)
[2018-07-24] MEDS: IPRATROPIUM (HFA) 12.9 GM INHALER INH SCH (20:00)
[2018-07-24] MEDS: BALSAM PERU/CASTOR OIL 60 GM TUBE TOP SCH (20:18)
[2018-07-24] MEDS: LACOSAMIDE (100 MG/10 ML PO SYR) GTB SCH (20:18)
[2018-07-24] MEDS: ATORVASTATIN 10 MG TAB GTB SCH (20:19)
[2018-07-24] MEDS: LEVETIRACETAM (100 MG/ML) 5ML CUP GTB SCH (20:19)
[2018-07-24] MEDS: NEUTRA-PHOS 250 MG PACKET PO SCH (20:19)
[2018-07-24] MEDS: FAMOTIDINE 20 MG TAB GTB SCH (20:19)
[2018-07-24] MEDS: METOPROLOL 25 MG TAB PO SCH (20:20)
[2018-07-24] MEDS: CARBOXYMETHYLCELLULOSE 0.5% 0.4 ML OPH BOTH EYES SCH (23:04)
[2018-07-25] VITALS (23 sets, daily range): BP systolic 101–159; BP diastolic 54–73; PULSE 51–86; RESP 12–26; BMI 23.9
[2018-07-25] MEDS: ACCU-CHEK XX SCH (02:00)
[2018-07-25] MEDS: ALBUTEROL HFA 8 GM INHALER INH SCH ×4 (02:07→20:00)
[2018-07-25] MEDS: SOD CHLORIDE 0.9% 1,000 ML IV SCH (02:54)
[2018-07-25] MEDS: CARBOXYMETHYLCELLULOSE 0.5% 0.4 ML OPH BOTH EYES SCH ×3 (05:08→22:03)
[2018-07-25] MEDS: PIPER-TAZO 3.375 GM IV (PMX) 100 ML IVPB SCH ×2 (05:08→22:54)
[2018-07-25] MEDS: ACETAMINOPHEN 650MG/20.3ML CUP PEG PRN ×2 (05:09→14:44)
[2018-07-25] MEDS: IPRATROPIUM (HFA) 12.9 GM INHALER INH SCH ×3 (08:18→20:00)
[2018-07-25] MEDS: METOPROLOL 25 MG TAB PO SCH ×2 (09:00→21:00)
[2018-07-25] MEDS: INSULIN ASPART [NOVOLOG] 3 ML PEN SC SCH ×4 (09:04→22:16)
[2018-07-25] MEDS: VANCOMYCIN 1 GM 250 ML IVPB SCH ×2 (09:13→23:42)
[2018-07-25] MEDS: NEUTRA-PHOS 250 MG PACKET PO SCH ×3 (09:14→22:02)
[2018-07-25] MEDS: FAMOTIDINE 20 MG TAB GTB SCH ×2 (09:15→22:01)
[2018-07-25] MEDS: ASCORBIC ACID 500 MG TAB PEG SCH (09:15)
[2018-07-25] MEDS: FLUOXETINE 20 MG CAP PEG SCH (09:15)
[2018-07-25] MEDS: BALSAM PERU/CASTOR OIL 60 GM TUBE TOP SCH ×2 (09:15→22:04)
[2018-07-25] MEDS: FOLIC ACID 1 MG TAB GTB SCH (09:15)
[2018-07-25] MEDS: LACOSAMIDE (100 MG/10 ML PO SYR) GTB SCH ×2 (09:19→22:53)
[2018-07-25] MEDS: LEVETIRACETAM (100 MG/ML) 5ML CUP GTB SCH ×2 (09:19→22:01)
--- NOTE | 2018-07-25 11:27 | PN ---
Date/Time of Note Date/Time of Note DATE: 07/25/18 TIME: 11:13 Assessment/Plan VTE Prophylaxis Risk score (from Ns)>0 risk: 9 [place]CD applied (from [facility] [place] Yes Pharmacological prophylaxis: NA/contraindicated Pharm contraindication: bleeding Lines/Catheters IV Catheter Type (from [facility]): Peripheral IV Assessment/Plan Hospital Course 67 yo M with hx of history of craniectomy, chronic respiratory failure with hypoxia, tracheostomy, [facility] and hematuria currently managed as follows : 1. Sepsis likely 2/2HCAP and UTI 2. Acute on chronic resp failure -chronically vent dependent, was on SIMV and now back on AC 3. HCAP 4. Hematuria with acute on chronic blood loss anemia likely 2/2 UTI with eliquis therapy 5. Chronic AFib with good rate control -eliquis on hold 2/2 #4 6. DM 2 with hyperglycemia 2/2 meds on hold -aic 7.6, likley unreliable in this anemic patient 7. Iron deficiency 8. history of craniectomy, chronic respiratory failure with hypoxia, tracheostomy, gastrostomy -resumed on PEG feeds 9. Status post liver transplant for which indication is not documented 10. hypertension 11. dyslipidemia 12. Chronic debility with msc wasting PLAN: Continue empiric abx Transfuse packed cells appreciate urology input, will follow recs resume insulin therapy and titrate as indicated continue vent mgt and weaning f/u blood, urine and resp cultures continue to hold eliquis till cleared by urology continue tube feeds LE dopplers Further interventions per course. Result Diagram: 07/25/18 0529 07/25/18 0529 Results 24hrs Laboratory Tests Test 07/24/18 15:26 07/24/18 15:28 07/24/18 17:46 07/24/18 17:52 Prothrombin Time 17.9 H Prothrombin Time 1.4 Ratio INR International 1.47 Normalized Ratio Activated 39.5 H Partial Thromboplast Time Phosphorus Level 2.9 Magnesium Level 2.5 Iron Level < 10 L Total Iron Binding 186 L Capacity Percent Iron Saturation Total Bilirubin 0.4 Direct Bilirubin 0.00 Indirect Bilirubin 0.4 Aspartate Amino 22 Transf (AST/SGOT) Alanine < 6 L Aminotransferase (AL T/SGPT) Alkaline Phosphatase 130 H Creatine Kinase 20 L Creatine Kinase 2.9 Index Creatinine Kinase MB 0.58 (Mass) Troponin I 0.093 Total Protein 8.1 Albumin 3.1 L Digoxin Level 1.2 Blood Urea Nitrogen 42 H Creatinine 1.15 Urine Color RED Urine Clarity CLOUDY A Urine pH 9.0 Urine Specific 1.018 [place] Urine Ketones TRACE A Urine Nitrite NEGATIVE Urine Bilirubin NEGATIVE Urine Urobilinogen NEGATIVE Urine Leukocyte 2+ H Esterase Urine Microscopic > 182 H RBC Urine Microscopic 6 H WBC Urine Bacteria MODERATE Urine Hemoglobin 2+ H Urine Glucose NEGATIVE Urine Total Protein 2+ H Bedside Glucose 315 H Test 07/24/18 20:13 07/24/18 20:24 07/25/18 02:03 07/25/18 05:29 Creatine Kinase 21 L Creatine Kinase 2.1 Index Creatinine Kinase MB 0.45 (Mass) Troponin I 0.094 Bedside Glucose 284 H 377 H White Blood Count 6.7 # Red Blood Count 2.36 #L Hemoglobin 6.6 #*L Hematocrit 22.8 #L Mean Corpuscular 96.6 Volume Mean Corpuscular 28.0 L Hemoglobin Mean Corpuscular 28.9 L Hemoglobin Concent Red Cell 20.7 H Distribution Width Platelet Count 234 # Mean Platelet Volume 9.7 Immature 0.700 H Granulocytes % Neutrophils % 72.0 Lymphocytes % 20.0 Monocytes % 5.1 Eosinophils % 1.9 Basophils % 0.3 Nucleated Red Blood 0.0 Cells % Immature 0.050 H Granulocytes # Neutrophils # 4.8 Lymphocytes # 1.3 Monocytes # 0.3 Eosinophils # 0.1 Basophils # 0.0 Nucleated Red Blood 0.0 Cells # Sodium Level 145 H Potassium Level 3.7 Chloride Level 108 Carbon Dioxide Level 28 Anion Gap 9 Blood Urea Nitrogen 45 H Creatinine 1.16 Est Glomerular > 60 Filtrat Rate mL/min Glucose Level 397 H Hemoglobin A1c 7.6 H Calcium Level 8.4 Magnesium Level 2.4 Thyroid Stimulating 0.712 Hormone (TSH) Test 07/25/18 08:56 Bedside Glucose 412 *H Subjective 24 Hr Interval Summary Free Text/Dictation no new issues, Exam/Review of Systems Exam Vitals Vital Signs Date Temp Pulse Resp B/P (MAP) Pulse Ox O2 O2 Flow FiO2 Time Delivery Rate 07/25/18 75 16 98 40 09:29 07/25/18 98.6 102/54 07:38 (70) Intake and Output 07/24/18 07/24/18 07/25/18 1515:00 23:00 07:00 IntakeIntake Total 180 ml 1220 ml OutputOutput Total 200 ml 350 ml BalanceBalance -20 ml 870 ml Exam Constitutional: can follow commands and tries to mouth words Eyes open spontaneously, No distress Psych: unable to assess Head: old scars, no acute trauma Eyes: PERRL, No icteric ENMT: pink and moist mucosa, no exudates Neck: non-tender Respiratory: diminished breath sounds, coarse bs No labored breathing Cardiovascular: regular rate and rhythm, No murmurs/extra sounds Gastrointestinal: soft, non-tender, bowel sounds, other (PEG tube noted with no cellulitis or discharge), large surgical scar well healed Genitourinary - male: nl external genitalia, urine in casey has cleared a bit Extremities: can move all extremities spontaneously but very weak and not against gravity. 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 diffuse msc wasting Neurological: lethargic, follows commands No nl strength Results Results 24hrs Laboratory Tests Test 07/24/18 15:26 07/24/18 15:28 07/24/18 17:46 07/24/18 17:52 Prothrombin Time 17.9 H Prothrombin Time 1.4 Ratio INR International 1.47 Normalized Ratio Activated 39.5 H Partial Thromboplast Time Phosphorus Level 2.9 Magnesium Level 2.5 Iron Level < 10 L Total Iron Binding 186 L Capacity Percent Iron Saturation Total Bilirubin 0.4 Direct Bilirubin 0.00 Indirect Bilirubin 0.4 Aspartate Amino 22 Transf (AST/SGOT) Alanine < 6 L Aminotransferase (AL T/SGPT) Alkaline Phosphatase 130 H Creatine Kinase 20 L Creatine Kinase 2.9 Index Creatinine Kinase MB 0.58 (Mass) Troponin I 0.093 Total Protein 8.1 Albumin 3.1 L Digoxin Level 1.2 Blood Urea Nitrogen 42 H Creatinine 1.15 Urine Color RED Urine Clarity CLOUDY A Urine pH 9.0 Urine Specific 1.018 [place] Urine Ketones TRACE A Urine Nitrite NEGATIVE Urine Bilirubin NEGATIVE Urine Urobilinogen NEGATIVE Urine Leukocyte 2+ H Esterase Urine Microscopic > 182 H RBC Urine Microscopic 6 H WBC Urine Bacteria MODERATE Urine Hemoglobin 2+ H Urine Glucose NEGATIVE Urine Total Protein 2+ H Bedside Glucose 315 H Test 07/24/18 20:13 07/24/18 20:24 07/25/18 02:03 07/25/18 05:29 Creatine Kinase 21 L Creatine Kinase 2.1 Index Creatinine Kinase MB 0.45 (Mass) Troponin I 0.094 Bedside Glucose 284 H 377 H White Blood Count 6.7 # Red Blood Count 2.36 #L Hemoglobin 6.6 #*L Hematocrit 22.8 #L Mean Corpuscular 96.6 Volume Mean Corpuscular 28.0 L Hemoglobin Mean Corpuscular 28.9 L Hemoglobin Concent Red Cell 20.7 H Distribution Width Platelet Count 234 # Mean Platelet Volume 9.7 Immature 0.700 H Granulocytes % Neutrophils % 72.0 Lymphocytes % 20.0 Monocytes % 5.1 Eosinophils % 1.9 Basophils % 0.3 Nucleated Red Blood 0.0 Cells % Immature 0.050 H Granulocytes # Neutrophils # 4.8 Lymphocytes # 1.3 Monocytes # 0.3 Eosinophils # 0.1 Basophils # 0.0 Nucleated Red Blood 0.0 Cells # Sodium Level 145 H Potassium Level 3.7 Chloride Level 108 Carbon Dioxide Level 28 Anion Gap 9 Blood Urea Nitrogen 45 H Creatinine 1.16 Est Glomerular > 60 Filtrat Rate mL/min Glucose Level 397 H Hemoglobin A1c 7.6 H Calcium Level 8.4 Magnesium Level 2.4 Thyroid Stimulating 0.712 Hormone (TSH) Test 07/25/18 08:56 Bedside Glucose 412 *H Medications Medication Current Medications Sodium Chloride 1,000 ml @ 80 mls/hr [id number] IV Last administered on 07/24/18at 15:57; Admin Dose 80 MLS/HR; Start 07/24/18 at 14:24 IV Flush (NS 3 ml) 3 ml PER PROTOCOL IV ; Start 07/24/18 at 14:30 Lorazepam (Ativan) 0.5 mg Q8H PRN GTB .ANXIETY; Start 07/24/18 at 14:30 Ondansetron HCl (Zofran Inj) 4 mg Q6H PRN IV NAUSEA/VOMITING; Start 07/24/18 at 14:30 Morphine Sulfate (morphine) 2 mg Q4H PRN IV .PAIN 7-10; Start 07/24/18 at 14:30 Zolpidem Tartrate (Ambien) 5 mg QHS PRN PO .INSOMNIA; Start 07/24/18 at 14:30 Acetaminophen (Tylenol Liquid) 650 mg Q4H PRN PEG MILD PAIN(1-3) OR TEMP>38C Last administered on 07/25/18 05:09; Admin Dose 650 MG; Start 07/24/18 at 14:30 Albuterol (Proventil 0.083% (Neb)) 2.5 mg Q4 PRN NEB WHEEZING AND SOB; Start 07/24/18 at 14:30 Ascorbic Acid (Vitamin C) 500 mg DAILY PEG Last administered on 07/25/18 09:15; Admin Dose 500 MG; Start 07/25/18 at 09:00 Atorvastatin Calcium (Lipitor) 10 mg QHS GTB Last administered on 07/24/18 20:19; Admin Dose 10 MG; Start 07/24/18 at 21:00 Eye Lubricant (Refresh Plus) 2 drop Q8 BOTH EYES Last administered on 07/25/18 05:08; Admin Dose 2 DROP; Start 07/24/18 at 22:00 Digoxin (Digoxin) 0.125 mg DAILY@1300 GTB ; Start 07/25/18 at 13:00 Ergocalciferol (Drisdol Liquid (Ped)) 50,000 units Q7D GTB ; Start 07/30/18 at 09:00 Famotidine (Pepcid) 20 mg BID GTB Last administered on 07/25/18 09:15; Admin Dose 20 MG; Start 07/24/18 at 21:00 Fluoxetine HCl (Prozac) 20 mg DAILY PEG Last administered on 07/25/18 09:15; Admin Dose 20 MG; Start 07/25/18 at 09:00 Folic Acid (Folic Acid) 1 mg DAILY GTB Last administered on 07/25/18 09:15; Admin Dose 1 MG; Start 07/25/18 at 09:00 Levetiracetam (Keppra Liquid) 750 mg BID GTB Last administered on 07/25/18 09:19; Admin Dose 750 MG; Start 07/24/18 at 21:00 Metoprolol Tartrate (Lopressor) 25 mg BID PO Last administered on 07/24/18 20:20; Admin Dose 25 MG; Start 07/24/18 at 21:00 Sodium Phosphate (Neutra-Phos) 250 mg TID PO Last administered on 07/25/18 09:14; Admin Dose 250 MG; Start 07/24/18 at 21:00 Miscellaneous Information 5 gm BID TOP ; Start 07/24/18 at 21:00; Status UNV Lacosamide (Vimpat Liq) 100 mg BID GTB Last administered on 07/25/18at 09:19; Admin Dose 100 MG; Start 07/24/18 at 21:00 Albuterol (Ventolin Hfa) 2 puff Q6H RESP THERAPY INH Last administered on 07/25/18at 08:18; Admin Dose 2 PUFF; Start 07/24/18 at 20:00 Ipratropium [place] (Atrovent Hfa) 2 puff Q6HWA RESP THERAPY INH Last a dministered on 07/25/18at 08:18; Admin Dose 2 PUFF; Start 07/24/18 at 20:00 Vancomycin HCl (Vanco Iv Per Pharmacy) VANCOMYCIN PER PHARMACY PER PROTOCOL XX ; Start 07/24/18 at 15:00 Piperacillin Sod/ Tazobactam Sod 100 ml @ 200 mls/hr Q8 IVPB Last administered on 07/25/18at 05:08; Admin Dose 200 MLS/HR; Start 07/24/18 at 16:00 Diagnostic Test (Pha) (Accu-Chek) 1 ea 02 XX ; Start 07/25/18 at 02:00 Miscellaneous Information 1 ea NOTE XX ; Start 07/24/18 at 15:30 Glucose (Glutose) 15 gm Q15M PRN PO DECREASED GLUCOSE; Start 07/24/18 at 15:30 Glucose (Glutose) 22.5 gm Q15M PRN PO DECREASED GLUCOSE; Start 07/24/18 at 15:30 Dextrose (D50w Syringe) 25 ml Q15M PRN IV DECREASED GLUCOSE; Start 07/24/18 at 15:30 Dextrose (D50w Syringe) 50 ml Q15M PRN IV DECREASED GLUCOSE; Start 07/24/18 at 15:30 Glucagon (Glucagen) 1 mg Q15M PRN IM DECREASED GLUCOSE; Start 07/24/18 at 15:30 Glucose (Glutose) 15 gm Q15M PRN BUCCAL DECREASED GLUCOSE; Start 07/24/18 at 15:30 Miscellaneous [facility] This patient palafox... PRN PRN XX WOUND CARE; Start 07/24/18 at 15:30 Vancomycin HCl 250 ml @ 125 mls/hr Q12H IVPB Last administered on 07/25/18at 09:13; Admin Dose 125 MLS/HR; Start 07/25/18 at 08:00 Diagnostic Test (Pha) (Accu-Chek) 1 ea 02 XX ; Start 07/26/18 at 02:00 Insulin Aspart (Novolog Insulin Pen) NOVOLOG *MODERATE* ALGORITHM WITH MEALS BEDTIME SC Last administered on 07/25/18at 09:04; Admin Dose 10 UNIT; Start 07/25/18 at 08:00 Insulin Aspart Prota 70%/Aspart 30% (Novolog Mix (70/ 30) Flexpen) 11 unit Q12H SC ; Start 07/25/18 at 11:30; Status LESLIE KNAPP July 25, 2018 11:26
[2018-07-25] MEDS ORDERED: NPH, HUMAN INSULIN ISOPHANE 3ML VIAL SC SCH (11:30)
[2018-07-25] MEDS ORDERED: DIGOXIN 0.125 MG TAB GTB SCH (13:00)
--- NOTE | 2018-07-25 13:22 | CONS ---
DATE OF ADMISSION: 07/24/2018 DATE OF CONSULTATION: REASON FOR CONSULTATION: Shortness of breath. Thank you, Dr. Varghese, for this consultation. HISTORY OF PRESENT ILLNESS: This is a 67-year-old straight with a history of ventilator-dependent re spiratory failure, transferred from [facility] where he had presented with significant hematuria. The patient is a resident of a living facility, chronic mechanical ventilation via tracheostomy. The patient had previously been on Eliquis for chronic atrial fibrillation. PAST MEDICAL HISTORY: History of liver transplant, hypertension, hyperlipidemia, chronic kidney dise ase, history of craniectomy, gastrostomy tube, type 2 diabetes. MEDICATIONS: Per chart. ALLERGIES: MORPHINE. SOCIAL HISTORY: Current nonsmoker, no alcohol, no history of drug use. FAMILY HISTORY: Noncontributory. REVIEW OF SYSTEMS: A 12-point review of systems was negative other than that mentioned above. PHYSICAL EXAMINATION: GENERAL: Well-nourished, well-developed gentleman, comfortable at rest on mechanical ventilation. VITAL SIGNS: Temperature 98, pulse 62, blood pressure 115/55, O2 saturation 96%, and FiO2 of 40%. NECK: Tracheostomy site clean and intact. CARDIAC: S1, S2. No added sounds or murmurs. CHEST: Diminished air entry bilaterally. ABDOMEN: Soft, nontender. No guarding or rebound. EXTREMITIES: No cyanosis, clubbing, 1+ edema. NEUROLOGIC: Generalized weakness. LABORATORY DATA: White count 6.7, hemoglobin 6.6, platelets of 234,000. BUN 45, creatinine 1.16. I NR was 1.47. DIAGNOSTIC DATA: Chest x-ray was reviewed, showed interstitial edema. EKG: No acute ischemic costa es. IMPRESSION: 1. Ventilator-dependent respiratory failure. 2. History of craniectomy. 3. Hematuria. 4. On anticoagulation for atrial fibrillation. 4. History of liver transplant. PLAN: The patient will require: 1. Continue mechanical ventilation. 2. Urology recommendations. 3. Transfusion of packed red blood cells. 4. Tube feeding as tolerated. 5. Antirejection medications. 6. Rapid de-escalation of antibiotics. Dictated By: DELIA HURD/JEFFREY Conf#: [id number] DID#: [id number] CC: OPAL MANUEL MD;*[facility]*
[2018-07-25] MEDS: INSULIN ASP PROT/ASPART (70/30) PEN SC SCH ×2 (13:47→22:15)
[2018-07-25] MEDS ORDERED: DEXTROSE 5% 1,000 ML IV SCH (15:30)
[2018-07-25] MEDS: ATORVASTATIN 10 MG TAB GTB SCH (22:01)
[2018-07-26] VITALS (22 sets, daily range): BP systolic 113–143; BP diastolic 58–76; PULSE 51–69; RESP 12–29
[2018-07-26] MEDS: ACCU-CHEK XX SCH ×3 (01:11→02:07)
[2018-07-26] MEDS: ALBUTEROL HFA 8 GM INHALER INH SCH ×4 (01:11→21:19)
[2018-07-26] MEDS: IPRATROPIUM (HFA) 12.9 GM INHALER INH SCH ×4 (01:12→21:19)
[2018-07-26] MEDS: PIPER-TAZO 3.375 GM IV (PMX) 100 ML IVPB SCH ×3 (06:27→22:43)
[2018-07-26] MEDS: CARBOXYMETHYLCELLULOSE 0.5% 0.4 ML OPH BOTH EYES SCH ×3 (06:27→22:39)
[2018-07-26] MEDS: VANCOMYCIN 1 GM 250 ML IVPB SCH (08:00)
[2018-07-26] MEDS: INSULIN ASPART [NOVOLOG] 3 ML PEN SC SCH ×4 (08:15→21:00)
[2018-07-26] MEDS: NEUTRA-PHOS 250 MG PACKET PO SCH ×3 (09:10→22:39)
[2018-07-26] MEDS: LEVETIRACETAM (100 MG/ML) 5ML CUP GTB SCH ×2 (09:10→22:40)
[2018-07-26] MEDS: ASCORBIC ACID 500 MG TAB PEG SCH (09:10)
[2018-07-26] MEDS: FAMOTIDINE 20 MG TAB GTB SCH ×2 (09:10→22:39)
[2018-07-26] MEDS: FOLIC ACID 1 MG TAB GTB SCH (09:10)
[2018-07-26] MEDS: FLUOXETINE 20 MG CAP PEG SCH (09:10)
[2018-07-26] MEDS: METOPROLOL 25 MG TAB PO SCH ×2 (09:10→22:42)
[2018-07-26] MEDS: BALSAM PERU/CASTOR OIL 60 GM TUBE TOP SCH ×2 (09:11→22:43)
[2018-07-26] MEDS: INSULIN ASP PROT/ASPART (70/30) PEN SC SCH ×2 (09:17→23:04)
[2018-07-26] MEDS: LACOSAMIDE (100 MG/10 ML PO SYR) GTB SCH ×2 (09:22→22:40)
--- NOTE | 2018-07-26 12:23 | CONS ---
Assessment/Plan Assessment/Plan Assessment/Plan (Daily) Ventilator setting; assist control of 16, tidal volume 450, PEEP of 5, 30% FiO2. Assessment and recommendations; 1. Patient admitted with hematuria with possibly bibasilar pneumonia as well. 2. VDRF. 3. Chronic immunosuppression, history of liver transplant. 4. Chronic encephalopathy. 5. History of cardiac arrhythmia. Chronic atrial fibrillation. 6. History of hypertension and diabetes. 7. History of stable seizure disorder. Continue current supportive care. Hematuria likely from Eliquis. Further recommendations per urologist. Obtain follow-up chest x-ray. Consultation Date/Type/Reason Admit Date/Time Jul 24, 2018 at 09:14 Initial Consult Date 07/24/18 Type of Consult Pulmonary Patient's condition is stable. Has remained hemodynamically stable. General exam; elderly male, on ventilator via tracheostomy, noncommunicative. Currently in no distress. Reason for Consultation H EENT exam; supple neck, no JVD. No lymphadenopathy. Midline trachea. No thyromegaly. Tracheostomy placed. Insertion site is clean. Chest exam; diminished breath sounds bilaterally. No added sounds. S1-S2 audible, no murmurs. Regular rhythm. Abdomen exam; soft, no organomegaly. Well-healed right upper quadrant scar. G- tube in place. Bowel sounds audible. Extremity exam; no peripheral edema. [employer] exam; patient remains noncommunicative. Requesting Provider: LESLIE FLOREZ Date/Time of Note DATE: 07/26/18 TIME: 12:20 Exam/Review of Systems Exam Vitals Vital Signs Date Temp Pulse Resp B/P (MAP) Pulse Ox O2 O2 Flow FiO2 Time Delivery Rate 07/26/18 98.2 65 18 120/71 99 11:35 (87) 07/26/18 35 11:05 Intake and Output 07/25/18 07/25/18 07/26/18 1515:00 23:00 07:00 IntakeIntake Total 855 ml 835 ml OutputOutput Total 400 ml 350 ml BalanceBalance 455 ml 485 ml Results Result Diagram: 07/26/18 0704 07/26/18 0704 Results 24hrs Laboratory Tests Test 07/25/18 13:45 07/25/18 18:13 07/25/18 22:00 07/26/18 07:04 Bedside Glucose 180 184 209 White Blood Count 6.4 Red Blood Count 3.53 #L Hemoglobin 9.8 #L Hematocrit 32.9 #L Mean Corpuscular 93.2 Volume Mean Corpuscular 27.8 L Hemoglobin Mean Corpuscular 29.8 L Hemoglobin Concent Red Cell 19.8 H Distribution Width Platelet Count 215 Mean Platelet 9.9 Volume Immature 0.600 H Granulocytes % Neutrophils % 68.7 Lymphocytes % 21.9 Monocytes % 7.1 Eosinophils % 1.4 Basophils % 0.3 Nucleated Red Blood 0.0 Cells % Immature 0.040 H Granulocytes # Neutrophils # 4.4 Lymphocytes # 1.4 Monocytes # 0.5 Eosinophils # 0.1 Basophils # 0.0 Nucleated Red Blood 0.0 Cells # Sodium Level 147 H Potassium Level 3.8 Chloride Level 110 Carbon Dioxide 29 Level Anion Gap 8 Blood Urea Nitrogen 48 H Creatinine 1.04 Est Glomerular > 60 Filtrat Rate mL/min Glucose Level 310 H Calcium Level 8.6 Vancomycin Level 33.4 *H Trough Test 07/26/18 07:56 07/26/18 08:24 07/26/18 11:39 Bedside Glucose 339 H 202 Lab Scanned Report BLOOD TRANSFUSION Medications Medication Current Medications IV Flush (NS 3 ml) 3 ml PER PROTOCOL IV ; Start 07/24/18 at 14:30 Lorazepam (Ativan) 0.5 mg Q8H PRN GTB .ANXIETY; Start 07/24/18 at 14:30 Ondansetron HCl (Zofran Inj) 4 mg Q6H PRN IV NAUSEA/VOMITING; Start 07/24/18 at 14:30 Zolpidem Tartrate (Ambien) 5 mg QHS PRN PO .INSOMNIA; Start 07/24/18 at 14:30 Acetaminophen (Tylenol Liquid) 650 mg Q4H PRN PEG MILD PAIN(1-3) OR TEMP>38C Last administered on 07/25/18at 14:44; Admin Dose 650 MG; Start 07/24/18 at 14:30 Albuterol (Proventil 0.083% (Neb)) 2.5 mg Q4 PRN NEB WHEEZING AND SOB; Start 07/24/18 at 14:30 Ascorbic Acid (Vitamin C) 500 mg DAILY PEG Last administered on 07/26/18at 09:10; Admin Dose 500 MG; Start 07/25/18 at 09:00 Atorvastatin Calcium (Lipitor) 10 mg QHS GTB Last administered on 07/25/18 22:01; Admin Dose 10 MG; Start 07/24/18 at 21:00 Eye Lubricant (Refresh Plus) 2 drop Q8 BOTH EYES Last administered on 07/26/18 06:27; Admin Dose 2 DROP; Start 07/24/18 at 22:00 Digoxin (Digoxin) 0.125 mg DAILY@1300 GTB ; Start 07/25/18 at 13:00 Ergocalciferol (Drisdol Liquid (Ped)) 50,000 units Q7D GTB ; Start 07/30/18 at 09:00 Famotidine (Pepcid) 20 mg BID GTB Last administered on 07/26/18 09:10; Admin Dose 20 MG; Start 07/24/18 at 21:00 Fluoxetine HCl (Prozac) 20 mg DAILY PEG Last administered on 07/26/18 09:10; Admin Dose 20 MG; Start 07/25/18 at 09:00 Folic Acid (Folic Acid) 1 mg DAILY GTB Last administered on 07/26/18 09:10; Admin Dose 1 MG; Start 07/25/18 at 09:00 Levetiracetam (Keppra Liquid) 750 mg BID GTB Last administered on 07/26/18 09:10; Admin Dose 750 MG; Start 07/24/18 at 21:00 Metoprolol Tartrate (Lopressor) 25 mg BID PO Last administered on 07/26/18 09:10; Admin Dose 25 MG; Start 07/24/18 at 21:00 Sodium Phosphate (Neutra-Phos) 250 mg TID PO Last administered on 07/26/18 09:10; Admin Dose 250 MG; Start 07/24/18 at 21:00 Miscellaneous Information 5 gm BID TOP ; Start 07/24/18 at 21:00; Status UNV Lacosamide (Vimpat Liq) 100 mg BID GTB Last administered on 07/26/18 09:22; Admin Dose 100 MG; Start 07/24/18 at 21:00 Albuterol (Ventolin Hfa) 2 puff Q6H RESP THERAPY INH Last administered on 07/26/18 08:44; Admin Dose 2 PUFF; Start 07/24/18 at 20:00 Ipratropium [place] (Atrovent Hfa) 2 puff Q6HWA RESP THERAPY INH Last administered on 07/26/18at 08:44; Admin Dose 2 PUFF; Start 07/24/18 at 20:00 Vancomycin HCl (Vanco Iv Per Pharmacy) VANCOMYCIN PER PHARMACY PER PROTOCOL XX ; Start 07/24/18 at 15:00 Piperacillin Sod/ Tazobactam Sod 100 ml @ 200 mls/hr Q8 IVPB Last administered on 07/26/18at 06:27; Admin Dose 200 MLS/HR; Start 07/24/18 at 16:00 Diagnostic Test (Pha) (Accu-Chek) 1 ea 02 XX Last administered on 07/26/18at 02:07; Admin Dose 1 EA; Start 07/25/18 at 02:00 Miscellaneous Information 1 ea NOTE XX ; Start 07/24/18 at 15:30 Glucose (Glutose) 15 gm Q15M PRN PO DECREASED GLUCOSE; Start 07/24/18 at 15:30 Glucose (Glutose) 22.5 gm Q15M PRN PO DECREASED GLUCOSE; Start 07/24/18 at 15:30 Dextrose (D50w Syringe) 25 ml Q15M PRN IV DECREASED GLUCOSE; Start 07/24/18 at 15:30 Dextrose (D50w Syringe) 50 ml Q15M PRN IV DECREASED GLUCOSE; Start 07/24/18 at 15:30 Glucagon (Glucagen) 1 mg Q15M PRN IM DECREASED GLUCOSE; Start 07/24/18 at 15:30 Glucose (Glutose) 15 gm Q15M PRN BUCCAL DECREASED GLUCOSE; Start 07/24/18 at 15:30 Miscellaneous Information (Pending [facility] Order For Wound Care) This patient palafox... PRN PRN XX WOUND CARE; Start 07/24/18 at 15:30 Vancomycin HCl 250 ml @ 125 mls/hr Q12H IVPB Last administered on 07/25/18at 23:42; Admin Dose 125 MLS/HR; Start 07/25/18 at 08:00; Status Hold Diagnostic Test (Pha) (Accu-Chek) 1 ea 02 XX ; Start 07/26/18 at 02:00 Insulin Aspart (Novolog Insulin Pen) NOVOLOG *MODERATE* ALGORITHM WITH MEALS BEDTIME SC Last administered on 07/26/18at 11:44; Admin Dose 4 UNIT; Start 07/25/18 at 08:00 Insulin Aspart Prota 70%/Aspart 30% (Novolog Mix (70/ 30) Flexpen) 11 unit Q12 SC Last administered on 07/26/18at 09:17; Admin Dose 11 UNIT; Start 07/25/18 at 12:00 Ferric Sodium Gluconate Complex 125 mg/Sodium Chloride 100 ml @ 100 mls/hr DAILY@1300 IVPB ; Start 07/26/18 at 13:00; Stop 07/28/18 at 13:59 TERRA ROBLERO July 26, 2018 12:23
--- NOTE | 2018-07-26 12:41 | PN ---
Date/Time of Note Date/Time of Note DATE: 07/26/18 TIME: 12:36 Assessment/Plan VTE Prophylaxis Risk score (from Ns)>0 risk: 9 SCD applied (from Ns): Yes Pharmacological prophylaxis: NA/contraindicated Pharm contraindication: bleeding Lines/Catheters IV Catheter Type (from Nrs): Peripheral IV Assessment/Plan Hospital Course S: no new complaints mentation essentially the same, no further hematuria O: Constitutional: can follow commands and tries to mouth words Eyes open spontaneously, No distress Psych: unable to assess Head: old scars, no acute trauma Eyes: PERRL, No icteric ENMT: pink and moist mucosa, no exudates Neck: non-tender Respiratory: diminished breath sounds, coarse bs No labored breathing Cardiovascular: regular rate and rhythm, No murmurs/extra sounds Gastrointestinal: soft, non-tender, bowel sounds, other (PEG tube noted with no cellulitis or discharge), large surgical scar well healed Genitourinary - male: nl external genitalia, urine in casey has cleared a bit Extremities: can move all extremities spontaneously but very weak and not against gravity. with msc wasting Neurological: lethargic, follows commands No nl strength assessment and plan: 67 yo M with history of craniectomy, chronic respiratory failure with hypoxia, tracheostomy, gastrostomy, chronic atrial fibrillation, type 2 diabetes mellitus, chronic anemia, status post liver transplant for which indication is not documented, hypertension, dyslipidemia, chronic kidney disease. sent from congregate living for SOB and hematuria currently managed as follows : 1. Sepsis likely 2/2HCAP and UTI 2. Acute on chronic resp failure -chronically vent dependent, was on SIMV and now back on AC 3. HCAP 4. Hematuria with acute on chronic blood loss anemia likely 2/2 UTI with e liquis therapy 5. Chronic AFib with good rate control -eliquis on hold 2/2 #4 6. DM 2 with hyperglycemia 2/2 meds on hold -aic 7.6, jenniferley unreliable in this anemic patient 7. Iron deficiency 8. history of craniectomy, chronic respiratory failure with hypoxia, tracheostomy, gastrostomy -resumed on PEG feeds 9. Status post liver transplant for which indication is not documented 10. hypertension 11. dyslipidemia 12. Chronic debility with msc wasting Plan: -sent message to urology to see if it is safe to resume eliquis, now that UTI is being treated -Resp cultures growing Gm negative rods, will await organism ID and final sensitivities, ID consult ? -required 30 units of supplemental insulin yesterday, will increase scheduled dosing -continue all other supportive care and vent mgt -continue PT Result Diagram: 07/26/18 0704 07/26/18 0704 Results 24hrs Laboratory Tests Test 07/25/18 13:45 07/25/18 18:13 07/25/18 22:00 07/26/18 07:04 Bedside Glucose 180 184 209 White Blood Count 6.4 Red Blood Count 3.53 #L Hemoglobin 9.8 #L Hematocrit 32.9 #L Mean Corpuscular 93.2 Volume Mean Corpuscular 27.8 L Hemoglobin Mean Corpuscular 29.8 L Hemoglobin Concent Red Cell 19.8 H Distribution Width Platelet Count 215 Mean Platelet 9.9 Volume Immature 0.600 H Granulocytes % Neutrophils % 68.7 Lymphocytes % 21.9 Monocytes % 7.1 Eosinophils % 1.4 Basophils % 0.3 Nucleated Red Blood 0.0 Cells % Immature 0.040 H Granulocytes # Neutrophils # 4.4 Lymphocytes # 1.4 Monocytes # 0.5 Eosinophils # 0.1 Basophils # 0.0 Nucleated Red Blood 0.0 Cells # Sodium Level 147 H Potassium Level 3.8 Chloride Level 110 Carbon Dioxide 29 Level Anion Gap 8 Blood Urea Nitrogen 48 H Creatinine 1.04 Est Glomerular > 60 Filtrat Rate mL/min Glucose Level 310 H Calcium Level 8.6 Vancomycin Level 33.4 *H Trough Test 07/26/18 07:56 07/26/18 08:24 07/26/18 11:39 Bedside Glucose 339 H 202 Lab Scanned Report BLOOD TRANSFUSION Exam/Review of Systems Exam Vitals Vital Signs Date Temp Pulse Resp B/P (MAP) Pulse Ox O2 O2 Flow FiO2 Time Delivery Rate 07/26/18 98.2 65 18 120/71 99 11:35 (87) 07/26/18 35 11:05 Intake and Output 07/25/18 07/25/18 07/26/18 1515:00 23:00 07:00 IntakeIntake Total 855 ml 835 ml OutputOutput Total 400 ml 350 ml BalanceBalance 455 ml 485 ml Results Results 24hrs Laboratory Tests Test 07/25/18 13:45 07/25/18 18:13 07/25/18 22:00 07/26/18 07:04 Bedside Glucose 180 184 209 White Blood Count 6.4 Red Blood Count 3.53 #L Hemoglobin 9.8 #L Hematocrit 32.9 #L Mean Corpuscular 93.2 Volume Mean Corpuscular 27.8 L Hemoglobin Mean Corpuscular 29.8 L Hemoglobin Concent Red Cell 19.8 H Distribution Width Platelet Count 215 Mean Platelet 9.9 Volume Immature 0.600 H Granulocytes % Neutrophils % 68.7 Lymphocytes % 21.9 Monocytes % 7.1 Eosinophils % 1.4 Basophils % 0.3 Nucleated Red Blood 0.0 Cells % Immature 0.040 H Granulocytes # Neutrophils # 4.4 Lymphocytes # 1.4 Monocytes # 0.5 Eosinophils # 0.1 Basophils # 0.0 Nucleated Red Blood 0.0 Cells # Sodium Level 147 H Potassium Level 3.8 Chloride Level 110 Carbon Dioxide 29 Level Anion Gap 8 Blood Urea Nitrogen 48 H Creatinine 1.04 Est Glomerular > 60 Filtrat Rate mL/min Glucose Level 310 H Calcium Level 8.6 Vancomycin Level 33.4 *H Trough Test 07/26/18 07:56 07/26/18 08:24 07/26/18 11:39 Bedside Glucose 339 H 202 Lab Scanned Report BLOOD TRANSFUSION Medications Medication Current Medications IV Flush (NS 3 ml) 3 ml PER PROTOCOL IV ; Start 07/24/18 at 14:30 Lorazepam (Ativan) 0.5 mg Q8H PRN GTB .ANXIETY; Start 07/24/18 at 14:30 Ondansetron HCl (Zofran Inj) 4 mg Q6H PRN IV NAUSEA/VOMITING; Start 07/24/18 at 14:30 Zolpidem Tartrate (Ambien) 5 mg QHS PRN PO .INSOMNIA; Start 07/24/18 at 14:30 Acetaminophen (Tylenol Liquid) 650 mg Q4H PRN PEG MILD PAIN(1-3) OR TEMP>38C Last administered on 07/25/18at 14:44; Admin Dose 650 MG; Start 07/24/18 at 14:30 Albuterol (Proventil 0.083% (Neb)) 2.5 mg Q4 PRN NEB WHEEZING AND SOB; Start 07/24/18 at 14:30 Ascorbic Acid (Vitamin C) 500 mg DAILY PEG Last administered on 07/26/18at 09:10; Admin Dose 500 MG; Start 07/25/18 at 09:00 Atorvastatin Calcium (Lipitor) 10 mg QHS GTB Last administered on 07/25/18 22:01; Admin Dose 10 MG; Start 07/24/18 at 21:00 Eye Lubricant (Refresh Plus) 2 drop Q8 BOTH EYES Last administered on 07/26/18 06:27; Admin Dose 2 DROP; Start 07/24/18 at 22:00 Digoxin (Digoxin) 0.125 mg DAILY@1300 GTB ; Start 07/25/18 at 13:00 Ergocalciferol (Drisdol Liquid (Ped)) 50,000 units Q7D GTB ; Start 07/30/18 at 09:00 Famotidine (Pepcid) 20 mg BID GTB Last administered on 07/26/18 09:10; Admin Dose 20 MG; Start 07/24/18 at 21:00 Fluoxetine HCl (Prozac) 20 mg DAILY PEG Last administered on 07/26/18 09:10; Admin Dose 20 MG; Start 07/25/18 at 09:00 Folic Acid (Folic Acid) 1 mg DAILY GTB Last administered on 07/26/18 09:10; Admin Dose 1 MG; Start 07/25/18 at 09:00 Levetiracetam (Keppra Liquid) 750 mg BID GTB Last administered on 07/26/18 09:10; Admin Dose 750 MG; Start 07/24/18 at 21:00 Metoprolol Tartrate (Lopressor) 25 mg BID PO Last administered on 07/26/18 09:10; Admin Dose 25 MG; Start 07/24/18 at 21:00 Sodium Phosphate (Neutra-Phos) 250 mg TID PO Last administered on 07/26/18 09:10; Admin Dose 250 MG; Start 07/24/18 at 21:00 Miscellaneous Information 5 gm BID TOP ; Start 07/24/18 at 21:00; Status UNV Lacosamide (Vimpat Liq) 100 mg BID GTB Last administered on 07/26/18 09:22; Admin Dose 100 MG; Start 07/24/18 at 21:00 Albuterol (Ventolin Hfa) 2 puff Q6H RESP THERAPY INH Last administered on 07/26/18 08:44; Admin Dose 2 PUFF; Start 07/24/18 at 20:00 Ipratropium [place] (Atrovent Hfa) 2 puff Q6HWA RESP THERAPY INH Last administered on 07/26/18at 08:44; Admin Dose 2 PUFF; Start 07/24/18 at 20:00 Vancomycin HCl (Vanco Iv Per Pharmacy) VANCOMYCIN PER PHARMACY PER PROTOCOL XX ; Start 07/24/18 at 15:00 Piperacillin Sod/ Tazobactam Sod 100 ml @ 200 mls/hr Q8 IVPB Last administered on 07/26/18at 06:27; Admin Dose 200 MLS/HR; Start 07/24/18 at 16:00 Diagnostic Test (Pha) (Accu-Chek) 1 ea 02 XX Last administered on 07/26/18at 02:07; Admin Dose 1 EA; Start 07/25/18 at 02:00 Miscellaneous Information 1 ea NOTE XX ; Start 07/24/18 at 15:30 Glucose (Glutose) 15 gm Q15M PRN PO DECREASED GLUCOSE; Start 07/24/18 at 15:30 Glucose (Glutose) 22.5 gm Q15M PRN PO DECREASED GLUCOSE; Start 07/24/18 at 15:30 Dextrose (D50w Syringe) 25 ml Q15M PRN IV DECREASED GLUCOSE; Start 07/24/18 at 15:30 Dextrose (D50w Syringe) 50 ml Q15M PRN IV DECREASED GLUCOSE; Start 07/24/18 at 15:30 Glucagon (Glucagen) 1 mg Q15M PRN IM DECREASED GLUCOSE; Start 07/24/18 at 15:30 Glucose (Glutose) 15 gm Q15M PRN BUCCAL DECREASED GLUCOSE; Start 07/24/18 at 15:30 Miscellaneous Information (Pending [facility] Order For Wound Care) This patient palafox... PRN PRN XX WOUND CARE; Start 07/24/18 at 15:30 Vancomycin HCl 250 ml @ 125 mls/hr Q12H IVPB Last administered on 07/25/18at 23:42; Admin Dose 125 MLS/HR; Start 07/25/18 at 08:00; Status Hold Diagnostic Test (Pha) (Accu-Chek) 1 ea 02 XX ; Start 07/26/18 at 02:00 Insulin Aspart (Novolog Insulin Pen) NOVOLOG *MODERATE* ALGORITHM WITH MEALS BEDTIME SC Last administered on 07/26/18at 11:44; Admin Dose 4 UNIT; Start 07/25/18 at 08:00 Insulin Aspart Prota 70%/Aspart 30% (Novolog Mix (70/ 30) Flexpen) 11 unit Q12 SC Last administered on 07/26/18at 09:17; Admin Dose 11 UNIT; Start 07/25/18 at 12:00 Ferric Sodium Gluconate Complex 125 mg/Sodium Chloride 100 ml @ 100 mls/hr DAILY@1300 IVPB ; Start 07/26/18 at 13:00; Stop 07/28/18 at 13:59 LESLIE FLOREZ July 26, 2018 12:41
[2018-07-26] MEDS: SOD FERRIC GLUC COMPLX 125 MG in SOD CHLORIDE 0.9% 100 ML IVPB SCH (13:14)
--- NOTE | 2018-07-26 16:07 | RADRPT ---
Vent Rate: 63 bpm RR Interval: 958 msec GA Interval: [id number] msec QRS Duration: 94 msec QT Interval: 428 msec QTC Interval: 437 msec P-R-T [place]: [id number] - -2 - 10 degrees Atrial fibrillation...V-rate 51- 82, irreg A-activity Low voltage, extremity and precordial leads...extremity<0.5mV, precordial<1.0mV Electronically Signed By: Ernesto Padilla
--- NOTE | 2018-07-26 18:37 | CONS ---
DATE OF ADMISSION: 07/24/2018 DATE OF CONSULTATION: 07/26/2018 TYPE OF CONSULTATION: Infectious Disease consultation. REASON FOR CONSULTATION: Antibiotic management. HISTORY OF PRESENT ILLNESS: Alhaji Pradhan is a 67-year-old male with a history of: 1. Craniectomy. 2. Chronic respiratory failure. 3. Tracheostomy. 4. Gastrostomy tube. 5. Chronic atrial fibrillation. 6. Diabetes mellitus. 7. Anemia of chronic disease. 8. Status post liver transplant. 9. Hypertension. 10. Dyslipidemia. 11. Chronic renal disease. He was sent from a congregate living facility for shortness of breath an d hematuria. He was seen at [facility] and transferred here with worsening respiratory distres s and hematuria. The patient was on Eliquis, that was put on hold. FAMILY HISTORY: Noncontributory. the patient is bed bound with a trach and a PEG. He also has a Bal. ALLERGIES: HE IS ALLERGIC TO MORPHINE. PHYSICAL EXAMINATION: NEUROLOGIC: The patient can follow commands. VITAL SIGNS: Stable. He is afebrile. SKIN: Without generalized rash. HEENT: Within normal limits. NECK: Tracheostomy in place. HEART: Without murmur or gallop. ABDOMEN: Soft, nontender. G-tube in place without discharge. EXTREMITIES: He has a large surgical scar, which is well healed. RESPIRATORY: He had diminished breath sounds, coarse at the base. EXTREMITIES: Can move all extremities, but is very weak. RECTAL AND GENITAL: Deferred. NEUROLOGICAL: No focal neurological abnormality. IMPRESSION AND PLAN: The patient comes in with sepsis, likely secondary to healthcare-associated pne umonia and urinary tract infection. He has acute on chronic respiratory failure, chronic ventilatory dependency. HOSPITAL COURSE: The patient had gram-negative rods in a tracheostomy. Urine and blood were negativ e. Chest x-ray shows interstitial edema suggesting called cardiopulmonary congestion which is improv ing from a film on 06/18. DVT studies are negative. The patient is currently on Zosyn. He was on v ancomycin, seen by pulmonary, admitted with hematuria and possible bibasilar pneumonia as well, venti latory dependent respiratory failure; hematuria, likely from Eliquis, further recommendations from ur ology. At this point, will continue him on his current therapy with Zosyn, although urine culture is negative. The chest x-ray showed congestion. His white count is 6.4 and he is afebrile, so we may be able to stop his antibiotics in a very short period of time. I will dictate my findings to the spitalist, Dr. Varghese . Dictated By: ALICE LINARES MD, JD/JEFFREY Conf#: [id number] DID#: [id number]
--- NOTE | 2018-07-26 19:39 | CONS ---
DATE OF ADMISSION: 07/24/2018 DATE OF CONSULTATION: 07/26/2018 TYPE OF CONSULTATION: Nephrology. REASON FOR CONSULTATION: Hyponatremia. PHYSICIAN REQUESTING CONSULT: Leslie Florez MD HISTORY OF PRESENT ILLNESS: This is a 67-year-old male with a past medical history of ventilator-dep endent respiratory failure, history of dysphagia, history of diabetes, history of chronic AFib, histo ry of hypertension, dyslipidemia, history of liver transplant who was transferred from [facility] to [facility] for ongoing evaluation of hematuria. The cy ent resides ____ living facility where he was noted over the past 24 to 48 hours to have increased re spiratory distress and hematuria. The patient was subsequently transferred to outside hospital and t hen transferred to the [facility] for continued care and workup. The patient is on anticoagulation for chronic AFib. In terms of patient's renal history, the patient has a history of chronic kidney disease. The patien t's baseline creatinine is about 1 to 1.2 mg/dL. On admission, the patient had a creatinine near his baseline. Patient also on admission was hypernatremic with sodium level 147. There has been no rep orts of any hemoptysis, hematemesis, or hematochezia. There has been no reported documentation of po lyuria. PAST MEDICAL HISTORY: History of ventilatory-dependent respiratory failure, history of dysphagia, hi story of liver transplant, history of diabetes, history of chronic AFib, history of hypertension, dys lipidemia. PAST SURGICAL HISTORY: Status post trach, status post PEG, status post liver transplant. FAMILY HISTORY: No family history of kidney disease. SOCIAL HISTORY: ____. MEDICATIONS: The patient's medications have been reviewed. REVIEW OF SYSTEMS: Unable to do adequate review of systems. The patient is altered. Pertinent posi tives as stated by review of medical records, speaking to hospital staff, stated in HPI, otherwise ne gative. PHYSICAL EXAMINATION: VITAL SIGNS: Blood pressure is 125/58, respiration 18, pulse 51, temperature 98.4. HEENT: Head is normocephalic. NECK: Supple. HEART: Regular rate. LUNGS: Show diminished breath sounds at the base. ABDOMEN: Soft, nontender to palpation without rebound or guarding. EXTREMITIES: Positive edema. DERMATOLOGIC: No rashes. MUSCULOSKELETAL: No joint effusion. NEUROLOGIC: No change in exam. LABORATORY DATA: Has been reviewed. IMAGING STUDIES: Has been reviewed. ASSESSMENT AND PLAN: This is a 67-year-old male who presents with: 1. Hyponatremia. Etiology is likely due to insensible losses and decreased free water intake. Mary r suspicion for diabetes insipidus at this time. Plan is to do a full evaluation. We will check uri ne sodium, urine osmolarity. We will increase patient's free water flushes 200 mL q.6 hours and jennie tor closely. 2. Chronic kidney disease stage III. The baseline creatinine level 1.0 mg/dL. The patient's renal function appears to be at baseline. We will continue current treatment plans, supportive care, renal ly dose all medication. 3. Volume overload, possible heart failure. The patient has noted interstitial edema and lower extr emity edema. Continue current medical management. Continue intermittent diuretic therapy. 4. Anemia. Monitor H and H levels. 5. Hematuria. Etiology is unclear, possibly due to coagulopathy. Bal trauma. Continue to monito r. Consider urologic evaluation. 6. Mineral bone disorder. Monitor calcium and phosphorus levels. 7. Sepsis secondary to healthcare-associated pneumonia and UTI. Continue current antibiotic regimen . 8. Ventilatory-dependent respiratory failure. Vent settings and ABG was reviewed. Continue to jennie tor. 9. Dysphagia. Continue tube feeding. 10. Chronic AFib. Continue current medical management. Anticoagulation has been on hold. 11. Diabetes. Continue insulin regimen. 12. History of liver transplant. 13. Hypertension. Continue blood pressure regimen. 14. Dyslipidemia. Continue statin therapy. 15. Seizure disorder. Continue Keppra and Vimpat. Thank you Dr. Florez for this interesting consult. It will be a pleasure to follow patient with you thr oughout the hospital course. Dictated By: EDUARDO JOHNSTON DO NR/NTS Conf#: [id number] DID#: [id number] CC: VIVI CASTRO MD; LESLIE FLOREZ MD;*End*
[2018-07-26] MEDS: ATORVASTATIN 10 MG TAB GTB SCH (22:39)
[2018-07-26] MEDS ORDERED: VANCOMYCIN 1 GM 250 ML IVPB SCH (23:00)
[2018-07-27] VITALS (20 sets, daily range): BP systolic 115–154; BP diastolic 68–75; PULSE 52–85; RESP 12–23; Ht 185.4 cm; Wt 89.7 kg
[2018-07-27] MEDS: IPRATROPIUM (HFA) 12.9 GM INHALER INH SCH ×4 (01:42→21:34)
[2018-07-27] MEDS: ALBUTEROL HFA 8 GM INHALER INH SCH ×4 (01:42→21:34)
[2018-07-27] MEDS: ACCU-CHEK XX SCH ×2 (02:00)
[2018-07-27] MEDS: PIPER-TAZO 3.375 GM IV (PMX) 100 ML IVPB SCH ×3 (07:06→21:47)
[2018-07-27] MEDS: CARBOXYMETHYLCELLULOSE 0.5% 0.4 ML OPH BOTH EYES SCH ×3 (07:06→21:46)
[2018-07-27] MEDS: INSULIN ASPART [NOVOLOG] 3 ML PEN SC SCH ×3 (08:06→18:00)
[2018-07-27] MEDS: NEUTRA-PHOS 250 MG PACKET PO SCH ×3 (08:29→21:45)
[2018-07-27] MEDS: INSULIN ASP PROT/ASPART (70/30) PEN SC SCH (08:29)
[2018-07-27] MEDS: FOLIC ACID 1 MG TAB GTB SCH (08:29)
[2018-07-27] MEDS: ASCORBIC ACID 500 MG TAB PEG SCH (08:29)
[2018-07-27] MEDS: METOPROLOL 25 MG TAB PO SCH ×2 (08:30→21:49)
[2018-07-27] MEDS: FAMOTIDINE 20 MG TAB GTB SCH ×2 (08:30→21:45)
[2018-07-27] MEDS: LEVETIRACETAM (100 MG/ML) 5ML CUP GTB SCH ×2 (08:30→21:44)
[2018-07-27] MEDS: LACOSAMIDE (100 MG/10 ML PO SYR) GTB SCH ×2 (08:30→21:45)
[2018-07-27] MEDS: FLUOXETINE 20 MG CAP PEG SCH (08:30)
[2018-07-27] MEDS: BALSAM PERU/CASTOR OIL 60 GM TUBE TOP SCH ×2 (08:31→21:46)
--- NOTE | 2018-07-27 10:34 | PN ---
DATE: 07/27/2018 SUBJECTIVE: The patient is stable. No events overnight. No fevers, chills, nausea, or vomiting. OBJECTIVE: VITAL SIGNS: Blood pressure is 130/75, pulse 65, respirations 18, temperature 98.5. HEENT: Head is normocephalic. NECK: Supple. HEART: Regular rate. LUNGS: Show diminished breath sounds at the base. ABDOMEN: Soft, nontender to palpation without rebound or guarding. EXTREMITIES: Negative for clubbing, cyanosis, no edema. DERMATOLOGIC: No rashes. MUSCULOSKELETAL: No joint effusion. NEUROLOGIC: No change in exam. MEDICATIONS: Reviewed. LABORATORY DATA: Reviewed. IMAGING STUDIES: Reviewed. ASSESSMENT AND PLAN: 1. Hypernatremia. Etiology is likely due to insensible losses, decreased free water intake. Low dotson spicion for diabetes insipidus. The patient's urine osmolarity was reviewed. The patient's free angela er flushes have been intensified. Follow up sodium levels. 2. Chronic kidney disease stage III. The patient's renal function is currently stable, appears to b e at baseline. Continue current treatment plan, supportive care, renally dose all medicines. 3. Volume overload, possible heart failure. Continue current medical management. Continue intermit tent diuretic therapy as needed. 4. Anemia. Continue to monitor hemoglobin and hematocrit levels. 5. Hematuria. Etiology is unclear. Questionable Bal trauma, questionable coagulopathy. Continue to monitor. Follow up with urology. 6. Mineral bone disorder, monitor calcium and phosphorus levels. 7. Sepsis secondary to healthcare-associated pneumonia, and urinary tract infection. Continue curre nt antibiotic regimen. 8. Ventilator-dependent respiratory failure. Vent settings have been reviewed. Continue to monitor . Followup with pulmonary. 9. Dysphagia. Continue tube feeding. 10. Chronic atrial fibrillation. Continue medical management. 11. Diabetes. Continue current insulin regimen. 12. History of liver transplant. 13. Hypertension. Continue current blood pressure regimen. 14. Dyslipidemia. Continue statin therapy. 15. Seizure disorder. Continue current medical management. Dictated By: EDUARDO JOHNSTON DO NR/NTS Conf#: [id number] DID#: [id number] CC: VIVI CASTRO MD; LESLIE FLOREZ MD; OPAL MANUEL MD;*EndCC*
--- NOTE | 2018-07-27 11:06 | CONS ---
Assessment/Plan Assessment/Plan Assessment/Plan (Daily) Ventilator Setting; AC of 16, tidal volume 450, PEEP of 5, 30% FiO2. Assessment and recommendations; 1. Patient admitted for hematuria with interval improvement. Possibly underlying UTI. 2. Bibasilar pneumonia with interval clinical improvement. Chest x-ray from today is pending. 3. Other comorbidities include history of chronic atrial fibrillation, seizure disorder, history of liver transplant on chronic immunosuppression. Continue with supportive care. Further recommendations per urologist and after chest x-ray is obtained. Consultation Date/Type/Reason Admit Date/Time Jul 24, 2018 at 09:14 Initial Consult Date 07/24/18 Type of Consult Pulmonary Patient's condition is stable. Has remained hemodynamically stable. General exam; elderly male, on ventilator via tracheostomy, noncommunicative. Currently in no distress. Requesting Provider: LESLIE FLOREZ Date/Time of Note DATE: 07/27/18 TIME: 11:04 24 HR Interval Summary Free Text/Dictation Patient's condition is stable. Mental status is markedly improved. Patient has remained hemodynamically stable. General exam; elderly male, on ventilator via tracheostomy, awake and alert. Currently no distress. Exam/Review of Systems Exam Vitals Vital Signs Date Temp Pulse Resp B/P (MAP) Pulse Ox O2 O2 Flow FiO2 Time Delivery Rate 07/27/18 65 08:00 07/27/18 98.5 18 130/75 98 07:54 (93) 07/27/18 35 05:21 Intake and Output 07/26/18 07/26/18 07/27/18 1515:00 23:00 07:00 IntakeIntake Total 1280 ml 1235 ml OutputOutput Total 500 ml 400 ml BalanceBalance 780 ml 835 ml Exam HEENT exam; supple neck, no JVD. No lymphadenopathy. Midline trachea. No thyromegaly. Tracheostomy in place. Patient is edentulous. No neck masses. Chest exam; diminished but clear breath sounds. S1-S2 audible, no murmurs. Regular rhythm. Abdomen exam; soft, no organomegaly. G-tube in place. Bowel sounds audible. Extremity exam; peripheral edema. [employer] exam; patient awake responsive appropriately but exhibiting generalized weakness. Results Result Diagram: 07/27/18 0840 07/27/18 0840 Results 24hrs Laboratory Tests Test 07/26/18 11:39 5/2/19 17:00 07/26/18 17:12 07/26/18 22:36 Bedside Glucose 202 223 H 175 Urine Color YELLOW Urine Clarity SLIGHTLY CLOUDY A Urine pH 7.0 Urine Specific 1.021 [place] Urine Ketones NEGATIVE Urine Nitrite NEGATIVE Urine Bilirubin NEGATIVE Urine Urobilinogen 2+ H Urine Leukocyte 2+ H Esterase Urine Microscopic 145 H RBC Urine Microscopic 14 H WBC Urine Bacteria FEW A Urine Hemoglobin 1+ H Urine Osmolality 509 Urine Random 40.81 Creatinine Urine Random 79 Sodium Urine Glucose NEGATIVE Urine Total 113.0 H Protein Test 07/27/18 08:03 07/27/18 08:40 Bedside Glucose 202 White Blood Count 5.3 Red Blood Count 3.25 L Hemoglobin 9.0 L Hematocrit 30.6 L Mean Corpuscular 94.2 Volume Mean Corpuscular 27.7 L Hemoglobin Mean Corpuscular 29.4 L Hemoglobin Concent Red Cell 19.5 H Distribution Width Platelet Count 223 Mean Platelet 10.1 Volume Immature 0.600 H Granulocytes % Neutrophils % 64.6 Lymphocytes % 23.9 Monocytes % 8.2 Eosinophils % 2.3 Basophils % 0.4 Nucleated Red 0.0 Blood Cells % Immature 0.030 Granulocytes # Neutrophils # 3.4 Lymphocytes # 1.3 Monocytes # 0.4 Eosinophils # 0.1 Basophils # 0.0 Nucleated Red 0.0 Blood Cells # Sodium Level 149 H Potassium Level 3.4 L Chloride Level 113 H Carbon Dioxide 30 Level Anion Gap 6 Blood Urea 38 H Nitrogen Creatinine 0.88 Est Glomerular > 60 Filtrat Rate mL/min Glucose Level 209 # Calcium Level 8.8 Phosphorus Level 3.0 Magnesium Level 2.3 Medications Medication Current Medications IV Flush (NS 3 ml) 3 ml PER PROTOCOL IV ; Start 07/24/18 at 14:30 Lorazepam (Ativan) 0.5 mg Q8H PRN GTB .ANXIETY; Start 07/24/18 at 14:30 Ondansetron HCl (Zofran Inj) 4 mg Q6H PRN IV NAUSEA/VOMITING; Start 07/24/18 at 14:30 Zolpidem Tartrate (Ambien) 5 mg QHS PRN PO .INSOMNIA; Start 07/24/18 at 14:30 Acetaminophen (Tylenol Liquid) 650 mg Q4H PRN PEG MILD PAIN(1-3) OR TEMP>38C Last administered on 07/25/18 14:44; Admin Dose 650 MG; Start 07/24/18 at 14:30 Albuterol (Proventil 0.083% (Neb)) 2.5 mg Q4 PRN NEB WHEEZING AND SOB; Start 07/24/18 at 14:30 Ascorbic Acid (Vitamin C) 500 mg DAILY PEG Last administered on 07/27/18 08:29; Admin Dose 500 MG; Start 07/25/18 at 09:00 Atorvastatin Calcium (Lipitor) 10 mg QHS GTB Last administered on 07/26/18 22:39; Admin Dose 10 MG; Start 07/24/18 at 21:00 Eye Lubricant (Refresh Plus) 2 drop Q8 BOTH EYES Last administered on 07/27/18 07:06; Admin Dose 2 DROP; Start 07/24/18 at 22:00 Digoxin (Digoxin) 0.125 mg DAILY@1300 GTB ; Start 07/25/18 at 13:00; Status Hold Ergocalciferol (Drisdol Liquid (Ped)) 50,000 units Q7D GTB ; Start 07/30/18 at 09:00 Famotidine (Pepcid) 20 mg BID GTB Last administered on 07/27/18 08:30; Admin Dose 20 MG; Start 07/24/18 at 21:00 Fluoxetine HCl (Prozac) 20 mg DAILY PEG Last administered on 07/27/18 08:30; Admin Dose 20 MG; Start 07/25/18 at 09:00 Folic Acid (Folic Acid) 1 mg DAILY GTB Last administered on 07/27/18 08:29; Admin Dose 1 MG; Start 07/25/18 at 09:00 Levetiracetam (Keppra Liquid) 750 mg BID GTB Last administered on 07/27/18 08:30; Admin Dose 750 MG; Start 07/24/18 at 21:00 Metoprolol Tartrate (Lopressor) 25 mg BID PO Last administered on 07/27/18 08:30; Admin Dose 25 MG; Start 07/24/18 at 21:00 Sodium Phosphate (Neutra-Phos) 250 mg TID PO Last administered on 07/27/18 08:29; Admin Dose 250 MG; Start 07/24/18 at 21:00 Miscellaneous Information 5 gm BID TOP ; Start 07/24/18 at 21:00; Status UNV Lacosamide (Vimpat Liq) 100 mg BID GTB Last administered on 07/27/18at 08:30; Admin Dose 100 MG; Start 07/24/18 at 21:00 Albuterol (Ventolin Hfa) 2 puff Q6H RESP THERAPY INH Last administered on 07/27/18at 09:43; Admin Dose 2 PUFF; Start 07/24/18 at 20:00 Ipratropium [place] (Atrovent Hfa) 2 puff Q6HWA RESP THERAPY INH Last administered on 07/27/18at 09:44; Admin Dose 2 PUFF; Start 07/24/18 at 20:00 Vancomycin HCl (Vanco Iv Per Pharmacy) VANCOMYCIN PER PHARMACY PER PROTOCOL XX ; Start 07/24/18 at 15:00 Piperacillin Sod/ Tazobactam Sod 100 ml @ 200 mls/hr Q8 IVPB Last administered on 07/27/18at 07:06; Admin Dose 200 MLS/HR; Start 07/24/18 at 16:00 Diagnostic Test (Pha) (Accu-Chek) 1 ea 02 XX Last administered on 07/26/18at 02:07; Admin Dose 1 EA; Start 07/25/18 at 02:00 Miscellaneous Information 1 ea NOTE XX ; Start 07/24/18 at 15:30 Glucose (Glutose) 15 gm Q15M PRN PO DECREASED GLUCOSE; Start 07/24/18 at 15:30 Glucose (Glutose) 22.5 gm Q15M PRN PO DECREASED GLUCOSE; Start 07/24/18 at 15:30 Dextrose (D50w Syringe) 25 ml Q15M PRN IV DECREASED GLUCOSE; Start 07/24/18 at 15:30 Dextrose (D50w Syringe) 50 ml Q15M PRN IV DECREASED GLUCOSE; Start 07/24/18 at 15:30 Glucagon (Glucagen) 1 mg Q15M PRN IM DECREASED GLUCOSE; Start 07/24/18 at 15:30 Glucose (Glutose) 15 gm Q15M PRN BUCCAL DECREASED GLUCOSE; Start 07/24/18 at 15:30 Miscellaneous Information (Pending [facility] Order For Wound Care) This patient palafox... PRN PRN XX WOUND CARE; Start 07/24/18 at 15:30 Diagnostic Test (Pha) (Accu-Chek) 1 02 XX ; Start 07/26/18 at 02:00 Insulin Aspart (Novolog Insulin Pen) NOVOLOG *MODERATE* ALGORITHM WITH MEALS BEDTIME SC Last administered on 07/27/18 08:06; Admin Dose 4 UNIT; Start 07/25/18 at 08:00 Ferric Sodium Gluconate Complex 125 mg/Sodium Chloride 100 ml @ 100 mls/hr DAILY@1300 IVPB Last administered on 07/26/18 13:14; Admin Dose 100 MLS/HR; Start 07/26/18 at 13:00; Stop 07/28/18 at 13:59 Insulin Aspart Prota 70%/Aspart 30% (Novolog Mix (70/ 30) Flexpen) 20 unit Q12 SC Last administered on 07/27/18 08:29; Admin Dose 20 UNIT; Start 07/26/18 at 21:00 Vancomycin HCl 250 ml @ 125 mls/hr Q24H IVPB Last administered on 07/27/18 00:37; Admin Dose 125 MLS/HR; Start 07/26/18 at 23:00 TERRA ROBLERO July 27, 2018 11:06
--- NOTE | 2018-07-27 11:34 | PN ---
Date/Time of Note Date/Time of Note DATE: 07/27/18 TIME: 11:31 Assessment/Plan VTE Prophylaxis Risk score (from Nsg)>0 risk: 6 Pharmacological prophylaxis: apixaban Lines/Catheters IV Catheter Type (from Nrsg): Peripheral IV Assessment/Plan Hospital Course S: no new complaints mentation essentially the same, no further hematuria O: Constitutional: can follow commands and tries to mouth words Eyes open spontaneously, No distress Psych: unable to assess Head: old scars, no acute trauma Eyes: PERRL, No icteric ENMT: pink and moist mucosa, no exudates Neck: non-tender Respiratory: diminished breath sounds, coarse bs No labored breathing Cardiovascular: regular rate and rhythm, No murmurs/extra sounds Gastrointestinal: soft, non-tender, bowel sounds, other (PEG tube noted with no cellulitis or discharge), large surgical scar well healed Genitourinary - male: nl external genitalia, urine in casey is clear Extremities: can move all extremities spontaneously but very weak and not against gravity. with msc wasting Neurological: lethargic, follows commands No nl strength assessment and plan: 67 yo M with history of craniectomy, chronic respiratory failure with hypoxia, tracheostomy, gastrostomy, chronic atrial fibrillation, type 2 diabetes mellitus, chronic anemia, status post liver transplant for which indication is not documented, hypertension, dyslipidemia, chronic kidney disease. sent from [facility] for SOB and hematuria currently managed as follows : 1. Sepsis likely 2/2HCAP and UTI 2. Acute on chronic resp failure -chronically vent dependent, was on SIMV and now back on AC 3. HCAP : Sputum cultures growing Pseudomonas 4. Hematuria with acute on chronic blood loss anemia likely 2/2 UTI with eliquis therapy 5. Chronic AFib with good rate control -eliquis on hold 2/2 #4 6. DM 2 with hyperglycemia 2/2 meds on hold -aic 7.6, jenniferley unreliable in this anemic patient 7. Iron deficiency 8. history of craniectomy, chronic respiratory failure with hypoxia, tracheostomy, gastrostomy -resumed on PEG feeds 9. Status post liver transplant for which indication is not documented 10. hypertension 11. dyslipidemia 12. Chronic debility with msc wasting Plan: -Per urology, okay to resume Eliquis if no further bleeding. Will observe patient in house for 1 more day to ensure bleeding does not recur -Continue antibiotics per ID, obtain final antibiotic recommendations for possible [facility] -Further uptitrate insulin dosing for optimal control -continue all other supportive care and vent mgt -continue PT -if no further bleeding, patient can be discharged back to jail facility tomorrow, to complete antibiotic therapy. Result Diagram: 07/27/18 0840 07/27/18 0840 Results 24hrs Laboratory Tests Test 07/26/18 11:39 07/26/18 17:00 07/26/18 17:12 07/26/18 22:36 Bedside Glucose 202 223 H 175 Urine Color YELLOW Urine Clarity SLIGHTLY CLOUDY A Urine pH 7.0 Urine Specific 1.021 [place] Urine Ketones NEGATIVE Urine Nitrite NEGATIVE Urine Bilirubin NEGATIVE Urine 2+ H Urobilinogen Urine Leukocyte 2+ H Esterase Urine 145 H Microscopic RBC Urine 14 H Microscopic WBC Urine Bacteria FEW A Urine Hemoglobin 1+ H Urine Osmolality 509 Urine Random 40.81 Creatinine Urine Random 79 Sodium Urine Glucose NEGATIVE Urine Total 113.0 H Protein Test 07/27/18 08:03 07/27/18 08:40 07/27/18 10:45 Bedside Glucose 202 White Blood 5.3 Count Red Blood Count 3.25 L Hemoglobin 9.0 L Hematocrit 30.6 L Mean Corpuscular 94.2 Volume Mean Corpuscular 27.7 L Hemoglobin Mean Corpuscular 29.4 L Hemoglobin Emelia nt Red Cell 19.5 H Distribution Width Platelet Count 223 Mean Platelet 10.1 Volume Immature 0.600 H Granulocytes % Neutrophils % 64.6 Lymphocytes % 23.9 Monocytes % 8.2 Eosinophils % 2.3 Basophils % 0.4 Nucleated Red 0.0 Blood Cells % Immature 0.030 Granulocytes # Neutrophils # 3.4 Lymphocytes # 1.3 Monocytes # 0.4 Eosinophils # 0.1 Basophils # 0.0 Nucleated Red 0.0 Blood Cells # Sodium Level 149 H Potassium Level 3.4 L Chloride Level 113 H Carbon Dioxide 30 Level Anion Gap 6 Blood Urea 38 H Nitrogen Creatinine 0.88 Est Glomerular > 60 Filtrat Rate mL/min Glucose Level 209 # Calcium Level 8.8 Phosphorus Level 3.0 Magnesium Level 2.3 Blood Gas Blood arterial Specimen Source Arterial Blood 07/27/2018 10:55:5 Date Drawn 1 AM Arterial Blood 7.455 H pH (Temp corrected) Arterial Blood 39.3 pCO2 (Temp correct) Arterial Blood 109.0 H pO2 (Temp corrected) Arterial Blood 27.0 H HCO3 Arterial Blood 3.0 Base Excess Arterial Blood 98.0 Oxygen Saturatio n Venkata Test N/A Arterial Blood Right Brachial Gas Puncture Site Arterial 0.1 Blood Carboxyhem oglobin Arterial Blood 0.2 Methemoglobin Blood Gas A-a O2 94.9 H Differential Oxyhemoglobin 97.7 Percent Blood Gas 37.0 Temperature Blood Gas 16.0 Respiration Rate Blood Gas Actual 22 Respiration Rate Blood Gas VENT - AC Modality FiO2 35.0 Blood Gas Tidal 450.0 Volume Blood Gas Low 5.0 PEEP Setting Blood Gas TM Notified Whom Blood Gas 07/27/2018 11:12:3 Notified Time 9 AM Exam/Review of Systems Exam Vitals Vital Signs Date Temp Pulse Resp B/P (MAP) Pulse Ox O2 O2 Flow FiO2 Time Delivery Rate 07/27/18 65 08:00 07/27/18 98.5 18 130/75 98 07:54 (93) 07/27/18 35 05:21 Intake and Output 07/26/18 07/26/18 07/27/18 1414:59 22:59 06:59 IntakeIntake Total 1280 ml 350 ml OutputOutput Total 500 ml BalanceBalance 780 ml 350 ml Results Results 24hrs Laboratory Tests Test 07/26/18 11:39 07/26/18 17:00 07/26/18 17:12 07/26/18 22:36 Bedside Glucose 202 223 H 175 Urine Color YELLOW Urine Clarity SLIGHTLY CLOUDY A Urine pH 7.0 Urine Specific 1.021 [place] Urine Ketones NEGATIVE Urine Nitrite NEGATIVE Urine Bilirubin NEGATIVE Urine 2+ H Urobilinogen Urine Leukocyte 2+ H Esterase Urine 145 H Microscopic RBC Urine 14 H Microscopic WBC Urine Bacteria FEW A Urine Hemoglobin 1+ H Urine Osmolality 509 Urine Random 40.81 Creatinine Urine Random 79 Sodium Urine Glucose NEGATIVE Urine Total 113.0 H Protein Test 07/27/18 08:03 07/27/18 08:40 07/27/18 10:45 Bedside Glucose 202 White Blood 5.3 Count Red Blood Count 3.25 L Hemoglobin 9.0 L Hematocrit 30.6 L Mean Corpuscular 94.2 Volume Mean Corpuscular 27.7 L Hemoglobin Mean Corpuscular 29.4 L Hemoglobin Emelia nt Red Cell 19.5 H Distribution Width Platelet Count 223 Mean Platelet 10.1 Volume Immature 0.600 H Granulocytes % Neutrophils % 64.6 Lymphocytes % 23.9 Monocytes % 8.2 Eosinophils % 2.3 Basophils % 0.4 Nucleated Red 0.0 Blood Cells % Immature 0.030 Granulocytes # Neutrophils # 3.4 Lymphocytes # 1.3 Monocytes # 0.4 Eosinophils # 0.1 Basophils # 0.0 Nucleated Red 0.0 Blood Cells # Sodium Level 149 H Potassium Level 3.4 L Chloride Level 113 H Carbon Dioxide 30 Level Anion Gap 6 Blood Urea 38 H Nitrogen Creatinine 0.88 Est Glomerular > 60 Filtrat Rate mL/min Glucose Level 209 # Calcium Level 8.8 Phosphorus Level 3.0 Magnesium Level 2.3 Blood Gas Blood arterial Specimen Source Arterial Blood 07/27/2018 10:55:5 Date Drawn 1 AM Arterial Blood 7.455 H pH (Temp corrected) Arterial Blood 39.3 pCO2 (Temp correct) Arterial Blood 109.0 H pO2 (Temp corrected) Arterial Blood 27.0 H HCO3 Arterial Blood 3.0 Base Excess Arterial Blood 98.0 Oxygen Saturatio n [place] Test N/A Arterial Blood Right Brachial Gas Puncture Site Arterial 0.1 Blood Carboxyhem oglobin Arterial Blood 0.2 Methemoglobin Blood Gas A-a O2 94.9 H Differential Oxyhemoglobin 97.7 Percent Blood Gas 37.0 Temperature Blood Gas 16.0 Respiration Rate Blood Gas Actual 22 Respiration Rate Blood Gas VENT - AC Modality FiO2 35.0 Blood Gas Tidal 450.0 Volume Blood Gas Low 5.0 PEEP Setting Blood Gas TM Notified Whom Blood Gas 07/27/2018 11:12:3 Notified Time 9 AM Medications Medication Current Medications IV Flush (NS 3 ml) 3 ml PER PROTOCOL IV ; Start 07/24/18 at 14:30 Lorazepam (Ativan) 0.5 mg Q8H PRN GTB .ANXIETY; Start 07/24/18 at 14:30 Ondansetron HCl (Zofran Inj) 4 mg Q6H PRN IV NAUSEA/VOMITING; Start 07/24/18 at 14:30 Zolpidem Tartrate (Ambien) 5 mg QHS PRN PO .INSOMNIA; Start 07/24/18 at 14:30 Acetaminophen (Tylenol Liquid) 650 mg Q4H PRN PEG MILD PAIN(1-3) OR TEMP>38C Last administered on 07/25/18at 14:44; Admin Dose 650 MG; Start 07/24/18 at 14:30 Albuterol (Proventil 0.083% (Neb)) 2.5 mg Q4 PRN NEB WHEEZING AND SOB; Start 07/24/18 at 14:30 Ascorbic Acid (Vitamin C) 500 mg DAILY PEG Last administered on 07/27/18 08:29; Admin Dose 500 MG; Start 07/25/18 at 09:00 Atorvastatin Calcium (Lipitor) 10 mg QHS GTB Last administered on 07/26/18 22:39; Admin Dose 10 MG; Start 07/24/18 at 21:00 Eye Lubricant (Refresh Plus) 2 drop Q8 BOTH EYES Last administered on 07/27/18 07:06; Admin Dose 2 DROP; Start 07/24/18 at 22:00 Digoxin (Digoxin) 0.125 mg DAILY@1300 GTB ; Start 07/25/18 at 13:00; Status Hold Ergocalciferol (Drisdol Liquid (Ped)) 50,000 units Q7D GTB ; Start 07/30/18 at 09:00 Famotidine (Pepcid) 20 mg BID GTB Last administered on 07/27/18 08:30; Admin Dose 20 MG; Start 07/24/18 at 21:00 Fluoxetine HCl (Prozac) 20 mg DAILY PEG Last administered on 07/27/18 08:30; Admin Dose 20 MG; Start 07/25/18 at 09:00 Folic Acid (Folic Acid) 1 mg DAILY GTB Last administered on 07/27/18 08:29; Admin Dose 1 MG; Start 07/25/18 at 09:00 Levetiracetam (Keppra Liquid) 750 mg BID GTB Last administered on 07/27/18 08:30; Admin Dose 750 MG; Start 07/24/18 at 21:00 Metoprolol Tartrate (Lopressor) 25 mg BID PO Last administered on 07/27/18 08:30; Admin Dose 25 MG; Start 07/24/18 at 21:00 Sodium Phosphate (Neutra-Phos) 250 mg TID PO Last administered on 07/27/18 08:29; Admin Dose 250 MG; Start 07/24/18 at 21:00 Miscellaneous Information 5 gm BID TOP ; Start 07/24/18 at 21:00; Status UNV Lacosamide (Vimpat Liq) 100 mg BID GTB Last administered on 07/27/18at 08:30; Admin Dose 100 MG; Start 07/24/18 at 21:00 Albuterol (Ventolin Hfa) 2 puff Q6H RESP THERAPY INH Last administered on 07/27/18at 09:43; Admin Dose 2 PUFF; Start 07/24/18 at 20:00 Ipratropium [place] (Atrovent Hfa) 2 puff Q6HWA RESP THERAPY INH Last administered on 07/27/18at 09:44; Admin Dose 2 PUFF; Start 07/24/18 at 20:00 Vancomycin HCl (Vanco Iv Per Pharmacy) VANCOMYCIN PER PHARMACY PER PROTOCOL XX ; Start 07/24/18 at 15:00 Piperacillin Sod/ Tazobactam Sod 100 ml @ 200 mls/hr Q8 IVPB Last administered on 07/27/18at 07:06; Admin Dose 200 MLS/HR; Start 07/24/18 at 16:00 Diagnostic Test (Pha) (Accu-Chek) 1 ea 02 XX Last administered on 07/26/18at 02:07; Admin Dose 1 EA; Start 07/25/18 at 02:00 Miscellaneous Information 1 ea NOTE XX ; Start 07/24/18 at 15:30 Glucose (Glutose) 15 gm Q15M PRN PO DECREASED GLUCOSE; Start 07/24/18 at 15:30 Glucose (Glutose) 22.5 gm Q15M PRN PO DECREASED GLUCOSE; Start 07/24/18 at 15:30 Dextrose (D50w Syringe) 25 ml Q15M PRN IV DECREASED GLUCOSE; Start 07/24/18 at 15:30 Dextrose (D50w Syringe) 50 ml Q15M PRN IV DECREASED GLUCOSE; Start 07/24/18 at 15:30 Glucagon (Glucagen) 1 mg Q15M PRN IM DECREASED GLUCOSE; Start 07/24/18 at 15:30 Glucose (Glutose) 15 gm Q15M PRN BUCCAL DECREASED GLUCOSE; Start 07/24/18 at 15:30 [facility] This patient palafox... PRN PRN XX WOUND CARE; Start 07/24/18 at 15:30 Diagnostic Test (Pha) (Accu-Chek) 1 ea 02 XX ; Start 07/26/18 at 02:00 Insulin Aspart (Novolog Insulin Pen) NOVOLOG *MODERATE* ALGORITHM WITH MEALS BEDTIME SC Last administered on 07/27/18at 08:06; Admin Dose 4 UNIT; Start 07/25/18 at 08:00 Ferric Sodium Gluconate Complex 125 mg/Sodium Chloride 100 ml @ 100 mls/hr DAILY@1300 IVPB Last administered on 07/26/18at 13:14; Admin Dose 100 MLS/HR; Start 07/26/18 at 13:00; Stop 07/28/18 at 13:59 Insulin Aspart Prota 70%/Aspart 30% (Novolog Mix (70/ 30) Flexpen) 20 unit Q12 SC Last administered on 07/27/18at 08:29; Admin Dose 20 UNIT; Start 07/26/18 at 21:00 Vancomycin HCl 250 ml @ 125 mls/hr Q24H IVPB Last administered on 07/27/18at 00:37; Admin Dose 125 MLS/HR; Start 07/26/18 at 23:00 LESLIE FLOREZ July 27, 2018 11:34
[2018-07-27] MEDS: APIXABAN 5 MG TABLET GTB SCH ×2 (12:09→21:44)
[2018-07-27] MEDS: SOD FERRIC GLUC COMPLX 125 MG in SOD CHLORIDE 0.9% 100 ML IVPB SCH (12:09)
--- NOTE | 2018-07-27 13:43 | CONS ---
Assessment/Plan Assessment/Plan Hospital Course (Demo Recall) No acute events overnight patient is noncommunicative in no distress looks comfortable, no fevers overnight WBC 5.3 no shift no bands BUN 38 creatinine 0.8 Indwelling straight back Bal All cultures negative, sputum culture grew Pseudomonas Chest x-ray on admission revealed cardiopulmonary congestion Physical examination: Chronically ill-appearing elderly male in no distress. Head atraumatic normocephalic neck is supple chest rise symmetrical breath sounds diminished bases heart: S1-S2 abdomen soft bowel sounds present. Extremities without cyanosis. Assessment: 1. Chronic respiratory failure questionable pneumonia 2. Status post hematuria with positive urinalysis, so far urine culture came back negative 3. Chronic encephalopathy 4. Diabetes 5. History of liver transplant, details unknown Plan: Patient is stable, pulmonary on case, pending repeat chest x-ray, continue antibiotics for couple more days Consultation Date/Type/Reason Admit Date/Time Jul 24, 2018 at 09:14 Initial Consult Date 07/24/18 Type of Consult id Requesting Provider: LESLIE FLOREZ Date/Time of Note DATE: 07/27/18 TIME: 13:42 Exam/Review of Systems Exam Vitals Vital Signs Date Temp Pulse Resp B/P (MAP) Pulse Ox O2 O2 Flow FiO2 Time Delivery Rate 07/27/18 58 12:00 07/27/18 98.3 19 115/68 100 11:59 (84) 07/27/18 35 05:21 Intake and Output 07/26/18 07/26/18 07/27/18 1515:00 23:00 07:00 IntakeIntake Total 1280 ml 1235 ml OutputOutput Total 500 ml 400 ml BalanceBalance 780 ml 835 ml Results Result Diagram: 07/27/18 0840 07/27/18 0840 Results 24hrs Laboratory Tests Test 07/26/18 17:00 07/26/18 17:12 07/26/18 22:36 07/27/18 08:03 Urine Color YELLOW Urine Clarity SLIGHTLY CLOUDY A Urine pH 7.0 Urine Specific 1.021 Farber Urine Ketones NEGATIVE Urine Nitrite NEGATIVE Urine Bilirubin NEGATIVE Urine 2+ H Urobilinogen Urine Leukocyte 2+ H Esterase Urine 145 H Microscopic RBC Urine 14 H Microscopic WBC Urine Bacteria FEW A Urine Hemoglobin 1+ H Urine Osmolality 509 Urine Random 40.81 Creatinine Urine Random 79 Sodium Urine Glucose NEGATIVE Urine Total 113.0 H Protein Bedside Glucose 223 H 175 202 Test 07/27/18 08:40 07/27/18 10:45 07/27/18 12:07 White Blood 5.3 Count Red Blood Count 3.25 L Hemoglobin 9.0 L Hematocrit 30.6 L Mean Corpuscular 94.2 Volume Mean Corpuscular 27.7 L Hemoglobin Mean Corpuscular 29.4 L Hemoglobin Emelia nt Red Cell 19.5 H Distribution Width Platelet Count 223 Mean Platelet 10.1 Volume Immature 0.600 H Granulocytes % Neutrophils % 64.6 Lymphocytes % 23.9 Monocytes % 8.2 Eosinophils % 2.3 Basophils % 0.4 Nucleated Red 0.0 Blood Cells % Immature 0.030 Granulocytes # Neutrophils # 3.4 Lymphocytes # 1.3 Monocytes # 0.4 Eosinophils # 0.1 Basophils # 0.0 Nucleated Red 0.0 Blood Cells # Sodium Level 149 H Potassium Level 3.4 L Chloride Level 113 H Carbon Dioxide 30 Level Anion Gap 6 Blood Urea 38 H Nitrogen Creatinine 0.88 Est Glomerular > 60 Filtrat Rate mL/min Glucose Level 209 # Calcium Level 8.8 Phosphorus Level 3.0 Magnesium Level 2.3 Blood Gas Blood arterial Specimen Source Arterial Blood 07/27/2018 10:55:5 Date Drawn 1 AM Arterial Blood 7.455 H pH (Temp corrected) Arterial Blood 39.3 pCO2 (Temp correct) Arterial Blood 109.0 H pO2 (Temp corrected) Arterial Blood 27.0 H HCO3 Arterial Blood 3.0 Base Excess Arterial Blood 98.0 Oxygen Saturatio n Venkata Test N/A Arterial Blood Right Brachial Gas Puncture Site Arterial 0.1 Blood Carboxyhem oglobin Arterial Blood 0.2 Methemoglobin Blood Gas A-a O2 94.9 H Differential Oxyhemoglobin 97.7 Percent Blood Gas 37.0 Temperature Blood Gas 16.0 Respiration Rate Blood Gas Actual 22 Respiration Rate Blood Gas VENT - AC Modality FiO2 35.0 Blood Gas Tidal 450.0 Volume Blood Gas Low 5.0 PEEP Setting Blood Gas TM Notified Whom Blood Gas 07/27/2018 11:12:3 Notified Time 9 AM Bedside Glucose 124 Medications Medication Current Medications IV Flush (NS 3 ml) 3 ml PER PROTOCOL IV ; Start 07/24/18 at 14:30 Lorazepam (Ativan) 0.5 mg Q8H PRN GTB .ANXIETY; Start 07/24/18 at 14:30 Ondansetron HCl (Zofran Inj) 4 mg Q6H PRN IV NAUSEA/VOMITING; Start 07/24/18 at 14:30 Zolpidem Tartrate (Ambien) 5 mg QHS PRN PO .INSOMNIA; Start 07/24/18 at 14:30 Acetaminophen (Tylenol Liquid) 650 mg Q4H PRN PEG MILD PAIN(1-3) OR TEMP>38C Last administered on 07/25/18 14:44; Admin Dose 650 MG; Start 07/24/18 at 14:30 Albuterol (Proventil 0.083% (Neb)) 2.5 mg Q4 PRN NEB WHEEZING AND SOB; Start 07/24/18 at 14:30 Ascorbic Acid (Vitamin C) 500 mg DAILY PEG Last administered on 07/27/18 08:29; Admin Dose 500 MG; Start 07/25/18 at 09:00 Atorvastatin Calcium (Lipitor) 10 mg QHS GTB Last administered on 07/26/18 22:39; Admin Dose 10 MG; Start 07/24/18 at 21:00 Eye Lubricant (Refresh Plus) 2 drop Q8 BOTH EYES Last administered on 07/27/18 07:06; Admin Dose 2 DROP; Start 07/24/18 at 22:00 Digoxin (Digoxin) 0.125 mg DAILY@1300 GTB ; Start 07/25/18 at 13:00; Status Hold Ergocalciferol (Drisdol Liquid (Ped)) 50,000 units Q7D GTB ; Start 07/30/18 at 09:00 Famotidine (Pepcid) 20 mg BID GTB Last administered on 07/27/18 08:30; Admin Dose 20 MG; Start 07/24/18 at 21:00 Fluoxetine HCl (Prozac) 20 mg DAILY PEG Last administered on 07/27/18 08:30; Admin Dose 20 MG; Start 07/25/18 at 09:00 Folic Acid (Folic Acid) 1 mg DAILY GTB Last administered on 07/27/18 08:29; Admin Dose 1 MG; Start 07/25/18 at 09:00 Levetiracetam (Keppra Liquid) 750 mg BID GTB Last administered on 07/27/18 08:30; Admin Dose 750 MG; Start 07/24/18 at 21:00 Metoprolol Tartrate (Lopressor) 25 mg BID PO Last administered on 07/27/18at 08:30; Admin Dose 25 MG; Start 07/24/18 at 21:00 Sodium Phosphate (Neutra-Phos) 250 mg TID PO Last administered on 07/27/18at 12:09; Admin Dose 250 MG; Start 07/24/18 at 21:00 Miscellaneous Information 5 gm BID TOP ; Start 07/24/18 at 21:00; Status UNV Lacosamide (Vimpat Liq) 100 mg BID GTB Last administered on 07/27/18at 08:30; Admin Dose 100 MG; Start 07/24/18 at 21:00 Albuterol (Ventolin Hfa) 2 puff Q6H RESP THERAPY INH Last administered on 07/27/18 09:43; Admin Dose 2 PUFF; Start 07/24/18 at 20:00 Ipratropium Greer (Atrovent Hfa) 2 puff Q6HWA RESP THERAPY INH Last administered on 07/27/18 09:44; Admin Dose 2 PUFF; Start 07/24/18 at 20:00 Piperacillin Sod/ Tazobactam Sod 100 ml @ 200 mls/hr Q8 IVPB Last administered on 07/27/18 07:06; Admin Dose 200 MLS/HR; Start 07/24/18 at 16:00 Diagnostic Test (Pha) (Accu-Chek) 1 ea 02 XX Last administered on 07/26/18at 02:07; Admin Dose 1 EA; Start 07/25/18 at 02:00 Miscellaneous Information 1 ea NOTE XX ; Start 07/24/18 at 15:30 Glucose (Glutose) 15 gm Q15M PRN PO DECREASED GLUCOSE; Start 07/24/18 at 15:30 Glucose (Glutose) 22.5 gm Q15M PRN PO DECREASED GLUCOSE; Start 07/24/18 at 15:30 Dextrose (D50w Syringe) 25 ml Q15M PRN IV DECREASED GLUCOSE; Start 07/24/18 at 15:30 Dextrose (D50w Syringe) 50 ml Q15M PRN IV DECREASED GLUCOSE; Start 07/24/18 at 15:30 Glucagon (Glucagen) 1 mg Q15M PRN IM DECREASED GLUCOSE; Start 07/24/18 at 15:30 Glucose (Glutose) 15 gm Q15M PRN BUCCAL DECREASED GLUCOSE; Start 07/24/18 at 15:30 Miscellaneous Information (Pending Santyl Order For Wound Care) This patient palafox... PRN PRN XX WOUND CARE; Start 07/24/18 at 15:30 Diagnostic Test (Pha) (Accu-Chek) 1 ea 02 XX ; Start 07/26/18 at 02:00 Insulin Aspart (Novolog Insulin Pen) NOVOLOG *MODERATE* ALGORITHM WITH MEALS BEDTIME SC Last administered on 07/27/18at 08:06; Admin Dose 4 UNIT; Start 07/25/18 at 08:00 Ferric Sodium Gluconate Complex 125 mg/Sodium Chloride 100 ml @ 100 mls/hr DAILY@1300 IVPB Last administered on 07/27/18 12:09; Admin Dose 100 MLS/HR; Start 07/26/18 at 13:00; Stop 07/28/18 at 13:59 Insulin Aspart Prota 70%/Aspart 30% (Novolog Mix (70/ 30) Flexpen) 20 unit Q12 SC Last administered on 07/27/18at 08:29; Admin Dose 20 UNIT; Start 07/26/18 at 21:00 Potassium Chloride 100 ml @ 50 mls/hr Q2H IVPB ; Start 07/27/18 at 12:00; Stop 07/27/18 at 15:59 Apixaban (Eliquis) 5 mg Q12 GTB Last administered on 07/27/18at 12:09; Admin Dose 5 MG; Start 07/27/18 at 11:30 RON MENDOZA NP July 27, 2018 13:43
[2018-07-27] MEDS: POTASSIUM CHLORIDE 100 ML IVPB SCH ×2 (14:47→17:42)
--- NOTE | 2018-07-27 16:20 | RADRPT ---
Echocardiogram Report Patient Name: SALIMA STODDARDPatient ID: [id number] : 1950 (67y 10m)Study Date: 07/25/2018 8:29:18 AM Gender: MAccession #: [id number] Tech: M Location: Ref.Physician: LESLIE FLOREZ Height(Cm): BSA: Weight(Kg): Quality: AdequateAccount #: Procedures: Echocardiographic Report: Transthoracic echocardiogram with complete 2D, M-Mode, and doppler examination. Indications: Resp distress. Measurements: 2D/M Mode Doppler Measurement Value Normal Range Measurement Value Normal Range LVIDd 2D 4.9 [ 4.2 - 5.8 ] cm AV Peak Otto 1.5 [ 100.0 - 170.0 ] cm/sec LVIDs 2D 2.7 [ 2.5 - 4.0 ] cm AV Peak PG 9.0 [ 2.0 - 9.0 ] mmHg LVPWd 2D 1.0 [ 0.6 - 1.0 ] cm LVOT Peak Otto 1.2 [ 70.0 - 110.0 ] cm/sec IVSd 2D 1.0 [ 0.6 - 1.0 ] cm LVOT Peak PG 6.0 [ 2.0 - 6.0 ] mmHg AoR Diam 2D 2.8 [ 2.6 - 3.4 ] cm MV E Peak Otto 1.0 [ 60.0 - 130.0 ] cm/sec EDV 2D 112.0 [ 62.0 - 150.0 ] ml MV Decel Time 151 [ 104 - 258 ] msec ESV 2D 26.0 [ 21.0 - 61.0 ] ml Lat E` Otto 0.1 [ 10.0 - 15.0 ] cm/sec EF 2D 76.8 [ 52.0 - 72.0 ] percent Lateral E/E` 11.0 [ 1.0 - 2.0 ] ratio LA Dimen 2D 3.7 [ 3.0 - 4.0 ] cm TR Peak Otto 2.9 [ 100.0 - 280.0 ] cm/sec TR Peak PG 33.0 mmHg RVSP 36.0 [ 10.0 - 36.0 ] mmHg RA Pressure 3.0 mmHg Findings: Left Ventricle: Normal left ventricular systolic function. Normal left ventricular cavity size. Normal left ventricular wall thickness. Ejection fraction is visually estimated at 65 %. Tissue Doppler/Mitral Doppler indices are consistent with restrictive physiology with markedly elevated left atrial pressure (Stage III-IV diastolic dysfunction). Right Ventricle: Normal right ventricular size. Normal right ventricular systolic function. Left Atrium: The left atrium is normal in size. Right Atrium: The right atrium is normal in size. Mitral Valve: Mitral valve leaflets appear mildly thickened. Mild mitral annular calcification. Mild mitral valve regurgitation. Aortic Valve: Normal appearance of the aortic valve. No significant aortic stenosis or insufficiency. Tricuspid Valve: Normal appearance of the tricuspid valve. Estimated peak PA systolic pressure 36 mmHg. There is mild tricuspid regurgitation. Pulmonic Valve: Pulmonic valve not well visualized. Pericardium: Normal pericardium with no significant pericardial effusion. Aorta: Normal aortic root. IVC: Normal IVC with respiratory collapse, however patient on ventilator. Conclusions: Normal left ventricular systolic function. Restrictive diastolic function. Mild mitral and tricuspid regurgitation with mild pulmonary hypertension. Electronically Signed By: Peri Powell 2018-07-27 16:20:20 PDT
[2018-07-27] MEDS: ATORVASTATIN 10 MG TAB GTB SCH (21:45)
[2018-07-28] VITALS (19 sets, daily range): BP systolic 124–144; BP diastolic 65–82; PULSE 55–71; RESP 14–28
[2018-07-28] MEDS: INSULIN ASP PROT/ASPART (70/30) PEN SC SCH ×2 (00:06→10:16)
[2018-07-28] MEDS: ALBUTEROL HFA 8 GM INHALER INH SCH ×3 (02:09→13:12)
[2018-07-28] MEDS: INSULIN ASPART [NOVOLOG] 3 ML PEN SC SCH ×4 (06:00→18:00)
[2018-07-28] MEDS: PIPER-TAZO 3.375 GM IV (PMX) 100 ML IVPB SCH ×2 (06:32→16:01)
[2018-07-28] MEDS: CARBOXYMETHYLCELLULOSE 0.5% 0.4 ML OPH BOTH EYES SCH ×2 (06:33→16:01)
[2018-07-28] MEDS: BALSAM PERU/CASTOR OIL 60 GM TUBE TOP SCH (09:00)
[2018-07-28] MEDS: IPRATROPIUM (HFA) 12.9 GM INHALER INH SCH ×2 (09:10→13:11)
--- NOTE | 2018-07-28 09:49 | PN ---
Date/Time of Note Date/Time of Note DATE: 07/28/18 TIME: 09:42 Assessment/Plan VTE Prophylaxis Risk score (from Ns)>0 risk: 6 SCD applied (from Ns): No SCD contraindicated: other Pharmacological prophylaxis: apixaban Lines/Catheters IV Catheter Type (from [facility]): Peripheral IV Assessment/Plan Assessment/Plan 1. Sepsis secondary to HCAP and UTI- resolving - WBC normal and remains afebrile - ID consultation appreciated and will continue on IV antibiotics for 3 more day - Pulm recommendations appreciated 2. Acute on chronic resp failure - Pulm on board for vent management - Repeat CXR shows no change 3. HCAP - Sputum cultures growing Pseudomonas - CXR shows no significant change 4. Hematuria- resolved 5. Chronic AFib with good rate control - will continue on current medications, Eliquis resumed 6. DM 2 - A1c noted - hold home PO medications - ISS and accuchecks 7. Iron deficiency anemia - received IV iron - Hgb stable and no need for transfusions at this time 8. history of craniectomy, chronic respiratory failure with hypoxia, trach eostomy, gastrostomy - stable 9. Status post liver transplant 10. hypertension - stable 11. Chronic debility with muscle wasting 12. Disposition - Once cleared by Pulm, will d/c back to SNF Result Diagram: 07/28/18 0544 07/28/18 0544 Results 24hrs Laboratory Tests Test 07/27/18 10:45 07/27/18 12:07 07/27/18 18:05 07/27/18 22:51 Blood Gas Specimen Blood arterial Source Arterial Blood 07/27/2018 10:55:51 Date Drawn AM Arterial Blood pH 7.455 H (Temp corrected) Arterial Blood 39.3 pCO2 (Temp correct) Arterial Blood pO2 109.0 H (Temp corrected) Arterial Blood 27.0 H HCO3 Arterial Blood 3.0 Base Excess Arterial Blood 98.0 Oxygen Saturation Venkata Test N/A Arterial Blood Gas Right Brachial Puncture Site Arterial 0.1 Blood Carboxyhemog lobin Arterial Blood 0.2 Methemoglobin Blood Gas A-a O2 94.9 H Differential Oxyhemoglobin 97.7 Percent Blood Gas 37.0 Temperature Blood Gas 16.0 Respiration Rate Blood Gas Actual 22 Respiration Rate Blood Gas Modality VENT - AC FiO2 35.0 Blood Gas Tidal 450.0 Volume Blood Gas Low PEEP 5.0 Setting Blood Gas Notified TM Whom Blood Gas Notified 07/27/2018 11:12:39 Time AM Bedside Glucose 124 91 128 Test 07/28/18 05:44 07/28/18 06:41 White Blood Count 4.8 Red Blood Count 3.18 L Hemoglobin 9.0 L Hematocrit 29.8 L Mean Corpuscular 93.7 Volume Mean Corpuscular 28.3 L Hemoglobin Mean Corpuscular 30.2 L Hemoglobin Concent Red Cell 19.2 H Distribution Width Platelet Count 222 Mean Platelet 10.1 Volume Immature 0.400 Granulocytes % Neutrophils % 57.7 Lymphocytes % 27.5 Monocytes % 10.9 Eosinophils % 2.9 Basophils % 0.6 Nucleated Red 0.0 Blood Cells % Immature 0.020 Granulocytes # Neutrophils # 2.8 Lymphocytes # 1.3 Monocytes # 0.5 Eosinophils # 0.1 Basophils # 0.0 Nucleated Red 0.0 Blood Cells # Sodium Level 146 H Potassium Level 4.3 Chloride Level 113 H Carbon Dioxide 28 Level Anion Gap 5 Blood Urea 37 H Nitrogen Creatinine 0.82 Est Glomerular > 60 Filtrat Rate mL/min Glucose Level 128 # Calcium Level 8.3 L Phosphorus Level 3.2 Magnesium Level 2.2 Bedside Glucose 118 Subjective 24 Hr Interval Summary Free Text/Dictation Patient complains of pain in abdominal area but per nursing seems to nod head to all questions. No further episodes of hematuria. Exam/Review of Systems Exam Vitals Vital Signs Date Temp Pulse Resp B/P (MAP) Pulse Ox O2 O2 Flow FiO2 Time Delivery Rate 07/28/18 60 17 100 35 09:13 07/28/18 98.6 131/65 07:43 (87) Intake and Output 07/27/18 07/27/18 07/28/18 1515:00 23:00 07:00 IntakeIntake Total 200 ml 1189 ml OutputOutput Total 200 ml BalanceBalance 200 ml 989 ml Exam General: Patient is in no acute distress. shaking head to questions HEENT: Atraumatic, normocephalic. The pupils are equal, round and reactive. Extraocular motor are intact Neck: Supple with full range of motion. trach in place Chest: Nontender Lungs: Diminished bilaterally. no wheezing or rhonchi appreciated Heart: Normal S1-S2, Regular rhythm and rate. No murmur, S3, or S4 Abdomen: Soft , nontender, PEG in place, nondistended , bowel sounds are pr esent. No guarding no rebound tenderness Extremities: Normal to inspection, no edema no cyanosis Skin: no rashes or lesions appreciated Results Results 24hrs Laboratory Tests Test 07/27/18 10:45 07/27/18 12:07 07/27/18 18:05 07/27/18 22:51 Blood Gas Specimen Blood arterial Source Arterial Blood 07/27/2018 10:55:51 Date Drawn AM Arterial Blood pH 7.455 H (Temp corrected) Arterial Blood 39.3 pCO2 (Temp correct) Arterial Blood pO2 109.0 H (Temp corrected) Arterial Blood 27.0 H HCO3 Arterial Blood 3.0 Base Excess Arterial Blood 98.0 Oxygen Saturation Venkata Test N/A Arterial Blood Gas Right Brachial Puncture Site Arterial 0.1 Blood Carboxyhemog lobin Arterial Blood 0.2 Methemoglobin Blood Gas A-a O2 94.9 H Differential Oxyhemoglobin 97.7 Percent Blood Gas 37.0 Temperature Blood Gas 16.0 Respiration Rate Blood Gas Actual 22 Respiration Rate Blood Gas Modality VENT - AC FiO2 35.0 Blood Gas Tidal 450.0 Volume Blood Gas Low PEEP 5.0 Setting Blood Gas Notified TM Whom Blood Gas Notified 07/27/2018 11:12:39 Time AM Bedside Glucose 124 91 128 Test 07/28/18 05:44 07/28/18 06:41 White Blood Count 4.8 Red Blood Count 3.18 L Hemoglobin 9.0 L Hematocrit 29.8 L Mean Corpuscular 93.7 Volume Mean Corpuscular 28.3 L Hemoglobin Mean Corpuscular 30.2 L Hemoglobin Concent Red Cell 19.2 H Distribution Width Platelet Count 222 Mean Platelet 10.1 Volume Immature 0.400 Granulocytes % Neutrophils % 57.7 Lymphocytes % 27.5 Monocytes % 10.9 Eosinophils % 2.9 Basophils % 0.6 Nucleated Red 0.0 Blood Cells % Immature 0.020 Granulocytes # Neutrophils # 2.8 Lymphocytes # 1.3 Monocytes # 0.5 Eosinophils # 0.1 Basophils # 0.0 Nucleated Red 0.0 Blood Cells # Sodium Level 146 H Potassium Level 4.3 Chloride Level 113 H Carbon Dioxide 28 Level Anion Gap 5 Blood Urea 37 H Nitrogen Creatinine 0.82 Est Glomerular > 60 Filtrat Rate mL/min Glucose Level 128 # Calcium Level 8.3 L Phosphorus Level 3.2 Magnesium Level 2.2 Bedside Glucose 118 Medications Medication Current Medications IV Flush (NS 3 ml) 3 ml PER PROTOCOL IV ; Start 07/24/18 at 14:30 Lorazepam (Ativan) 0.5 mg Q8H PRN GTB .ANXIETY; Start 07/24/18 at 14:30 Ondansetron HCl (Zofran Inj) 4 mg Q6H PRN IV NAUSEA/VOMITING; Start 07/24/18 at 14:30 Zolpidem Tartrate (Ambien) 5 mg QHS PRN PO .INSOMNIA; Start 07/24/18 at 14:30 Acetaminophen (Tylenol Liquid) 650 mg Q4H PRN PEG MILD PAIN(1-3) OR TEMP>38C Last administered on 07/25/18at 14:44; Admin Dose 650 MG; Start 07/24/18 at 14:30 Albuterol (Proventil 0.083% (Neb)) 2.5 mg Q4 PRN NEB WHEEZING AND SOB; Start 07/24/18 at 14:30 Ascorbic Acid (Vitamin C) 500 mg DAILY PEG Last administered on 07/27/18 08:29; Admin Dose 500 MG; Start 07/25/18 at 09:00 Atorvastatin Calcium (Lipitor) 10 mg QHS GTB Last administered on 07/27/18 21:45; Admin Dose 10 MG; Start 07/24/18 at 21:00 Eye Lubricant (Refresh Plus) 2 drop Q8 BOTH EYES Last administered on 07/28/18 06:33; Admin Dose 2 DROP; Start 07/24/18 at 22:00 Digoxin (Digoxin) 0.125 mg DAILY@1300 GTB ; Start 07/25/18 at 13:00; Status Hold Ergocalciferol (Drisdol Liquid (Ped)) 50,000 units Q7D GTB ; Start 07/30/18 at 09:00 Famotidine (Pepcid) 20 mg BID GTB Last administered on 07/27/18 21:45; Admin Dose 20 MG; Start 07/24/18 at 21:00 Fluoxetine HCl (Prozac) 20 mg DAILY PEG Last administered on 07/27/18 08:30; Admin Dose 20 MG; Start 07/25/18 at 09:00 Folic Acid (Folic Acid) 1 mg DAILY GTB Last administered on 07/27/18 08:29; Admin Dose 1 MG; Start 07/25/18 at 09:00 Levetiracetam (Keppra Liquid) 750 mg BID GTB Last administered on 07/27/18 21:44; Admin Dose 750 MG; Start 07/24/18 at 21:00 Metoprolol Tartrate (Lopressor) 25 mg BID PO Last administered on 07/27/18 21:49; Admin Dose 25 MG; Start 07/24/18 at 21:00 Sodium Phosphate (Neutra-Phos) 250 mg TID PO Last administered on 07/27/18 21:45; Admin Dose 250 MG; Start 07/24/18 at 21:00 Miscellaneous Information 5 gm BID TOP ; Start 07/24/18 at 21:00; Status UNV Lacosamide (Vimpat Liq) 100 mg BID GTB Last administered on 07/27/18 21:45; Admin Dose 100 MG; Start 07/24/18 at 21:00 Albuterol (Ventolin Hfa) 2 puff Q6H RESP THERAPY INH Last administered on 07/28/18 09:11; Admin Dose 2 PUFF; Start 07/24/18 at 20:00 Ipratropium Curtis (Atrovent Hfa) 2 puff Q6HWA RESP THERAPY INH Last administered on 07/28/18 09:10; Admin Dose 2 PUFF; Start 07/24/18 at 20:00 Piperacillin Sod/ Tazobactam Sod 100 ml @ 200 mls/hr Q8 IVPB Last administered on 07/28/18 06:32; Admin Dose 200 MLS/HR; Start 07/24/18 at 16:00 Miscellaneous Information 1 ea NOTE XX ; Start 07/24/18 at 15:30 Glucose (Glutose) 15 gm Q15M PRN PO DECREASED GLUCOSE; Start 07/24/18 at 15:30 Glucose (Glutose) 22.5 gm Q15M PRN PO DECREASED GLUCOSE; Start 07/24/18 at 15:30 Dextrose (D50w Syringe) 25 ml Q15M PRN IV DECREASED GLUCOSE; Start 07/24/18 at 15:30 Dextrose (D50w Syringe) 50 ml Q15M PRN IV DECREASED GLUCOSE; Start 07/24/18 at 15:30 Glucagon (Glucagen) 1 mg Q15M PRN IM DECREASED GLUCOSE; Start 07/24/18 at 15:30 Glucose (Glutose) 15 gm Q15M PRN BUCCAL DECREASED GLUCOSE; Start 07/24/18 at 15:30 Miscellaneous Information (Pending Santyl Order For Wound Care) This patient palafox... PRN PRN XX WOUND CARE; Start 07/24/18 at 15:30 Ferric Sodium Gluconate Complex 125 mg/Sodium Chloride 100 ml @ 100 mls/hr DAILY@1300 IVPB Last administered on 07/27/18at 12:09; Admin Dose 100 MLS/HR; Start 07/26/18 at 13:00; Stop 07/28/18 at 13:59 Insulin Aspart Prota 70%/Aspart 30% (Novolog Mix (70/ 30) Flexpen) 20 unit Q12 SC Last administered on 07/28/18at 00:06; Admin Dose 20 UNIT; Start 07/26/18 at 21:00 Apixaban (Eliquis) 5 mg Q12 GTB Last administered on 07/27/18at 21:44; Admin Dose 5 MG; Start 07/27/18 at 11:30 Insulin Aspart (Novolog Insulin Pen) NOVOLOG *MODERATE* ALGORI... Q6 SC ; Start 07/28/18 at 00:00 JANEEN HOYT MD July 28, 2018 09:49
[2018-07-28] MEDS: APIXABAN 5 MG TABLET GTB SCH (10:04)
[2018-07-28] MEDS: FAMOTIDINE 20 MG TAB GTB SCH (10:04)
[2018-07-28] MEDS: ASCORBIC ACID 500 MG TAB PEG SCH (10:04)
[2018-07-28] MEDS: NEUTRA-PHOS 250 MG PACKET PO SCH ×2 (10:04→12:57)
[2018-07-28] MEDS: FLUOXETINE 20 MG CAP PEG SCH (10:04)
[2018-07-28] MEDS: LEVETIRACETAM (100 MG/ML) 5ML CUP GTB SCH (10:04)
[2018-07-28] MEDS: FOLIC ACID 1 MG TAB GTB SCH (10:04)
[2018-07-28] MEDS: METOPROLOL 25 MG TAB PO SCH (10:05)
[2018-07-28] MEDS: LACOSAMIDE (100 MG/10 ML PO SYR) GTB SCH (10:06)
--- NOTE | 2018-07-28 10:32 | PDOCDIS ---
Discharge Instructions DIAGNOSIS Discharge Diagnosis 1. Sepsis secondary to HCAP and UTI- resolving 2. Acute on chronic resp failure 3. HCAP 4. Hematuria- resolved 5. Chronic AFib with good rate control 6. DM 2 7. Iron deficiency anemia 8. history of craniectomy, chronic respiratory failure with hypoxia, tr acheostomy, gastrostomy 9. Status post liver transplant 10. hypertension 11. Chronic debility with muscle wasting CONDITION [id number] Patient Condition: [id number] Stable HOME CARE INSTRUCTIONS: [id number] Special Diet: [id number] tube feed FOLLOW UP/APPOINTMENTS Follow-up Plan 1. Follow up with your primary care physician in 1 week 2. Continue on Zosyn 3.375 mg IV every 8 hours until 07/30/18 3. Continue all medications as prescribed 4. Your insulin was adjusted for better glucose control and will continue you on Humalin 70/30 20 units twice a day 5. If experiencing any concerning symptoms, please return to your closest emergency department JANEEN HOYT MD July 28, 2018 10:32
--- NOTE | 2018-07-28 11:00 | CONS ---
Consultation Date/Type/Reason Admit Date/Time Jul 24, 2018 at 09:14 Type of Consult SUBJECTIVE: No acute events overnight. Patient is non verbal. No acute distress. VS: stable T: 98.6 LABS: Reviewed. WBC- 4.8 Indwelling straight back Bal All cultures negative, sputum culture grew Pseudomonas Physical examination: GEN: Chronically ill-appearing elderly male in no distress. HENT: Head atraumatic normocephalic ,neck is supple PULM: chest rise symmetrical breath sounds diminished bases Heart: S1-S2 Abdomen: soft, bowel sounds present. Extremities without cyanosis. Assessment: 1. Chronic respiratory failure questionable pneumonia 2. Status post hematuria with positive urinalysis, so far urine culture came back negative 3. Chronic encephalopathy 4. Diabetes 5. History of liver transplant, details unknown Plan: Patient is stable. Pending D/C today. Continue IV Zosyn untill 07/30. D/C Deborah. Requesting Provider: LESLIE FLOREZ Date/Time of Note DATE: 07/28/18 TIME: 10:56 Exam/Review of Systems Exam Vitals Vital Signs Date Temp Pulse Resp B/P (MAP) Pulse Ox O2 O2 Flow FiO2 Time Delivery Rate 07/28/18 60 16 100 35 09:15 07/28/18 98.6 131/65 07:43 (87) Intake and Output 07/27/18 07/27/18 07/28/18 1515:00 23:00 07:00 IntakeIntake Total 200 ml 1189 ml OutputOutput Total 200 ml BalanceBalance 200 ml 989 ml Results Result Diagram: 07/28/18 0544 07/28/18 0544 Results 24hrs Laboratory Tests Test 07/27/18 12:07 07/27/18 18:05 07/27/18 22:51 07/28/18 05:44 Bedside Glucose 124 91 128 White Blood Count 4.8 Red Blood Count 3.18 L Hemoglobin 9.0 L Hematocrit 29.8 L Mean Corpuscular Volume 93.7 Mean Corpuscular 28.3 L Hemoglobin Mean Corpuscular 30.2 L Hemoglobin Concent Red Cell Distribution 19.2 H Width Platelet Count 222 Mean Platelet Volume 10.1 Immature Granulocytes % 0.400 Neutrophils % 57.7 Lymphocytes % 27.5 Monocytes % 10.9 Eosinophils % 2.9 Basophils % 0.6 Nucleated Red Blood 0.0 Cells % Immature Granulocytes # 0.020 Neutrophils # 2.8 Lymphocytes # 1.3 Monocytes # 0.5 Eosinophils # 0.1 Basophils # 0.0 Nucleated Red Blood 0.0 Cells # Sodium Level 146 H Potassium Level 4.3 Chloride Level 113 H Carbon Dioxide Level 28 Anion Gap 5 Blood Urea Nitrogen 37 H Creatinine 0.82 Est Glomerular Filtrat > 60 Rate mL/min Glucose Level 128 # Calcium Level 8.3 L Phosphorus Level 3.2 Magnesium Level 2.2 Test 07/28/18 06:41 07/28/18 10:03 Bedside Glucose 118 119 Medications Medication Current Medications IV Flush (NS 3 ml) 3 ml PER PROTOCOL IV ; Start 07/24/18 at 14:30 Lorazepam (Ativan) 0.5 mg Q8H PRN GTB .ANXIETY; Start 07/24/18 at 14:30 Ondansetron HCl (Zofran Inj) 4 mg Q6H PRN IV NAUSEA/VOMITING; Start 07/24/18 at 14:30 Zolpidem Tartrate (Ambien) 5 mg QHS PRN PO .INSOMNIA; Start 07/24/18 at 14:30 Acetaminophen (Tylenol Liquid) 650 mg Q4H PRN PEG MILD PAIN(1-3) OR TEMP>38C [place] administered on 07/25/18at 14:44; Admin Dose 650 MG; Start 07/24/18 at 14:30 Albuterol (Proventil 0.083% (Neb)) 2.5 mg Q4 PRN NEB WHEEZING AND SOB; Start 07/24/18 at 14:30 Ascorbic Acid (Vitamin C) 500 mg DAILY PEG Last administered on 07/28/18at 10:04; Admin Dose 500 MG; Start 07/25/18 at 09:00 Atorvastatin Calcium (Lipitor) 10 mg QHS GTB Last administered on 07/27/18at 21:45; Admin Dose 10 MG; Start 07/24/18 at 21:00 Eye Lubricant (Refresh Plus) 2 drop Q8 BOTH EYES Last administered on 07/28/18at 06:33; Admin Dose 2 DROP; Start 07/24/18 at 22:00 Digoxin (Digoxin) 0.125 mg DAILY@1300 GTB ; Start 07/25/18 at 13:00; Status Hold Ergocalciferol (Drisdol Liquid (Ped)) 50,000 units Q7D GTB ; Start 07/30/18 at 09:00 Famotidine (Pepcid) 20 mg BID GTB Last administered on 07/28/18 10:04; Admin Dose 20 MG; Start 07/24/18 at 21:00 Fluoxetine HCl (Prozac) 20 mg DAILY PEG Last administered on 07/28/18 10:04; Admin Dose 20 MG; Start 07/25/18 at 09:00 Folic Acid (Folic Acid) 1 mg DAILY GTB Last administered on 07/28/18 10:04; Admin Dose 1 MG; Start 07/25/18 at 09:00 Levetiracetam (Keppra Liquid) 750 mg BID GTB Last administered on 07/28/18 10:04; Admin Dose 750 MG; Start 07/24/18 at 21:00 Metoprolol Tartrate (Lopressor) 25 mg BID PO Last administered on 07/28/18 10:05; Admin Dose 25 MG; Start 07/24/18 at 21:00 Sodium Phosphate (Neutra-Phos) 250 mg TID PO Last administered on 07/28/18 10:04; Admin Dose 250 MG; Start 07/24/18 at 21:00 Miscellaneous Information 5 gm BID TOP ; Start 07/24/18 at 21:00; Status UNV Lacosamide (Vimpat Liq) 100 mg BID GTB Last administered on 07/28/18 10:06; A dmin Dose 100 MG; Start 07/24/18 at 21:00 Albuterol (Ventolin Hfa) 2 puff Q6H RESP THERAPY INH Last administered on 07/28/18 09:11; Admin Dose 2 PUFF; Start 07/24/18 at 20:00 Ipratropium [place] (Atrovent Hfa) 2 puff Q6HWA RESP THERAPY INH Last administered on 07/28/18 09:10; Admin Dose 2 PUFF; Start 07/24/18 at 20:00 Piperacillin Sod/ Tazobactam Sod 100 ml @ 200 mls/hr Q8 IVPB Last administered on 07/28/18 06:32; Admin Dose 200 MLS/HR; Start 07/24/18 at 16:00 Miscellaneous Information 1 ea NOTE XX ; Start 07/24/18 at 15:30 Glucose (Glutose) 15 gm Q15M PRN PO DECREASED GLUCOSE; Start 07/24/18 at 15:30 Glucose (Glutose) 22.5 gm Q15M PRN PO DECREASED GLUCOSE; Start 07/24/18 at 15:30 Dextrose (D50w Syringe) 25 ml Q15M PRN IV DECREASED GLUCOSE; Start 07/24/18 at 15:30 Dextrose (D50w Syringe) 50 ml Q15M PRN IV DECREASED GLUCOSE; Start 07/24/18 at 15:30 Glucagon (Glucagen) 1 mg Q15M PRN IM DECREASED GLUCOSE; Start 07/24/18 at 15:30 Glucose (Glutose) 15 gm Q15M PRN BUCCAL DECREASED GLUCOSE; Start 07/24/18 at 15:30 Miscellaneous Information [facility] This patient palafox... PRN PRN XX WOUND CARE; Start 07/24/18 at 15:30 Ferric Sodium Gluconate Complex 125 mg/Sodium Chloride 100 ml @ 100 mls/hr DAILY@1300 IVPB Last administered on 07/27/18at 12:09; Admin Dose 100 MLS/HR; Start 07/26/18 at 13:00; Stop 07/28/18 at 13:59 Insulin Aspart Prota 70%/Aspart 30% (Novolog Mix (70/ 30) Flexpen) 20 unit Q12 SC Last administered on 07/28/18at 10:16; Admin Dose 20 UNIT; Start 07/26/18 at 21:00 Apixaban (Eliquis) 5 mg Q12 GTB Last administered on 07/28/18at 10:04; Admin Dose 5 MG; Start 07/27/18 at 11:30 Insulin Aspart (Novolog Insulin Pen) NOVOLOG *MODERATE* ALGORI... Q6 SC ; Start 07/28/18 at 00:00 TJEAL CALLEJAS July 28, 2018 11:00
--- NOTE | 2018-07-28 11:48 | CONS ---
Assessment/Plan Assessment/Plan Hospital Course (Demo Recall) 1. Hypernatremia. Etiology is likely due to insensible losses, decreased free water intake. Low suspicion for diabetes insipidus. The patient's urine osmolarity was reviewed. The patient's free water flushes have been intensified. Follow up sodium levels. 2. Chronic kidney disease stage III. The patient's renal function is currently stable, appears to be at baseline. Continue current treatment plan, supportive care, renally dose all medicines. 3. Volume overload, possible heart failure. Continue current medical management. Continue intermittent diuretic therapy as needed. 4. Anemia. Continue to monitor hemoglobin and hematocrit levels. 5. Hematuria. Etiology is unclear. Questionable Bal trauma, questionable coagulopathy. Continue to monitor. Follow up with urology. 6. Mineral bone disorder, monitor calcium and phosphorus levels. 7. Sepsis secondary to healthcare-associated pneumonia, and urinary tract infection. Continue current antibiotic regimen. 8. Ventilator-dependent respiratory failure. Vent settings have been reviewed. Continue to monitor. Followup with pulmonary. 9. Dysphagia. Continue tube feeding. 10. Chronic atrial fibrillation. Continue medical management. 11. Diabetes. Continue current insulin regimen. 12. History of liver transplant. 13. Hypertension. Continue current blood pressure regimen. 14. Dyslipidemia. Continue statin therapy. 15. Seizure disorder. Continue current medical management. Consultation Date/Type/Reason Admit Date/Time Jul 24, 2018 at 09:14 Initial Consult Date 07/24/18 Requesting Provider: LESLIE FLOREZ Date/Time of Note DATE: 07/28/18 TIME: 11:47 24 HR Interval Summary Free Text/Dictation tolerating tf with free water flushes dw rn gen nad cv rrr pulm ctab abd soft, nd, nt +bs ext: no edema Exam/Review of Systems Exam Vitals Vital Signs Date Temp Pulse Resp B/P (MAP) Pulse Ox O2 O2 Flow FiO2 Time Delivery Rate 07/28/18 79 28 35 11:20 07/28/18 100 09:15 07/28/18 98.6 131/65 07:43 (87) Intake and Output 07/27/18 07/27/18 07/28/18 1515:00 23:00 07:00 IntakeIntake Total 200 ml 1189 ml OutputOutput Total 200 ml BalanceBalance 200 ml 989 ml Results Result Diagram: 07/28/18 0544 07/28/18 0544 Results 24hrs Laboratory Tests Test 07/27/18 12:07 07/27/18 18:05 07/27/18 22:51 07/28/18 05:44 Bedside Glucose 124 91 128 White Blood Count 4.8 Red Blood Count 3.18 L Hemoglobin 9.0 L Hematocrit 29.8 L Mean Corpuscular Volume 93.7 Mean Corpuscular 28.3 L Hemoglobin Mean Corpuscular 30.2 L Hemoglobin Concent Red Cell Distribution 19.2 H Width Platelet Count 222 Mean Platelet Volume 10.1 Immature Granulocytes % 0.400 Neutrophils % 57.7 Lymphocytes % 27.5 Monocytes % 10.9 Eosinophils % 2.9 Basophils % 0.6 Nucleated Red Blood 0.0 Cells % Immature Granulocytes # 0.020 Neutrophils # 2.8 Lymphocytes # 1.3 Monocytes # 0.5 Eosinophils # 0.1 Basophils # 0.0 Nucleated Red Blood 0.0 Cells # Sodium Level 146 H Potassium Level 4.3 Chloride Level 113 H Carbon Dioxide Level 28 Anion Gap 5 Blood Urea Nitrogen 37 H Creatinine 0.82 Est Glomerular Filtrat > 60 Rate mL/min Glucose Level 128 # Calcium Level 8.3 L Phosphorus Level 3.2 Magnesium Level 2.2 Test 07/28/18 06:41 07/28/18 10:03 Bedside Glucose 118 119 Medications Medication Current Medications IV Flush (NS 3 ml) 3 ml PER PROTOCOL IV ; Start 07/24/18 at 14:30 Lorazepam (Ativan) 0.5 mg Q8H PRN GTB .ANXIETY; Start 07/24/18 at 14:30 Ondansetron HCl (Zofran Inj) 4 mg Q6H PRN IV NAUSEA/VOMITING; Start 07/24/18 at 14:30 Zolpidem Tartrate (Ambien) 5 mg QHS PRN PO .INSOMNIA; Start 07/24/18 at 14:30 Acetaminophen (Tylenol Liquid) 650 mg Q4H PRN PEG MILD PAIN(1-3) OR TEMP>38C Last administered on 07/25/18at 14:44; Admin Dose 650 MG; Start 07/24/18 at 14:30 Albuterol (Proventil 0.083% (Neb)) 2.5 mg Q4 PRN NEB WHEEZING AND SOB; Start 07/24/18 at 14:30 Ascorbic Acid (Vitamin C) 500 mg DAILY PEG Last administered on 07/28/18 10:04; Admin Dose 500 MG; Start 07/25/18 at 09:00 Atorvastatin Calcium (Lipitor) 10 mg QHS GTB Last administered on 07/27/18 21:45; Admin Dose 10 MG; Start 07/24/18 at 21:00 Eye Lubricant (Refresh Plus) 2 drop Q8 BOTH EYES Last administered on 07/28/18 06:33; Admin Dose 2 DROP; Start 07/24/18 at 22:00 Digoxin (Digoxin) 0.125 mg DAILY@1300 GTB ; Start 07/25/18 at 13:00; Status Hold Ergocalciferol (Drisdol Liquid (Ped)) 50,000 units Q7D GTB ; Start 07/30/18 at 09:00 Famotidine (Pepcid) 20 mg BID GTB Last administered on 07/28/18 10:04; Admin Dose 20 MG; Start 07/24/18 at 21:00 Fluoxetine HCl (Prozac) 20 mg DAILY PEG Last administered on 07/28/18 10:04; Admin Dose 20 MG; Start 07/25/18 at 09:00 Folic Acid (Folic Acid) 1 mg DAILY GTB Last administered on 07/28/18 10:04; Admin Dose 1 MG; Start 07/25/18 at 09:00 Levetiracetam (Keppra Liquid) 750 mg BID GTB Last administered on 07/28/18 10:04; Admin Dose 750 MG; Start 07/24/18 at 21:00 Metoprolol Tartrate (Lopressor) 25 mg BID PO Last administered on 07/28/18 10:05; Admin Dose 25 MG; Start 07/24/18 at 21:00 Sodium Phosphate (Neutra-Phos) 250 mg TID PO Last administered on 07/28/18 10:04; Admin Dose 250 MG; Start 07/24/18 at 21:00 Miscellaneous Information 5 gm BID TOP ; Start 07/24/18 at 21:00; Status UNV Lacosamide (Vimpat Liq) 100 mg BID GTB Last administered on 07/28/18 10:06; Admin Dose 100 MG; Start 07/24/18 at 21:00 Albuterol (Ventolin Hfa) 2 puff Q6H RESP THERAPY INH Last administered on 07/28/18at 09:11; Admin Dose 2 PUFF; Start 07/24/18 at 20:00 Ipratropium [place] (Atrovent Hfa) 2 puff Q6HWA RESP THERAPY INH Last administered on 07/28/18at 09:10; Admin Dose 2 PUFF; Start 07/24/18 at 20:00 Piperacillin Sod/ Tazobactam Sod 100 ml @ 200 mls/hr Q8 IVPB Last administered on 07/28/18at 06:32; Admin Dose 200 MLS/HR; Start 07/24/18 at 16:00 Miscellaneous Information 1 ea NOTE XX ; Start 07/24/18 at 15:30 Glucose (Glutose) 15 gm Q15M PRN PO DECREASED GLUCOSE; Start 07/24/18 at 15:30 Glucose (Glutose) 22.5 gm Q15M PRN PO DECREASED GLUCOSE; Start 07/24/18 at 15:30 Dextrose (D50w Syringe) 25 ml Q15M PRN IV DECREASED GLUCOSE; Start 07/24/18 at 15:30 Dextrose (D50w Syringe) 50 ml Q15M PRN IV DECREASED GLUCOSE; Start 07/24/18 at 15:30 Glucagon (Glucagen) 1 mg Q15M PRN IM DECREASED GLUCOSE; Start 07/24/18 at 15:30 Glucose (Glutose) 15 gm Q15M PRN BUCCAL DECREASED GLUCOSE; Start 07/24/18 at 15:30 Miscellaneous Information (Pending [facility] Order For Wound Care) This patient palafox... PRN PRN XX WOUND CARE; Start 07/24/18 at 15:30 Ferric Sodium Gluconate Complex 125 mg/Sodium Chloride 100 ml @ 100 mls/hr DAILY@1300 IVPB Last administered on 07/27/18at 12:09; Admin Dose 100 MLS/HR; Start 07/26/18 at 13:00; Stop 07/28/18 at 13:59 Insulin Aspart Prota 70%/Aspart 30% (Novolog Mix (70/ 30) Flexpen) 20 unit Q12 SC Last administered on 07/28/18at 10:16; Admin Dose 20 UNIT; Start 07/26/18 at 21:00 Apixaban (Eliquis) 5 mg Q12 GTB Last administered on 07/28/18at 10:04; Admin Dose 5 MG; Start 07/27/18 at 11:30 Insulin Aspart (Novolog Insulin Pen) NOVOLOG *MODERATE* ALGORI... Q6 SC ; Start 07/28/18 at 00:00 BLAIRE REYES MD July 28, 2018 11:48
[2018-07-28] MEDS: SOD FERRIC GLUC COMPLX 125 MG in SOD CHLORIDE 0.9% 100 ML IVPB SCH (12:58)
--- NOTE | 2018-07-28 13:40 | DS ---
Date/Time of Note Date/Time of Note DATE: 07/28/18 TIME: 13:18 Discharge Summary Admission/Discharge Info Admit Date/Time Jul 24, 2018 at 09:14 Discharge Date/Time 07/28/18 Discharge Diagnosis 1. Sepsis secondary to HCAP and UTI- resolving 2. Acute on chronic resp failure 3. HCAP 4. Hematuria- resolved 5. Chronic AFib with good rate control 6. DM 2 7. Iron deficiency anemia 8. history of craniectomy, chronic respiratory failure with hypoxia, tracheostomy, gastrostomy 9. Status post liver transplant 10. hypertension 11. Chronic debility with muscle wasting Patient Condition: Stable Consults Pulmonology- Dr. Stringer Infectious disease- Dr. Angelo Nephrology- Dr. Shay Urology- Dr. Victoria Hx of Present Illness 82-year-old male who was transferred to us from [facility] due to insurance reasons for evaluation of hematuria. [facility], and is on chronic ventilator support with via tracheostomy. He was sent from the [facility] because of worsening respiratory distress and hematuria. By chart review the patient is also on Eliquis but this has been on hold. From chart review patient has a history of craniectomy, chronic respiratory failure with hypoxia, tracheostomy, gastrostomy, chronic atrial fibrillation, type 2 diabetes mellitus, chronic anemia, status post liver transplant for which indication is not documented, hypertension, dyslipidemia, chronic kidney disease. Hospital Course Patient was admitted for evaluation of hematuria and Urology was consulted. Patients Eliquis was held given acute bleeding and urine cleared. Pulmonology was consulted as well for vent management given patient has chronic respiratory failure and is trach to vent. Infectious disease was consulted for antibiotic management. Patients sputum cultures grew pseudomonas and recommendations for completion of 1 week course of IV antibiotics made. Patients overall condition improved during course of hospitalization and presenting symptom of hematuria resolved. Patients was placed back on Eliquis with no further hematuria noted. Patients physical exam and vitals remained stable. He was discharged back to [facility] in stable condition. Zosyn will be continued until 07/30/18. Home Meds Reported Medications Miscellaneous* PUMP (Miscellaneous* PUMP) 1 Each Pump.resvr, 0.5 MG INH Q4, EA 06/15/18 Ipratropium-Albuterol (Ipratropium-Albuterol) 0.5-3 Mg/3 Ml Ampul.neb, 3 ML INHALATION Q6, #30 VIAL 06/15/18 Ipratropium [place]* (Atrovent HFA*) 12.9 Gm Aer.w.adap, 2 PUFF INHALATION Q4H for SHORTNESS OF BREATH, #1 INHALER 06/15/18 Insulin Human Nph (Novolin-N) 100 Units/Ml Susp, 14 SQ QHS 06/15/18 Digoxin* (Lanoxin*) 0.125 Mg Tablet, 0.125 MG GTB DAILY, TAB 06/15/18 Sodium Phosphate* (Phos-Nak*) 250 Mg/Pkt Soln, 250 MG PO TID, PACKET 06/15/18 Insulin Aspart* (Novolog Insulin Pen*) 100 Unit/Ml Soln, 0 SC .SLIDING SCALE Q6, EA 06/15/18 Balsam [place] Oil (Venelex Ointment Packet) 5 Gm Oint.pack, 5 GM TOP BID, PACKET 06/15/18 Lacosamide (Vimpat) 100 Mg Tablet, 100 MG GTB BID, TAB 06/15/18 Famotidine* (Famotidine*) 20 Mg Tablet, 20 MG GTB BID, #60 TAB 06/15/18 Diphenhydramine Hcl* (Diphenhydramine Hcl*) 12.5 Mg/5 Ml Elixir, 12.5 MG GTB Q6H PRN for ITCHING, ML 06/15/18 Folic Acid* (Folic Acid*) 1 Mg Tablet, 1 MG GTB DAILY, TAB 06/15/18 Levetiracetam* (Levetiracetam*) 500 Mg/5 Ml Solution, 750 MG GTB BID, ML 06/15/18 Atorvastatin Calcium (Atorvastatin Calcium) 10 Mg Tablet, 10 MG GTB QHS, #30 TAB 06/15/18 Fluoxetine Hcl* (Fluoxetine Hcl*) 20 Mg Capsule, 20 MG G-TUBE DAILY, CAP 06/15/18 Ascorbic Acid* (Vitamin C*) 500 Mg Capsule.sa, 500 MG G-TUBE DAILY, CAP 06/15/18 Albuterol Sulfate* (Albuterol Sulfate* Neb) 0.083%-3 Ml Neb, 2.5 MG NEB Q4 PRN for WHEEZING AND SOB, #30 VIAL 06/15/18 Ergocalciferol (Vitamin D2) (VITAMIN D2) 50,000 Unit Capsule, 77536 UNIT PO QMonday, CAP 06/15/18 Apixaban* (Eliquis*) 5 Mg Tablet, 5 MG GTB Q12, TAB 06/15/18 Carboxymethylcellulose Sodium* (Refresh Tears*) 15 Ml Drops, 2 DROP BOTH EYES Q8, #1 EA 06/15/18 Chlorpromazine Hcl* (Chlorpromazine Hcl*) 25 Mg Tablet, 25 MG GTB QHS, TAB 06/15/18 Acetaminophen* (Acetaminophen* Susp) 325 Mg/10.15 Ml Solution, 650 MG G-TUBE Q4H PRN for PAIN OR TEMP ABOVE 38C, ML 06/15/18 Metoprolol Tartrate* (Lopressor* Inj) 5 Mg/5 Ml Soln, 5 MG IV Q4 for HR > 130, VIAL 06/15/18 Metoprolol Tartrate* (Lopressor*) 25 Mg Tab, 25 MG PO BID, #60 TAB 06/15/18 Follow-up Plan 1. Follow up with your primary care physician in 1 week 2. Continue on Zosyn 3.375 mg IV every 8 hours until 07/30/18 3. Continue all medications as prescribed 4. Your insulin was adjusted for better glucose control and will continue you on Humalin 70/30 20 units twice a day 5. If experiencing any concerning symptoms, please return to your closest emergency department Primary Care Provider Breanna Morris Time spent on discharge: > 30 minutes Pending Labs Laboratory Tests Test 07/27/18 18:05 07/27/18 22:51 07/28/18 05:44 07/28/18 06:41 Bedside 91 128 118 Glucose mg/dL (70-220) mg/dL (70-220) mg/dL (70-220) White Blood 4.8 Count 10^3/ul (4.8-1 0.8) Red Blood 3.18 Count 10^6/ul (4.70- 6.10) Hemoglobin 9.0 g/dl (14.0-18. 0) Hematocrit 29.8 % (42.0-52.0) Mean 93.7 Corpuscular fl (82.0-101.0 Volume ) Mean 28.3 Corpuscular pg (29.0-33.0) Hemoglobin Mean 30.2 Corpuscular g/dl (32.0-37. Hemoglobin Conc 0) ent Red Cell 19.2 Distribution % (11.5-14.5) Width Platelet Count 222 10^3/UL (140-4 15) Mean Platelet 10.1 Volume fl (7.4-10.4) Immature 0.400 Granulocytes % % (0.001-0.429 ) Neutrophils % 57.7 % (39.0-77.0) Lymphocytes % 27.5 % (15.0-51.0) Monocytes % 10.9 % (0.0-11.0) Eosinophils % 2.9 % (0.0-7.0) Basophils % 0.6 % (0.0-2.0) Nucleated Red 0.0 Blood Cells % /100WBC (0.0-0 .0) Immature 0.020 Granulocytes # 10^3/ul (0.0-0 .031) Neutrophils # 2.8 10^3/ul (1.6-7 .5) Lymphocytes # 1.3 10^3/ul (0.8-2 .9) Monocytes # 0.5 10^3/ul (0.3-0 .9) Eosinophils # 0.1 10^3/ul (0.0-0 .5) Basophils # 0.0 10^3/ul (0.0-0 .1) Nucleated Red 0.0 Blood Cells # 10^3/ul (0.0-0 .0) Sodium Level 146 mmol/L (135-14 4) Potassium 4.3 Level mmol/L (3.5-5. 1) Chloride Level 113 mmol/L (97-110 ) Carbon Dioxide 28 Level mmol/L (21-31) Anion Gap 5 (5-13) Blood Urea 37 Nitrogen mg/dl (7-20) Creatinine 0.82 mg/dl (0.61-1. 24) Est Glomerular > 60 Filtrat mL/min (>60) Rate mL/min Glucose Level 128 mg/dl (70-220) Calcium Level 8.3 mg/dl (8.4-10. 2) Phosphorus 3.2 Level mg/dl (2.5-4.9 ) Magnesium 2.2 Level mg/dl (1.7-2.5 ) Test 07/28/18 10:03 07/28/18 12:57 Bedside 119 111 Glucose mg/dL (70-220) mg/dL (70-220) JANEEN HOYT MD July 28, 2018 13:39
--- NOTE | 2018-07-28 14:44 | CONS ---
Consult Date/Type/Reason Admit Date/Time Jul 24, 2018 at 09:14 Initial Consult Date 07/24/18 Type of Consultation: Pulm Requesting Provider: LESLIE FLOREZ Date/Time of Note DATE: 07/28/18 TIME: 14:43 Subjective No events overnight. Stable on the vent. Objective Vitals Vital Signs Date Temp Pulse Resp B/P (MAP) Pulse Ox O2 O2 Flow FiO2 Time Delivery Rate 07/28/18 76 21 35 13:14 07/28/18 98 13:10 07/28/18 97.9 124/74 11:47 (91) Intake and Output 07/27/18 07/27/18 07/28/18 1515:00 23:00 07:00 IntakeIntake Total 200 ml 1189 ml OutputOutput Total 200 ml BalanceBalance 200 ml 989 ml Exam NECK: Tracheostomy site clean and intact. CARDIAC: S1, S2. No added sounds or murmurs. CHEST: Diminished air entry bilaterally. ABDOMEN: Soft, nontender. No guarding or rebound. EXTREMITIES: No cyanosis, clubbing, 1+ edema. NEUROLOGIC: Generalized weakness. Results/Medications Result Diagram: 07/28/18 0544 07/28/18 0544 Results 24 hrs Laboratory Tests Test 07/27/18 18:05 07/27/18 22:51 07/28/18 05:44 07/28/18 06:41 Bedside Glucose 91 128 118 White Blood Count 4.8 Red Blood Count 3.18 L Hemoglobin 9.0 L Hematocrit 29.8 L Mean Corpuscular Volume 93.7 Mean Corpuscular 28.3 L Hemoglobin Mean Corpuscular 30.2 L Hemoglobin Concent Red Cell Distribution 19.2 H Width Platelet Count 222 Mean Platelet Volume 10.1 Immature Granulocytes % 0.400 Neutrophils % 57.7 Lymphocytes % 27.5 Monocytes % 10.9 Eosinophils % 2.9 Basophils % 0.6 Nucleated Red Blood 0.0 Cells % Immature Granulocytes # 0.020 Neutrophils # 2.8 Lymphocytes # 1.3 Monocytes # 0.5 Eosinophils # 0.1 Basophils # 0.0 Nucleated Red Blood 0.0 Cells # Sodium Level 146 H Potassium Level 4.3 Chloride Level 113 H Carbon Dioxide Level 28 Anion Gap 5 Blood Urea Nitrogen 37 H Creatinine 0.82 Est Glomerular Filtrat > 60 Rate mL/min Glucose Level 128 # Calcium Level 8.3 L Phosphorus Level 3.2 Magnesium Level 2.2 Test 07/28/18 10:03 07/28/18 12:57 Bedside Glucose 119 111 Home Meds Reported Medications Miscellaneous* PUMP (Miscellaneous* PUMP) 1 Each Pump.resvr, 0.5 MG INH Q4, EA 06/15/18 Ipratropium-Albuterol (Ipratropium-Albuterol) 0.5-3 Mg/3 Ml Ampul.neb, 3 ML INHALATION Q6, #30 VIAL 06/15/18 Ipratropium [place]* (Atrovent HFA*) 12.9 Gm Aer.w.adap, 2 PUFF INHALATION Q4H for SHORTNESS OF BREATH, #1 INHALER 06/15/18 Insulin Human Nph (Novolin-N) 100 Units/Ml Susp, 14 SQ QHS 06/15/18 Digoxin* (Lanoxin*) 0.125 Mg Tablet, 0.125 MG GTB DAILY, TAB 06/15/18 Sodium Phosphate* (Phos-Nak*) 250 Mg/Pkt Soln, 250 MG PO TID, PACKET 06/15/18 Insulin Aspart* (Novolog Insulin Pen*) 100 Unit/Ml Soln, 0 SC .SLIDING SCALE Q6, EA 06/15/18 Balsam Joseph/[place] Oil (Venelex Ointment Packet) 5 Gm Oint.pack, 5 GM TOP BID, PACKET 06/15/18 Lacosamide (Vimpat) 100 Mg Tablet, 100 MG GTB BID, TAB 06/15/18 Famotidine* (Famotidine*) 20 Mg Tablet, 20 MG GTB BID, #60 TAB 06/15/18 Diphenhydramine Hcl* (Diphenhydramine Hcl*) 12.5 Mg/5 Ml Elixir, 12.5 MG GTB Q6H PRN for ITCHING, ML 06/15/18 Folic Acid* (Folic Acid*) 1 Mg Tablet, 1 MG GTB DAILY, TAB 06/15/18 Levetiracetam* (Levetiracetam*) 500 Mg/5 Ml Solution, 750 MG GTB BID, ML 06/15/18 Atorvastatin Calcium (Atorvastatin Calcium) 10 Mg Tablet, 10 MG GTB QHS, #30 TAB 06/15/18 Fluoxetine Hcl* (Fluoxetine Hcl*) 20 Mg Capsule, 20 MG G-TUBE DAILY, CAP 06/15/18 Ascorbic Acid* (Vitamin C*) 500 Mg Capsule.sa, 500 MG G-TUBE DAILY, CAP 06/15/18 Albuterol Sulfate* (Albuterol Sulfate* Neb) 0.083%-3 Ml Neb, 2.5 MG NEB Q4 PRN for WHEEZING AND SOB, #30 VIAL 06/15/18 Ergocalciferol (Vitamin D2) (VITAMIN D2) 50,000 Unit Capsule, 08358 UNIT PO QMonday, CAP 06/15/18 Apixaban* (Eliquis*) 5 Mg Tablet, 5 MG GTB Q12, TAB 06/15/18 Carboxymethylcellulose Sodium* (Refresh Tears*) 15 Ml Drops, 2 DROP BOTH EYES Q8, #1 EA 06/15/18 Chlorpromazine Hcl* (Chlorpromazine Hcl*) 25 Mg Tablet, 25 MG GTB QHS, TAB 06/15/18 Acetaminophen* (Acetaminophen* Susp) 325 Mg/10.15 Ml Solution, 650 MG G-TUBE Q4H PRN for PAIN OR TEMP ABOVE 38C, ML 06/15/18 Metoprolol Tartrate* (Lopressor* Inj) 5 Mg/5 Ml Soln, 5 MG IV Q4 for HR > 130, VIAL 06/15/18 Metoprolol Tartrate* (Lopressor*) 25 Mg Tab, 25 MG PO BID, #60 TAB 06/15/18 Medications Current Medications IV Flush (NS 3 ml) 3 ml PER PROTOCOL IV ; Start 07/24/18 at 14:30 Lorazepam (Ativan) 0.5 mg Q8H PRN GTB .ANXIETY; Start 07/24/18 at 14:30 Ondansetron HCl (Zofran Inj) 4 mg Q6H PRN IV NAUSEA/VOMITING; Start 07/24/18 at 14:30 Zolpidem Tartrate (Ambien) 5 mg QHS PRN PO .INSOMNIA; Start 07/24/18 at 14:30 Acetaminophen (Tylenol Liquid) 650 mg Q4H PRN PEG MILD PAIN(1-3) OR TEMP>38C Last administered on 07/25/18at 14:44; Admin Dose 650 MG; Start 07/24/18 at 14:30 Albuterol (Proventil 0.083% (Neb)) 2.5 mg Q4 PRN NEB WHEEZING AND SOB; Start 07/24/18 at 14:30 Ascorbic Acid (Vitamin C) 500 mg DAILY PEG Last administered on 07/28/18 10:04; Admin Dose 500 MG; Start 07/25/18 at 09:00 Atorvastatin Calcium (Lipitor) 10 mg QHS GTB Last administered on 07/27/18 21:45; Admin Dose 10 MG; Start 07/24/18 at 21:00 Eye Lubricant (Refresh Plus) 2 drop Q8 BOTH EYES Last administered on 07/28/18 06:33; Admin Dose 2 DROP; Start 07/24/18 at 22:00 Digoxin (Digoxin) 0.125 mg DAILY@1300 GTB ; Start 07/25/18 at 13:00; Status Hold Ergocalciferol (Drisdol Liquid (Ped)) 50,000 units Q7D GTB ; Start 07/30/18 at 09:00 Famotidine (Pepcid) 20 mg BID GTB Last administered on 07/28/18 10:04; Admin Dose 20 MG; Start 07/24/18 at 21:00 Fluoxetine HCl (Prozac) 20 mg DAILY PEG Last administered on 07/28/18 10:04; Admin Dose 20 MG; Start 07/25/18 at 09:00 Folic Acid (Folic Acid) 1 mg DAILY GTB Last administered on 07/28/18 10:04; Admin Dose 1 MG; Start 07/25/18 at 09:00 Levetiracetam (Keppra Liquid) 750 mg BID GTB Last administered on 07/28/18 10:04; Admin Dose 750 MG; Start 07/24/18 at 21:00 Metoprolol Tartrate (Lopressor) 25 mg BID PO Last administered on 07/28/18 10:05; Admin Dose 25 MG; Start 07/24/18 at 21:00 Sodium Phosphate (Neutra-Phos) 250 mg TID PO Last administered on 07/28/18 12:57; Admin Dose 250 MG; Start 07/24/18 at 21:00 Miscellaneous Information 5 gm BID TOP ; Start 07/24/18 at 21:00; Status UNV Lacosamide (Vimpat Liq) 100 mg BID GTB Last administered on 07/28/18 10:06; Admin Dose 100 MG; Start 07/24/18 at 21:00 Albuterol (Ventolin Hfa) 2 puff Q6H RESP THERAPY INH Last administered on 07/28/18 13:12; Admin Dose 2 PUFF; Start 07/24/18 at 20:00 Ipratropium [place] (Atrovent Hfa) 2 puff Q6HWA RESP THERAPY INH Last administered on 07/28/18 13:11; Admin Dose 2 PUFF; Start 07/24/18 at 20:00 Piperacillin Sod/ Tazobactam Sod 100 ml @ 200 mls/hr Q8 IVPB Last administered on 07/28/18 06:32; Admin Dose 200 MLS/HR; Start 07/24/18 at 16:00 Miscellaneous Information 1 ea NOTE XX ; Start 07/24/18 at 15:30 Glucose (Glutose) 15 gm Q15M PRN PO DECREASED GLUCOSE; Start 07/24/18 at 15:30 Glucose (Glutose) 22.5 gm Q15M PRN PO DECREASED GLUCOSE; Start 07/24/18 at 15:30 Dextrose (D50w Syringe) 25 ml Q15M PRN IV DECREASED GLUCOSE; Start 07/24/18 at 15:30 Dextrose (D50w Syringe) 50 ml Q15M PRN IV DECREASED GLUCOSE; Start 07/24/18 at 15:30 Glucagon (Glucagen) 1 mg Q15M PRN IM DECREASED GLUCOSE; Start 07/24/18 at 15:30 Glucose (Glutose) 15 gm Q15M PRN BUCCAL DECREASED GLUCOSE; Start 07/24/18 at 15:30 Miscellaneous Information (Pending [facility] Order For Wound Care) This patient palafox... PRN PRN XX WOUND CARE; Start 07/24/18 at 15:30 Insulin Aspart Prota 70%/Aspart 30% (Novolog Mix (70/ 30) Flexpen) 20 unit Q12 SC Last administered on 07/28/18 10:16; Admin Dose 20 UNIT; Start 07/26/18 at 21:00 Apixaban (Eliquis) 5 mg Q12 GTB Last administered on 07/28/18 10:04; Admin Dose 5 MG; Start 07/27/18 at 11:30 Insulin Aspart (Novolog Insulin Pen) NOVOLOG *MODERATE* ALGORI... Q6 SC ; Start 07/28/18 at 00:00 Assessment/Plan Assessment/Plan (Daily) IMP: 1. Ventilator-dependent respiratory failure. 2. History of craniectomy. 3. UTI 4. Afib . 5. History of liver transplant RECS: 1. Vent support 2. BDs/suctioning 3. Abx 4. TF/Free H20 JERMAINE MCKEON MD July 28, 2018 14:44
[2018-07-30] MEDS ORDERED: ERGOCALCIFEROL (8000 UNITS/ML PO SYG) GTB SCH (09:00)
== END 2018-07-28 19:30 | DRG 870 ==
LOC: 6WM 09:14
PROVIDERS: ADMIT Family Medicine; ATTEND Family Medicine
PROC: 5A1955Z Respiratory Ventilation, Greater than 96 Consecutive Hours (ICD-10-PCS; principal; 2018-07-24)
PROC: 30233N1 Transfusion of Nonautologous Red Blood Cells into Peripheral Vein, Percutaneous Approach (ICD-10-PCS; 2018-07-25)
DX: A41.9 Sepsis, unspecified organism (principal); J18.9 Pneumonia, unspecified organism; N39.0 Urinary tract infection, site not specified; Z94.4 Liver transplant status; D62 Acute posthemorrhagic anemia; J96.10 Chronic respiratory failure, unspecified whether with hypoxia or hypercapnia; E87.0 Hyperosmolality and hypernatremia; Z99.11 Dependence on respirator [ventilator] status; I48.2 Chronic atrial fibrillation; Z79.01 Long term (current) use of anticoagulants; R31.9 Hematuria, unspecified; D50.0 Iron deficiency anemia secondary to blood loss (chronic); E11.65 Type 2 diabetes mellitus with hyperglycemia; Z93.0 Tracheostomy status; G40.909 Epilepsy, unspecified, not intractable, without status epilepticus
CPT/HCPCS: 36430; 36600; 71045; 80048; 80076; 80162; 80202; 81001; 81003; 82043; 82550; 82553; 82565; 82803; 82962; 83036; 83540; 83735; 83935; 84100; 84155; 84300; 84443; 84484; 84520; 85025; 85610; 85730; 86850; 86900; 86901; 86920; 87070; 87086; 89220; 92610; 93005; 93306; 93970; 94003; 94640; 97163; 97165; J1815; J1817; J2270; J2543; J2916; J3370; J3480; J7030; J7050; J7070; P9016

== ENCOUNTER 2018-07-29 18:13 | Inpatient (IN) | payer BC ==
[2018-07-29] VITALS (7 sets, daily range): BP systolic 114–117; BP diastolic 61–63; PULSE 30–66; RESP 16–23
[~2018-07-29] VITALS: Ht 182.9 cm; Wt 82.1 kg
[2018-07-29] MEDS ORDERED: NACL 0.9% 3 ML SYG IV SCH (21:30)
[2018-07-29] MEDS ORDERED: DIPHENHYDRAMINE 2.5 MG/ML 5ML CUP GTB PRN (21:30)
[2018-07-29] MEDS ORDERED: IPRATROPIUM (HFA) 12.9 GM INHALER INH SCH (21:30)
[2018-07-29] MEDS ORDERED: ACETAMINOPHEN 650MG/20.3ML CUP GTB PRN (21:30)
[2018-07-29] MEDS ORDERED: ONDANSETRON 4 MG INJ IV PRN (21:30)
[2018-07-29] MEDS ORDERED: ALBUTEROL 0.083% (NEB) 2.5 MG/3 ML AMP NEB PRN (21:30)
--- NOTE | 2018-07-29 22:11 | HP ---
Date/Time of Note Date/Time of Note DATE: 07/29/18 TIME: 22:11 Assessment/Plan VTE Prophylaxis Pharmacological prophylaxis: heparin Assessment/Plan Assessment/Plan 1. Chronic atrial fibrillation with severe bradycardia -Hold AV nguyen blockers -Cardiology consult 2. Chronic trach/vent dependent respiratory failure -Continue vent support -Pulmonary consult 3. History of craniotomy, chronic encephalopathy -Supportive care 4. Type 2 diabetes: Insulin while in-house 5. Hypertension: Adjust BP meds as needed 6. Hematuria: Eliquis was stopped during recent hospitalization, but resumed after resolution 7. History of liver transplant HPI/ROS Admit Date/Time Admit Date/Time July 29, 2018 at 20:55 Hx of Present Illness Patient is a 67-year-old male with history of craniotomy who is chronically trach/vent dependent with a history of hypertension, liver transplant, type 2 diabetes, atrial fibrillation, hematuria, iron deficiency anemia. Patient was just discharged from here 2 days ago after he was initially admitted for hematuria. At that time he was seen in consultation with urology. His Eliquis was momentarily stopped, but was resumed after resolution of hematuria. At that time he was also found to be septic secondary to healthcare acquired pneumonia and UTI. He was discharged with antibiotic. Patient now transferred to [facility], according to the accepting physician Dr. Atkins for placement. I am not able to gather any information from the patient. At times, patient seems to be able to follow simple commands. He showed 2 fingers when he was asked. He nodded no when asked about pain. Patient is in A. fib and found to be bradycardic with heart rate as low as in the 30s at one point. I also noticed that he has bilateral upper extremity pitting edema was dark and dusky and and bullae bilaterally. PMH/Family/Social Past Medical History Past Surgical Hx: other (see hpi) Family History Significant Family History: no pertinent family hx Social History Alcohol Use: heavy (2 beers a day) Smoking Status: Never smoker Drug Use: none Exam Constitutional: other (no acute distress) ENMT: nl external ears & nose Neck: supple, non-tender Respiratory: normal air movement Cardiovascular: nl pulses Gastrointestinal: soft Extremities: normal pulses Medications Current Medications IV Flush (NS 3 ml) 3 ml PER PROTOCOL IV ; Start 07/29/18 at 21:30 Ondansetron HCl (Zofran Inj) 4 mg Q6H PRN IV NAUSEA/VOMITING; Start 07/29/18 at 21:30 Acetaminophen (Tylenol Liquid) 650 mg Q4H PRN GTB MILD PAIN(1-3) OR TEMP>38C; Start 07/29/18 at 21:30 Albuterol (Proventil 0.083% (Neb)) 2.5 mg Q4H RESP THERAPY PRN NEB WHEEZING AND SOB; Start 07/29/18 at 21:30 Apixaban (Eliquis) 5 mg Q12 GTB ; Start 07/30/18 at 09:00 Ascorbic Acid (Vitamin C) 500 mg DAILY GTB ; Start 07/30/18 at 09:00 Atorvastatin Calcium (Lipitor) 10 mg QHS GTB ; Start 07/30/18 at 21:00 Eye Lubricant (Refresh Plus) 2 drop Q8 BOTH EYES ; Start 07/29/18 at 22:00 Chlorpromazine (Thorazine) 25 mg QHS GTB ; Start 07/30/18 at 21:00 Digoxin (Digoxin) 0.125 mg DAILY@1300 GTB ; Start 07/30/18 at 13:00 Diphenhydramine HCl (Benadryl Liquid Cup) 12.5 mg Q6H PRN GTB ITCHING; Start 07/29/18 at 21:30 Famotidine (Pepcid) 20 mg BID GTB ; Start 07/30/18 at 09:00 Fluoxetine HCl (Prozac) 20 mg DAILY GTB ; Start 07/30/18 at 09:00 Folic Acid (Folic Acid) 1 mg DAILY GTB ; Start 07/30/18 at 09:00 Levetiracetam (Keppra Liquid) 750 mg BID GTB ; Start 07/30/18 at 09:00 Metoprolol Tartrate (Lopressor) 25 mg BID GTB ; Start 07/30/18 at 09:00 Sodium Phosphate (Neutra-Phos) 250 mg TID PO ; Start 07/30/18 at 09:00 Miscellaneous Information 5 gm BID TOP ; Start 07/30/18 at 09:00; Status UNV Lacosamide (Vimpat Liq) 100 mg BID GTB ; Start 07/30/18 at 09:00 Ipratropium [place] (Atrovent Hfa) 4 puff Q6H RESP THERAPY INH ; Start 07/30/18 at 02:00 Albuterol (Ventolin Hfa) 4 puff Q6H RESP THERAPY INH ; Start 07/30/18 at 02:00 Coded Allergies: morphine (Verified Allergy, Unknown, 07/19/16) Past Surgical History Past Surgical Hx: other Family History Significant Family History: no pertinent family hx Exam/Review of Systems Vital Signs Vitals Vital Signs Date Temp Pulse Resp B/P (MAP) Pulse Ox O2 O2 Flow FiO2 Time Delivery Rate 07/29/18 98.7 61 18 114/63 96 Mechanical 21:13 (80) Ventilator ITALIA HERR MD July 29, 2018 22:11
[2018-07-30] VITALS (24 sets, daily range): BP systolic 108–155; BP diastolic 58–74; PULSE 38–76; RESP 16–23
[2018-07-30] MEDS ORDERED: ALBUTEROL/IPRATROPIUM (NEB) 3 ML AMP HHN SCH
[2018-07-30] MEDS ORDERED: METOPROLOL 5 MG INJ IV SCH (01:00)
[2018-07-30] MEDS: CARBOXYMETHYLCELLULOSE 0.5% 0.4 ML OPH BOTH EYES SCH ×4 (01:48→21:53)
[2018-07-30] MEDS: ALBUTEROL HFA 8 GM INHALER INH SCH ×4 (02:25→20:11)
[2018-07-30] MEDS: IPRATROPIUM (HFA) 12.9 GM INHALER INH SCH ×4 (02:25→20:11)
--- NOTE | 2018-07-30 08:25 | CONS ---
Assessment/Plan Assessment/Plan Assessment/Plan (Daily) Discharge diagnosis from prior hospitalization include 1. Sepsis secondary to HCAP and UTI- resolving 2. Acute on chronic resp failure 3. HCAP 4. Hematuria- resolved 5. Chronic AFib with good rate control 6. DM 2 7. Iron deficiency anemia 8. history of craniectomy, chronic respiratory failure with hypoxia, tracheostomy, gastrostomy 9. Status post liver transplant 10. hypertension 11. Chronic debility with muscle wasting 12. Anemia 13. Elevated blood sugar She is a full code will ask for family conference. Overall prognosis extremely poor for recurrent hospitalizations. Based on those medical records patient does not appear to be significantly padilla ged based on his neurologic examination, respiratory examination, overall clinical condition Consultation Date/Type/Reason Admit Date/Time July 29, 2018 at 20:55 Date/Time of Note DATE: 07/30/18 TIME: 08:23 Patient is a 67-year-old gentleman who is pegged and trached non-historian information is taken from his old medical records. Patient recently discharged from [facility] July 28, 2018 with sepsis syndrome from healthcare associated pneumonia and urinary tract infection. He has history of acute respiratory failure was transferred here from an outside facility secondary to hematuria which was documented in patient's past medical history. Other medical history include a history of chronic atrial fibrillation type 2 diabetes history of craniectomy chronic respiratory failure with hypoxia, status post liver transplant chronic debility and wasting. Patient was sent home to the last hospital admission after urological consultation was done and pulmonary medicine and infectious disease. Sputum grew out Pseudomonas and he was sent home with a week's course of IV antibiotics according medical records he is significantly improved during that hospitalization was discharged back to senior care facility. Past Medical History Medical History: other (Refer to history of present illness) Home Meds Reported Medications Miscellaneous* PUMP (Miscellaneous* PUMP) 1 Each Pump.resvr, 0.5 MG INH Q4, EA 06/15/18 Ipratropium-Albuterol (Ipratropium-Albuterol) 0.5-3 Mg/3 Ml Ampul.neb, 3 ML INHALATION Q6, #30 VIAL 06/15/18 Ipratropium [place]* (Atrovent HFA*) 12.9 Gm Aer.w.adap, 2 PUFF INHALATION Q4H for SHORTNESS OF BREATH, #1 INHALER 06/15/18 Insulin Human Nph (Novolin-N) 100 Units/Ml Susp, 14 SQ QHS 06/15/18 Digoxin* (Lanoxin*) 0.125 Mg Tablet, 0.125 MG GTB DAILY, TAB 06/15/18 Sodium Phosphate* (Phos-Nak*) 250 Mg/Pkt Soln, 250 MG PO TID, PACKET 06/15/18 Insulin Aspart* (Novolog Insulin Pen*) 100 Unit/Ml Soln, 0 SC .SLIDING SCALE Q6, EA 06/15/18 Balsam Joseph/[place] Oil (Venelex Ointment Packet) 5 Gm Oint.pack, 5 GM TOP BID, PACKET 06/15/18 Lacosamide (Vimpat) 100 Mg Tablet, 100 MG GTB BID, TAB 06/15/18 Famotidine* (Famotidine*) 20 Mg Tablet, 20 MG GTB BID, #60 TAB 06/15/18 Diphenhydramine Hcl* (Diphenhydramine Hcl*) 12.5 Mg/5 Ml Elixir, 12.5 MG GTB Q6H PRN for ITCHING, ML 06/15/18 Folic Acid* (Folic Acid*) 1 Mg Tablet, 1 MG GTB DAILY, TAB 06/15/18 Levetiracetam* (Levetiracetam*) 500 Mg/5 Ml Solution, 750 MG GTB BID, ML 06/15/18 Atorvastatin Calcium (Atorvastatin Calcium) 10 Mg Tablet, 10 MG GTB QHS, #30 TAB 06/15/18 Fluoxetine Hcl* (Fluoxetine Hcl*) 20 Mg Capsule, 20 MG G-TUBE DAILY, CAP 06/15/18 Ascorbic Acid* (Vitamin C*) 500 Mg Capsule.sa, 500 MG G-TUBE DAILY, CAP 06/15/18 Albuterol Sulfate* (Albuterol Sulfate* Neb) 0.083%-3 Ml Neb, 2.5 MG NEB Q4 PRN for WHEEZING AND SOB, #30 VIAL 06/15/18 Ergocalciferol (Vitamin D2) (VITAMIN D2) 50,000 Unit Capsule, 82038 UNIT PO QMonday, CAP 06/15/18 Apixaban* (Eliquis*) 5 Mg Tablet, 5 MG GTB Q12, TAB 06/15/18 Carboxymethylcellulose Sodium* (Refresh Tears*) 15 Ml Drops, 2 DROP BOTH EYES Q8, #1 EA 06/15/18 Chlorpromazine Hcl* (Chlorpromazine Hcl*) 25 Mg Tablet, 25 MG GTB QHS, TAB 06/15/18 Acetaminophen* (Acetaminophen* Susp) 325 Mg/10.15 Ml Solution, 650 MG G-TUBE Q4H PRN for PAIN OR TEMP ABOVE 38C, ML 06/15/18 Metoprolol Tartrate* (Lopressor* Inj) 5 Mg/5 Ml Soln, 5 MG IV Q4 for HR > 130, VIAL 06/15/18 Metoprolol Tartrate* (Lopressor*) 25 Mg Tab, 25 MG PO BID, #60 TAB 06/15/18 Medications Current Medications IV Flush (NS 3 ml) 3 ml PER PROTOCOL IV ; Start 07/29/18 at 21:30 Ondansetron HCl (Zofran Inj) 4 mg Q6H PRN IV NAUSEA/VOMITING; Start 07/29/18 at 21:30 Acetaminophen (Tylenol Liquid) 650 mg Q4H PRN GTB MILD PAIN(1-3) OR TEMP>38C; Start 07/29/18 at 21:30 Albuterol (Proventil 0.083% (Neb)) 2.5 mg Q4H RESP THERAPY PRN NEB WHEEZING AND SOB; Start 07/29/18 at 21:30 Apixaban (Eliquis) 5 mg Q12 GTB ; Start 07/30/18 at 09:00 Ascorbic Acid (Vitamin C) 500 mg DAILY GTB ; Start 07/30/18 at 09:00 Atorvastatin Calcium (Lipitor) 10 mg QHS GTB ; Start 07/30/18 at 21:00 Eye Lubricant (Refresh Plus) 2 drop Q8 BOTH EYES Last administered on 07/30/18at 05:11; Admin Dose 2 DROP; Start 07/29/18 at 22:00 Chlorpromazine (Thorazine) 25 mg QHS GTB ; Start 07/30/18 at 21:00 Digoxin (Digoxin) 0.125 mg DAILY@1300 GTB ; Start 07/30/18 at 13:00 Diphenhydramine HCl (Benadryl Liquid Cup) 12.5 mg Q6H PRN GTB ITCHING; Start 07/29/18 at 21:30 Famotidine (Pepcid) 20 mg BID GTB ; Start 07/30/18 at 09:00 Fluoxetine HCl (Prozac) 20 mg DAILY GTB ; Start 07/30/18 at 09:00 Folic Acid (Folic Acid) 1 mg DAILY GTB ; Start 07/30/18 at 09:00 Levetiracetam (Keppra Liquid) 750 mg BID GTB ; Start 07/30/18 at 09:00 Metoprolol Tartrate (Lopressor) 25 mg BID GTB ; Start 07/30/18 at 09:00 Sodium Phosphate (Neutra-Phos) 250 mg TID PO ; Start 07/30/18 at 09:00 Miscellaneous Information 5 gm BID TOP ; Start 07/30/18 at 09:00; Status UNV Lacosamide (Vimpat Liq) 100 mg BID GTB ; Start 07/30/18 at 09:00 Ipratropium [place] (Atrovent Hfa) 4 puff Q6H RESP THERAPY INH Last administered on 07/30/18at 08:06; Admin Dose 4 PUFF; Start 07/30/18 at 02:00 Albuterol (Ventolin Hfa) 4 puff Q6H RESP THERAPY INH Last administered on 07/30/18at 08:06; Admin Dose 4 PUFF; Start 07/30/18 at 02:00 Allergies: Coded Allergies: morphine (Verified Allergy, Unknown, 07/19/16) Past Surgical History Past Surgical Hx: other (Craniotomy) Family History Significant Family History: lung disease Social History Alcohol Use: other (Unknown) Smoking Status: Light tobacco smoker (Unknown) Drug Use: none (Unknown), other Exam/Review of Systems Exam Vitals Vital Signs Date Temp Pulse Resp B/P (MAP) Pulse Ox O2 O2 Flow FiO2 Time Delivery Rate 07/30/18 56 20 98 40 08:08 07/30/18 98.3 108/64 07:36 (79) 07/29/18 Mechanical 21:13 Ventilator Intake and Output 07/29/18 07/29/18 07/30/18 1515:00 23:00 07:00 OutputOutput Total 500 ml BalanceBalance -500 ml Constitutional: frail, other (Patient attempt to communicate) Psych: other (Unable to evaluate) Head: normocephalic, atraumatic; No lacerations, No hematomas, No other Eyes: nl conjunctiva, EOMI, nl lids, nl sclera, PERRL; No icteric, No fundi, disc, No other Neck: supple, non-tender; No jvd, No bruits, No masses, No thyromegaly, No nuchal rigidity, No other Respiratory: clear to auscultation, normal air movement; No congested cough, No crackles/rales, No diminished breath sounds, No intercostal retraction, No labored breathing, No respirations, No tactile fremitus, No wheezing, No other Cardiovascular: regular rate and rhythm, nl pulses; No bruits, No diastolic murmur, No edema, No gallop, No irregular rhythm, No jugular venous distention (JVD), No murmurs/extra sounds, No rub, No systolic murmur, No S3, No S4, No other Gastrointestinal: other (Without gross organomegaly masses tenderness rebound peritoneal signs distended all 4 quadrants) Neurological: other (Attempt to communicate, cannot participate in cranial nerve assessment, focal weakness right upper extremity) Results Result Diagram: 07/30/18 0507 07/30/18 0507 Results 24hrs Laboratory Tests Test 07/30/18 05:07 07/30/18 05:37 White Blood Count 5.9 # Red Blood Count 3.05 L Hemoglobin 8.7 L Hematocrit 28.7 L Mean Corpuscular Volume 94.1 Mean Corpuscular Hemoglobin 28.5 L Mean Corpuscular Hemoglobin Concent 30.3 L Red Cell Distribution Width 19.0 H Platelet Count 218 Mean Platelet Volume 10.8 H Immature Granulocytes % 1.400 H Neutrophils % 57.8 Lymphocytes % 22.2 Monocytes % 16.0 H Eosinophils % 1.9 Basophils % 0.7 Nucleated Red Blood Cells % 0.0 Immature Granulocytes # 0.080 H Neutrophils # 3.4 Lymphocytes # 1.3 Monocytes # 0.9 Eosinophils # 0.1 Basophils # 0.0 Nucleated Red Blood Cells # 0.0 Sodium Level 144 Potassium Level 4.7 Chloride Level 111 H Carbon Dioxide Level 24 Anion Gap 9 Blood Urea Nitrogen 43 H Creatinine 1.02 Est Glomerular Filtrat Rate mL/min > 60 Glucose Level 283 #H Calcium Level 8.7 Phosphorus Level 3.3 Magnesium Level 2.4 Total Bilirubin 0.1 L Direct Bilirubin 0.00 Indirect Bilirubin 0.1 Aspartate Amino Transf (AST/SGOT) 24 Alanine Aminotransferase (ALT/SGPT) 11 L Alkaline Phosphatase 121 Total Protein 7.3 Albumin 2.9 L Globulin 4.40 H Albumin/Globulin Ratio 0.65 Bedside Glucose 288 H Medications Medication Current Medications IV Flush (NS 3 ml) 3 ml PER PROTOCOL IV ; Start 07/29/18 at 21:30 Ondansetron HCl (Zofran Inj) 4 mg Q6H PRN IV NAUSEA/VOMITING; Start 07/29/18 at 21:30 Acetaminophen (Tylenol Liquid) 650 mg Q4H PRN GTB MILD PAIN(1-3) OR TEMP>38C; Start 07/29/18 at 21:30 Albuterol (Proventil 0.083% (Neb)) 2.5 mg Q4H RESP THERAPY PRN NEB WHEEZING AND SOB; Start 07/29/18 at 21:30 Apixaban (Eliquis) 5 mg Q12 GTB ; Start 07/30/18 at 09:00 Ascorbic Acid (Vitamin C) 500 mg DAILY GTB ; Start 07/30/18 at 09:00 Atorvastatin Calcium (Lipitor) 10 mg QHS GTB ; Start 07/30/18 at 21:00 Eye Lubricant (Refresh Plus) 2 drop Q8 BOTH EYES Last administered on 07/30/18at 05:11; Admin Dose 2 DROP; Start 07/29/18 at 22:00 Chlorpromazine (Thorazine) 25 mg QHS GTB ; Start 07/30/18 at 21:00 Digoxin (Digoxin) 0.125 mg DAILY@1300 GTB ; Start 07/30/18 at 13:00 Diphenhydramine HCl (Benadryl Liquid Cup) 12.5 mg Q6H PRN GTB ITCHING; Start 07/29/18 at 21:30 Famotidine (Pepcid) 20 mg BID GTB ; Start 07/30/18 at 09:00 Fluoxetine HCl (Prozac) 20 mg DAILY GTB ; Start 07/30/18 at 09:00 Folic Acid (Folic Acid) 1 mg DAILY GTB ; Start 07/30/18 at 09:00 Levetiracetam (Keppra Liquid) 750 mg BID GTB ; Start 07/30/18 at 09:00 Metoprolol Tartrate (Lopressor) 25 mg BID GTB ; Start 07/30/18 at 09:00 Sodium Phosphate (Neutra-Phos) 250 mg TID PO ; Start 07/30/18 at 09:00 Miscellaneous Information 5 gm BID TOP ; Start 07/30/18 at 09:00; Status UNV Lacosamide (Vimpat Liq) 100 mg BID GTB ; Start 07/30/18 at 09:00 Ipratropium [place] (Atrovent Hfa) 4 puff Q6H RESP THERAPY INH Last administered on 07/30/18at 08:06; Admin Dose 4 PUFF; Start 07/30/18 at 02:00 Albuterol (Ventolin Hfa) 4 puff Q6H RESP THERAPY INH Last administered on 07/30/18at 08:06; Admin Dose 4 PUFF; Start 07/30/18 at 02:00 [employer] July 30, 2018 08:25
[2018-07-30] MEDS: LACOSAMIDE (100 MG/10 ML PO SYR) GTB SCH ×2 (09:00→21:53)
[2018-07-30] MEDS: BALSAM PERU/CASTOR OIL 60 GM TUBE TOP SCH ×2 (09:00→21:00)
[2018-07-30] MEDS ORDERED: METOPROLOL 25 MG TAB GTB SCH (09:00)
[2018-07-30] MEDS: APIXABAN 5 MG TABLET GTB SCH ×2 (09:01→20:27)
[2018-07-30] MEDS: FAMOTIDINE 20 MG TAB GTB SCH ×2 (09:01→20:26)
[2018-07-30] MEDS: ASCORBIC ACID 500 MG TAB GTB SCH (09:01)
[2018-07-30] MEDS: FOLIC ACID 1 MG TAB GTB SCH (09:01)
[2018-07-30] MEDS: LEVETIRACETAM (100 MG/ML) 5ML CUP GTB SCH ×2 (09:01→20:26)
[2018-07-30] MEDS: NEUTRA-PHOS 250 MG PACKET PO SCH ×3 (09:01→20:26)
[2018-07-30] MEDS: FLUOXETINE 20 MG CAP GTB SCH (09:02)
--- NOTE | 2018-07-30 09:28 | PN ---
DATE: 07/30/2018 SUBJECTIVE: The patient was readmitted after being discharged. The patient was recently discharged from [facility] on 07/28/2018. The patient apparently was subsequently readmitted from a senior care facility. Overnight, no acute events noted. No hemoptysis, hematemesis, or h ematochezia. OBJECTIVE: VITAL SIGNS: Blood pressure is 108/64, respirations 18, pulse 59, temperature 98.3. HEENT: Head is normocephalic. NECK: Supple. HEART: Regular rate. LUNGS: Show diminished breath sounds at the base. ABDOMEN: Soft, nontender to palpation without rebound or guarding. EXTREMITIES: Negative for clubbing, cyanosis. Positive edema, positive wounds. Positive upper extr emity blisters noted. NEUROLOGIC: No change in exam. MUSCULOSKELETAL: No joint effusions. DERMATOLOGIC: The patient has noted petechial type rash on his left anterior face. MEDICATIONS: The patient's medications have been reviewed. LABORATORY DATA: Reviewed. ASSESSMENT AND PLAN: 1. Hypernatremia, etiology is secondary to insensible losses, decreased free water intake. The cy ent's sodium levels have been improving. Continue free water flushes. 2. Chronic kidney disease, stage III. The patient's renal function is currently stable. Renal func tion appears to be at baseline. Continue current treatment plan, supportive care and renally dose al l medicines. 3. Volume overload, possible heart failure. Continue intermittent diuretic therapy. 4. Anemia. Continue to monitor hemoglobin and hematocrit levels. 5. Hematuria. Etiology is unclear, possible Bal trauma. Resolved. Continue to monitor. 6. Mineral bone disorder. Monitor calcium and phosphorus levels. 7. Sepsis secondary to healthcare-associated pneumonia and urinary tract infection. The patient is completing antibiotic course. 8. Ventilator-dependent respiratory failure. Vent settings and ABG is reviewed. Continue to monito r. Follow up with pulmonary. 9. Dysphagia. Continue tube feeding. 10. Chronic atrial fibrillation with episodes of bradycardia. Continue medical management. 11. Diabetes. Continue current insulin regimen. 12. History of liver transplant. 13. Hypertension. 14. Dyslipidemia. Continue statin therapy. 15. Petechial rash, etiology significance unclear. Continue to monitor. Consider dermatology evalu ation. 16. Seizure disorder. Continue medical management. Dictated By: EDUARDO ALLRED/JEFFREY Conf#: [id number] DID#: [id number] CC: SHIMA DILL MD;*[facility]*
--- NOTE | 2018-07-30 10:34 | PN ---
Date/Time of Note Date/Time of Note DATE: 07/30/18 TIME: 10:31 Assessment/Plan VTE Prophylaxis Risk score (from Nsg)>0 risk: 5 SCD applied (from Nsg): Yes Pharmacological prophylaxis: apixaban Lines/Catheters IV Catheter Type (from Nrsg): Peripheral IV Urinary Cath still in place: Yes Reason Cath still needed: other (indicate) Assessment/Plan Hospital Course S: no new complaints O: Constitutional: can follow commands and tries to mouth words, comfortable on vent Eyes open spontaneously, No distress Psych: unable to assess Head: old scars, no acute trauma Eyes: PERRL, No icteric ENMT: pink and moist mucosa, no exudates Neck: non-tender Respiratory: diminished breath sounds, coarse bs No labored breathing Cardiovascular: regular rate and rhythm, No murmurs/extra sounds Gastrointestinal: soft, non-tender, bowel sounds, other (PEG tube noted with no cellulitis or discharge), large surgical scar well healed Genitourinary - male: nl external genitalia, urine in casey is clear Extremities: can move all extremities spontaneously but very weak and not against gravity. with msc wasting Neurological: lethargic, follows commands No nl strength assessment and plan: Patient was just discharged from here 2 days ago after he was initially admitted for hematuria. At that time he was seen in consultation with urology. His Eliquis was momentarily stopped, but was resumed after resolution of hematuria. At that time he was also found to be septic secondary to healthcare acquired pneumonia and UTI. He was discharged with antibiotic. Patient now transferred to [facility], according to the accepting physician Dr. Atkins for placement. 1. Sepsis likely 2/2HCAP and UTI: on treatment, today should be last day on abx 2. Acute on chronic resp failure -chronically vent dependent, was on SIMV and now back on AC 3. HCAP : Sputum cultures grew Pseudomonas 4. Hematuria with acute on chronic blood loss anemia likely 2/2 UTI with eliquis therapy 5. Chronic AFib with good rate control -eliquis on hold 2/2 #4 6. DM 2 with hyperglycemia 2/2 meds on hold -aic 7.6, likley unreliable in this anemic patient 7. Iron deficiency 8. history of craniectomy, chronic respiratory failure with hypoxia, tracheostomy, gastrostomy -resumed on PEG feeds 9. Status post liver transplant for which indication is not documented 10. hypertension 11. dyslipidemia 12. Chronic debility with msc wasting 13. Bradycardia: patient was taken off digoxin last hospitalization with improvement in heart rate. But he has been resumed on both digoxin and beta- bari at this time. We will hold both, and once heart rate is improved, will resume beta-bari gently. We will also get cardiology consultation. Plan: -Needs placement per report, will review case with casemgrs -continue all other supportive care and vent mgt -continue PT Addendum: After speaking with case management and contacting [facility] facility, it turns out patient was sent back to the hospital because of concerns of shortness of breath per the family. It is unclear exactly what the situation was because the patient is on the same exact vent settings that he was on at discharge and he looks comfortable without any issues at this time. I have tried to reach the family on the 2 telephone numbers noted in the chart without success. We will have bilingual social worker contact the family and will plan for discharge back to [facility] reviewed the concerns with them. Will plan for discharge back to the [facility] once heart rate is improved and will be able to communicate with the family. Result Diagram: 07/30/18 0507 07/30/18 0507 Results 24hrs Laboratory Tests Test 07/30/18 05:07 07/30/18 05:37 White Blood Count 5.9 # Red Blood Count 3.05 L Hemoglobin 8.7 L Hematocrit 28.7 L Mean Corpuscular Volume 94.1 Mean Corpuscular Hemoglobin 28.5 L Mean Corpuscular Hemoglobin Concent 30.3 L Red Cell Distribution Width 19.0 H Platelet Count 218 Mean Platelet Volume 10.8 H Immature Granulocytes % 1.400 H Neutrophils % 57.8 Lymphocytes % 22.2 Monocytes % 16.0 H Eosinophils % 1.9 Basophils % 0.7 Nucleated Red Blood Cells % 0.0 Immature Granulocytes # 0.080 H Neutrophils # 3.4 Lymphocytes # 1.3 Monocytes # 0.9 Eosinophils # 0.1 Basophils # 0.0 Nucleated Red Blood Cells # 0.0 Sodium Level 144 Potassium Level 4.7 Chloride Level 111 H Carbon Dioxide Level 24 Anion Gap 9 Blood Urea Nitrogen 43 H Creatinine 1.02 Est Glomerular Filtrat Rate mL/min > 60 Glucose Level 283 #H Calcium Level 8.7 Phosphorus Level 3.3 Magnesium Level 2.4 Total Bilirubin 0.1 L Direct Bilirubin 0.00 Indirect Bilirubin 0.1 Aspartate Amino Transf (AST/SGOT) 24 Alanine Aminotransferase (ALT/SGPT) 11 L Alkaline Phosphatase 121 Total Protein 7.3 Albumin 2.9 L Globulin 4.40 H Albumin/Globulin Ratio 0.65 Bedside Glucose 288 H Exam/Review of Systems Exam Vitals Vital Signs Date Temp Pulse Resp B/P (MAP) Pulse Ox O2 O2 Flow FiO2 Time Delivery Rate 07/30/18 65 22 98 40 09:15 07/30/18 98.3 108/64 07:36 (79) 07/29/18 Mechanical 21:13 Ventilator Intake and Output 07/29/18 07/29/18 07/30/18 1515:00 23:00 07:00 OutputOutput Total 500 ml BalanceBalance -500 ml Results Results 24hrs Laboratory Tests Test 07/30/18 05:07 07/30/18 05:37 White Blood Count 5.9 # Red Blood Count 3.05 L Hemoglobin 8.7 L Hematocrit 28.7 L Mean Corpuscular Volume 94.1 Mean Corpuscular Hemoglobin 28.5 L Mean Corpuscular Hemoglobin Concent 30.3 L Red Cell Distribution Width 19.0 H Platelet Count 218 Mean Platelet Volume 10.8 H Immature Granulocytes % 1.400 H Neutrophils % 57.8 Lymphocytes % 22.2 Monocytes % 16.0 H Eosinophils % 1.9 Basophils % 0.7 Nucleated Red Blood Cells % 0.0 Immature Granulocytes # 0.080 H Neutrophils # 3.4 Lymphocytes # 1.3 Monocytes # 0.9 Eosinophils # 0.1 Basophils # 0.0 Nucleated Red Blood Cells # 0.0 Sodium Level 144 Potassium Level 4.7 Chloride Level 111 H Carbon Dioxide Level 24 Anion Gap 9 Blood Urea Nitrogen 43 H Creatinine 1.02 Est Glomerular Filtrat Rate mL/min > 60 Glucose Level 283 #H Calcium Level 8.7 Phosphorus Level 3.3 Magnesium Level 2.4 Total Bilirubin 0.1 L Direct Bilirubin 0.00 Indirect Bilirubin 0.1 Aspartate Amino Transf (AST/SGOT) 24 Alanine Aminotransferase (ALT/SGPT) 11 L Alkaline Phosphatase 121 Total Protein 7.3 Albumin 2.9 L Globulin 4.40 H Albumin/Globulin Ratio 0.65 Bedside Glucose 288 H Medications Medication Current Medications IV Flush (NS 3 ml) 3 ml PER PROTOCOL IV ; Start 07/29/18 at 21:30 Ondansetron HCl (Zofran Inj) 4 mg Q6H PRN IV NAUSEA/VOMITING; Start 07/29/18 at 21:30 Acetaminophen (Tylenol Liquid) 650 mg Q4H PRN GTB MILD PAIN(1-3) OR TEMP>38C; Start 07/29/18 at 21:30 Albuterol (Proventil 0.083% (Neb)) 2.5 mg Q4H RESP THERAPY PRN NEB WHEEZING AND SOB; Start 07/29/18 at 21:30 Apixaban (Eliquis) 5 mg Q12 GTB Last administered on 07/30/18 09:01; Admin Dose 5 MG; Start 07/30/18 at 09:00 Ascorbic Acid (Vitamin C) 500 mg DAILY GTB Last administered on 07/30/18at 09:01; Admin Dose 500 MG; Start 07/30/18 at 09:00 Atorvastatin Calcium (Lipitor) 10 mg QHS GTB ; Start 07/30/18 at 21:00 Eye Lubricant (Refresh Plus) 2 drop Q8 BOTH EYES Last administered on 07/30/18at 05:11; Admin Dose 2 DROP; Start 07/29/18 at 22:00 Chlorpromazine (Thorazine) 25 mg QHS GTB ; Start 07/30/18 at 21:00 Digoxin (Digoxin) 0.125 mg DAILY@1300 GTB ; Start 07/30/18 at 13:00 Diphenhydramine HCl (Benadryl Liquid Cup) 12.5 mg Q6H PRN GTB ITCHING; Start 07/29/18 at 21:30 Famotidine (Pepcid) 20 mg BID GTB Last administered on 07/30/18 09:01; Admin Dose 20 MG; Start 07/30/18 at 09:00 Fluoxetine HCl (Prozac) 20 mg DAILY GTB Last administered on 07/30/18 09:02; Admin Dose 20 MG; Start 07/30/18 at 09:00 Folic Acid (Folic Acid) 1 mg DAILY GTB Last administered on 07/30/18 09:01; Admin Dose 1 MG; Start 07/30/18 at 09:00 Levetiracetam (Keppra Liquid) 750 mg BID GTB Last administered on 07/30/18 09:01; Admin Dose 750 MG; Start 07/30/18 at 09:00 Metoprolol Tartrate (Lopressor) 25 mg BID GTB ; Start 07/30/18 at 09:00 Sodium Phosphate (Neutra-Phos) 250 mg TID PO Last administered on 07/30/18 09:01; Admin Dose 250 MG; Start 07/30/18 at 09:00 Miscellaneous Information 5 gm BID TOP ; Start 07/30/18 at 09:00; Status UNV Lacosamide (Vimpat Liq) 100 mg BID GTB Last administered on 07/30/18 09:00; Admin Dose 100 MG; Start 07/30/18 at 09:00 Ipratropium Gardiner (Atrovent Hfa) 4 puff Q6H RESP THERAPY INH Last administered on 07/30/18 08:06; Admin Dose 4 PUFF; Start 07/30/18 at 02:00 Albuterol (Ventolin Hfa) 4 puff Q6H RESP THERAPY INH Last administered on 07/30/18 08:06; Admin Dose 4 PUFF; Start 07/30/18 at 02:00 LESLIE FLOREZ July 30, 2018 10:34
[2018-07-30] MEDS ORDERED: GLUCAGON 1 MG INJ IM PRN (12:30)
[2018-07-30] MEDS ORDERED: DEXTROSE 50% 50 ML SYRINGE IV PRN ×2 (12:30)
[2018-07-30] MEDS ORDERED: GLUCOSE GEL 15 GRAM TUBE BUCCAL PRN (12:30)
[2018-07-30] MEDS ORDERED: GLUCOSE GEL 15 GRAM TUBE PO PRN ×2 (12:30)
[2018-07-30] MEDS ORDERED: DIGOXIN 0.125 MG TAB GTB SCH (13:00)
[2018-07-30] MEDS: INSULIN ASPART [NOVOLOG] 3 ML PEN SC SCH ×3 (13:03→22:04)
--- NOTE | 2018-07-30 17:00 | CONS ---
Assessment/Plan Assessment/Plan Hospital Course (Demo Recall) Atrial fibrillation with slow ventricular response secondary to medication including metoprolol and digoxin Hypoxic respiratory failure with tracheostomy S/P pneumonia and sepsis Hx HTN S/P hemturia anemia REC dc dig hold metoprolol and restart later on if HR improve vent care/ resp care as per IM ABX PER IM tele monitoring check dig level Thank you Consultation Date/Type/Reason Admit Date/Time July 29, 2018 at 20:55 Date of Consultation: July 30, 2018 Type of Consult Cardiology Reason for Consultation Bradycardia Requesting Provider: LESLIE FLOREZ Date/Time of Note DATE: 07/30/18 TIME: 16:54 Hx of Present Illness Interventional cardiology consultation note Chief complaint: Respiratory failure sepsis Reason for consult: Bradycardia History of present illness: Thank you for this referral. History was informed the patient's chart review of the old chart discussion physician staff patient is amenable to provide any history to me is a status post tracheostomy on the vent This is a 67-year-old gentleman with history of respiratory failure with tracheostomy who was just discharged from the hospital after sepsis and respiratory failure and pneumonia. Patient was brought back in. The mother was noted to be markedly bradycardic heart rate as low as 30s. Patient has chronic atrial fibrillation is on anticoagulation. He is also on digoxin and metoprolol. No supportive syncope presyncope. Patient unable to relate any history to him as mentioned. PAST MEDICAL HISTORY: History of ventilatory-dependent respiratory failure, history of dysphagia, history of liver transplant, history of diabetes, history of chronic AFib, history of hypertension, dyslipidemia. History of hematuria which has resolved now PAST SURGICAL HISTORY: Status post trach, status post PEG, status post liver transplant. FAMILY HISTORY: No reported family history of early coronary artery disease SOCIAL HISTORY: No active smoking at this point. Otherwise unable to obtain MEDICATIONS: The patient's medications have been reviewed. Review of system: Patient denies all others except for above-mentioned Past Medical History Home Meds Reported Medications Miscellaneous* PUMP (Miscellaneous* PUMP) 1 Each Pump.resvr, 0.5 MG INH Q4, EA 06/15/18 Ipratropium-Albuterol (Ipratropium-Albuterol) 0.5-3 Mg/3 Ml Ampul.neb, 3 ML INHALATION Q6, #30 VIAL 06/15/18 Ipratropium Pilot* (Atrovent HFA*) 12.9 Gm Aer.w.adap, 2 PUFF INHALATION Q4H for SHORTNESS OF BREATH, #1 INHALER 06/15/18 Insulin Human Nph (Novolin-N) 100 Units/Ml Susp, 14 SQ QHS 06/15/18 Digoxin* (Lanoxin*) 0.125 Mg Tablet, 0.125 MG GTB DAILY, TAB 06/15/18 Sodium Phosphate* (Phos-Nak*) 250 Mg/Pkt Soln, 250 MG PO TID, PACKET 06/15/18 Insulin Aspart* (Novolog Insulin Pen*) 100 Unit/Ml Soln, 0 SC .SLIDING SCALE Q6, EA 06/15/18 Balsam [place] Oil (Venelex Ointment Packet) 5 Gm Oint.pack, 5 GM TOP BID, PACKET 06/15/18 Lacosamide (Vimpat) 100 Mg Tablet, 100 MG GTB BID, TAB 06/15/18 Famotidine* (Famotidine*) 20 Mg Tablet, 20 MG GTB BID, #60 TAB 06/15/18 Diphenhydramine Hcl* (Diphenhydramine Hcl*) 12.5 Mg/5 Ml Elixir, 12.5 MG GTB Q6H PRN for ITCHING, ML 06/15/18 Folic Acid* (Folic Acid*) 1 Mg Tablet, 1 MG GTB DAILY, TAB 06/15/18 Levetiracetam* (Levetiracetam*) 500 Mg/5 Ml Solution, 750 MG GTB BID, ML 06/15/18 Atorvastatin Calcium (Atorvastatin Calcium) 10 Mg Tablet, 10 MG GTB QHS, #30 TAB 06/15/18 Fluoxetine Hcl* (Fluoxetine Hcl*) 20 Mg Capsule, 20 MG G-TUBE DAILY, CAP 06/15/18 Ascorbic Acid* (Vitamin C*) 500 Mg Capsule.sa, 500 MG G-TUBE DAILY, CAP 06/15/18 Albuterol Sulfate* (Albuterol Sulfate* Neb) 0.083%-3 Ml Neb, 2.5 MG NEB Q4 PRN for WHEEZING AND SOB, #30 VIAL 06/15/18 Ergocalciferol (Vitamin D2) (VITAMIN D2) 50,000 Unit Capsule, 85295 UNIT PO QMonday, CAP 06/15/18 Apixaban* (Eliquis*) 5 Mg Tablet, 5 MG GTB Q12, TAB 06/15/18 Carboxymethylcellulose Sodium* (Refresh Tears*) 15 Ml Drops, 2 DROP BOTH EYES Q8, #1 EA 06/15/18 Chlorpromazine Hcl* (Chlorpromazine Hcl*) 25 Mg Tablet, 25 MG GTB QHS, TAB 06/15/18 Acetaminophen* (Acetaminophen* Susp) 325 Mg/10.15 Ml Solution, 650 MG G-TUBE Q4H PRN for PAIN OR TEMP ABOVE 38C, ML 06/15/18 Metoprolol Tartrate* (Lopressor* Inj) 5 Mg/5 Ml Soln, 5 MG IV Q4 for HR > 130, VIAL 06/15/18 Metoprolol Tartrate* (Lopressor*) 25 Mg Tab, 25 MG PO BID, #60 TAB 06/15/18 Medications Current Medications IV Flush (NS 3 ml) 3 ml PER PROTOCOL IV ; Start 07/29/18 at 21:30 Ondansetron HCl (Zofran Inj) 4 mg Q6H PRN IV NAUSEA/VOMITING; Start 07/29/18 at 21:30 Acetaminophen (Tylenol Liquid) 650 mg Q4H PRN GTB MILD PAIN(1-3) OR TEMP>38C; Start 07/29/18 at 21:30 Albuterol (Proventil 0.083% (Neb)) 2.5 mg Q4H RESP THERAPY PRN NEB WHEEZING AND SOB; Start 07/29/18 at 21:30 Apixaban (Eliquis) 5 mg Q12 GTB Last administered on 07/30/18at 09:01; Admin Dose 5 MG; Start 07/30/18 at 09:00 Ascorbic Acid (Vitamin C) 500 mg DAILY GTB Last administered on 07/30/18at 09:01; Admin Dose 500 MG; Start 07/30/18 at 09:00 Atorvastatin Calcium (Lipitor) 10 mg QHS GTB ; Start 07/30/18 at 21:00 Eye Lubricant (Refresh Plus) 2 drop Q8 BOTH EYES Last administered on 07/30/18at 13:45; Admin Dose 2 DROP; Start 07/29/18 at 22:00 Chlorpromazine (Thorazine) 25 mg QHS GTB ; Start 07/30/18 at 21:00 Diphenhydramine HCl (Benadryl Liquid Cup) 12.5 mg Q6H PRN GTB ITCHING; Start 07/29/18 at 21:30 Famotidine (Pepcid) 20 mg BID GTB Last administered on 07/30/18 09:01; Admin Dose 20 MG; Start 07/30/18 at 09:00 Fluoxetine HCl (Prozac) 20 mg DAILY GTB Last administered on 07/30/18 09:02; Admin Dose 20 MG; Start 07/30/18 at 09:00 Folic Acid (Folic Acid) 1 mg DAILY GTB Last administered on 07/30/18 09:01; Admin Dose 1 MG; Start 07/30/18 at 09:00 Levetiracetam (Keppra Liquid) 750 mg BID GTB Last administered on 07/30/18 09:01; Admin Dose 750 MG; Start 07/30/18 at 09:00 Sodium Phosphate (Neutra-Phos) 250 mg TID PO Last administered on 07/30/18 12:43; Admin Dose 250 MG; Start 07/30/18 at 09:00 Miscellaneous Information 5 gm BID TOP ; Start 07/30/18 at 09:00; Status UNV Lacosamide (Vimpat Liq) 100 mg BID GTB Last administered on 07/30/18 09:00; Admin Dose 100 MG; Start 07/30/18 at 09:00 Ipratropium Pilot (Atrovent Hfa) 4 puff Q6H RESP THERAPY INH Last administered on 07/30/18 14:30; Admin Dose 4 PUFF; Start 07/30/18 at 02:00 Albuterol (Ventolin Hfa) 4 puff Q6H RESP THERAPY INH Last administered on 07/30/18 14:30; Admin Dose 4 PUFF; Start 07/30/18 at 02:00 Diagnostic Test (Pha) (Accu-Chek) 1 ea 02 XX ; Start 07/31/18 at 02:00 Insulin Aspart (Novolog Insulin Pen) NOVOLOG *MILD* ALGORI... Q4 SC Last administered on 07/30/18 16:51; Admin Dose 4 UNIT; Start 5/6/19 at 13:00 Miscellaneous Information 1 ea NOTE XX ; Start 07/30/18 at 12:30 Glucose (Glutose) 15 gm Q15M PRN PO DECREASED GLUCOSE; Start 07/30/18 at 12:30 Glucose (Glutose) 22.5 gm Q15M PRN PO DECREASED GLUCOSE; Start 07/30/18 at 12:30 Dextrose (D50w Syringe) 25 ml Q15M PRN IV DECREASED GLUCOSE; Start 07/30/18 at 12:30 Dextrose (D50w Syringe) 50 ml Q15M PRN IV DECREASED GLUCOSE; Start 07/30/18 at 12:30 Glucagon (Glucagen) 1 mg Q15M PRN IM DECREASED GLUCOSE; Start 07/30/18 at 12:30 Glucose (Glutose) 15 gm Q15M PRN BUCCAL DECREASED GLUCOSE; Start 07/30/18 at 12:30 Insulin Aspart Prota 70%/Aspart 30% (Novolog Mix (70/ 30) Flexpen) 20 unit Q12 SC ; Start 07/30/18 at 21:00 Allergies: Coded Allergies: morphine (Verified Allergy, Unknown, 07/19/16) Past Surgical History Past Surgical Hx: other (Craniotomy) Social History Alcohol Use: other (Unknown) Smoking Status: Light tobacco smoker (Unknown) Drug Use: none (Unknown), other Exam/Review of Systems Vital Signs Vitals Vital Signs Date Temp Pulse Resp B/P (MAP) Pulse Ox O2 O2 Flow FiO2 Time Delivery Rate 07/30/18 69 22 98 40 15:26 07/30/18 98.3 108/58 15:03 (75) 07/29/18 Mechanical 21:13 Ventilator Intake and Output 07/29/18 07/29/18 07/30/18 1515:00 23:00 07:00 OutputOutput Total 500 ml BalanceBalance -500 ml Exam Exam General: Status post tracheostomy on the vent otherwise in no acute distress HEENT: NC/AT. pupils are equal. round. NECK status post tracheostomy. no stridor. CV: Regularly irregular. systolic murmur; no gallop or rubs. PULM: + Diffuse rhonchi. GI: SOFT, NT, ND, no rebound or guarding status post PEG placement Extremity+ upper and LE edema. no clubbing. neuro: awake and follows basic commands. Psych: calm and pleasant rectal: deferred Review of the old chart showed that the chest x-ray done on July 27, 2018 shows: Tracheostomy tube is in place. . Cardiomegaly with hilar vascular congestion and perihilar interstitial edema or infiltrates is unchanged. Small bilateral pleural effusions are present. Small fluid is seen in the right minor fissure.. Left basilar atelectasis or consolidation is unchanged. Calcific atherosclerosis of the aorta is present.. The osseous structures are intact. Echocardiogram shows: Normal left ventricular systolic function. Restrictive diastolic function. Mild mitral and tricuspid regurgitation with mild pulmonary hypertension. Electronically Signed By: Peri Powell 2018-07-27 16:20:20 PDT Labs Result Diagram: 07/30/18 0507 07/30/18 0507 Results 24hrs Laboratory Tests Test 07/30/18 05:07 07/30/18 05:37 07/30/18 12:42 07/30/18 16:41 White Blood Count 5.9 # Red Blood Count 3.05 L Hemoglobin 8.7 L Hematocrit 28.7 L Mean Corpuscular Volume 94.1 Mean Corpuscular 28.5 L Hemoglobin Mean Corpuscular 30.3 L Hemoglobin Concent Red Cell Distribution 19.0 H Width Platelet Count 218 Mean Platelet Volume 10.8 H Immature Granulocytes % 1.400 H Neutrophils % 57.8 Lymphocytes % 22.2 Monocytes % 16.0 H Eosinophils % 1.9 Basophils % 0.7 Nucleated Red Blood 0.0 Cells % Immature Granulocytes # 0.080 H Neutrophils # 3.4 Lymphocytes # 1.3 Monocytes # 0.9 Eosinophils # 0.1 Basophils # 0.0 Nucleated Red Blood 0.0 Cells # Sodium Level 144 Potassium Level 4.7 Chloride Level 111 H Carbon Dioxide Level 24 Anion Gap 9 Blood Urea Nitrogen 43 H Creatinine 1.02 Est Glomerular Filtrat > 60 Rate mL/min Glucose Level 283 #H Hemoglobin A1c 6.9 H Calcium Level 8.7 Phosphorus Level 3.3 Magnesium Level 2.4 Total Bilirubin 0.1 L Direct Bilirubin 0.00 Indirect Bilirubin 0.1 Aspartate Amino 24 Transf (AST/SGOT) Alanine 11 L Aminotransferase (ALT/SG PT) Alkaline Phosphatase 121 Total Protein 7.3 Albumin 2.9 L Globulin 4.40 H Albumin/Globulin Ratio 0.65 Bedside Glucose 288 H 282 H 296 H Medications Medications Current Medications IV Flush (NS 3 ml) 3 ml PER PROTOCOL IV ; Start 07/29/18 at 21:30 Ondansetron HCl (Zofran Inj) 4 mg Q6H PRN IV NAUSEA/VOMITING; Start 07/29/18 at 21:30 Acetaminophen (Tylenol Liquid) 650 mg Q4H PRN GTB MILD PAIN(1-3) OR TEMP>38C; Start 07/29/18 at 21:30 Albuterol (Proventil 0.083% (Neb)) 2.5 mg Q4H RESP THERAPY PRN NEB WHEEZING AND SOB; Start 07/29/18 at 21:30 Apixaban (Eliquis) 5 mg Q12 GTB Last administered on 07/30/18 09:01; Admin Dose 5 MG; Start 07/30/18 at 09:00 Ascorbic Acid (Vitamin C) 500 mg DAILY GTB Last administered on 07/30/18 09:01; Admin Dose 500 MG; Start 07/30/18 at 09:00 Atorvastatin Calcium (Lipitor) 10 mg QHS GTB ; Start 07/30/18 at 21:00 Eye Lubricant (Refresh Plus) 2 drop Q8 BOTH EYES Last administered on 07/30/18at 13:45; Admin Dose 2 DROP; Start 07/29/18 at 22:00 Chlorpromazine (Thorazine) 25 mg QHS GTB ; Start 07/30/18 at 21:00 Diphenhydramine HCl (Benadryl Liquid Cup) 12.5 mg Q6H PRN GTB ITCHING; Start 07/29/18 at 21:30 Famotidine (Pepcid) 20 mg BID GTB Last administered on 07/30/18 09:01; Admin Dose 20 MG; Start 07/30/18 at 09:00 Fluoxetine HCl (Prozac) 20 mg DAILY GTB Last administered on 07/30/18 09:02; Admin Dose 20 MG; Start 07/30/18 at 09:00 Folic Acid (Folic Acid) 1 mg DAILY GTB Last administered on 07/30/18 09:01; Admin Dose 1 MG; Start 07/30/18 at 09:00 Levetiracetam (Keppra Liquid) 750 mg BID GTB Last administered on 07/30/18 09:01; Admin Dose 750 MG; Start 07/30/18 at 09:00 Sodium Phosphate (Neutra-Phos) 250 mg TID PO Last administered on 07/30/18at 12:43; Admin Dose 250 MG; Start 07/30/18 at 09:00 Miscellaneous Information 5 gm BID TOP ; Start 07/30/18 at 09:00; Status UNV Lacosamide (Vimpat Liq) 100 mg BID GTB Last administered on 07/30/18at 09:00; Admin Dose 100 MG; Start 07/30/18 at 09:00 Ipratropium Pilot (Atrovent Hfa) 4 puff Q6H RESP THERAPY INH Last administered on 07/30/18at 14:30; Admin Dose 4 PUFF; Start 07/30/18 at 02:00 Albuterol (Ventolin Hfa) 4 puff Q6H RESP THERAPY INH Last administered on 07/30/18at 14:30; Admin Dose 4 PUFF; Start 07/30/18 at 02:00 Diagnostic Test (Pha) (Accu-Chek) 1 ea 02 XX ; Start 07/31/18 at 02:00 Insulin Aspart (Novolog Insulin Pen) NOVOLOG *MILD* ALGORI... Q4 SC Last administered on 07/30/18at 16:51; Admin Dose 4 UNIT; Start 07/30/18 at 13:00 Miscellaneous Information 1 ea NOTE XX ; Start 07/30/18 at 12:30 Glucose (Glutose) 15 gm Q15M PRN PO DECREASED GLUCOSE; Start 07/30/18 at 12:30 Glucose (Glutose) 22.5 gm Q15M PRN PO DECREASED GLUCOSE; Start 07/30/18 at 12:30 Dextrose (D50w Syringe) 25 ml Q15M PRN IV DECREASED GLUCOSE; Start 07/30/18 at 12:30 Dextrose (D50w Syringe) 50 ml Q15M PRN IV DECREASED GLUCOSE; Start 07/30/18 at 12:30 Glucagon (Glucagen) 1 mg Q15M PRN IM DECREASED GLUCOSE; Start 07/30/18 at 12:30 Glucose (Glutose) 15 gm Q15M PRN BUCCAL DECREASED GLUCOSE; Start 07/30/18 at 12:30 Insulin Aspart Prota 70%/Aspart 30% (Novolog Mix (70/ 30) Flexpen) 20 unit Q12 SC ; Start 07/30/18 at 21:00 VAHDAT,ISABELLE MD July 30, 2018 17:00
[2018-07-30] MEDS ORDERED: CHLORPROMAZINE 25 MG TAB GTB SCH (21:00)
[2018-07-30] MEDS ORDERED: ATORVASTATIN 10 MG TAB GTB SCH (21:00)
[2018-07-30] MEDS: INSULIN ASP PROT/ASPART (70/30) PEN SC SCH (22:04)
[2018-07-31] VITALS (18 sets, daily range): BP systolic 126–131; BP diastolic 66–73; PULSE 56–82; RESP 14–23
[2018-07-31] MEDS: INSULIN ASPART [NOVOLOG] 3 ML PEN SC SCH ×5 (01:50→17:36)
[2018-07-31] MEDS ORDERED: ACCU-CHEK XX SCH ×2 (02:00→17:30)
[2018-07-31] MEDS: ALBUTEROL HFA 8 GM INHALER INH SCH ×3 (02:10→13:44)
[2018-07-31] MEDS: IPRATROPIUM (HFA) 12.9 GM INHALER INH SCH ×3 (02:11→13:44)
[2018-07-31] MEDS: CARBOXYMETHYLCELLULOSE 0.5% 0.4 ML OPH BOTH EYES SCH ×2 (05:34→13:04)
[2018-07-31] MEDS: LEVETIRACETAM (100 MG/ML) 5ML CUP GTB SCH (08:04)
[2018-07-31] MEDS: APIXABAN 5 MG TABLET GTB SCH (08:04)
[2018-07-31] MEDS: FLUOXETINE 20 MG CAP GTB SCH (08:04)
[2018-07-31] MEDS: FOLIC ACID 1 MG TAB GTB SCH (08:04)
[2018-07-31] MEDS: FAMOTIDINE 20 MG TAB GTB SCH (08:04)
[2018-07-31] MEDS: ASCORBIC ACID 500 MG TAB GTB SCH (08:04)
[2018-07-31] MEDS: NEUTRA-PHOS 250 MG PACKET PO SCH (08:04)
[2018-07-31] MEDS: LACOSAMIDE (100 MG/10 ML PO SYR) GTB SCH (08:06)
[2018-07-31] MEDS: INSULIN ASP PROT/ASPART (70/30) PEN SC SCH (08:22)
[2018-07-31] MEDS: BALSAM PERU/CASTOR OIL 60 GM TUBE TOP SCH (09:00)
[2018-07-31] MEDS ORDERED: FUROSEMIDE 20 MG INJ IV ONE ×2 (09:00→12:30)
--- NOTE | 2018-07-31 09:06 | PN ---
DATE: 07/31/2018 SUBJECTIVE: The patient is stable, no events overnight. OBJECTIVE: VITAL SIGNS: Blood pressure is 130/73, respirations 18, pulse 72, temperature 98.5. HEENT: Head is normocephalic. NECK: Supple. HEART: Regular rate. LUNGS: Show diminished breath sounds at the base. ABDOMEN: Soft, nontender to palpation without rebound or guarding. EXTREMITIES: Negative for clubbing, cyanosis. Positive edema. DERMATOLOGIC: No rashes. MUSCULOSKELETAL: No joint effusion. NEUROLOGIC: No change in exam. MEDICATIONS: Reviewed. LABORATORY DATA: Reviewed. ASSESSMENT AND PLAN: 1. Hypernatremia. The patient has a free water deficit of approximately 2 liters. We will increase free water flushes 200 mL q.4h. 2. Chronic kidney disease. The patient's renal function appears to be stable. Continue current antoinette atment plan, supportive care, renally dose all medications. 3. Anemia. Continue to monitor hemoglobin and hematocrit levels. 4. Mineral bone disorder. Monitor calcium and phosphorus levels. 5. Sepsis secondary to pneumonia, urinary tract infection. The patient is completing antibiotic cou rse. 6. Hematuria, resolved. 7. Ventilator-dependent respiratory failure. Vent settings and ABG was reviewed. Continue to monit or. 8. Dysphagia. Continue tube feeding. 9. Chronic atrial fibrillation with episodes of bradycardia. Continue medical management. Followup with cardiology. 10. History of liver transplant. 11. Hypertension. 12. Dyslipidemia. Continue statin therapy. 13. Petechial rash. Continue to monitor. 14. Seizure disorder. Continue medical management. 15. Volume overload. We will give intermittent diuretic therapy as needed. Dictated By: EDUARDO JOHNSTON DO NR/NTS Conf#: [id number] DID#: [id number] CC: LESLIE FLOREZ MD; SHIMA DILL MD;*EndCC*
--- NOTE | 2018-07-31 10:41 | CONS ---
Consult Date/Type/Reason Admit Date/Time July 29, 2018 at 20:55 Initial Consult Date 07/30/18 Type of Consultation: cv Requesting Provider: LESLIE FLOREZ Date/Time of Note DATE: 07/31/18 TIME: 10:37 Subjective cardiology follow S; DW staff and tele was reviewed She remains in atrial fibrillation heart rate is better controlled now and less bradycardic pt remains s/p trach O: General: Status post tracheostomy on the vent otherwise in no acute distress HEENT: NC/AT. pupils are equal. round. NECK status post tracheostomy. no stridor. CV: Irregularly irregular. systolic murmur; no gallop or rubs. PULM: + Diffuse rhonchi. GI: SOFT, NT, ND, no rebound or guarding status post PEG placement Extremity+ upper and LE edema. no clubbing. neuro: awake and follows basic commands. Psych: calm and pleasant rectal: deferred Review of the old chart showed that the chest x-ray done on July 27, 2018 shows: Tracheostomy tube is in place. . Cardiomegaly with hilar vascular congestion and perihilar interstitial edema or infiltrates is unchanged. Small bilateral pleural effusions are present. Small fluid is seen in the right minor fissure.. Left basilar atelectasis or consolidation is unchanged. Calcific atherosclerosis of the aorta is present.. The osseous structures are intact. Echocardiogram shows: Normal left ventricular systolic function. Restrictive diastolic function. Mild mitral and tricuspid regurgitation with mild pulmonary hypertension. Electronically Signed By: Peri Powell 2018-07-27 16:20:20 PDT Objective Vitals Vital Signs Date Temp Pulse Resp B/P (MAP) Pulse Ox O2 O2 Flow FiO2 Time Delivery Rate 07/31/18 72 22 99 40 08:55 07/31/18 98.5 130/73 07:47 (92) 07/29/18 Mechanical 21:13 Ventilator Intake and Output 07/30/18 07/30/18 07/31/18 1414:59 22:59 06:59 IntakeIntake Total 720 ml OutputOutput Total 800 ml 200 ml BalanceBalance -800 ml 520 ml Results/Medications Result Diagram: 07/31/18 0611 07/31/18 0611 Results 24 hrs Laboratory Tests Test 07/30/18 12:42 07/30/18 16:41 07/30/18 21:51 07/31/18 01:45 Bedside Glucose 282 H 296 H 326 H 220 Test 07/31/18 05:19 07/31/18 06:11 07/31/18 08:14 Bedside Glucose 223 H 254 H White Blood Count 5.1 Red Blood Count 2.97 L Hemoglobin 8.3 L Hematocrit 28.7 L Mean Corpuscular Volume 96.6 Mean Corpuscular 27.9 L Hemoglobin Mean Corpuscular 28.9 L Hemoglobin Concent Red Cell Distribution 18.8 H Width Platelet Count 242 Mean Platelet Volume 10.2 Immature Granulocytes % 2.400 H Neutrophils % 56.0 Lymphocytes % 22.5 Monocytes % 17.3 H Eosinophils % 1.2 Basophils % 0.6 Nucleated Red Blood 0.0 Cells % Immature Granulocytes # 0.120 H Neutrophils # 2.9 Lymphocytes # 1.2 Monocytes # 0.9 Eosinophils # 0.1 Basophils # 0.0 Nucleated Red Blood 0.0 Cells # Sodium Level 146 H Potassium Level 4.1 Chloride Level 113 H Carbon Dioxide Level 28 Anion Gap 5 Blood Urea Nitrogen 40 H Creatinine 0.94 Est Glomerular Filtrat > 60 Rate mL/min Glucose Level 231 H Calcium Level 8.8 Phosphorus Level 3.0 Magnesium Level 2.3 B-Type Natriuretic 18294 H Peptide Digoxin Level 0.7 L Home Meds Reported Medications Miscellaneous* PUMP (Miscellaneous* PUMP) 1 Each Pump.resvr, 0.5 MG INH Q4, EA 06/15/18 Ipratropium-Albuterol (Ipratropium-Albuterol) 0.5-3 Mg/3 Ml Ampul.neb, 3 ML INHALATION Q6, #30 VIAL 06/15/18 Ipratropium [place]* (Atrovent HFA*) 12.9 Gm Aer.w.adap, 2 PUFF INHALATION Q4H for SHORTNESS OF BREATH, #1 INHALER 06/15/18 Insulin Human Nph (Novolin-N) 100 Units/Ml Susp, 14 SQ QHS 06/15/18 Digoxin* (Lanoxin*) 0.125 Mg Tablet, 0.125 MG GTB DAILY, TAB 06/15/18 Sodium Phosphate* (Phos-Nak*) 250 Mg/Pkt Soln, 250 MG PO TID, PACKET 06/15/18 Insulin Aspart* (Novolog Insulin Pen*) 100 Unit/Ml Soln, 0 SC .SLIDING SCALE Q6, EA 06/15/18 Balsam [place] Oil (Venelex Ointment Packet) 5 Gm Oint.pack, 5 GM TOP BID, PACKET 06/15/18 Lacosamide (Vimpat) 100 Mg Tablet, 100 MG GTB BID, TAB 06/15/18 Famotidine* (Famotidine*) 20 Mg Tablet, 20 MG GTB BID, #60 TAB 06/15/18 Diphenhydramine Hcl* (Diphenhydramine Hcl*) 12.5 Mg/5 Ml Elixir, 12.5 MG GTB Q6H PRN for ITCHING, ML 06/15/18 Folic Acid* (Folic Acid*) 1 Mg Tablet, 1 MG GTB DAILY, TAB 06/15/18 Levetiracetam* (Levetiracetam*) 500 Mg/5 Ml Solution, 750 MG GTB BID, ML 06/15/18 Atorvastatin Calcium (Atorvastatin Calcium) 10 Mg Tablet, 10 MG GTB QHS, #30 TAB 06/15/18 Fluoxetine Hcl* (Fluoxetine Hcl*) 20 Mg Capsule, 20 MG G-TUBE DAILY, CAP 06/15/18 Ascorbic Acid* (Vitamin C*) 500 Mg Capsule.sa, 500 MG G-TUBE DAILY, CAP 06/15/18 Albuterol Sulfate* (Albuterol Sulfate* Neb) 0.083%-3 Ml Neb, 2.5 MG NEB Q4 PRN for WHEEZING AND SOB, #30 VIAL 06/15/18 Ergocalciferol (Vitamin D2) (VITAMIN D2) 50,000 Unit Capsule, 47757 UNIT PO QMonday, CAP 06/15/18 Apixaban* (Eliquis*) 5 Mg Tablet, 5 MG GTB Q12, TAB 06/15/18 Carboxymethylcellulose Sodium* (Refresh Tears*) 15 Ml Drops, 2 DROP BOTH EYES Q8, #1 EA 06/15/18 Chlorpromazine Hcl* (Chlorpromazine Hcl*) 25 Mg Tablet, 25 MG GTB QHS, TAB 06/15/18 Acetaminophen* (Acetaminophen* Susp) 325 Mg/10.15 Ml Solution, 650 MG G-TUBE Q4H PRN for PAIN OR TEMP ABOVE 38C, ML 06/15/18 Metoprolol Tartrate* (Lopressor* Inj) 5 Mg/5 Ml Soln, 5 MG IV Q4 for HR > 130, VIAL 06/15/18 Metoprolol Tartrate* (Lopressor*) 25 Mg Tab, 25 MG PO BID, #60 TAB 06/15/18 Medications Current Medications IV Flush (NS 3 ml) 3 ml PER PROTOCOL IV ; Start 07/29/18 at 21:30 Ondansetron HCl (Zofran Inj) 4 mg Q6H PRN IV NAUSEA/VOMITING; Start 07/29/18 at 21:30 Acetaminophen (Tylenol Liquid) 650 mg Q4H PRN GTB MILD PAIN(1-3) OR TEMP>38C; Start 07/29/18 at 21:30 Albuterol (Proventil 0.083% (Neb)) 2.5 mg Q4H RESP THERAPY PRN NEB WHEEZING AND SOB; Start 07/29/18 at 21:30 Apixaban (Eliquis) 5 mg Q12 GTB Last administered on 07/31/18 08:04; Admin Dose 5 MG; Start 07/30/18 at 09:00 Ascorbic Acid (Vitamin C) 500 mg DAILY GTB Last administered on 07/31/18 08:04; Admin Dose 500 MG; Start 07/30/18 at 09:00 Atorvastatin Calcium (Lipitor) 10 mg QHS GTB Last administered on 07/30/18 20:27; Admin Dose 10 MG; Start 07/30/18 at 21:00 Eye Lubricant (Refresh Plus) 2 drop Q8 BOTH EYES Last administered on 07/31/18at 05:34; Admin Dose 2 DROP; Start 07/29/18 at 22:00 Chlorpromazine (Thorazine) 25 mg QHS GTB Last administered on 07/30/18 20:27; A dmin Dose 25 MG; Start 07/30/18 at 21:00 Diphenhydramine HCl (Benadryl Liquid Cup) 12.5 mg Q6H PRN GTB ITCHING; Start 07/29/18 at 21:30 Famotidine (Pepcid) 20 mg BID GTB Last administered on 07/31/18 08:04; Admin Dose 20 MG; Start 07/30/18 at 09:00 Fluoxetine HCl (Prozac) 20 mg DAILY GTB Last administered on 07/31/18 08:04; Admin Dose 20 MG; Start 07/30/18 at 09:00 Folic Acid (Folic Acid) 1 mg DAILY GTB Last administered on 07/31/18 08:04; Admin Dose 1 MG; Start 07/30/18 at 09:00 Levetiracetam (Keppra Liquid) 750 mg BID GTB Last administered on 07/31/18 08:04; Admin Dose 750 MG; Start 07/30/18 at 09:00 Sodium Phosphate (Neutra-Phos) 250 mg TID PO Last administered on 07/31/18 08:04; Admin Dose 250 MG; Start 07/30/18 at 09:00 Miscellaneous Information 5 gm BID TOP ; Start 07/30/18 at 09:00; Status UNV Lacosamide (Vimpat Liq) 100 mg BID GTB Last administered on 07/31/18 08:06; Admin Dose 100 MG; Start 07/30/18 at 09:00 Ipratropium [place] (Atrovent Hfa) 4 puff Q6H RESP THERAPY INH Last administered on 07/31/18 08:53; Admin Dose 4 PUFF; Start 07/30/18 at 02:00 Albuterol (Ventolin Hfa) 4 puff Q6H RESP THERAPY INH Last administered on 07/31/18 08:53; Admin Dose 4 PUFF; Start 07/30/18 at 02:00 Diagnostic Test (Pha) (Accu-Chek) 1 ea 02 XX Last administered on 07/31/18 02:07; Admin Dose 1 EA; Start 07/31/18 at 02:00 Insulin Aspart (Novolog Insulin Pen) NOVOLOG *MILD* ALGORI... Q4 SC Last administered on 07/31/18 08:22; Admin Dose 3 UNIT; Start 07/30/18 at 13:00 Miscellaneous Information 1 ea NOTE XX ; Start 07/30/18 at 12:30 Glucose (Glutose) 15 gm Q15M PRN PO DECREASED GLUCOSE; Start 07/30/18 at 12:30 Glucose (Glutose) 22.5 gm Q15M PRN PO DECREASED GLUCOSE; Start 07/30/18 at 12:30 Dextrose (D50w Syringe) 25 ml Q15M PRN IV DECREASED GLUCOSE; Start 07/30/18 at 12:30 Dextrose (D50w Syringe) 50 ml Q15M PRN IV DECREASED GLUCOSE; Start 07/30/18 at 12:30 Glucagon (Glucagen) 1 mg Q15M PRN IM DECREASED GLUCOSE; Start 07/30/18 at 12:30 Glucose (Glutose) 15 gm Q15M PRN BUCCAL DECREASED GLUCOSE; Start 07/30/18 at 12:30 Insulin Aspart Prota 70%/Aspart 30% (Novolog Mix (70/ 30) Flexpen) 20 unit Q12 SC Last administered on 07/31/18at 08:22; Admin Dose 20 UNIT; Start 07/30/18 at 21:00 Assessment/Plan Hospital Course (Demo Recall) Atrial fibrillation with slow ventricular response secondary to medication including metoprolol and digoxin Hypoxic respiratory failure with tracheostomy S/P pneumonia and sepsis Hx HTN S/P hemturia anemia REC off dig hold metoprolol and restart later on if HR improve vent care/ resp care as per IM ABX PER IM tele monitoring Thank you ISABELLE SINHA MD July 31, 2018 10:41
--- NOTE | 2018-07-31 12:16 | DS ---
Date/Time of Note Date/Time of Note DATE: 07/31/18 TIME: 12:11 Discharge Summary Admission/Discharge Info Admit Date/Time July 29, 2018 at 20:55 Discharge Date/Time Discharge Diagnosis Patient recently discharged after he was initially admitted for hematuria secondary to UTI. At that time he was seen in consultation with urology. His Eliquis was momentarily stopped, but was resumed after resolution of hematuria. At that time he was also found to be septic secondary to healthcare acquired pneumonia and UTI. He was discharged with antibiotic patient was readmitted based on family's concerns for shortness of breath. However patient was clinically stable upon arrival here. Final diagnosis remains as below: 1. Sepsis likely 2/2HCAP and UTI: Resolved 2. Acute on chronic resp failure -chronically vent dependent, was on SIMV and now back on AC 3. HCAP : Sputum cultures grew Pseudomonas, complete 2 weeks of treatment, recommend repeat sputum cultures and chest x-ray after completion of antibiotics to ensure resolution 4. Hematuria with acute on chronic blood loss anemia likely 2/2 UTI with eliquis therapy 5. Chronic AFib with good rate control -Eliquis resumed with no further hematuria 6. DM 2 with hyperglycemia 2/2 meds on hold -aic 7.6, likley unreliable in this anemic patient 7. Iron deficiency : On supplementation 8. history of brain biopsy about 4 years ago, subsequent chronic respiratory failure with hypoxia, tracheostomy, gastrostomy about 3 months ago -resumed on PEG feeds 9. Status post liver transplant for which indication is not documented 10. hypertension 11. dyslipidemia 12. Chronic debility with msc wasting 13. Bradycardia: Improved off AV nguyen blockade drugs, resumed gently for A. fib. . Patient Condition: Stable Consults Cardiology: Rian Cordon MD Pulmonology: Billy Stringer . Hospital Course 67-year-old male who was recently admitted here and managed for hematuria s econdary to urinary tract infection in the setting of Eliquis therapy as well as Pseudomonas pneumonia. The patient was discharged back to [facility] facility once stabilized to complete his antibiotic therapy, however the after discharge, he was referred back to the emergency room per the family's request for reported shortness of breath. So far inpatient patient has been stable, the patient is chronically ventilator dependent and has essentially remained on prior vent settings without any implications. His family conference was obtained today to ensure that family's concerns were addressed and the patient was assessed fully in the process to ensure that they had no other issues. We had a long and extensive discussion, it looks like the patient had a history of a brain biopsy not a craniectomy in the past, however the son, his and his son who are at the bedside did not know what the findings were what even the indication for it was. Patient has also had a liver transplant in the past, did not know the indication for that as well. Unfortunately the patient's could not be in the meeting. We reviewed our care plan, and we reviewed the patient's overall clinical status and assessed and questions were answered. At this time the patient is stable and can return back to the [facility] to complete 2 weeks of IV antibiotics for aspiration pneumonia. Family wants patie nt to remain a full code, patient would benefit from aggressive physical therapy and rehabilitation. The hope is that eventually he can be weaned off the ventilator. At this time, he has been assessed by myself and is in stable condition for discharge. Of note is that his blood sugars are elevated, but this is likely due to the fact that the volume of his feeds were recently inc reased, we will adjust his insulin dosing accordingly and further adjustments can be done by his assigned physician at the [facility]. Patient is ready for discharge at this time. . Home Meds Reported Medications Miscellaneous* PUMP (Miscellaneous* PUMP) 1 Each Pump.resvr, 0.5 MG INH Q4, EA 06/15/18 Ipratropium-Albuterol (Ipratropium-Albuterol) 0.5-3 Mg/3 Ml Ampul.neb, 3 ML INHALATION Q6, #30 VIAL 06/15/18 Ipratropium [place]* (Atrovent HFA*) 12.9 Gm Aer.w.adap, 2 PUFF INHALATION Q4H for SHORTNESS OF BREATH, #1 INHALER 06/15/18 Insulin Human Nph (Novolin-N) 100 Units/Ml Susp, 14 SQ QHS 06/15/18 Digoxin* (Lanoxin*) 0.125 Mg Tablet, 0.125 MG GTB DAILY, TAB 06/15/18 Sodium Phosphate* (Phos-Nak*) 250 Mg/Pkt Soln, 250 MG PO TID, PACKET 06/15/18 Insulin Aspart* (Novolog Insulin Pen*) 100 Unit/Ml Soln, 0 SC .SLIDING SCALE Q6, EA 06/15/18 Balsam [place] Oil (Venelex Ointment Packet) 5 Gm Oint.pack, 5 GM TOP BID, PACKET 06/15/18 Lacosamide (Vimpat) 100 Mg Tablet, 100 MG GTB BID, TAB 06/15/18 Famotidine* (Famotidine*) 20 Mg Tablet, 20 MG GTB BID, #60 TAB 06/15/18 Diphenhydramine Hcl* (Diphenhydramine Hcl*) 12.5 Mg/5 Ml Elixir, 12.5 MG GTB Q6H PRN for ITCHING, ML 06/15/18 Folic Acid* (Folic Acid*) 1 Mg Tablet, 1 MG GTB DAILY, TAB 06/15/18 Levetiracetam* (Levetiracetam*) 500 Mg/5 Ml Solution, 750 MG GTB BID, ML 06/15/18 Atorvastatin Calcium (Atorvastatin Calcium) 10 Mg Tablet, 10 MG GTB QHS, #30 TAB 06/15/18 Fluoxetine Hcl* (Fluoxetine Hcl*) 20 Mg Capsule, 20 MG G-TUBE DAILY, CAP 06/15/18 Ascorbic Acid* (Vitamin C*) 500 Mg Capsule.sa, 500 MG G-TUBE DAILY, CAP 06/15/18 Albuterol Sulfate* (Albuterol Sulfate* Neb) 0.083%-3 Ml Neb, 2.5 MG NEB Q4 PRN for WHEEZING AND SOB, #30 VIAL 06/15/18 Ergocalciferol (Vitamin D2) (VITAMIN D2) 50,000 Unit Capsule, 67098 UNIT PO QMonday, CAP 06/15/18 Apixaban* (Eliquis*) 5 Mg Tablet, 5 MG GTB Q12, TAB 06/15/18 Carboxymethylcellulose Sodium* (Refresh Tears*) 15 Ml Drops, 2 DROP BOTH EYES Q8, #1 EA 06/15/18 Chlorpromazine Hcl* (Chlorpromazine Hcl*) 25 Mg Tablet, 25 MG GTB QHS, TAB 06/15/18 Acetaminophen* (Acetaminophen* Susp) 325 Mg/10.15 Ml Solution, 650 MG G-TUBE Q4H PRN for PAIN OR TEMP ABOVE 38C, ML 06/15/18 Metoprolol Tartrate* (Lopressor* Inj) 5 Mg/5 Ml Soln, 5 MG IV Q4 for HR > 130, VIAL 06/15/18 Metoprolol Tartrate* (Lopressor*) 25 Mg Tab, 25 MG PO BID, #60 TAB 06/15/18 Follow-up Plan complete 2 weeks of treatment, recommend repeat sputum cultures and chest x-ray after completion of antibiotics to ensure resolution . Primary Care Provider Breanna Morris Time spent on discharge: > 30 minutes Pending Labs Laboratory Tests Test 07/30/18 12:42 07/30/18 16:41 07/30/18 21:51 07/31/18 01:45 Bedside 282 296 326 220 Glucose mg/dL (70-220) mg/dL (70-220) mg/dL (70-220) mg/dL (70-220) Test 07/31/18 05:19 07/31/18 06:11 07/31/18 08:14 Bedside 223 254 Glucose mg/dL (70-220) mg/dL (70-220) White Blood 5.1 Count 10^3/ul (4.8-1 0.8) Red Blood 2.97 Count 10^6/ul (4.70- 6.10) Hemoglobin 8.3 g/dl (14.0-18. 0) Hematocrit 28.7 % (42.0-52.0) Mean 96.6 Corpuscular fl (82.0-101.0 Volume ) Mean 27.9 Corpuscular pg (29.0-33.0) Hemoglobin Mean 28.9 Corpuscular g/dl (32.0-37. Hemoglobin Conc 0) ent Red Cell 18.8 Distribution % (11.5-14.5) Width Platelet Count 242 10^3/UL (140-4 15) Mean Platelet 10.2 Volume fl (7.4-10.4) Immature 2.400 Granulocytes % % (0.001-0.429 ) Neutrophils % 56.0 % (39.0-77.0) Lymphocytes % 22.5 % (15.0-51.0) Monocytes % 17.3 % (0.0-11.0) Eosinophils % 1.2 % (0.0-7.0) Basophils % 0.6 % (0.0-2.0) Nucleated Red 0.0 Blood Cells % /100WBC (0.0-0 .0) Immature 0.120 Granulocytes # 10^3/ul (0.0-0 .031) Neutrophils # 2.9 10^3/ul (1.6-7 .5) Lymphocytes # 1.2 10^3/ul (0.8-2 .9) Monocytes # 0.9 10^3/ul (0.3-0 .9) Eosinophils # 0.1 10^3/ul (0.0-0 .5) Basophils # 0.0 10^3/ul (0.0-0 .1) Nucleated Red 0.0 Blood Cells # 10^3/ul (0.0-0 .0) Sodium Level 146 mmol/L (135-14 4) Potassium 4.1 Level mmol/L (3.5-5. 1) Chloride Level 113 mmol/L (97-110 ) Carbon Dioxide 28 Level mmol/L (21-31) Anion Gap 5 (5-13) Blood Urea 40 Nitrogen mg/dl (7-20) Creatinine 0.94 mg/dl (0.61-1. 24) Est Glomerular > 60 Filtrat mL/min (>60) Rate mL/min Glucose Level 231 mg/dl (70-220) Calcium Level 8.8 mg/dl (8.4-10. 2) Phosphorus 3.0 Level mg/dl (2.5-4.9 ) Magnesium 2.3 Level mg/dl (1.7-2.5 ) B-Type 08749 Natriuretic PG/ML (0-125) Peptide Digoxin Level 0.7 ng/ml (1.0-2.0 ) LESLIE FLOREZ July 31, 2018 12:16
[2018-07-31] MEDS ORDERED: INSULIN ASP PROT/ASPART (70/30) PEN SC ONE (12:30)
[2018-07-31] MEDS ORDERED: CEFEPIME 1GM/50 ML (PMX) 50 ML IVPB SCH (13:00)
[2018-07-31] MEDS ORDERED: ATRO INH (14:21)
[2018-07-31] MEDS ORDERED: LINA5TAB PO (14:21)
[2018-07-31] MEDS ORDERED: CEFE1FRO IV (14:21)
[2018-07-31] MEDS ORDERED: ALBU18HF INH (14:21)
[2018-07-31] MEDS ORDERED: NOV70303I SC (14:21)
--- NOTE | 2018-07-31 14:22 | PDOCDIS ---
Discharge Instructions DIAGNOSIS Discharge Diagnosis Patient recently discharged after he was initially admitted for hematuria secondary to UTI. At that time he was seen in consultation with urology. His Eliquis was momentarily stopped, but was resumed after resolution of hematuria. At that time he was also found to be septic secondary to healthcare acquired pneumonia and UTI. He was discharged with antibiotic patient was readmitted based on family's concerns for shortness of breath. However patient was clinically stable upon arrival here. Final diagnosis remains as below: 1. Sepsis likely 2/2HCAP and UTI: Resolved 2. Acute on chronic resp failure -chronically vent dependent, was on SIMV and now back on AC 3. HCAP : Sputum cultures grew Pseudomonas, complete 2 weeks of treatment, recommend repeat sputum cultures and chest x-ray after completion of antibiotics to ensure resolution 4. Hematuria with acute on chronic blood loss anemia likely 2/2 UTI with eliquis therapy 5. Chronic AFib with good rate control -Eliquis resumed with no further hematuria 6. DM 2 with hyperglycemia 2/2 meds on hold -aic 7.6, likley unreliable in this anemic patient 7. Iron deficiency : On supplementation 8. history of brain biopsy about 4 years ago, subsequent chronic respiratory failure with hypoxia, tracheostomy, gastrostomy about 3 months ago -resumed on PEG feeds 9. Status post liver transplant for which indication is not documented 10. hypertension 11. dyslipidemia 12. Chronic debility with msc wasting 13. Bradycardia: Improved off AV nguyen blockade drugs, resumed gently for A. fib. . CONDITION [id number] Patient Condition: [id number] Stable HOME CARE INSTRUCTIONS: [id number] Special Diet: [id number] tube feeds DiaBeta source at 75 cc an hour FOLLOW UP/APPOINTMENTS Follow-up Plan complete 2 weeks of treatment, recommend repeat sputum cultures and chest x-ray after completion of antibiotics to ensure resolution . LESLIE FLOREZ July 31, 2018 14:22
[2018-07-31] MEDS ORDERED: LACT1CAP57 PO (14:23)
[2018-07-31] MEDS ORDERED: INSULIN ASP PROT/ASPART (70/30) PEN SC SCH (21:00)
[2018-08-01] MEDS ORDERED: LINAGLIPTIN 5 MG TABLET PO SCH (09:00)
== END 2018-07-31 19:17 | DRG 871 ==
LOC: 6WM 20:55
PROVIDERS: ADMIT Internal Medicine; ATTEND Family Medicine
PROC: 5A1945Z Respiratory Ventilation, 24-96 Consecutive Hours (ICD-10-PCS; principal; 2018-07-29)
DX: A41.9 Sepsis, unspecified organism (principal); J18.9 Pneumonia, unspecified organism; J96.21 Acute and chronic respiratory failure with hypoxia; G93.49 Other encephalopathy; Z94.4 Liver transplant status; N39.0 Urinary tract infection, site not specified; Z99.11 Dependence on respirator [ventilator] status; D62 Acute posthemorrhagic anemia; E87.0 Hyperosmolality and hypernatremia; Z93.0 Tracheostomy status; R00.1 Bradycardia, unspecified; M62.50 Muscle wasting and atrophy, not elsewhere classified, unspecified site; Z93.1 Gastrostomy status; E78.5 Hyperlipidemia, unspecified; R13.10 Dysphagia, unspecified; E11.65 Type 2 diabetes mellitus with hyperglycemia; I12.9 Hypertensive chronic kidney disease with stage 1 through stage 4 chronic kidney disease, or unspecified chronic kidney disease; N18.3 Chronic kidney disease, stage 3 (moderate); R31.9 Hematuria, unspecified; R23.3 Spontaneous ecchymoses; G40.909 Epilepsy, unspecified, not intractable, without status epilepticus; E11.22 Type 2 diabetes mellitus with diabetic chronic kidney disease; Z79.02 Long term (current) use of antithrombotics/antiplatelets; T50.905A Adverse effect of unspecified drugs, medicaments and biological substances, initial encounter
CPT/HCPCS: 80048; 80053; 80162; 82962; 83036; 83735; 83880; 84100; 85025; 87081; 94002; 94003; 94640; J0692; J1815; J1817; J1940

== ENCOUNTER 2018-12-04 17:43 | Inpatient (IN) | payer BC ==
[~2018-12-04] VITALS: Ht 162.6 cm; Wt 71.0 kg
[~2018-12-04 17:43] MED LIST changes: +ACET-2343 GTB; +ADMELOG SC; +ALBU18HF INH; +AMIN30LI GTB; +ARGI1POW19 GTB; +ATRO INH; -ATRO INHALATION; +BEN25 G-TUBE; +CEFE1FRO IV; +CHLO25TA18 G-TUBE; -CHLO25TA18 GTB; +CRAN400C G-TUBE; +CRAN400T6 GTB; +DEXT1DRO6 BOTH EYES; +DIGO125T G-TUBE; -DIGO125T93 GTB; -DIPH12.59 GTB; +DOCU-144 G-TUBE; +EPO10ESRD SC; +EPOE40002 SC; +ERGO500013 G-TUBE; +FERR15DR22 G-TUBE; +FURO40TA4 GTB; +INSU100V30 SQ; +KEP100S GTB; +LACO10SO2 G-TUBE; +LACT1CAP57 GTB; +LACT1CAP57 PO; +LINA5TAB PO; +METO-448 G-TUBE; -METO5VIA28 IV; +MULT-105 GTB; +NEUTPHOS GTB; -NEUTPHOS PO; +NOV70303I SC; -NOVO3I SC; -NPH SQ; +NPH,100I5 SQ; +ONDA4TAB13 G-TUBE; +POLY17PO6 G-TUBE; +POTA20LI PO; +POTA8CAP19 G-TUBE; -PUMP MISCELLANEOUS INH; +SCOP1PAT21 TD; +SIRO1SOL GTB; +SIRO2TAB2 G-TUBE; +ZINC220T3 GTB; +[UNRECOGNIZED DRUG - CODE] GTB; +[UNRECOGNIZED DRUG - OTHER]; +[UNRECOGNIZED DRUG - OTHER] GTB
[2018-12-04] MEDS ORDERED: SOD CHLORIDE 0.9% 2,000 ML IV STA (18:25)
[2018-12-04] MEDS ORDERED: HYDROCODONE/APAP (5/325) TAB PO PRN (19:30)
[2018-12-04] MEDS ORDERED: LORAZEPAM 2 MG INJ IV PRN (19:30)
[2018-12-04] MEDS ORDERED: MAGNESIUM HYDROXIDE 30ML CUP PO PRN (19:30)
[2018-12-04] MEDS ORDERED: hydrALAzine 20 MG INJ IV PRN (19:30)
[2018-12-04] MEDS ORDERED: ALBUTEROL/IPRATROPIUM (NEB) 3 ML AMP HHN PRN (19:30)
[2018-12-04] MEDS ORDERED: NACL 0.9% 3 ML SYG IV SCH (19:30)
[2018-12-04] MEDS ORDERED: VANCOMYCIN IV PER PHARMACY XX SCH (19:30)
[2018-12-04] MEDS ORDERED: ONDANSETRON 4 MG INJ IV PRN ×2 (19:30)
[2018-12-04] MEDS ORDERED: NITROGLYCERIN (SL) 0.4 MG TAB SL PRN (19:30)
[2018-12-04] MEDS ORDERED: ACETAMINOPHEN 325 MG TAB PO PRN ×2 (19:30)
[2018-12-04] MEDS ORDERED: DOCUSATE SODIUM 100 MG CAP PO PRN (19:30)
[2018-12-04 20:00] VITALS: BP 113/78; PULSE 79; RESP 24
[2018-12-04] MEDS ORDERED: VANCOMYCIN 1 GM in 250 ML IVPB ONE (20:00)
[2018-12-04] MEDS: SOD CHLORIDE 0.45% 1,000 ML IV SCH (20:09)
[2018-12-04 20:30] VITALS: BP 133/60; PULSE 72; RESP 18; RESP 20
[2018-12-04] MEDS ORDERED: VANCOMYCIN 1.5 GM/NS 250 ML 250 ML IVPB ONE (20:30)
[2018-12-04] MEDS ORDERED: PIPER-TAZO 2.25 GM (PMX) 50 ML IVPB SCH (20:30)
[2018-12-04 22:17] VITALS: Ht 162.6 cm; Wt 71.0 kg
[2018-12-04 23:10] VITALS: RESP 17
[2018-12-04 23:56] VITALS: BP 91/61; PULSE 78; RESP 22
[2018-12-05] VITALS (19 sets, daily range): BP systolic 80–112; BP diastolic 50–73; PULSE 64–84; RESP 16–26
[2018-12-05] MEDS ORDERED: PENDING SANTYL ORDER FOR WOUND CARE XX PRN ×2
[2018-12-05] MEDS ORDERED: DEXTROSE 50% 50 ML SYRINGE IV PRN ×2 (01:00)
[2018-12-05] MEDS ORDERED: GLUCAGON 1 MG INJ IM PRN (01:00)
[2018-12-05] MEDS ORDERED: GLUCOSE GEL 15 GRAM TUBE PO PRN ×2 (01:00)
[2018-12-05] MEDS ORDERED: GLUCOSE GEL 15 GRAM TUBE BUCCAL PRN (01:00)
[2018-12-05] MEDS: PIPER-TAZO 2.25 GM (PMX) 50 ML IVPB SCH ×2 (02:05→05:05)
[2018-12-05] MEDS ORDERED: SOD CHLORIDE 0.9% 500 ML IV ONE (04:00)
[2018-12-05] MEDS: INSULIN ASPART [NOVOLOG] 3 ML PEN SC SCH ×3 (05:07→17:33)
[2018-12-05] MEDS ORDERED: PANTOPRAZOLE 40 MG INJ IV SCH (06:00)
[2018-12-05] MEDS: SOD CHLORIDE 0.45% 1,000 ML IV SCH (07:30)
[2018-12-05] MEDS: FERROUS SULFATE 60 MG/ML 5ML CUP GTB SCH (08:43)
[2018-12-05] MEDS: SOD CHLORIDE 0.9% 1,000 ML IV SCH ×2 (08:43→17:30)
[2018-12-05] MEDS: BALSAM PERU/CASTOR OIL 60 GM TUBE TOP SCH ×2 (08:44→21:00)
[2018-12-05] MEDS: LEVETIRACETAM (100 MG/ML) 5ML CUP GTB SCH ×2 (08:44→21:50)
[2018-12-05] MEDS: COLLAGENASE 5 GM (UD JAR) TOP SCH ×2 (08:44→21:00)
[2018-12-05] MEDS: FLUOXETINE 20 MG CAP GTB SCH (08:45)
[2018-12-05] MEDS: FOLIC ACID 1 MG TAB GTB SCH (08:46)
[2018-12-05] MEDS: LACOSAMIDE (100 MG/10 ML PO SYR) GTB SCH ×2 (08:52→21:49)
[2018-12-05] MEDS ORDERED: APIXABAN 5 MG TABLET GTB SCH (09:00)
[2018-12-05] MEDS ORDERED: SIROLIMUS 3 MG G-TUBE SCH (09:00)
[2018-12-05] MEDS ORDERED: SCOPOLAMINE 1.5 MG PATCH TRANSDERM SCH (09:00)
[2018-12-05] MEDS ORDERED: VANCOMYCIN IV PER PHARMACY XX SCH (12:30)
[2018-12-05] MEDS ORDERED: CEFEPIME 1GM/50 ML (PMX) 50 ML IVPB ONE (12:30)
[2018-12-05] MEDS: DIGOXIN 0.125 MG TAB GTB SCH (12:33)
[2018-12-05] MEDS ORDERED: [UNRECOGNIZED DRUG - OTHER] XX SCH (15:00)
[2018-12-05] MEDS ORDERED: VANCOMYCIN 1 GM 250 ML IVPB SCH (21:00)
[2018-12-05] MEDS: SIROLIMUS 1 MG/ML GTB SCH (21:49)
[2018-12-05] MEDS: ATORVASTATIN 10 MG TAB GTB SCH (21:50)
[2018-12-05] MEDS: APIXABAN 5 MG TABLET GTB SCH (21:50)
[2018-12-05] MEDS: DAKINS 0.0125%(1/40) 473 ML SOLUTION TP SCH (21:51)
[2018-12-05] MEDS: VANCOMYCIN 1 GM 250 ML IVPB SCH (21:51)
[2018-12-05] MEDS: DOCUSATE SODIUM 100 MG CAP PO SCH (21:55)
[2018-12-06] VITALS (19 sets, daily range): BP systolic 93–125; BP diastolic 54–86; PULSE 66–82; RESP 16–27
[2018-12-06] MEDS: INSULIN ASPART [NOVOLOG] 3 ML PEN SC SCH ×4 (00:59→17:32)
[2018-12-06] MEDS: LANSOPRAZOLE (SOLTAB) 30 MG TAB GTB SCH (05:34)
[2018-12-06] MEDS: SOD CHLORIDE 0.9% 1,000 ML IV SCH ×3 (05:34→15:26)
[2018-12-06] MEDS: LACOSAMIDE (100 MG/10 ML PO SYR) GTB SCH ×2 (09:33→22:43)
[2018-12-06] MEDS: FLUOXETINE 20 MG CAP GTB SCH (09:33)
[2018-12-06] MEDS: LEVETIRACETAM (100 MG/ML) 5ML CUP GTB SCH ×2 (09:33→22:34)
[2018-12-06] MEDS: DOCUSATE SODIUM 100 MG CAP PO SCH ×2 (09:34→22:43)
[2018-12-06] MEDS: FERROUS SULFATE 60 MG/ML 5ML CUP GTB SCH (09:34)
[2018-12-06] MEDS: SIROLIMUS 1 MG/ML GTB SCH ×2 (09:34→21:00)
[2018-12-06] MEDS: FOLIC ACID 1 MG TAB GTB SCH (09:34)
[2018-12-06] MEDS: COLLAGENASE 5 GM (UD JAR) TOP SCH ×2 (09:34→22:34)
[2018-12-06] MEDS: APIXABAN 5 MG TABLET GTB SCH ×2 (09:34→22:35)
[2018-12-06] MEDS: BALSAM PERU/CASTOR OIL 60 GM TUBE TOP SCH ×2 (09:35→22:37)
[2018-12-06] MEDS: DAKINS 0.0125%(1/40) 473 ML SOLUTION TP SCH ×2 (09:35→22:36)
[2018-12-06] MEDS ORDERED: ALBUMIN HUMAN 25% 100 ML IV ONE (12:30)
[2018-12-06] MEDS: VANCOMYCIN 1 GM 250 ML IVPB SCH (22:34)
[2018-12-06] MEDS: ATORVASTATIN 10 MG TAB GTB SCH (22:35)
[2018-12-07] VITALS (12 sets, daily range): BP systolic 104–129; BP diastolic 64–78; PULSE 69–93; RESP 16–29
[2018-12-07] MEDS: INSULIN ASPART [NOVOLOG] 3 ML PEN SC SCH ×3 (02:00→11:44)
[2018-12-07] MEDS: LANSOPRAZOLE (SOLTAB) 30 MG TAB GTB SCH (05:56)
[2018-12-07] MEDS: SOD CHLORIDE 0.9% 1,000 ML IV SCH (07:19)
[2018-12-07] MEDS: FOLIC ACID 1 MG TAB GTB SCH (09:28)
[2018-12-07] MEDS: SIROLIMUS 1 MG/ML GTB SCH (09:28)
[2018-12-07] MEDS: APIXABAN 5 MG TABLET GTB SCH (09:28)
[2018-12-07] MEDS: DOCUSATE SODIUM 100 MG CAP PO SCH (09:28)
[2018-12-07] MEDS: FLUOXETINE 20 MG CAP GTB SCH (09:28)
[2018-12-07] MEDS: FERROUS SULFATE 60 MG/ML 5ML CUP GTB SCH (09:28)
[2018-12-07] MEDS: LACOSAMIDE (100 MG/10 ML PO SYR) GTB SCH (09:28)
[2018-12-07] MEDS: LEVETIRACETAM (100 MG/ML) 5ML CUP GTB SCH (09:29)
[2018-12-07] MEDS: DAKINS 0.0125%(1/40) 473 ML SOLUTION TP SCH (09:29)
[2018-12-07] MEDS: BALSAM PERU/CASTOR OIL 60 GM TUBE TOP SCH (09:29)
[2018-12-07] MEDS: COLLAGENASE 5 GM (UD JAR) TOP SCH (09:29)
[2018-12-07] MEDS: DIGOXIN 0.125 MG TAB GTB SCH (12:12)
[2018-12-07] MEDS ORDERED: INSULIN GLARGINE [LANTus] (100 UNITS/ML) SYG SC SCH (15:30)
[2018-12-07] MEDS ORDERED: FOSFOMYCIN 3 GM PACKET PO ONE (16:00)
== END 2018-12-07 17:18 | DRG 683 ==
LOC: E/R 17:43 → TEL 19:18
PROVIDERS: ADMIT Internal Medicine; ATTEND Family Medicine
PROC: 5A1945Z Respiratory Ventilation, 24-96 Consecutive Hours (ICD-10-PCS; principal; 2018-12-04)
DX: N17.9 Acute kidney failure, unspecified (principal); Z94.4 Liver transplant status; Z99.11 Dependence on respirator [ventilator] status; G93.40 Encephalopathy, unspecified; J96.11 Chronic respiratory failure with hypoxia; G12.21 Amyotrophic lateral sclerosis; E87.2 Acidosis; I42.9 Cardiomyopathy, unspecified; D68.9 Coagulation defect, unspecified; N39.0 Urinary tract infection, site not specified; Z93.0 Tracheostomy status; I48.2 Chronic atrial fibrillation; E86.0 Dehydration; E11.22 Type 2 diabetes mellitus with diabetic chronic kidney disease; Z93.1 Gastrostomy status; D53.1 Other megaloblastic anemias, not elsewhere classified; I12.9 Hypertensive chronic kidney disease with stage 1 through stage 4 chronic kidney disease, or unspecified chronic kidney disease; N18.9 Chronic kidney disease, unspecified; Z79.4 Long term (current) use of insulin; G40.909 Epilepsy, unspecified, not intractable, without status epilepticus; E78.5 Hyperlipidemia, unspecified; D50.9 Iron deficiency anemia, unspecified
CPT/HCPCS: 36415; 76775; 80048; 80053; 80061; 81001; 82436; 82962; 83036; 83605; 83735; 84100; 84133; 84300; 84439; 84443; 85025; 85610; 85730; 87070; 87086; 93005; 94002; 94003; 96360; 97162; C9113; J0692; J1815; J2060; J2543; J3370; J7030; J7040; P9047

== ENCOUNTER 2019-01-16 21:07 | Inpatient (IN) | payer BC ==
[~2019-01-16] VITALS: Ht 157.5 cm; Wt 72.0 kg
[~2019-01-16 21:07] MED LIST changes: -ALBU18HF INH; -ALBU2.5V3 NEB; -ATRO INH; -BALS5OIN TOP; -CEFE1FRO IV; -ERGO500013 PO; -LACO10SO2 G-TUBE; -LACT1CAP57 PO; -LINA5TAB PO; -METO-448 PO; -NOV70303I SC; -[UNRECOGNIZED DRUG - OTHER]
[2019-01-16] MEDS ORDERED: ONDANSETRON 4 MG INJ IV PRN (22:00)
[2019-01-16] MEDS ORDERED: ACETAMINOPHEN 325 MG TAB PO PRN (22:00)
[2019-01-16] MEDS ORDERED: NORepinephrine 8MG/250 ML (PMX 250 ML IV STA (22:55)
[2019-01-16] MEDS ORDERED: SOD CHLORIDE 0.9% 1,000 ML IV ONE (23:00)
[2019-01-16] MEDS ORDERED: DEXTROSE 5%-0.45% NACL 1,000 ML IV SCH (23:56)
[2019-01-17] VITALS (47 sets, daily range): BP systolic 78–120; BP diastolic 49–79; PULSE 57–87; RESP 18–25; Ht 157.5 cm; Wt 72.0 kg
[2019-01-17] MEDS ORDERED: [UNRECOGNIZED DRUG - OTHER] GTB SCH
[2019-01-17] MEDS ORDERED: NORepinephrine 8MG/250 ML (PMX 250 ML IV SCH
[2019-01-17] MEDS ORDERED: ALBUTEROL HFA 8 GM INHALER INH PRN
[2019-01-17] MEDS ORDERED: ACETAMINOPHEN 325 MG TAB GTB PRN
[2019-01-17] MEDS ORDERED: LORAZEPAM 2 MG INJ IV PRN
[2019-01-17] MEDS: DIGOXIN 0.125 MG TAB GTB SCH
[2019-01-17] MEDS ORDERED: IPRATROPIUM (HFA) 12.9 GM INHALER INH PRN
[2019-01-17] MEDS ORDERED: MAGNESIUM HYDROXIDE 30ML CUP PO PRN
[2019-01-17] MEDS ORDERED: ACETAMINOPHEN 650MG/20.3ML CUP PO PRN
[2019-01-17] MEDS ORDERED: NON-FORMULARY/PATIENT OWN MED (Amino Acids/Protein Hydrolys (Pro-Stat Liquid) 30 ML) GTB SCH
[2019-01-17] MEDS ORDERED: ACCU-CHEK XX SCH (02:00)
[2019-01-17] MEDS: INSULIN ASPART [NOVOLOG] 3 ML PEN SC SCH ×6 (05:00→21:10)
[2019-01-17] MEDS: SCOPOLAMINE 1.5 MG PATCH TRANSDERM SCH (06:42)
[2019-01-17] MEDS: PANTOPRAZOLE 40 MG INJ IV SCH (06:44)
[2019-01-17] MEDS ORDERED: LEVETIRACETAM (100 MG/ML PO SYG) GTB SCH (09:00)
[2019-01-17] MEDS ORDERED: FOLIC ACID 1 MG TAB GTB SCH (09:00)
[2019-01-17] MEDS ORDERED: LACOSAMIDE (100 MG/10 ML PO SYR) GTB SCH (09:00)
[2019-01-17] MEDS ORDERED: NON-FORMULARY/PATIENT OWN MED (Lacosamide (Vimpat) 100 MG) GTB SCH (09:00)
[2019-01-17] MEDS ORDERED: FLUOXETINE 20 MG CAP GTB SCH (09:00)
[2019-01-17] MEDS ORDERED: HEPARIN 5,000 UNIT/1 ML VIAL SC SCH (09:00)
[2019-01-17] MEDS: ASCORBIC ACID 500 MG TAB GTB SCH (09:27)
[2019-01-17] MEDS: NEUTRA-PHOS 250 MG PACKET GTB SCH ×4 (09:27→23:36)
[2019-01-17] MEDS: ZINC SULFATE 220 MG CAP GTB SCH (09:27)
[2019-01-17] MEDS: SIROLIMUS 1 MG TAB PO SCH ×2 (09:27→20:20)
[2019-01-17] MEDS: APIXABAN 5 MG TABLET GTB SCH ×2 (09:27→20:21)
[2019-01-17] MEDS: LACOSAMIDE (100 MG/10 ML PO SYR) GTB SCH ×2 (09:39→20:20)
[2019-01-17] MEDS ORDERED: CEFEPIME 1GM/50 ML (PMX) 50 ML IVPB SCH (10:00)
[2019-01-17] MEDS ORDERED: VANCOMYCIN IV PER PHARMACY XX SCH (10:00)
[2019-01-17] MEDS ORDERED: SOD CHLORIDE 0.9% 1,000 ML IV SCH (10:30)
[2019-01-17] MEDS ORDERED: VANCOMYCIN 1 GM 250 ML IVPB SCH ×2 (10:30→11:00)
[2019-01-17] MEDS ORDERED: LEVETIRACETAM 1000 MG (PMX) 100 ML IVPB SCH (10:30)
[2019-01-17] MEDS ORDERED: GLUCOSE GEL 15 GRAM TUBE PO PRN ×2 (11:00)
[2019-01-17] MEDS ORDERED: GLUCOSE GEL 15 GRAM TUBE BUCCAL PRN (11:00)
[2019-01-17] MEDS ORDERED: DEXTROSE 50% 50 ML SYRINGE IV PRN ×2 (11:00)
[2019-01-17] MEDS ORDERED: PENDING SANTYL ORDER FOR WOUND CARE XX PRN (12:30)
[2019-01-17] MEDS: MEROPENEM 1 GM/50ML(PMX) 50 ML IVPB SCH ×2 (12:43→23:38)
[2019-01-17] MEDS: LEVETIRACETAM IV 750 MG in SOD CHLORIDE 0.9% 100 ML IV SCH (15:10)
[2019-01-17] MEDS: FAMOTIDINE 20 MG TAB NGT SCH (20:21)
[2019-01-17] MEDS: ATORVASTATIN 10 MG TAB PEG SCH (20:21)
[2019-01-17] MEDS: CHLORPROMAZINE 25 MG TAB GTB SCH (20:21)
[2019-01-17] MEDS ORDERED: NPH HUMAN INSULIN ISOPHANE SQ SCH (21:00)
[2019-01-17] MEDS ORDERED: ATORVASTATIN 10 MG TAB GTB SCH (21:00)
[2019-01-17] MEDS: NPH, HUMAN INSULIN ISOPHANE 3ML VIAL SC SCH (21:09)
[2019-01-17] MEDS: SOD CHLORIDE 0.9% 1,000 ML IV SCH (21:54)
[2019-01-18] VITALS (18 sets, daily range): BP systolic 95–122; BP diastolic 59–69; PULSE 60–78; RESP 16–20
[2019-01-18] MEDS: INSULIN ASPART [NOVOLOG] 3 ML PEN SC SCH ×6 (01:00→22:27)
[2019-01-18] MEDS: LEVETIRACETAM IV 750 MG in SOD CHLORIDE 0.9% 100 ML IV SCH ×2 (01:25→13:21)
[2019-01-18] MEDS ORDERED: INSULIN ASPART [NOVOLOG] 3 ML PEN SC ONE (02:00)
[2019-01-18] MEDS: PANTOPRAZOLE 40 MG INJ IV SCH (05:32)
[2019-01-18] MEDS: NEUTRA-PHOS 250 MG PACKET GTB SCH ×2 (09:38→17:31)
[2019-01-18] MEDS: SIROLIMUS 1 MG TAB PO SCH ×2 (09:38→21:44)
[2019-01-18] MEDS: ZINC SULFATE 220 MG CAP GTB SCH (09:38)
[2019-01-18] MEDS: ASCORBIC ACID 500 MG TAB GTB SCH (09:38)
[2019-01-18] MEDS: FUROSEMIDE 40 MG TAB PEG SCH (09:39)
[2019-01-18] MEDS: FOLIC ACID 1 MG TAB PEG SCH (09:39)
[2019-01-18] MEDS: APIXABAN 5 MG TABLET GTB SCH ×2 (09:39→21:44)
[2019-01-18] MEDS: LACOSAMIDE (100 MG/10 ML PO SYR) GTB SCH ×2 (09:43→21:44)
[2019-01-18] MEDS: DAKINS 0.0125%(1/40) 473 ML SOLUTION TP SCH (09:44)
[2019-01-18] MEDS: MEROPENEM 1 GM/50ML(PMX) 50 ML IVPB SCH (13:58)
[2019-01-18] MEDS: SOD CHLORIDE 0.9% 1,000 ML IV SCH (15:21)
[2019-01-18] MEDS: FAMOTIDINE 20 MG TAB NGT SCH (21:44)
[2019-01-18] MEDS: ATORVASTATIN 10 MG TAB PEG SCH (21:44)
[2019-01-18] MEDS: CHLORPROMAZINE 25 MG TAB GTB SCH (21:44)
[2019-01-18] MEDS: NPH, HUMAN INSULIN ISOPHANE 3ML VIAL SC SCH (22:27)
[2019-01-19] VITALS (18 sets, daily range): BP systolic 101–122; BP diastolic 66–80; PULSE 74–90; RESP 18–27
[2019-01-19] MEDS: DIGOXIN 0.125 MG TAB GTB SCH (00:40)
[2019-01-19] MEDS: LEVETIRACETAM IV 750 MG in SOD CHLORIDE 0.9% 100 ML IV SCH ×2 (00:48→13:01)
[2019-01-19] MEDS: MEROPENEM 1 GM/50ML(PMX) 50 ML IVPB SCH ×2 (00:48→13:02)
[2019-01-19] MEDS: NEUTRA-PHOS 250 MG PACKET GTB SCH ×3 (00:48→16:40)
[2019-01-19] MEDS: INSULIN ASPART [NOVOLOG] 3 ML PEN SC SCH ×6 (00:49→21:49)
[2019-01-19] MEDS: PANTOPRAZOLE 40 MG INJ IV SCH (04:43)
[2019-01-19] MEDS: APIXABAN 5 MG TABLET GTB SCH ×2 (09:15→21:01)
[2019-01-19] MEDS: FOLIC ACID 1 MG TAB PEG SCH (09:15)
[2019-01-19] MEDS: FUROSEMIDE 40 MG TAB PEG SCH (09:16)
[2019-01-19] MEDS: ASCORBIC ACID 500 MG TAB GTB SCH (09:16)
[2019-01-19] MEDS: SIROLIMUS 1 MG TAB PO SCH ×2 (09:16→21:02)
[2019-01-19] MEDS: ZINC SULFATE 220 MG CAP GTB SCH (09:17)
[2019-01-19] MEDS: DAKINS 0.0125%(1/40) 473 ML SOLUTION TP SCH (09:22)
[2019-01-19] MEDS: LACOSAMIDE (100 MG/10 ML PO SYR) GTB SCH ×2 (09:23→21:08)
[2019-01-19] MEDS: CHLORPROMAZINE 25 MG TAB GTB SCH (21:01)
[2019-01-19] MEDS: FAMOTIDINE 20 MG TAB NGT SCH (21:01)
[2019-01-19] MEDS: ATORVASTATIN 10 MG TAB PEG SCH (21:02)
[2019-01-19] MEDS: NPH, HUMAN INSULIN ISOPHANE 3ML VIAL SC SCH (21:49)
[2019-01-20] VITALS (18 sets, daily range): BP systolic 107–119; BP diastolic 65–74; PULSE 61–80; RESP 14–22
[2019-01-20] MEDS: NEUTRA-PHOS 250 MG PACKET GTB SCH ×3 (00:30→15:24)
[2019-01-20] MEDS: MEROPENEM 1 GM/50ML(PMX) 50 ML IVPB SCH ×2 (00:30→11:30)
[2019-01-20] MEDS: SCOPOLAMINE 1.5 MG PATCH TRANSDERM SCH (00:38)
[2019-01-20] MEDS: LEVETIRACETAM IV 750 MG in SOD CHLORIDE 0.9% 100 ML IV SCH ×2 (00:44→12:10)
[2019-01-20] MEDS: INSULIN ASPART [NOVOLOG] 3 ML PEN SC SCH ×4 (01:00→17:14)
[2019-01-20] MEDS: PANTOPRAZOLE 40 MG INJ IV SCH (05:53)
[2019-01-20] MEDS: SIROLIMUS 1 MG TAB PO SCH ×2 (08:48→21:43)
[2019-01-20] MEDS: FOLIC ACID 1 MG TAB PEG SCH (08:48)
[2019-01-20] MEDS: APIXABAN 5 MG TABLET GTB SCH ×2 (08:48→21:43)
[2019-01-20] MEDS: ZINC SULFATE 220 MG CAP GTB SCH (08:48)
[2019-01-20] MEDS: FUROSEMIDE 40 MG TAB PEG SCH (08:48)
[2019-01-20] MEDS: ASCORBIC ACID 500 MG TAB GTB SCH (08:48)
[2019-01-20] MEDS: LACOSAMIDE (100 MG/10 ML PO SYR) GTB SCH ×2 (08:57→21:43)
[2019-01-20] MEDS: DAKINS 0.0125%(1/40) 473 ML SOLUTION TP SCH (08:58)
[2019-01-20] MEDS ORDERED: INSULIN ASPART [NOVOLOG] 3 ML PEN SC SCH ×2 (12:00→13:00)
[2019-01-20] MEDS: CHLORPROMAZINE 25 MG TAB GTB SCH (21:43)
[2019-01-20] MEDS: FAMOTIDINE 20 MG TAB NGT SCH (21:43)
[2019-01-20] MEDS: ATORVASTATIN 10 MG TAB PEG SCH (21:44)
[2019-01-20] MEDS: NPH, HUMAN INSULIN ISOPHANE 3ML VIAL SC SCH (21:49)
[2019-01-21] VITALS (18 sets, daily range): BP systolic 103–119; BP diastolic 63–91; PULSE 64–79; RESP 18–28
[2019-01-21] MEDS: MEROPENEM 1 GM/50ML(PMX) 50 ML IVPB SCH (01:21)
[2019-01-21] MEDS: NEUTRA-PHOS 250 MG PACKET GTB SCH ×3 (01:21→16:43)
[2019-01-21] MEDS: LEVETIRACETAM IV 750 MG in SOD CHLORIDE 0.9% 100 ML IV SCH ×2 (01:21→12:35)
[2019-01-21] MEDS: DIGOXIN 0.125 MG TAB GTB SCH (01:22)
[2019-01-21] MEDS: INSULIN ASPART [NOVOLOG] 3 ML PEN SC SCH ×4 (01:27→16:57)
[2019-01-21] MEDS: PANTOPRAZOLE 40 MG INJ IV SCH (04:54)
[2019-01-21] MEDS: LANSOPRAZOLE (SOLTAB) 30 MG TAB GTB SCH (06:44)
[2019-01-21] MEDS: ASCORBIC ACID 500 MG TAB GTB SCH (08:54)
[2019-01-21] MEDS: SIROLIMUS 1 MG TAB PO SCH ×2 (08:54→21:49)
[2019-01-21] MEDS: FUROSEMIDE 40 MG TAB PEG SCH (08:54)
[2019-01-21] MEDS: APIXABAN 5 MG TABLET GTB SCH ×2 (08:54→21:13)
[2019-01-21] MEDS: FOLIC ACID 1 MG TAB PEG SCH (08:55)
[2019-01-21] MEDS: ZINC SULFATE 220 MG CAP GTB SCH (08:55)
[2019-01-21] MEDS: DAKINS 0.0125%(1/40) 473 ML SOLUTION TP SCH (08:56)
[2019-01-21] MEDS: LACOSAMIDE (100 MG/10 ML PO SYR) GTB SCH ×2 (09:08→21:13)
[2019-01-21] MEDS: PIPER-TAZO 3.375 GM IV (PMX) 100 ML IVPB SCH ×2 (11:20→16:58)
[2019-01-21] MEDS: NPH, HUMAN INSULIN ISOPHANE 3ML VIAL SC SCH (21:11)
[2019-01-21] MEDS: CHLORPROMAZINE 25 MG TAB GTB SCH (21:13)
[2019-01-21] MEDS: FAMOTIDINE 20 MG TAB NGT SCH (21:13)
[2019-01-21] MEDS: ATORVASTATIN 10 MG TAB PEG SCH (21:14)
[2019-01-22] VITALS (19 sets, daily range): BP systolic 92–105; BP diastolic 59–73; PULSE 66–76; RESP 14–23
[2019-01-22] MEDS: NEUTRA-PHOS 250 MG PACKET GTB SCH ×3 (01:13→15:47)
[2019-01-22] MEDS: LEVETIRACETAM IV 750 MG in SOD CHLORIDE 0.9% 100 ML IV SCH ×2 (01:14→12:22)
[2019-01-22] MEDS: PIPER-TAZO 3.375 GM IV (PMX) 100 ML IVPB SCH ×4 (01:14→18:02)
[2019-01-22] MEDS: LANSOPRAZOLE (SOLTAB) 30 MG TAB GTB SCH (05:32)
[2019-01-22] MEDS: INSULIN ASPART [NOVOLOG] 3 ML PEN SC SCH ×4 (05:33→17:27)
[2019-01-22] MEDS: GLUCAGON 1 MG INJ IM PRN (05:42)
[2019-01-22] MEDS: ASCORBIC ACID 500 MG TAB GTB SCH (08:32)
[2019-01-22] MEDS: LACOSAMIDE (100 MG/10 ML PO SYR) GTB SCH ×2 (08:32→20:14)
[2019-01-22] MEDS: FOLIC ACID 1 MG TAB PEG SCH (08:32)
[2019-01-22] MEDS: SIROLIMUS 1 MG TAB PO SCH ×2 (08:32→20:14)
[2019-01-22] MEDS: ZINC SULFATE 220 MG CAP GTB SCH (08:32)
[2019-01-22] MEDS: APIXABAN 5 MG TABLET GTB SCH ×2 (08:32→20:15)
[2019-01-22] MEDS: FUROSEMIDE 40 MG TAB PEG SCH (08:33)
[2019-01-22] MEDS: DAKINS 0.0125%(1/40) 473 ML SOLUTION TP SCH (08:33)
[2019-01-22] MEDS: FAMOTIDINE 20 MG TAB NGT SCH (20:14)
[2019-01-22] MEDS: CHLORPROMAZINE 25 MG TAB GTB SCH (20:14)
[2019-01-22] MEDS: ATORVASTATIN 10 MG TAB PEG SCH (20:14)
[2019-01-22] MEDS: NPH, HUMAN INSULIN ISOPHANE 3ML VIAL SC SCH (22:00)
[2019-01-23] VITALS: BP 104/68; PULSE 80; RESP 18
[2019-01-23] MEDS: DIGOXIN 0.125 MG TAB GTB SCH
[2019-01-23] MEDS: INSULIN ASPART [NOVOLOG] 3 ML PEN SC SCH
[2019-01-23] MEDS: NEUTRA-PHOS 250 MG PACKET GTB SCH (00:18)
[2019-01-23] MEDS: PIPER-TAZO 3.375 GM IV (PMX) 100 ML IVPB SCH (00:18)
[2019-01-23] MEDS: SCOPOLAMINE 1.5 MG PATCH TRANSDERM SCH (00:19)
[2019-01-23] MEDS: GLUCAGON 1 MG INJ IM PRN (00:35)
[2019-01-23] MEDS: LEVETIRACETAM IV 750 MG in SOD CHLORIDE 0.9% 100 ML IV SCH (00:39)
[2019-01-23 01:40] VITALS: RESP 22
== END 2019-01-23 03:40 | DRG 870 ==
LOC: E/R 21:07 → ICU 21:40 → TEL 01-18
PROVIDERS: ADMIT Internal Medicine; ATTEND Internal Medicine
PROC: 5A1955Z Respiratory Ventilation, Greater than 96 Consecutive Hours (ICD-10-PCS; principal; 2019-01-16)
DX: A41.9 Sepsis, unspecified organism (principal); J18.9 Pneumonia, unspecified organism; N39.0 Urinary tract infection, site not specified; Z99.11 Dependence on respirator [ventilator] status; J96.10 Chronic respiratory failure, unspecified whether with hypoxia or hypercapnia; I48.20 Chronic atrial fibrillation, unspecified; G93.40 Encephalopathy, unspecified; Z93.0 Tracheostomy status; E11.22 Type 2 diabetes mellitus with diabetic chronic kidney disease; R13.10 Dysphagia, unspecified; B96.5 Pseudomonas (aeruginosa) (mallei) (pseudomallei) as the cause of diseases classified elsewhere; D64.9 Anemia, unspecified; G40.909 Epilepsy, unspecified, not intractable, without status epilepticus; I12.9 Hypertensive chronic kidney disease with stage 1 through stage 4 chronic kidney disease, or unspecified chronic kidney disease; N18.9 Chronic kidney disease, unspecified; R65.20 Severe sepsis without septic shock; Z79.4 Long term (current) use of insulin
CPT/HCPCS: 36430; 36600; 71045; 74176; 80048; 80053; 81001; 82803; 82962; 83605; 83735; 84100; 84145; 85025; 85610; 85730; 86850; 86900; 86901; 86920; 87070; 87081; 87086; 94002; 94003; C9113; J0692; J1610; J1644; J1815; J1953; J2185; J2543; J3370; J7030; J7042; P9016